=== PATIENT | male | born 1945 | race Caucasian/White ===

== ENCOUNTER 2016-07-06 12:04 | Inpatient (IN) ==
[2016-07-06] MEDS ORDERED: methylPREDNISolone 125 MG/2 ML VIAL IVP ONE (13:37)
[2016-07-06] MEDS ORDERED: Ipratropium/Albuterol Neb 3 ML IH ONE (13:37)
--- NOTE | 2016-07-06 13:40 | Emergency Department Note ---
Disposition Clinical Impression: Acute exacerbation of chronic obstructive airways disease Disposition: Home, Self-Care Condition: Fair General Adult HPI - General Chief complaint: ED Shortness of Breath/Dyspnea Stated complaint: JYOTI Time Seen by Provider: 07/06/16 13:31 Source: patient Limitations: no limitations Nursing Notes Reviewed: Yes Vital Signs Reviewed: Yes - History of Present Illness Pain Scale: 5 - Related Data Home Medications Medication Instructions Recorded Confirmed Albuterol Sulfate [Proair Hfa] 2 puff IH Q4H PRN 07/06/16 07/06/16 Amlodipine [Norvasc] 5 mg PO DAILY 07/06/16 07/06/16 Aspirin 325 mg PO DAILY 07/06/16 07/06/16 Esomeprazole Magnesium [Nexium 22.3 mg PO DAILY 07/06/16 07/06/16 24Hr] HYDROcodone/Acet 5/325 mg [[place] 1 tab PO 1-2XD PRN 07/06/16 07/06/16 5-325 mg] Ipratropium/Albuterol Neb [Duoneb] 3 ml IH QID PRN 07/06/16 07/06/16 Lisinopril [Zestril] 20 mg PO DAILY 07/06/16 07/06/16 Metoprolol XL (24 HR) Succ [Toprol 50 mg PO DAILY 07/06/16 07/06/16 XL] Promethazine [Phenergan] 25 mg PO Q6HR PRN 07/06/16 07/06/16 Allergies Allergy/AdvReac Type Severity Reaction Status Date / Time No Known Allergies Allergy Verified 08/25/15 14:14 Past Medical History - Past Medical History Medical history: Reports: COPD, coronary artery disease, GERD, hyperlipidemia, hypertension, myocardial infarction, other Psychiatric history: Reports: no psych history - Social History Smoking Status: Current every day smoker Smokeless Tobacco Status: No Alcohol use: Reports: none Drug use: Reports: none Physical Exam - General Limitations: no limitations General appearance: alert, in no apparent distress Course Vital Signs Temperature 98.1 F 07/06/16 12:09 Pulse Rate 113 07/06/16 12:09 Respiratory Rate 18 07/06/16 12:09 Blood Pressure 168/92 07/06/16 12:09 O2 Sat by Pulse Oximetry 92 L 07/06/16 12:09 Temperature 97.8 F 07/06/16 17:08 Pulse Rate 77 07/06/16 17:08 Respiratory Rate 28 07/06/16 17:08 Blood Pressure 101/64 07/06/16 17:08 O2 Sat by Pulse Oximetry 96 07/06/16 17:08 Oxygen Delivery Oxygen Delivery Nasal Cannula Medical Decision Making - MDM Narrative Medical decision making narrative: I examined this patient and my medical decision-making was reviewed with the BED MACHINE OPERATOR/PA/Advanced Practice Nurse/Resident Physician. I agree with the documented findings, disposition and treatment plan as described except to the extent set forth below. Evaluated this patient on arrival with Dr. Bianchi, I agree with his evaluation and management plan, supervised the care of the patient felt stated. Patient history of COPD. His smoking but not the last 2 days. Worse at night. No chest pain. Benadryl workup on him breathing treatments and reassessed. He is in agreement with plan. Chest X-Ray 07/06/16 13:32 IMPRESSION: No acute cardiopulmonary disease. D/ / Travis Lu MD / Travis Lu MD Interpreting Provider: Travis Lu MD . 1550 hrs.: Admission through the hospitalist service. Patient's agreement this plan. - Lab Data Result diagrams: 07/06/16 13:50 07/06/16 13:50 Lab Results 07/06/16 07/06/16 07/06/16 Range/Units 13:50 13:50 13:50 WBC 7.4 (4.3-11.1) K/mcL RBC 4.92 (4.19-5.50) M/mcL Hgb 14.8 (12.9-16.9) g/dL Hct 44.6 (37.5-50.1) % MCV 90.7 (83.0-100.0) fL MCH 30.1 (28.0-33.3) pg MCHC 33.2 (31.6-35.5) g/dL RDW 13.8 (11.5-14.5) % Plt Count 180 (140-400) K/mcL MPV 11.5 (9.4-12.4) fL Immature Gran % 0.7 (0-4) % Seg Neutrophils % 77.8 % Lymphocytes % 7.7 % Monocytes % 13.1 % Eosinophils % 0.0 % Basophils % 0.7 % Neutrophils # 5.7 (1.6-8.9) K/mcL Lymphocytes # 0.6 (0.6-4.6) K/mcL Monocytes # 1.0 (0.0-1.3) K/mcL Eosinophils # 0.0 (0.0-0.6) K/mcL Basophils # 0.1 (0.0-0.2) K/mcL Immature Plt Fraction 11.0 H (1.1-6.1) % PT 13.6 H (9.4-12.1) Seconds INR 1.3 APTT 27.5 (26.0-36.0) Seconds ABG pH (7.32-7.45) pH Units ABG pCO2 (35-45) mmHg ABG pO2 (85-104) mmHg ABG HCO3 (21-27) mEQ/L ABG Total CO2 (20-26) mEq/L ABG O2 Saturation (95-98) % ABG Base Excess (-2.0 to 3.0) mEq/L Blood Gas Modality Inspired O2 % Sodium 136 (136-145) mEq/L Potassium 4.1 (3.5-4.5) mEq/L Chloride 101 (98-109) mEq/L Carbon Dioxide 25 (19-29) mEq/L BUN 13 (8-26) mg/dL Creatinine 1.04 (0.72-1.25) mg/dL Est GFR ( Amer) > 60 (> 60) Est GFR (Non-Af Amer) > 60 (> 60) BUN/Creatinine Ratio 13 (6-26) Glucose 114 H (70-99) mg/dL Calculated Osmolality 283 (280-300) Lactic Acid (0.5-2.2) mmol/L Calcium 9.1 (8.6-10.8) mg/dL Troponin I (0-0.03) ng/mL B-Natriuretic Peptide (0-100) pg/mL 07/06/16 07/06/16 07/06/16 Range/Units 13:50 13:50 13:50 WBC (4.3-11.1) K/mcL RBC (4.19-5.50) M/mcL Hgb (12.9-16.9) g/dL Hct (37.5-50.1) % MCV (83.0-100.0) fL MCH (28.0-33.3) pg MCHC (31.6-35.5) g/dL RDW (11.5-14.5) % Plt Count (140-400) K/mcL MPV (9.4-12.4) fL Immature Gran % (0-4) % Seg Neutrophils % % Lymphocytes % % Monocytes % % Eosinophils % % Basophils % % Neutrophils # (1.6-8.9) K/mcL Lymphocytes # (0.6-4.6) K/mcL Monocytes # (0.0-1.3) K/mcL Eosinophils # (0.0-0.6) K/mcL Basophils # (0.0-0.2) K/mcL Immature Plt Fraction (1.1-6.1) % PT (9.4-12.1) Seconds INR APTT (26.0-36.0) Seconds ABG pH (7.32-7.45) pH Units ABG pCO2 (35-45) mmHg ABG pO2 (85-104) mmHg ABG HCO3 (21-27) mEQ/L ABG Total CO2 (20-26) mEq/L ABG O2 Saturation (95-98) % ABG Base Excess (-2.0 to 3.0) mEq/L Blood Gas Modality Inspired O2 % Sodium (136-145) mEq/L Potassium (3.5-4.5) mEq/L Chloride (98-109) mEq/L Carbon Dioxide (19-29) mEq/L BUN (8-26) mg/dL Creatinine (0.72-1.25) mg/dL Est GFR ( Amer) (> 60) Est GFR (Non-Af Amer) (> 60) BUN/Creatinine Ratio (6-26) Glucose (70-99) mg/dL Calculated Osmolality (280-300) Lactic Acid 1.5 (0.5-2.2) mmol/L Calcium (8.6-10.8) mg/dL Troponin I 0.00 (0-0.03) ng/mL B-Natriuretic Peptide 48 (0-100) pg/mL 07/06/16 Range/Units 14:10 WBC (4.3-11.1) K/mcL RBC (4.19-5.50) M/mcL Hgb (12.9-16.9) g/dL Hct (37.5-50.1) % MCV (83.0-100.0) fL MCH (28.0-33.3) pg MCHC (31.6-35.5) g/dL RDW (11.5-14.5) % Plt Count (140-400) K/mcL MPV (9.4-12.4) fL Immature Gran % (0-4) % Seg Neutrophils % % Lymphocytes % % Monocytes % % Eosinophils % % Basophils % % Neutrophils # (1.6-8.9) K/mcL Lymphocytes # (0.6-4.6) K/mcL Monocytes # (0.0-1.3) K/mcL Eosinophils # (0.0-0.6) K/mcL Basophils # (0.0-0.2) K/mcL Immature Plt Fraction (1.1-6.1) % PT (9.4-12.1) Seconds INR APTT (26.0-36.0) Seconds ABG pH 7.36 (7.32-7.45) pH Units ABG pCO2 51 H (35-45) mmHg ABG pO2 147 H (85-104) mmHg ABG HCO3 28.8 H (21-27) mEQ/L ABG Total CO2 30.4 H (20-26) mEq/L ABG O2 Saturation 99 H (95-98) % ABG Base Excess 2.4 (-2.0 to 3.0) mEq/L Blood Gas Modality AEROSAL MASK Inspired O2 60 % Sodium (136-145) mEq/L Potassium (3.5-4.5) mEq/L Chloride (98-109) mEq/L Carbon Dioxide (19-29) mEq/L BUN (8-26) mg/dL Creatinine (0.72-1.25) mg/dL Est GFR ( Amer) (> 60) Est GFR (Non-Af Amer) (> 60) BUN/Creatinine Ratio (6-26) Glucose (70-99) mg/dL Calculated Osmolality (280-300) Lactic Acid (0.5-2.2) mmol/L Calcium (8.6-10.8) mg/dL Troponin I (0-0.03) ng/mL B-Natriuretic Peptide (0-100) pg/mL
--- NOTE | 2016-07-06 14:04 | Emergency Department Note ---
Disposition Clinical Impression: Acute exacerbation of chronic obstructive airways disease Disposition: Home, Self-Care Condition: Fair Referrals: Jarred Shaw, INSTRUMENT MAKER APPRENTICE [Primary Care Provider] - Forms: ED Satisfaction Letter Time of Disposition: 15:52 SOB HPI - General Chief Complaint: ED Shortness of Breath/Dyspnea Stated Complaint: JYOTI Time Seen by Provider: 07/06/16 13:31 Source: patient Limitations: no limitations Nursing Notes Reviewed: Yes Vital Signs Reviewed: Yes - History of Present Illness 71-year-old male with history of CAD sp stent RCA, COPD not oxygen dependent, presents with shortness of breath and cough for the last few weeks. Patient states that he has been having trouble catching his breath. Patient was seen by Dr. Ayers pulmonology, and for the pulmonary rehabilitation a few months ago. He continues to be a smoker, he states he has not smoked for the last 2-3 days. Pt Subjective Complaint: shortness of breath Onset (ago): week(s) Severity: moderate Improves with: nothing Worsens with: nothing Known history of: COPD Associated symptoms: Reports: fever, cough, wheezing, sputum production Treatment prior to arrival: oxygen Cough present: Yes Cough Description: Voluntary Cough Frequency: Continuous Sputum production: Yes Sputum Amount: Scant Sputum Color: Clear - Related Data Home Medications Medication Instructions Recorded Confirmed Albuterol Sulfate [Proair Hfa] 2 puff IH Q4H PRN 07/06/16 07/06/16 Amlodipine [Norvasc] 5 mg PO DAILY 07/06/16 07/06/16 Aspirin 325 mg PO DAILY 07/06/16 07/06/16 Esomeprazole Magnesium [Nexium 22.3 mg PO DAILY 07/06/16 07/06/16 24Hr] HYDROcodone/Acet 5/325 mg [[place] 1 tab PO 1-2XD PRN 07/06/16 07/06/16 5-325 mg] Ipratropium/Albuterol Neb [Duoneb] 3 ml IH QID PRN 07/06/16 07/06/16 Lisinopril [Zestril] 20 mg PO DAILY 07/06/16 07/06/16 Metoprolol XL (24 HR) Succ [Toprol 50 mg PO DAILY 07/06/16 07/06/16 XL] Promethazine [Phenergan] 25 mg PO Q6HR PRN 07/06/16 07/06/16 Allergies Allergy/AdvReac Type Severity Reaction Status Date / Time No Known Allergies Allergy Verified 08/25/15 14:14 Review of Systems: All systems were reviewed with historian and negative except as per below, or as documented in the HPI. Constitutional: Denies: fever, chills, weight changes Eyes: Denies: vision changes, eye pain ENT: Denies: nasal congestion, sore throat CV: Denies: chest pain, palpitations, leg swelling Resp:+ cough, dyspnea, wheezing GI: Denies: abdominal pain, N/V/D/C, hematochezia, melena Neuro: Denies: R[place], weakness, sensory changes, gait difficulty Psych: Denies: anxiety, depression All systems ED: reviewed and negative except as stated. Past Medical History - Past Medical History Attestation: Yes The following information was validated with the patient. [facility] [place] Narrative: Abdominal aortic aneurysm HTN ACID REFLUX COPD Coronary artery disease Hyperlipidemia Broken Back (no surgery) COPD (chronic obstructive pulmonary disease) COPD (chronic obstructive pulmonary disease) Source: patient Medical history: Reports: COPD, coronary artery disease, GERD, hyperlipidemia, hypertension, myocardial infarction, other Psychiatric history: Reports: no psych history - Social History Smoking Status: Current every day smoker Smokeless Tobacco Status: No Alcohol use: Reports: none Drug use: Reports: none Physical Exam Constitutional: Moderate tachycardic and tachypneic, working to breathe mild respiratory distress. HEENT: NCAT, sclera anicteric, PERRLA bilaterally, normal external ears bilaterally, nasal septum nondeviated, average dentition, MMM Neck: normal inspection, neck is supple, trachea midline, no JVD Resp: Diminish lung sounds bilaterally, decreased respiratory prolonged expiratory phase, scattered wheezes bilaterally. CV: Tachycardia no m/g/r, Pulses +2 Rad, +2 DP/PT bilaterally, no pedal edema GI: Incision c/w with previous AAA repair, Soft, NTND, BS present and normoactive Back: normal inspection, no tenderness to palpation Skin: No rashes, skin warm, dry, intact - General Limitations: no limitations General appearance: alert, in no apparent distress Course Course Narrative: 71-year-old male with probable superior exacerbation, sounds bilaterally wheezy , cp workup, labs duonebs and ABG ordered - Reevaluation(s) Reevaluation #1: Patient with mild to moderate us DuoNeb treatment, still did have tight diminished breath sounds bilaterally with respiratory wheezes, after removing nasal cannula patient dropped down to 87% without exertion, place patient back on 3 L nasal cannula, improved to 93%, platelet admitted to the hospitalist for acute exacerbation of COPD, patient in stable condition at the time of admission Time: 15:52 Vital Signs Temperature 98.1 F 07/06/16 12:09 Pulse Rate 113 07/06/16 12:09 Respiratory Rate 18 07/06/16 12:09 Blood Pressure 168/92 07/06/16 12:09 O2 Sat by Pulse Oximetry 92 L 07/06/16 12:09 Temperature 98.1 F 07/06/16 12:09 Pulse Rate 95 07/06/16 14:27 Respiratory Rate 24 07/06/16 14:27 Blood Pressure 107/70 07/06/16 14:27 O2 Sat by Pulse Oximetry 98 07/06/16 14:27 Oxygen Delivery Oxygen Delivery Nasal Cannula Shortness of Breath/Dyspnea - Differential Diagnosis Likely: acute exacerbation of chronic obstructive airways disease, congestive heart failure, pneumonia, pulmonary embolism - Medical Records Medical records reviewed: Yes I reviewed the patient's medical records. - Lab Data Lab results reviewed: Yes I reviewed the patient's lab results. Result diagrams: 07/06/16 13:50 07/06/16 13:50 Lab Results 07/06/16 07/06/16 07/06/16 Range/Units 13:50 13:50 13:50 WBC 7.4 (4.3-11.1) K/mcL RBC 4.92 (4.19-5.50) M/mcL Hgb 14.8 (12.9-16.9) g/dL Hct 44.6 (37.5-50.1) % MCV 90.7 (83.0-100.0) fL MCH 30.1 (28.0-33.3) pg MCHC 33.2 (31.6-35.5) g/dL RDW 13.8 (11.5-14.5) % Plt Count 180 (140-400) K/mcL MPV 11.5 (9.4-12.4) fL Immature Gran % 0.7 (0-4) % Seg Neutrophils % 77.8 % Lymphocytes % 7.7 % Monocytes % 13.1 % Eosinophils % 0.0 % Basophils % 0.7 % Neutrophils # 5.7 (1.6-8.9) K/mcL Lymphocytes # 0.6 (0.6-4.6) K/mcL Monocytes # 1.0 (0.0-1.3) K/mcL Eosinophils # 0.0 (0.0-0.6) K/mcL Basophils # 0.1 (0.0-0.2) K/mcL Immature Plt Fraction 11.0 H (1.1-6.1) % PT 13.6 H (9.4-12.1) Seconds INR 1.3 APTT 27.5 (26.0-36.0) Seconds ABG pH (7.32-7.45) pH Units ABG pCO2 (35-45) mmHg ABG pO2 (85-104) mmHg ABG HCO3 (21-27) mEQ/L ABG Total CO2 (20-26) mEq/L ABG O2 Saturation (95-98) % ABG Base Excess (-2.0 to 3.0) mEq/L Blood Gas Modality Inspired O2 % Sodium 136 (136-145) mEq/L Potassium 4.1 (3.5-4.5) mEq/L Chloride 101 (98-109) mEq/L Carbon Dioxide 25 (19-29) mEq/L BUN 13 (8-26) mg/dL Creatinine 1.04 (0.72-1.25) mg/dL Est GFR ( Amer) > 60 (> 60) Est GFR (Non-Af Amer) > 60 (> 60) BUN/Creatinine Ratio 13 (6-26) Glucose 114 H (70-99) mg/dL Calculated Osmolality 283 (280-300) Lactic Acid (0.5-2.2) mmol/L Calcium 9.1 (8.6-10.8) mg/dL Troponin I (0-0.03) ng/mL B-Natriuretic Peptide (0-100) pg/mL 07/06/16 07/06/16 07/06/16 Range/Units 13:50 13:50 13:50 WBC (4.3-11.1) K/mcL RBC (4.19-5.50) M/mcL Hgb (12.9-16.9) g/dL Hct (37.5-50.1) % MCV (83.0-100.0) fL MCH (28.0-33.3) pg MCHC (31.6-35.5) g/dL RDW (11.5-14.5) % Plt Count (140-400) K/mcL MPV (9.4-12.4) fL Immature Gran % (0-4) % Seg Neutrophils % % Lymphocytes % % Monocytes % % Eosinophils % % Basophils % % Neutrophils # (1.6-8.9) K/mcL Lymphocytes # (0.6-4.6) K/mcL Monocytes # (0.0-1.3) K/mcL Eosinophils # (0.0-0.6) K/mcL Basophils # (0.0-0.2) K/mcL Immature Plt Fraction (1.1-6.1) % PT (9.4-12.1) Seconds INR APTT (26.0-36.0) Seconds ABG pH (7.32-7.45) pH Units ABG pCO2 (35-45) mmHg ABG pO2 (85-104) mmHg ABG HCO3 (21-27) mEQ/L ABG Total CO2 (20-26) mEq/L ABG O2 Saturation (95-98) % ABG Base Excess (-2.0 to 3.0) mEq/L Blood Gas Modality Inspired O2 % Sodium (136-145) mEq/L Potassium (3.5-4.5) mEq/L Chloride (98-109) mEq/L Carbon Dioxide (19-29) mEq/L BUN (8-26) mg/dL Creatinine (0.72-1.25) mg/dL Est GFR ( Amer) (> 60) Est GFR (Non-Af Amer) (> 60) BUN/Creatinine Ratio (6-26) Glucose (70-99) mg/dL Calculated Osmolality (280-300) Lactic Acid 1.5 (0.5-2.2) mmol/L Calcium (8.6-10.8) mg/dL Troponin I 0.00 (0-0.03) ng/mL B-Natriuretic Peptide 48 (0-100) pg/mL 07/06/16 Range/Units 14:10 WBC (4.3-11.1) K/mcL RBC (4.19-5.50) M/mcL Hgb (12.9-16.9) g/dL Hct (37.5-50.1) % MCV (83.0-100.0) fL MCH (28.0-33.3) pg MCHC (31.6-35.5) g/dL RDW (11.5-14.5) % Plt Count (140-400) K/mcL MPV (9.4-12.4) fL Immature Gran % (0-4) % Seg Neutrophils % % Lymphocytes % % Monocytes % % Eosinophils % % Basophils % % Neutrophils # (1.6-8.9) K/mcL Lymphocytes # (0.6-4.6) K/mcL Monocytes # (0.0-1.3) K/mcL Eosinophils # (0.0-0.6) K/mcL Basophils # (0.0-0.2) K/mcL Immature Plt Fraction (1.1-6.1) % PT (9.4-12.1) Seconds INR APTT (26.0-36.0) Seconds ABG pH 7.36 (7.32-7.45) pH Units ABG pCO2 51 H (35-45) mmHg ABG pO2 147 H (85-104) mmHg ABG HCO3 28.8 H (21-27) mEQ/L ABG Total CO2 30.4 H (20-26) mEq/L ABG O2 Saturation 99 H (95-98) % ABG Base Excess 2.4 (-2.0 to 3.0) mEq/L Blood Gas Modality AEROSAL MASK Inspired O2 60 % Sodium (136-145) mEq/L Potassium (3.5-4.5) mEq/L Chloride (98-109) mEq/L Carbon Dioxide (19-29) mEq/L BUN (8-26) mg/dL Creatinine (0.72-1.25) mg/dL Est GFR ( Amer) (> 60) Est GFR (Non-Af Amer) (> 60) BUN/Creatinine Ratio (6-26) Glucose (70-99) mg/dL Calculated Osmolality (280-300) Lactic Acid (0.5-2.2) mmol/L Calcium (8.6-10.8) mg/dL Troponin I (0-0.03) ng/mL B-Natriuretic Peptide (0-100) pg/mL - Radiology Data Radiology results reviewed: Yes I reviewed the patient's radiology results. Chest X-Ray 07/06/16 13:32 IMPRESSION: No acute cardiopulmonary disease. D/ / Travis Lu MD / Travis Lu MD Interpreting Provider: Travis Lu MD - EKG Data EKG attestation: Yes I reviewed and interpreted this EKG. EKG shows normal: Reports: sinus rhythm Rate: Reports: tachycardia (1 14 bpm LA interval 150 QRS 98 QTc 385. No evidence of ST segment elevations or depressions) Rhythm: Reports: NSR [place]/QRS: Reports: normal Interpretation: Reports: no acute changes, unchanged when compared to prior tracing (date) - Core Measures AMI Core Measures Followed: No
[2016-07-06 14:07] LABS: Basophils # 0.1 K/mcL (0.0-0.2); Basophils % 0.7 %; Hematocrit 44.6 % (37.5-50.1); Hemoglobin 14.8 g/dL (12.9-16.9); Immature Granulocytes % 0.7 % (0-4); Lymphocytes # 0.6 K/mcL (0.6-4.6); Lymphocytes % 7.7 %; Mean Corpuscular HGB Conc 33.2 g/dL (31.6-35.5); Mean Corpuscular Hemoglobin 30.1 pg (28.0-33.3); Mean Corpuscular Volume 90.7 fL (83.0-100.0); Mean Platelet Volume 11.5 fL (9.4-12.4); Monocytes % 13.1 %; Neutrophils # 5.7 K/mcL (1.6-8.9); Platelet Count 180 K/mcL (140-400); Red Blood Count 4.92 M/mcL (4.19-5.50); Red Cell Distribution Width 13.8 % (11.5-14.5); Segmented Neutrophils % 77.8 %
[2016-07-06 14:14] LABS: INR 1.3; Prothrombin Time 13.6 Seconds (9.4-12.1)
[2016-07-06 14:17] LABS: Activated Partial Thrombo Time 27.5 Seconds (26.0-36.0)
[2016-07-06 14:19] LABS: BUN/Creatinine Ratio 13 (6-26); Blood Urea Nitrogen 13 mg/dL (8-26); Calcium 9.1 mg/dL (8.6-10.8); Carbon Dioxide 25 mEq/L (19-29); Chloride 101 mEq/L (98-109); Glucose 114 mg/dL (70-99); Osmolality,Calculated 283 (280-300); Potassium 4.1 mEq/L (3.5-4.5); Sodium 136 mEq/L (136-145); eGFR For African Americans > 60 (> 60); eGFR For Non-African Americans > 60 (> 60)
[2016-07-06 14:24] LABS: ABG Base Excess 2.4 mEq/L (-2.0 to 3.0); ABG HCO3 28.8 mEQ/L (21-27); ABG Oxygen Saturation 99 % (95-98); ABG PCO2 51 mmHg (35-45); ABG PH 7.36 pH Units (7.32-7.45); ABG PO2 147 mmHg (85-104); ABG TCO2 30.4 mEq/L (20-26); Blood Gas FiO2 60 %
[2016-07-06] MEDS ORDERED: Naloxone 0.4 MG/ML INJ IVP PRN (16:30)
[2016-07-06] MEDS ORDERED: Ondansetron 4 MG/2 ML VIAL IVP PRN (16:30)
[2016-07-06] MEDS ORDERED: Acetaminophen 325 MG TABLET PO PRN (16:30)
[2016-07-06] MEDS ORDERED: *HR* HYDROcodone/Acet 5/325 mg TABLET PO PRN (16:32)
--- NOTE | 2016-07-06 16:39 | Internal Med History&Physical ---
Date of Encounter: 07/06/16 Time of Encounter: 16:00 Assessment and Plan (1) Acute exacerbation of chronic obstructive airways disease Current visit: Yes Status: Acute 1 history of COPD no oxygen use at home at this time patient is experiencing increasing shortness of breath over the past few days even at rest. Upon presentation oxygen saturation 92%. We will continue with oxygen to maintain SPO2 greater than 92% 2 Will obtain 6 minute walk test to assess for home oxygen 3 we will continue with bronchodilators 4 we will continue with IV Solu-Medrol to taper 5 patient follow up with as outpatient 6 [facility] Internal Medicine - H&P: HPI Chief complaint: SOB Admitted From: Emergency Dept Plans for Post Hospital Care: Home History of present illness: Mr. Segura is a 71 year old male with a past medical history of AAA with repair , CAD with stent placement, hypertension COPD chronic back pain tobacco use. According to the patient he does have history of shortness of breath on exertion as well as a chronic cough however since Monday he has been experiencing increasing shortness of breath even while at rest. He has not been able to sleep and last night he was up several times utilizing nebulizer to relieve his symptoms. He also states that he normally smokes 2 packs a day however he has not been able to smoke due to his increasing shortness of breath. He has had a low-grade fever at 99, however denies any nausea vomiting diarrhea abdominal pain or chest pain. He denies any recent travel he has been exposed to sick relatives, questionable flu. He presented to the ER due to increasing shortness of breath. According to ER records patient presented with SPO2 of 92% ABG revealed pH 7.36 PCO2 51 PO2 147 bicarbonate 20.8 O2 sat 99%. He was placed on oxygen at 4 L nasal cannula given duo nebs as well as steroids. Chest x-ray revealed no acute cardiopulmonary disease , lab work was unremarkable EKG with no ischemic changes. He is admitted for further workup and evaluation. Presently patient does not appear to be in any respiratory distress oxygen saturation is 9495% on 4 L nasal cannula. Upon position change patient's oxygen saturation did drop down to 92 he did become tachypneic respiratory rate 30. Breath sounds are diminished with little air exchange occasional faint expiratory wheeze. Patient rested oxygen saturation improved as well as respiratory rate. I reviewed the case with Dr. Morton who agrees with plan. Assessment/plan acute hypoxic respiratory failure-upon presentation patient's SPO2 92%-O2 sats drop with removal oxygen down to 88%.-Patient has a history of COPD as well as tobacco use. We will continue with oxygen maintain SPO2 greater than 92%- patient does not utilize oxygen at home will attempt to wean oxygen however will obtain 6 minute walk test for possible home oxygen use-continuous SPO2 monitoring 2 we will continue with steroids to taper 3 continue bronchodilators 4 blood cultures have been obtained we will give Levaquin by mouth 5 we will obtain flu swabs-patient has had sick contacts CAD with stent placement - we will continue patient's beta iván aspirin, erika Essential HTN- presently controlled we will continue with home medications - goal is to maintain systolic less than 140 Tobacco abuse-encouraged patient to stop smoking-nicotine patch DVT prophylaxis-Lovenox Past Med Surg Social Fam HX - Past Medical History Medical history: COPD, coronary artery disease, GERD, hyperlipidemia, hypertension, myocardial infarction, other Psychiatric history: no psych history - Social History Smoking Status: Current every day smoker Smokeless Tobacco Status: No Alcohol use: none Drug use: none - Family History Mother Living Status: Hx Family Cardiac Disorders: Yes (chf) Brother Living Status: Still Living Hx Family Endocrine Disorder: Yes (dm) Internal Medicine - H&P: Meds Albuterol Sulfate [Proair Hfa] 2 puff IH Q4H PRN 07/06/16 [History] Amlodipine [Norvasc] 5 mg PO DAILY 07/06/16 [History] Aspirin 325 mg PO DAILY 07/06/16 [History] Esomeprazole Magnesium [Nexium 24Hr] 22.3 mg PO DAILY 07/06/16 [History] HYDROcodone/Acet 5/325 mg [[place] 5-325 mg] 1 tab PO 1-2XD PRN 07/06/16 [History] Ipratropium/Albuterol Neb [Duoneb] 3 ml IH QID PRN 07/06/16 [History] Lisinopril [Zestril] 20 mg PO DAILY 07/06/16 [History] Metoprolol XL (24 HR) Succ [Toprol XL] 50 mg PO DAILY 07/06/16 [History] Promethazine [Phenergan] 25 mg PO Q6HR PRN 07/06/16 [History] Allergies No Known Allergies Allergy (Verified 08/25/15 14:14) All Systems PM: A 10-system review of systems was performed and is negative for pertinent findings except as documented above in the HPI. - Constitutional Constitutional: fever(s) - Cardiovascular Cardiovascular ROS IM: dyspnea on exertion - Respiratory Respiratory: cough, dyspnea, dyspnea on exertion - Gastrointestinal Gastrointestinal: no abdominal pain, no diarrhea, no hematemesis, no hematochezia, no melena, no nausea, no vomiting - Musculoskeletal Musculoskeletal ROS IM: back pain, no numbness, no tingling - Neurological Neurological ROS: no confusion, no convulsions, no focal weakness, no numbness, no tingling, no tremor(s) - Constitutional Vitals: Temp Pulse Resp BP Pulse Ox 98.1 F 95 24 107/70 98 07/06/16 12:09 07/06/16 14:27 07/06/16 14:27 07/06/16 14:27 07/06/16 14:27 General appearance: Present: A&O X 3, answers questions appropriately - Head Head exam: Present: atraumatic, normocephalic - Eye Eye exam: Present: PERRL, conjuntiva pink, sclera anicteric Pupils: Present: PERRL - Neck Neck exam general surgery: Present: supple, trachea midline. Absent: lymphadenopathy - Respiratory Respiratory exam: Present: decreased breath sounds, wheezes. Absent: accessory muscle use, rales, rhonchi - Cardiovascular Cardiovascular exam: Present: RRR, +S1, +S2. Absent: diastolic murmur, gallop, rubs, systolic murmur - GI/Abdominal GI/Abdominal exam: Present: normal bowel sounds, soft, no peritoneal signs. Absent: distended, tenderness - Extremities Exam Extremities exam: Present: warm, radial pulses palpable and symetrical. Absent : calf tenderness, cyanotic, pedal edema - Neurological Exam Neurological exam: Present: CN II-XII intact, oriented X3, no focal deficits. Absent: pronater drift, facial droop, speech deficit Internal Med - H&P Results - Labs CBC & Chem 7: 07/06/16 13:50 07/06/16 13:50 - EKG Data EKG shows normal: sinus rhythm Rate: tachycardia - EKG Data Prior EKG available for review: yes When compared to previous EKG: there is no significant change EKG comments: 07/06/16 17:[address] Morton - Diagnostic Studies Chest x-ray Additional comments: Per radiology reading of acute cardiopulmonary disease
[2016-07-06] MEDS: Nicotine 14 MG PATCH.TD24 TD SCH (17:16)
[2016-07-06] MEDS: methylPREDNISolone 125 MG/2 ML VIAL IVP SCH (17:16)
[2016-07-06] MEDS: Ipratropium/Albuterol Neb 3 ML IH SCH ×2 (17:18→23:13)
[2016-07-06] MEDS ORDERED: methylPREDNISolone 125 MG/2 ML VIAL IVP SCH (18:00)
[2016-07-06] MEDS: levoFLOXacin 500 MG TABLET PO SCH (19:46)
[2016-07-06 19:52] LABS: 2009 H1N1 PCR NOT DETECTED (Not Detect); Influenza A PCR Positive (Negative); Influenza B PCR Negative (Negative)
[2016-07-07] MEDS: methylPREDNISolone 125 MG/2 ML VIAL IVP SCH ×2 (00:04→06:32)
[2016-07-07] MEDS: *HR* HYDROcodone/Acet 5/325 mg TABLET PO PRN ×2 (03:00→23:02)
[2016-07-07] MEDS: Ipratropium/Albuterol Neb 3 ML IH SCH ×6 (05:31→19:57)
[2016-07-07 05:41] LABS: Basophils % 0.2 %; Hematocrit 42.1 % (37.5-50.1); Hemoglobin 14.1 g/dL (12.9-16.9); Immature Granulocytes % 1.3 % (0-4); Immature Platelets 13.3 % (1.1-6.1); Lymphocytes # 0.5 K/mcL (0.6-4.6); Lymphocytes % 9.9 %; Mean Corpuscular HGB Conc 33.5 g/dL (31.6-35.5); Mean Corpuscular Hemoglobin 30.5 pg (28.0-33.3); Mean Corpuscular Volume 91.1 fL (83.0-100.0); Monocytes # 0.2 K/mcL (0.0-1.3); Monocytes % 3.2 %; Platelet Count 178 K/mcL (140-400); Red Blood Count 4.62 M/mcL (4.19-5.50); Red Cell Distribution Width 13.7 % (11.5-14.5); Segmented Neutrophils % 85.4 %
[2016-07-07] MEDS: *HR* Enoxaparin 40 MG/0.4 ML SYRINGE SQ SCH (06:32)
[2016-07-07 07:01] LABS: BUN/Creatinine Ratio 21 (6-26); Blood Urea Nitrogen 20 mg/dL (8-26); Calcium 9.1 mg/dL (8.6-10.8); Carbon Dioxide 24 mEq/L (19-29); Chloride 102 mEq/L (98-109); Glucose 151 mg/dL (70-99); Osmolality,Calculated 292 (280-300); Potassium 4.1 mEq/L (3.5-4.5); Sodium 138 mEq/L (136-145); eGFR For African Americans > 60 (> 60); eGFR For Non-African Americans > 60 (> 60)
[2016-07-07] MEDS ORDERED: Lisinopril 20 MG TABLET PO SCH (09:00)
[2016-07-07] MEDS ORDERED: amLODIPine 5 MG TABLET PO SCH (09:00)
[2016-07-07] MEDS: levoFLOXacin 500 MG TABLET PO SCH (09:04)
[2016-07-07] MEDS: Aspirin 325 MG TABLET PO SCH (09:04)
[2016-07-07] MEDS: Nicotine 14 MG PATCH.TD24 TD SCH (09:04)
[2016-07-07] MEDS: Metoprolol XL (24 HR) Succ 50 MG TAB.ER.24H PO SCH (09:05)
--- NOTE | 2016-07-07 11:23 | Internal Med Progress Note ---
Date of Encounter: 07/07/16 Time of Encounter: 11:30 - Assessment and plan (1) Acute respiratory failure with hypoxemia Current Visit: No Status: Acute Assessment and plan: secondary to COPD exacerbation and influenza A infection. not on oxygen at home. Requiring 3.5- 4L of oxygen. 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 He developed symptoms two days later. start Tamiflu. (4) HTN (hypertension) Current Visit: Yes Status: Acute Assessment and plan: BP is low normal. hold home lisinopril. continue amlodipine with parameters Qualifiers: Hypertension type: essential hypertension Qualified Code(s): I10 - Essential (primary) hypertension (5) CAD (coronary artery disease) Current Visit: Yes Status: Acute Assessment and plan: stable. continue home meds Qualifiers: Coronary Disease-Associated Artery/Lesion type: [place] artery [place] vs. transplanted heart: [place] heart Associated angina: without angina Qualified Code(s): I25.10 - Atherosclerotic heart disease of [place] coronary artery without angina pectoris (6) Tobacco abuse Current Visit: Yes Status: Acute Assessment and plan: nicotine patch. counseled to quit - Subjective Interval history: patient still feels short of breath, minimal cough. - Constitutional Vitals: Temp Pulse Resp BP Pulse Ox 97.4 F L 67 18 100/67 94 L 07/07/16 04:56 07/07/16 04:56 07/07/16 11:10 07/07/16 04:56 07/07/16 11:10 General appearance: Present: cooperative, mild distress, A&O X 3, pleasant, answers questions appropriately - ENT ENT exam: Present: mucous membranes moist - Neck Neck exam general surgery: Present: supple, trachea midline. Absent: lymphadenopathy - Respiratory Respiratory exam: Present: decreased breath sounds, respiratory distress (mild) , wheezes - Cardiovascular Cardiovascular exam: Present: RRR - GI/Abdominal GI/Abdominal exam: Present: normal bowel sounds, soft. Absent: distended, tenderness - Extremities Exam Extremities exam: Absent: pedal edema - Back Exam Back exam: Absent: CVA tenderness (L), CVA tenderness (R) - Neurological Exam Neurological exam: Present: alert, oriented X3, no focal deficits, strengths equal and symetr throughout - Skin Skin exam: Absent: rash Internal Medicine: Result - Labs CBC & Chem 7: 07/07/16 03:26 07/07/16 03:26 Labs: Short CBC 07/07/16 Range/Units 03:26 WBC 4.6 (4.3-11.1) K/mcL Hgb 14.1 (12.9-16.9) g/dL Hct 42.1 (37.5-50.1) % Plt Count 178 (140-400) K/mcL Neutrophils # 4.0 (1.6-8.9) K/mcL BMP 07/07/16 03:26 Sodium 138 Potassium 4.1 Chloride 102 Carbon Dioxide 24 BUN 20 Creatinine 0.94 Glucose 151 H Calcium 9.1 - ABG Interpretation ABG results: ABG ABG pH 7.36 pH Units (7.32-7.45) 07/06/16 14:10 ABG pCO2 51 mmHg (35-45) H 07/06/16 14:10 ABG pO2 147 mmHg (85-104) H 07/06/16 14:10 ABG O2 Saturation 99 % (95-98) H 07/06/16 14:10 PT/INR, D-dimer PT 13.6 Seconds (9.4-12.1) H 07/06/16 13:50 Consult Discharge Plan - Plan Referrals: Jarred Shaw, MANAGER RN [Primary Care Provider] - 07/14/16 3:20 pm (Please follow up as schedule...)
[2016-07-07] MEDS: Doxycycline 100 MG CAPSULE PO SCH ×3 (12:30→21:12)
[2016-07-07] MEDS: MethylPREDNISolone 40 MG/ML VIAL IVP SCH (17:09)
[2016-07-08] MEDS: Ipratropium/Albuterol Neb 3 ML IH SCH ×7 (00:47→23:40)
[2016-07-08] MEDS: *HR* Enoxaparin 40 MG/0.4 ML SYRINGE SQ SCH (06:16)
[2016-07-08] MEDS: MethylPREDNISolone 40 MG/ML VIAL IVP SCH ×2 (06:16→17:37)
--- NOTE | 2016-07-08 06:27 | Electrocardiograph Report ---
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
[2016-07-08 06:37] LABS: Basophils % 0.1 %; Hematocrit 42.1 % (37.5-50.1); Hemoglobin 13.8 g/dL (12.9-16.9); Immature Granulocytes % 0.9 % (0-4); Lymphocytes # 0.7 K/mcL (0.6-4.6); Lymphocytes % 3.5 %; Mean Corpuscular HGB Conc 32.8 g/dL (31.6-35.5); Mean Corpuscular Hemoglobin 29.9 pg (28.0-33.3); Mean Corpuscular Volume 91.3 fL (83.0-100.0); Mean Platelet Volume 11.9 fL (9.4-12.4); Monocytes # 1.2 K/mcL (0.0-1.3); Monocytes % 5.6 %; Neutrophils # 18.8 K/mcL (1.6-8.9); Platelet Count 196 K/mcL (140-400); Red Blood Count 4.61 M/mcL (4.19-5.50); Red Cell Distribution Width 13.7 % (11.5-14.5); Segmented Neutrophils % 89.9 %
[2016-07-08 06:51] LABS: BUN/Creatinine Ratio 31 (6-26); Blood Urea Nitrogen 27 mg/dL (8-26); Calcium 9.3 mg/dL (8.6-10.8); Carbon Dioxide 30 mEq/L (19-29); Chloride 103 mEq/L (98-109); Glucose 137 mg/dL (70-99); Magnesium 1.7 mg/dL (1.6-2.6); Osmolality,Calculated 297 (280-300); Potassium 4.4 mEq/L (3.5-4.5); Sodium 140 mEq/L (136-145); eGFR For African Americans > 60 (> 60); eGFR For Non-African Americans > 60 (> 60)
[2016-07-08] MEDS: Doxycycline 100 MG CAPSULE PO SCH ×3 (09:28→21:01)
[2016-07-08] MEDS: Metoprolol XL (24 HR) Succ 50 MG TAB.ER.24H PO SCH (09:28)
[2016-07-08] MEDS: Nicotine 14 MG PATCH.TD24 TD SCH (09:28)
[2016-07-08] MEDS: amLODIPine 5 MG TABLET PO SCH (09:28)
[2016-07-08] MEDS: Aspirin 325 MG TABLET PO SCH (09:29)
--- NOTE | 2016-07-08 17:25 | Internal Med Progress Note ---
Date of Encounter: 07/08/16 Time of Encounter: 15:00 - Assessment and plan (1) Acute respiratory failure with hypoxemia Current Visit: No Status: Acute Assessment and plan: secondary to COPD exacerbation and influenza A infection. Not on oxygen at home. CT chest was negative for any acute process, significant emphysema involves the bilateral lungs. Requiring 3.5 - 4L of oxygen. 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 He developed symptoms two days later. Tamiflu. (4) HTN (hypertension) Current Visit: Yes Status: Acute Assessment and plan: BP is low normal. hold home lisinopril. continue amlodipine with parameters Qualifiers: Hypertension type: essential hypertension Qualified Code(s): I10 - Essential (primary) hypertension (5) CAD (coronary artery disease) Current Visit: Yes Status: Acute Assessment and plan: stable. continue home meds Qualifiers: Coronary Disease-Associated Artery/Lesion type: [place] artery [place] vs. transplanted heart: [place] heart Associated angina: without angina Qualified Code(s): I25.10 - Atherosclerotic heart disease of [place] coronary artery without angina pectoris (6) Tobacco abuse Current Visit: Yes Status: Acute Assessment and plan: nicotine patch. counseled to quit - Subjective Interval history: patient still had JYOTI. no chest pain - Constitutional Vitals: Temp Pulse Resp BP Pulse Ox 98.1 F 72 20 116/72 93 L 07/08/16 15:13 07/08/16 15:13 07/08/16 16:11 07/08/16 15:13 07/08/16 16:11 General appearance: Present: cooperative, mild distress, A&O X 3, pleasant, answers questions appropriately - Eye Eye exam: Present: PERRL, sclera anicteric - Neck Neck exam general surgery: Present: supple, trachea midline. Absent: lymphadenopathy - Respiratory Respiratory exam: Present: wheezes - Cardiovascular Cardiovascular exam: Present: RRR - GI/Abdominal GI/Abdominal exam: Present: normal bowel sounds, soft. Absent: distended, tenderness - Extremities Exam Extremities exam: Absent: pedal edema - Back Exam Back exam: Absent: CVA tenderness (L), CVA tenderness (R) - Neurological Exam Neurological exam: Present: alert, oriented X3. Absent: facial droop, speech deficit - Skin Skin exam: Absent: rash Internal Medicine: Result - Labs CBC & Chem 7: 07/08/16 06:08 07/08/16 06:08 Labs: Short CBC 07/08/16 Range/Units 06:08 WBC 20.9 H D (4.3-11.1) K/mcL Hgb 13.8 (12.9-16.9) g/dL Hct 42.1 (37.5-50.1) % Plt Count 196 (140-400) K/mcL Neutrophils # 18.8 H (1.6-8.9) K/mcL BMP 07/08/16 06:08 Sodium 140 Potassium 4.4 Chloride 103 Carbon Dioxide 30 H BUN 27 H Creatinine 0.87 Glucose 137 H Calcium 9.3 - ABG Interpretation ABG results: ABG ABG pH 7.36 pH Units (7.32-7.45) 07/06/16 14:10 ABG pCO2 51 mmHg (35-45) H 07/06/16 14:10 ABG pO2 147 mmHg (85-104) H 07/06/16 14:10 ABG O2 Saturation 99 % (95-98) H 07/06/16 14:10 PT/INR, D-dimer PT 13.6 Seconds (9.4-12.1) H 07/06/16 13:50 Consult Discharge Plan - Plan Referrals: Jarred Shaw, SLUDGE FILTRATION OPERATOR [Primary Care Provider] - 07/14/16 3:20 pm (Please follow up as schedule...)
[2016-07-08] MEDS: *HR* HYDROcodone/Acet 5/325 mg TABLET PO PRN (21:02)
[2016-07-08] MEDS ORDERED: *HR* Dextrose 50 % in Water (Syg) 50 ML SYRINGE ONE (21:59)
[2016-07-09] MEDS: Ipratropium/Albuterol Neb 3 ML IH SCH ×3 (04:49→10:11)
[2016-07-09] MEDS: *HR* Enoxaparin 40 MG/0.4 ML SYRINGE SQ SCH (06:16)
[2016-07-09] MEDS: MethylPREDNISolone 40 MG/ML VIAL IVP SCH (06:17)
[2016-07-09 06:41] LABS: Basophils % 0.1 %; Hematocrit 42.8 % (37.5-50.1); Lymphocytes # 0.8 K/mcL (0.6-4.6); Lymphocytes % 4.9 %; Mean Corpuscular HGB Conc 32.7 g/dL (31.6-35.5); Mean Corpuscular Hemoglobin 29.8 pg (28.0-33.3); Mean Corpuscular Volume 91.1 fL (83.0-100.0); Mean Platelet Volume 11.8 fL (9.4-12.4); Monocytes % 6.5 %; Neutrophils # 13.9 K/mcL (1.6-8.9); Platelet Count 212 K/mcL (140-400); Red Cell Distribution Width 13.7 % (11.5-14.5); Segmented Neutrophils % 87.5 %
[2016-07-09 06:55] LABS: BUN/Creatinine Ratio 32 (6-26); Blood Urea Nitrogen 26 mg/dL (8-26); Calcium 9.1 mg/dL (8.6-10.8); Carbon Dioxide 28 mEq/L (19-29); Chloride 105 mEq/L (98-109); Glucose 127 mg/dL (70-99); Osmolality,Calculated 300 (280-300); Potassium 3.9 mEq/L (3.5-4.5); Sodium 142 mEq/L (136-145); eGFR For African Americans > 60 (> 60); eGFR For Non-African Americans > 60 (> 60)
[2016-07-09] MEDS: Doxycycline 100 MG CAPSULE PO SCH ×2 (09:23→20:08)
[2016-07-09] MEDS: Metoprolol XL (24 HR) Succ 50 MG TAB.ER.24H PO SCH (09:23)
[2016-07-09] MEDS: Aspirin Enteric Coated 325 MG Tablet PO SCH (09:24)
[2016-07-09] MEDS: amLODIPine 5 MG TABLET PO SCH (09:24)
[2016-07-09] MEDS: Nicotine 14 MG PATCH.TD24 TD SCH (09:24)
--- NOTE | 2016-07-09 10:25 | Internal Med Progress Note ---
Date of Encounter: 07/09/16 Time of Encounter: 10:00 - Assessment and plan (1) Atrial fibrillation with RVR Current Visit: Yes Status: Acute Assessment and plan: his heart rate went up to 130s. EKG showed afib rvr HR 116. IV 500 ml bolus. pt received 50 mg Toprol. telemetry. may need IV cardizem after IVF bolus. (2) Acute respiratory failure with hypoxemia Current Visit: No Status: Acute Assessment and plan: secondary to COPD exacerbation and influenza A infection. Not on oxygen at home. CT chest was negative for any acute process, significant emphysema involves the bilateral lungs. Requiring 4.5L of oxygen. 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 He developed symptoms two days later. Tamiflu. (5) HTN (hypertension) Current Visit: Yes Status: Acute Assessment and plan: BP is low normal. hold home lisinopril and amlodipine. Qualifiers: Hypertension type: essential hypertension Qualified Code(s): I10 - Essential (primary) hypertension (6) CAD (coronary artery disease) Current Visit: Yes Status: Acute Assessment and plan: stable. continue metoprolol and ASA Qualifiers: Coronary Disease-Associated Artery/Lesion type: [place] artery [place] vs. transplanted heart: [place] heart Associated angina: without angina Qualified Code(s): I25.10 - Atherosclerotic heart disease of [place] coronary artery without angina pectoris (7) Tobacco abuse Current Visit: Yes Status: Acute Assessment and plan: nicotine patch. counseled to quit - Subjective Interval history: this morning, his heart rate went up to 130s. EKG showed afib rvr HR 116. - Constitutional Vitals: Temp Pulse Resp BP Pulse Ox 97.5 F L 107 16 98/59 97 07/09/16 07:24 07/09/16 07:24 07/09/16 07:24 07/09/16 07:24 07/09/16 07:24 General appearance: Present: cooperative, mild distress, A&O X 3, pleasant, answers questions appropriately - ENT ENT exam: Present: mucous membranes dry - Neck Neck exam general surgery: Present: supple, trachea midline. Absent: lymphadenopathy - Respiratory Respiratory exam: Present: decreased breath sounds, wheezes - Cardiovascular Cardiovascular exam: Present: irregular rhythm, tachycardia - GI/Abdominal GI/Abdominal exam: Present: normal bowel sounds, soft. Absent: distended, tenderness - Extremities Exam Extremities exam: Absent: pedal edema - Back Exam Back exam: Absent: CVA tenderness (L), CVA tenderness (R) - Neurological Exam Neurological exam: Present: alert, oriented X3. Absent: facial droop, speech deficit - Skin Skin exam: Absent: rash Internal Medicine: Result - Labs CBC & Chem 7: 07/09/16 06:28 07/09/16 06:28 Labs: Short CBC 07/09/16 Range/Units 06:28 WBC 15.9 H (4.3-11.1) K/mcL Hgb 14.0 (12.9-16.9) g/dL Hct 42.8 (37.5-50.1) % Plt Count 212 (140-400) K/mcL Neutrophils # 13.9 H (1.6-8.9) K/mcL BMP 07/09/16 06:28 Sodium 142 Potassium 3.9 Chloride 105 Carbon Dioxide 28 BUN 26 Creatinine 0.81 Glucose 127 H Calcium 9.1 - ABG Interpretation ABG results: ABG ABG pH 7.36 pH Units (7.32-7.45) 07/06/16 14:10 ABG pCO2 51 mmHg (35-45) H 07/06/16 14:10 ABG pO2 147 mmHg (85-104) H 07/06/16 14:10 ABG O2 Saturation 99 % (95-98) H 07/06/16 14:10 PT/INR, D-dimer PT 13.6 Seconds (9.4-12.1) H 07/06/16 13:50 Consult Discharge Plan - Plan Referrals: Jarred Shaw, PHARMACEUTICAL SCIENTIST [Primary Care Provider] - 07/14/16 3:20 pm (Please follow up as schedule...)
[2016-07-09] MEDS: Ipratropium Neb 0.5 MG NEBULIZER IH SCH ×4 (11:26→23:40)
[2016-07-09] MEDS: Levalbuterol Neb 0.63 MG/3 ML IH SCH ×4 (11:26→23:40)
[2016-07-09] MEDS: *HR* HYDROcodone/Acet 5/325 mg TABLET PO PRN ×2 (14:02→20:08)
[2016-07-09] MEDS ORDERED: Sennosides/Docusate Sodium TABLET PO PRN (20:40)
[2016-07-10] MEDS: *HR* HYDROcodone/Acet 5/325 mg TABLET PO PRN ×2 (03:50→11:09)
[2016-07-10] MEDS: Ipratropium Neb 0.5 MG NEBULIZER IH SCH ×3 (04:27→11:30)
[2016-07-10] MEDS: Levalbuterol Neb 0.63 MG/3 ML IH SCH ×3 (04:27→11:30)
[2016-07-10] MEDS: *HR* Enoxaparin 40 MG/0.4 ML SYRINGE SQ SCH (06:28)
[2016-07-10 07:46] LABS: Basophils % 0.4 %; Hemoglobin 13.4 g/dL (12.9-16.9); Lymphocytes # 1.7 K/mcL (0.6-4.6); Lymphocytes % 15.6 %; Mean Corpuscular HGB Conc 32.7 g/dL (31.6-35.5); Mean Corpuscular Hemoglobin 30.6 pg (28.0-33.3); Mean Corpuscular Volume 93.6 fL (83.0-100.0); Monocytes # 1.1 K/mcL (0.0-1.3); Monocytes % 10.3 %; Neutrophils # 7.9 K/mcL (1.6-8.9); Platelet Count 192 K/mcL (140-400); Red Blood Count 4.38 M/mcL (4.19-5.50); Red Cell Distribution Width 13.9 % (11.5-14.5); Segmented Neutrophils % 71.7 %
[2016-07-10] MEDS: Nicotine 14 MG PATCH.TD24 TD SCH (08:29)
[2016-07-10] MEDS: Aspirin Enteric Coated 325 MG Tablet PO SCH (08:29)
[2016-07-10] MEDS: Doxycycline 100 MG CAPSULE PO SCH (08:29)
[2016-07-10] MEDS: Metoprolol XL (24 HR) Succ 50 MG TAB.ER.24H PO SCH (08:30)
[2016-07-10] MEDS ORDERED: MethylPREDNISolone 40 MG/ML VIAL IVP SCH (09:00)
--- NOTE | 2016-07-10 11:14 | Discharge Summary ---
Date of Encounter: 07/10/16 Time of Encounter: 11:00 - Discharge Diagnosis (1) Atrial fibrillation with RVR Priority: Primary Status: Acute (2) Acute respiratory failure with hypoxemia Priority: Primary Status: Acute (3) Acute exacerbation of chronic obstructive airways disease Priority: Primary Status: Acute (4) Influenza Priority: Primary Status: Acute (5) HTN (hypertension) Priority: Secondary Status: Chronic Qualifiers: Hypertension type: essential hypertension Qualified Code(s): I10 - Essential (primary) hypertension (6) CAD (coronary artery disease) Priority: Secondary Status: Chronic Qualifiers: Coronary Disease-Associated Artery/Lesion type: [place] artery [place] vs. transplanted heart: [place] heart Associated angina: without angina Qualified Code(s): I25.10 - Atherosclerotic heart disease of [place] coronary artery without angina pectoris (7) Tobacco abuse Priority: Secondary Status: Chronic - Discharge Medications Prescriptions: Ipratropium/Albuterol Neb [Duoneb] 3 ml IH Q4HR 30 Days Doxycycline 100 mg PO BID #6 capsule Nicotine Patch [Nicoderm] 14 mg TD DAILY #30 patch.td24 Oseltamivir [Tamiflu] 75 mg PO BID #7 capsule PredniSONE [Prednisone] 10 mg PO AD #14 tab.ds.pk Home Medications: Albuterol Sulfate [Proair Hfa] 2 puff IH Q4H PRN 07/06/16 [History] Aspirin 325 mg PO DAILY 07/06/16 [History] Esomeprazole Magnesium [Nexium 24Hr] 22.3 mg PO DAILY 07/06/16 [History] HYDROcodone/Acet 5/325 mg [[place] 5-325 mg] 1 tab PO 1-2XD PRN 07/06/16 [History] Metoprolol XL (24 HR) Succ [Toprol Xl] 50 mg PO DAILY 07/06/16 [History] Promethazine [Phenergan] 25 mg PO Q6HR PRN 07/06/16 [History] Doxycycline 100 mg PO BID #6 capsule 07/10/16 [Rx] GuaiFENesin ER [Mucinex] 600 mg PO BID #7 tbbp.12hr 07/10/16 [Rx] Ipratropium/Albuterol Neb [Duoneb] 3 ml IH Q4HR 30 Days 07/10/16 [Rx] Nicotine Patch [Nicoderm] 14 mg TD DAILY #30 patch.td24 07/10/16 [Rx] Oseltamivir [Tamiflu] 75 mg PO BID #7 capsule 07/10/16 [Rx] PredniSONE [Prednisone] 10 mg PO AD #14 tab.ds.pk 07/10/16 [Rx] Allergies/Adverse Reactions: Allergies No Known Allergies Allergy (Verified 08/25/15 14:14) Date of admission: 07/07/16 16:23 Primary care physician: Jarred Shaw CNP - Patient Status Disposition: Home, Self-Care Condition: Good Functional capacity at discharge: independent ambulation Overall status at discharge: patient is progressing back to baseline - Discharge Instructions Instructions: Doxycycline (By mouth), Oseltamivir (By mouth), Using Oxygen at Home (DC), Influenza Vaccine, Loading And Unloading Supervisor (GEN) Follow Up With: Jarred Shaw CNP [Primary Care Provider] - 07/14/16 3:20 pm (Please follow up as schedule...) Additional Instructions: check your blood pressure daily. drink at least 2.5 liters of fluids daily take it easy on daily activities but do not lay down on bed all day. - Diet and Activity Activity: resume usual activities as tolerated, wear oxygen at all times Diet: low fat, low cholesterol, low salt diet Interval History: pt still short of breath on exertion. no chest pain Hospital course: Mr. Segura is a 71 year old male with past medical history of CAD, hypertension , COPD, not oxygen dependent, AAA, chronic back pain and tobacco use. He presented with shortness of breath. He was admitted with diagnoses of acute respiratory failure with hypoxemia secondary to COPD exacerbation and influenza infection. CT chest was negative for any acute process, significant emphysema involving the bilateral lungs. He required 4.5 L of oxygen on admission and this was titrated down at discharge. He received nebulizations, IV Solu Medrol , Mucinex, doxycycline and Tamiflu. He improved clinically was ambulating and eating well the day of discharge. His hospital course was complicated by A. fib with RVR resolved after IV fluid hydration. He takes Toprol at home. PLAN: Patient was counseled to quit smoking. He was arranged for oxygen at home. He will continue nebulizations at home. Follow-up with PCP in one week. - Time Spent with Patient Total time spent providing and/or coordinating discharge services: - Constitutional Vitals: Temp Pulse Resp BP Pulse Ox 98.3 F 86 18 122/76 94 L 07/10/16 08:30 07/10/16 08:30 07/10/16 08:30 07/10/16 08:30 07/10/16 08:30 General appearance: Present: cooperative, mild distress, A&O X 3, pleasant, answers questions appropriately - Eye Eye exam: Present: PERRL, sclera anicteric - ENT ENT exam: Present: mucous membranes moist - Neck Neck exam general surgery: Present: supple, trachea midline. Absent: lymphadenopathy - Respiratory Respiratory exam: Present: decreased breath sounds. Absent: wheezes - Cardiovascular Cardiovascular exam: Present: RRR - GI/Abdominal GI/Abdominal exam: Present: normal bowel sounds, soft. Absent: distended, tenderness - Extremities Exam Extremities exam: Absent: pedal edema - Back Exam Back exam: Absent: CVA tenderness (L), CVA tenderness (R) - Neurological Exam Neurological exam: Present: alert. Absent: facial droop, speech deficit - Skin Skin exam: Present: dry
[2016-07-10 15:26] VITALS: BP 127/75
== END 2016-07-10 16:35 | disposition home or self-care (01) | DRG 193 ==
LOC: 2ANU 12:04 → EMEROO 12:04 → 2ANU 16:50
PROVIDERS: ADMIT Internal Medicine; ATTEND Internal Medicine

== ENCOUNTER 2016-10-20 06:52 | Inpatient (IN) ==
--- NOTE | 2016-10-19 14:10 | Anesthesia Evaluation PreOp ---
Date of Encounter: 10/20/16 Time of Encounter: 07:30 - Past History Planned Operation: CABG Cardiac History: DC, HTN, Hyperlipidemia, Cardiac Stent (2007 left circ), Other (CAD 3 vessel) Pulmonary History: Smoker (>50pkyr), COPD (severe, not on home O2) DISTRICT SUPERVISOR History: Denies Any Significant HX Other Medical History: GERD Anesthesia History: No Prior Anesthetic Complications, Past Anesthesia ( endovascular AAA) Alcohol Use: none Drug use: none Medications and Allergies Aspirin 325 mg PO DAILY 07/06/16 [History] HYDROcodone/Acet 5/325 mg [[place] 5-325 mg] 1 tab PO 1-2XD PRN 07/06/16 [History] Ipratropium/Albuterol Neb [Duoneb] 3 ml IH Q4HR 30 Days 07/10/16 [Rx] Atorvastatin [Lipitor] 80 mg PO DAILY 10/12/16 [History] Isosorbide MONOnitrate (24 HR) [Imdur] 30 mg PO DAILY 10/12/16 [History] Lisinopril [Zestril] 20 mg PO DAILY 10/12/16 [History] amLODIPine [Norvasc] 5 mg PO DAILY 10/12/16 [History] Albuterol Sulfate [Ventolin Hfa] 2 puff IH Q4H PRN 10/20/16 [History] Omeprazole [PriLOSEC] 40 mg PO DAILY 10/20/16 [History] Allergies No Known Allergies Allergy (Verified 10/20/16 07:19) - Meds/Allergy Pre-op Review Medications Reviewed: Yes Allergies Reviewed: Yes Beta Blockers on Current Med List: No Anesthesia Results - Labs Laboratory Tests 10/07/16 10/07/16 11:50 11:50 Hgb 13.2 Hct 39.6 Plt Count 264 Sodium 140 Potassium 4.6 H BUN 10 Creatinine 0.91 - Imaging EKG: report reviewed Chest x-ray: report reviewed Additional studies: Cath shows 3 vessel disease, positive nuclear stress test with inferior-lateral ischemia, EF 55% Anesthesia Exam Selected Entries 10/20/16 07:15 Temperature 98.8 F Pulse Rate 113 Respiratory Rate 18 Blood Pressure 102/69 O2 Sat by Pulse Oximetry 91 Weight: 77kg NPO (# of Hours): 8 Pain Scale: 0 Pain Scale Used: Numeric (1 - 10) - HEENT Pupil (Motor): EOMI Mallampati: II Teeth: Edentulous Oral Opening: Greater than 3 - DISTRICT SUPERVISOR LOC: Oriented DISTRICT SUPERVISOR Motor: Normal RUE, Normal LUE, Normal RLE, Normal LLE, Normal Face DISTRICT SUPERVISOR Sensory: Normal: RUE, LUE, RLE, LLE, Face - Cardiac Rhythm: Regular Murmur: None - Pulmonary Breath Sounds: bilateral Clear Respiratory Effort: Symmetrical Anesthesia Assess/Plan ASA Score: 4 Modified [place] Scale for Level of Consciousness: Cooperative, oriented, and tranquil Anesthetic Plan: General Monitoring Plan: Standard Monitors, A-Line, PAC, MEREDITH Recovery Plan: ICU (discussed risks of GA, lines, MEREDITH and blood. He is aware he is at high risk of pulmonary complications postop. Questions answered and agrees to proceed.)
[2016-10-20] MEDS ORDERED: *HR* Phenylephrine 10 MG/ML VIAL ONE (07:10)
[2016-10-20] MEDS ORDERED: *HR* Norepinephrine 4 MG/4 ML VIAL IVC ONE (07:10)
[2016-10-20] MEDS ORDERED: *HR* Rocuronium Bromide 50 MG/5 ML VIAL ONE (07:10)
[2016-10-20] MEDS ORDERED: Protamine Sulfate 250 MG/25 ML VIAL IVP ONE (07:11)
[2016-10-20] MEDS ORDERED: Famotidine 20 MG/2 ML VIAL ONE (07:11)
[2016-10-20] MEDS ORDERED: *HR* Etomidate 20 MG/10 ML AMPUL IVP ONE (07:11)
[2016-10-20] MEDS ORDERED: Tranexamic Acid 1,000 MG/10 ML VIAL ONE (07:11)
[2016-10-20] MEDS ORDERED: *HR* Midazolam HCl 5 MG/5 ML VIAL IVP ONE (07:17)
[2016-10-20] MEDS ORDERED: *HR* FentaNYL (PF) 1,000 MCG/20 ML VIAL ONE (07:18)
[2016-10-20] MEDS ORDERED: Nitroglycerin 25 MG/250 ML INFUS..BTL IVC ONE (07:20)
[2016-10-20] MEDS ORDERED: NiCARdipine 2.5 MG/10 ML Syringe IVPB ONE (07:21)
--- NOTE | 2016-10-20 07:23 | History & Physical Report ---
Date of Encounter: 10/20/16 Time of Encounter: 07:23 24 Hour HP Update - Instructions Instructions: If the History and Physical is less than 30 days old and was completed prior to A.M. admission and or procedure and has NOT been updated on calendar day of procedure please complete this update prior to performing procedure. - Update Patient reports changes in Medical Condition: No Changes in examination, assessment, or condition: No Changes in Medication: No Preop tests/diagnostics Reviewed: Yes Pre-Op MRSA Screen: Negative Surgery Remains Indicated: Yes Consent for Planned Operative Procedure(s) Verified: Yes - Pre-Operative Checklist Preoperative Checklist Indicated: No Prophylactic Antibiotic Ordered: Yes Home Medications Include Beta Kelsea: Yes Beta Kelsea Taken Today (Day of Surgery): Yes Beta Kelsea Taken Yesterday (Day Prior to Surgery): Yes Is VTE Prophylaxis Indicated?: NO
[2016-10-20] MEDS ORDERED: CeFAZolin Pre 2,000 MG/100 ML 2,000 MG/100 ML BAG IVPB ONE (07:25)
[2016-10-20] MEDS ORDERED: Lidocaine -MPF 1% 2 ML VIAL ID ONE (07:25)
[2016-10-20] MEDS ORDERED: Albuterol 2.5 MG/3 ML NEBULIZER IH ONE (07:28)
[2016-10-20] MEDS: Ringers Solution, Lactated 1,000 ML IVC SCH (07:36)
[2016-10-20] MEDS: Chlorhexidine Rinse 15 ML MOUTHWASH MM SCH ×2 (07:36→19:24)
[2016-10-20] MEDS ORDERED: Levalbuterol Neb 1.25 MG/3 ML IH ONE (07:44)
--- NOTE | 2016-10-20 09:22 | Anesthesia Procedures ---
Date of Encounter: 10/20/16 Time of Encounter: 08:20 Procedures: Anesthesia - Arterial Line Consent obtained: written consent Time out performed: Yes Sedation: Versed (mg): 1 Sedation: Fentanyl (mcg): 50 Supplemental Oxygen via Nasal Cannula (L/min): 2 Local Anesthetic: Lidocaine 1% Amount of Anesthetic used (mls): 1 Size (Gauge): 20 Length (inches): 5 Technique Used: sterile prep, guide wire technique, direct puncture technique Post-Procedure: line taped into place, dry sterile dressing placed Patient tolerated procedure: well, no complications Complications: none Site: Radial L (attempt x 1 easy) - Central Line Placement Right IJ Consent obtained: written consent Time out performed: Yes Patient placed on monitor/pulse ox: Yes prep: mask, gown, gloves Central line prep: Chlorhexidine scrub Ultrasound used for placement: Yes Technique: Seldinger Lumen Inserted: Introducer Post procedure: sutured in place, good blood return, all ports aspirated, flushed, capped, sterile dressing applied Patient tolerated procedure: well, no complications Complications: none (Introducer placed without issue, swan passed, no arrythmias , wedge at approx 76cm)
[2016-10-20] MEDS ORDERED: Albumin Human 5% 25.0 GM/500 ML VIAL ONE (11:23)
--- NOTE | 2016-10-20 11:50 | Operative Note ---
Date of procedure: 10/20/16 Pre-op diagnosis: CAD Post-op diagnosis: same Procedure: 1. CABG 4 (SVG to LAD, sequential SVG to D1 and then OM2, SVG to PDA). 2. Endoscopic vein harvesting, greater saphenous vein from right lower extremity. Implants: None. Complications: None. Anesthesia: FANNIE Surgeon: Anthony Sagastume Transportation Modeler: Avtar Owens Specimen: None. Condition: stable Disposition: ICU Procedure in Detail: INDICATIONS FOR OPERATION: The patient is a 71 year old hypertensive man with known CAD and severe COPD who has had progressive shortness of breath and dyspnea exertion since July 06, 2016. His cardiac history dates back to 2007 which time he underwent PCI with LCx stent placement. 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 On July 06, 2016 the patient was evaluated [facility] for severe shortness of breath and dyspnea on exertion. The symptoms had started several days earlier and he had difficulty power washing his house. He states he was able to perform similar activities in the previous year without difficulty. He was diagnosed with influenza A and spent several days in the hospital recovering from his respiratory distress. His senior automation engineer, Dr. Mendy Griffin, recommended that he be evaluated for possible coronary artery disease given the abrupt change in his breathing status. The patient underwent a nuclear stress test revealed an LVEF 53% with an inferolateral perfusion defect consistent with ischemia. The patient underwent cardiac catheterization today was found to have severe three-vessel CAD. In particular the patient has a 90-95% proximal LAD lesion, a 90% proximal LCx lesion, a 90% proximal OM1 lesion, and a 95% proximal RCA lesion. He has been recommended for high risk CABG. FINDINGS AT OPERATION: The aorta was of normal caliber without calcification. The coronary arteries measure proximally 1.5-2 mm in diameter and had minimal distal disease. The greater saphenous vein was harvested in its Kendra from the right lower extremity from the mid calf to the groin and was good quality. The left internal mammary artery (MURILLO) was not used given the patient's severe COPD. The total bypass time was 71 minutes, cross-clamp time 36 minutes, intentional hypothermia of 34.7C.\ DESCRIPTION OF OPERATION: After obtaining informed operative consent from the patient, he was taken to the operative satisfactory general endotracheal anesthetic was induced. Appropriate monitoring lines placed, the patient's chest, abdomen, and lower extremity were prepped and draped in a sterile fashion. The greater saphenous vein was harvested endoscopically from the right lower extremity from the mid calf to the groin. The vein was removed, distended, and found to be of good quality. Given the patient's severe COPD and in an effort to minimize the disruption to the patient's respiratory mechanics, the MURILLO was not harvested. A standard median sternotomy incision was made and the sternum divided. The sternum was and the pericardium opened and reflected laterally. The lungs were noted to be hyperinflated crossing the midline. The patient was prepared for cannulation by placing pursestring sutures the distal ascending aorta, mid-ascending aorta, and right atrial appendage. The patient was heparinized and when the ACT was greater than 200 seconds, the distal ascending aorta was cannulated followed by placement of a dual stage venous cannula through the right atrial appendage and into the IVC. A stab-and antegrade metabolic and was placed in the mid ascending aorta. The patient was placed on bypass and the temperature allowed to drift to 34.7 C. The distal targets were identified and the aorta was crossclamped. The patient received 700 mL of cold antegrade crystalloid cardioplegia through the aortic root and the patient's heart obtained rapid diastolic arrest. The PDA was opened with a [place] blade and the vein was anastomosed in an end-to-side fashion using running 7-0 Prolene suture. The anastomosis was found to be hemostatic. This process was then repeated for the OM2 branch. The anastomosis was found to be hemostatic. The D1 branch of the blade and the vein was opened in longitudinal fashion so the [id number]-vt-[id number] anastomosis could be completed using running 7-0 Prolene suture. The anastomosis was found to be hemostatic and the patient stated a final dose of cold antegrade crystalloid cardioplegia through the aortic root. The LAD was then opened with a [place] blade and the vein was anastomosed in an end-to-side fashion using running 7-0 Prolene suture. The anastomosis was found to be hemostatic. Rewarming was begun during this anastomosis. The aortic cross-clamp was released and the heart distended. The veins were measured and cut to appropriate lengths. A partial occluding clamp was placed across the aorta and the antegrade cardioplegia cannula was removed. Two additional aortotomy sites were made for left blade and all 3 sites were enlarged with a 4 mm punch. The veins were anastomosed to the aorta in an end-to -side fashion using a running 7-0 Prolene suture. The vein grafts were occluded with bulldog clamp and aortic 25-gauge needle prior to moving the partial occluding clamp. The proximal distal anastomoses were found to be hemostatic. The proximal anastomoses were marked radiopaque loops. Two right ventricular prep Carta patient was replaced, and two chest tissues were placed, one in the anterior mediastinum and one along the diaphragm. During rewarming the patient's heart regained normal sinus rhythm. When the patient's systemic temperature reached 36 C he was ventilated and received volume. He was then weaned from bypass and required no inotropic support. Protamine was administered and the aortic and venous cannulas were removed. The pursestring sutures were secured. The aortic cannulation site was reinforced with a pledgeted 4-0 Prolene suture and the venous cannulation site was reinforced with a running 4-0 Prolene suture. The pericardium could not be reapproximated across the midline due to excessive tension; however, due to the hyperexpansion of the lungs most of the anterior surface of the heart was covered. The sternum was reapproximated using doubled wires. The pectoralis major fascia, rectus abdominis fascia, subcutaneous tissue, and skin edges were reapproximated using running Vicryl sutures. Sterile dressings were applied. The patient was transferred to the ICU in satisfactory postoperative condition. There were no intraoperative complications, and the instrument, needle, and sponge count were correct at end of operation. - Open Heart Detail DAVID (Internal Mammary Artery) Usage: No (Patient has severe COPD.) Cardiopulmonary Bypass Time (mins): 71 Aortic Cross Clamp Time (mins): 36 Intentional Hypothermia Temperature (C.): 34.7
[2016-10-20] MEDS ORDERED: Magnesium Sulfate 2 GM in D5% in Water 100 ML IVPB PRN (11:51)
[2016-10-20] MEDS ORDERED: Acetaminophen 650 MG RECTAL SUPP RC PRN (11:51)
[2016-10-20] MEDS ORDERED: Calcium Chloride 1,000 MG in 0.9 % Sodium Chloride 100 ML IVPB PRN (11:51)
[2016-10-20] MEDS ORDERED: Naloxone 0.4 MG/ML INJ IVP PRN (11:51)
[2016-10-20] MEDS ORDERED: Potassium Chloride 40 MEQ/200 ML BAG IVPB PRN (11:51)
[2016-10-20] MEDS ORDERED: *HR* Dextrose 50 % in Water (Syg) 50 ML SYRINGE IVP PRN (11:51)
[2016-10-20] MEDS ORDERED: Insulin Regular, Human 100 UNIT/ML IV PRN (11:51)
[2016-10-20] MEDS ORDERED: Protamine Sulfate 50 MG/5 ML VIAL IVP ONE (11:54)
[2016-10-20] MEDS ORDERED: Mannitol 25% vial 12.5 GM/50 ML VIAL IVPB ONE (12:00)
[2016-10-20] MEDS ORDERED: *HR* Heparin 10,000 UNIT/10 ML VIAL IVP ONE (12:00)
[2016-10-20] MEDS ORDERED: Insulin Human Regular 100 UNIT in 0.9 % Sodium Chloride 100 ML IVC SCH (12:00)
[2016-10-20] MEDS ORDERED: Albumin Human 25% 25 GM/100 ML IV.SOLN IVC ONE (12:00)
[2016-10-20] MEDS ORDERED: *HR* Magnesium Sulfate 2 GM/50 ML PIGGYBACK IVPB ONE (12:00)
[2016-10-20] MEDS ORDERED: Lidocaine 2% Syringe 100 MG/5 ML IVP ONE (12:00)
[2016-10-20] MEDS: Norepinephrine 4 MG in D5% in Water 250 ML IVC SCH ×2 (12:10→21:01)
[2016-10-20 12:39] LABS: Basophils # 0.1 K/mcL (0.0-0.2); Basophils % 0.3 %; Eosinophils # 0.5 K/mcL (0.0-0.6); Eosinophils % 2.3 %; Hematocrit 31.3 % (37.5-50.1); Hemoglobin 10.4 g/dL (12.9-16.9); Immature Granulocytes % 2.3 % (0-4); Lymphocytes # 2.8 K/mcL (0.6-4.6); Lymphocytes % 13.2 %; Mean Corpuscular HGB Conc 33.2 g/dL (31.6-35.5); Mean Corpuscular Hemoglobin 30.3 pg (28.0-33.3); Mean Corpuscular Volume 91.3 fL (83.0-100.0); Mean Platelet Volume 11.3 fL (9.4-12.4); Monocytes # 1.7 K/mcL (0.0-1.3); Monocytes % 7.9 %; Neutrophils # 15.5 K/mcL (1.6-8.9); Platelet Count 112 K/mcL (140-400); Red Blood Count 3.43 M/mcL (4.19-5.50); Red Cell Distribution Width 13.7 % (11.5-14.5)
[2016-10-20 12:41] LABS: ABG Base Excess 0.4 mEq/L (-2.0 to 3.0); ABG HCO3 26.9 mEQ/L (21-27); ABG Oxygen Saturation 100 % (95-98); ABG PCO2 51 mmHg (35-45); ABG PO2 185 mmHg (85-104); ABG TCO2 28.5 mEq/L (20-26)
[2016-10-20 12:42] LABS: INR 1.6
[2016-10-20 12:42] LABS: ABG PH 7.33 pH Units (7.32-7.45)
[2016-10-20 12:43] LABS: Blood Gas FiO2 80 %
[2016-10-20 12:44] LABS: Activated Partial Thrombo Time 34.6 Seconds (26.0-36.0)
[2016-10-20 12:44] LABS: ABG Base Excess 2.8 mEq/L (-2.0 to 3.0); ABG Glucose 110 mg/dL (60-95); ABG HCO3 29.3 mEQ/L (21-27); ABG Hematocrit 35 % (35-51); ABG Oxygen Saturation 100 % (95-98); ABG PCO2 53 mmHg (35-45); ABG PH 7.35 pH Units (7.32-7.45); ABG PO2 239 mmHg (85-104); ABG TCO2 30.9 mEq/L (20-26)
[2016-10-20 12:46] LABS: ABG PCO2 54 mmHg (35-45); ABG PH 7.28 pH Units (7.32-7.45); ABG PO2 152 mmHg (85-104)
[2016-10-20 12:47] LABS: ABG Base Excess -1.6 mEq/L (-2.0 to 3.0); ABG Glucose 125 mg/dL (60-95); ABG HCO3 25.4 mEQ/L (21-27); ABG Hematocrit 29 % (35-51); ABG Ionized Calcium 0.93 mmol/L (1.15-1.35); ABG Oxygen Saturation 99 % (95-98); ABG TCO2 27.1 mEq/L (20-26)
[2016-10-20 12:47] LABS: Prothrombin Time 17.8 Seconds (9.4-12.1)
[2016-10-20] MEDS: 0.9 % Sodium Chloride w KCl 20 MEQ/1,000 ML MLS IVC SCH (12:48)
[2016-10-20 12:49] LABS: BUN/Creatinine Ratio 11 (6-26); Blood Urea Nitrogen 9 mg/dL (8-26); Calcium 7.7 mg/dL (8.6-10.8); Carbon Dioxide 28 mEq/L (19-29); Chloride 108 mEq/L (98-109); Glucose 88 mg/dL (70-99); Magnesium 2.3 mg/dL (1.6-2.6); Osmolality,Calculated 288 (280-300); Sodium 140 mEq/L (136-145); eGFR For African Americans > 60 (> 60); eGFR For Non-African Americans > 60 (> 60)
[2016-10-20 12:49] LABS: ABG PH 7.42 pH Units (7.32-7.45)
[2016-10-20] MEDS: Metoclopramide 10 MG/2 ML VIAL IVP SCH ×3 (12:49→23:02)
[2016-10-20 12:50] LABS: ABG Base Excess 5.4 mEq/L (-2.0 to 3.0); ABG Glucose 164 mg/dL (60-95); ABG HCO3 30.5 mEQ/L (21-27); ABG Hematocrit 26 % (35-51); ABG Ionized Calcium 0.98 mmol/L (1.15-1.35); ABG Oxygen Saturation 100 % (95-98); ABG PCO2 47 mmHg (35-45); ABG PO2 448 mmHg (85-104); ABG TCO2 31.9 mEq/L (20-26)
[2016-10-20 12:51] LABS: ABG PH 7.43 pH Units (7.32-7.45)
[2016-10-20 12:52] LABS: ABG Base Excess 4.4 mEq/L (-2.0 to 3.0); ABG Glucose 149 mg/dL (60-95); ABG HCO3 29.2 mEQ/L (21-27); ABG Hematocrit 25 % (35-51); ABG Oxygen Saturation 100 % (95-98); ABG PCO2 44 mmHg (35-45); ABG PO2 381 mmHg (85-104); ABG TCO2 30.6 mEq/L (20-26)
[2016-10-20 12:54] LABS: ABG Base Excess -1.6 mEq/L (-2.0 to 3.0); ABG Glucose 111 mg/dL (60-95); ABG HCO3 24.3 mEQ/L (21-27); ABG Hematocrit 26 % (35-51); ABG Ionized Calcium 0.95 mmol/L (1.15-1.35); ABG Oxygen Saturation 98 % (95-98); ABG PCO2 46 mmHg (35-45); ABG PH 7.33 pH Units (7.32-7.45); ABG PO2 117 mmHg (85-104); ABG TCO2 25.7 mEq/L (20-26)
--- NOTE | 2016-10-20 13:04 | Pulmonology Consult Note ---
<Marivel Castano - Last Filed: 10/20/16 15:01> Date of Encounter: 10/20/16 Time of Encounter: 12:55 Assessment and Plan (1) Status post coronary artery bypass graft Current Visit: Yes Status: Acute Neuropsych: Currently asleep postoperatively Pulm: Currently with ventilator support, plan to extubate later today DuoNeb every 4 hours scheduled, albuterol every 2 hours when necessary after extubation Solu-Medrol 80 mg once Cardio: POD #[address] Sagastume Aspirin, statin, beta iván will resume tomorrow FEN-GI: Hypocalcemia - replace GI prophylaxis on board, npo Renal: -- ID: Neutrophilic leukocytosis Heme/Onc: Postoperative anemia, thrombocytopenia DVT prophylaxis with compression stockings Endocrine: -- Integ/MSK: -- (2) COPD (chronic obstructive pulmonary disease) Current Visit: Yes Status: Chronic Qualifiers: COPD type: unspecified COPD Qualified Code(s): J44.9 - Chronic obstructive pulmonary disease, unspecified (3) Postoperative anemia Current Visit: Yes Status: Acute (4) Thrombocytopenia Current Visit: Yes Status: Acute (5) Hypocalcemia Current Visit: Yes Status: Acute (6) CAD (coronary artery disease) Current Visit: No Status: Chronic Qualifiers: Coronary Disease-Associated Artery/Lesion type: bypass graft, autologous vein Associated angina: angina presence unspecified Qualified Code(s): I25.810 - Atherosclerosis of coronary artery bypass graft(s) without angina pectoris (7) HTN (hypertension) Current Visit: No Status: Chronic Qualifiers: Hypertension type: essential hypertension Qualified Code(s): I10 - Essential (primary) hypertension (8) Tobacco abuse Current Visit: No Status: Chronic History of Present Illness Consult date: 10/20/16 Requesting physician: Anthony Sagastume Reason for consult: COPD Chief complaint: COPD, status post CABG History of present illness: Mr. Segura is a 71-year-old male past medical history of severe COPD, coronary artery disease, hypertension, tobacco abuse who underwent CABG [address] Sagastume today. Past Med Surg Social Fam HX - Past Medical History Medical history: COPD, coronary artery disease, GERD, hyperlipidemia, hypertension, myocardial infarction, other Psychiatric history: no psych history - Past Surgical History Surgical History: angioplasty/stent, other - Social History Smoking Status: Former smoker Smokeless Tobacco Status: No Alcohol use: none Drug use: none - Family History Mother Living Status: Hx Family Cardiac Disorders: Yes (chf) Brother Living Status: Still Living Hx Family Endocrine Disorder: Yes (dm) Medications and Allergies Aspirin 325 mg PO DAILY 07/06/16 [History] HYDROcodone/Acet 5/325 mg [[place] 5-325 mg] 1 tab PO 1-2XD PRN 07/06/16 [History] Ipratropium/Albuterol Neb [Duoneb] 3 ml IH Q4HR 30 Days 07/10/16 [Rx] Atorvastatin [Lipitor] 80 mg PO DAILY 10/12/16 [History] Isosorbide MONOnitrate (24 HR) [Imdur] 30 mg PO DAILY 10/12/16 [History] Lisinopril [Zestril] 20 mg PO DAILY 10/12/16 [History] amLODIPine [Norvasc] 5 mg PO DAILY 10/12/16 [History] Albuterol Sulfate [Ventolin Hfa] 2 puff IH Q4H PRN 10/20/16 [History] Omeprazole [PriLOSEC] 40 mg PO DAILY 10/20/16 [History] Allergies No Known Allergies Allergy (Verified 10/20/16 07:19) ROS unobtainable: due to mental status All Systems: A 10-system review of systems was performed and is negative for pertinent findings except as documented above in the HPI. Physical Examination General appearance: other (Sedated postop, with ventilator support) Eyes: nonicteric ENT: oropharynx moist Neck: supple Effort: normal Inspection: normal Auscultation: bilateral: diminished breath sounds Cardiovascular: regular rate and rhythm Gastrointestinal: absent bowel sounds, soft, non-tender Integumentary: normal Extremities: no cyanosis unable to assess due to mental status Results - Laboratory Findings CBC and BMP: 10/20/16 12:32 10/20/16 12:32 ABG ABG pH 7.33 pH Units (7.32-7.45) 10/20/16 12:24 ABG pCO2 51 mmHg (35-45) H 10/20/16 12:24 ABG pO2 185 mmHg (85-104) H 10/20/16 12:24 ABG O2 Saturation 100 % (95-98) H 10/20/16 12:24 PT/INR, D-dimer PT 17.8 Seconds (9.4-12.1) H 10/20/16 12:32 Abnormal lab findings: Abnormal lab results WBC 21.0 K/mcL (4.3-11.1) H 10/20/16 12:32 RBC 3.43 M/mcL (4.19-5.50) L 10/20/16 12:32 Hgb 10.4 g/dL (12.9-16.9) L 10/20/16 12:32 Hct 31.3 % (37.5-50.1) L 10/20/16 12:32 Plt Count 112 K/mcL (140-400) L 10/20/16 12:32 Neutrophils # 15.5 K/mcL (1.6-8.9) H 10/20/16 12:32 Monocytes # 1.7 K/mcL (0.0-1.3) H 10/20/16 12:32 PT 17.8 Seconds (9.4-12.1) H 10/20/16 12:32 ABG pCO2 51 mmHg (35-45) H 10/20/16 12:24 ABG pO2 185 mmHg (85-104) H 10/20/16 12:24 ABG Total CO2 28.5 mEq/L (20-26) H 10/20/16 12:24 ABG O2 Saturation 100 % (95-98) H 10/20/16 12:24 ABG Hematocrit 26 % (35-51) L 10/20/16 11:17 Potassium 3.2 mEq/L (3.5-5.3) L 10/20/16 11:17 Glucose 111 mg/dL (60-95) H 10/20/16 11:17 Ionized Calcium 0.95 mmol/L (1.15-1.35) L 10/20/16 11:17 POC Glucose 93 (58-89) H 10/20/16 12:24 Calcium 7.7 mg/dL (8.6-10.8) L 10/20/16 12:32 - Clinical Findings Intake & Output: Intake & Output 10/19/16 10/20/16 10/20/16 23:59 07:59 15:59 Intake Total 350 / 350 Output Total 750 / 750 Balance -400 / -400 Weight 77.111 kg Consult Discharge Plan - Plan Referrals: Jarred Shaw, PSYCHOLOGY DEPARTMENT CHAIR [Primary Care Provider] - <Tu Peters - Last Filed: 10/20/16 15:57> Date of Encounter: 10/20/16 All Systems: A 10-system review of systems was performed and is negative for pertinent findings except as documented above in the HPI. Results - Laboratory Findings CBC and BMP: 10/20/16 12:32 10/20/16 12:32 ABG ABG pH 7.22 pH Units (7.32-7.45) L 10/20/16 14:37 ABG pCO2 75 mmHg (35-45) H* D 10/20/16 14:37 ABG pO2 72 mmHg (85-104) L 10/20/16 14:37 ABG O2 Saturation 91 % (95-98) L 10/20/16 14:37 PT/INR, D-dimer PT 17.8 Seconds (9.4-12.1) H 10/20/16 12:32 Abnormal lab findings: Abnormal lab results WBC 21.0 K/mcL (4.3-11.1) H 10/20/16 12:32 RBC 3.43 M/mcL (4.19-5.50) L 10/20/16 12:32 Hgb 10.4 g/dL (12.9-16.9) L 10/20/16 12:32 Hct 31.3 % (37.5-50.1) L 10/20/16 12:32 Plt Count 112 K/mcL (140-400) L 10/20/16 12:32 Neutrophils # 15.5 K/mcL (1.6-8.9) H 10/20/16 12:32 Monocytes # 1.7 K/mcL (0.0-1.3) H 10/20/16 12:32 PT 17.8 Seconds (9.4-12.1) H 10/20/16 12:32 ABG pH 7.22 pH Units (7.32-7.45) L 10/20/16 14:37 ABG pCO2 75 mmHg (35-45) H* D 10/20/16 14:37 ABG pO2 72 mmHg (85-104) L 10/20/16 14:37 ABG HCO3 30.7 mEQ/L (21-27) H 10/20/16 14:37 ABG Total CO2 33.0 mEq/L (20-26) H 10/20/16 14:37 ABG O2 Saturation 91 % (95-98) L 10/20/16 14:37 ABG Hematocrit 26 % (35-51) L 10/20/16 11:17 Potassium 3.2 mEq/L (3.5-5.3) L 10/20/16 11:17 Glucose 111 mg/dL (60-95) H 10/20/16 11:17 Ionized Calcium 0.95 mmol/L (1.15-1.35) L 10/20/16 11:17 POC Glucose 129 (58-89) H 10/20/16 14:20 Calcium 7.7 mg/dL (8.6-10.8) L 10/20/16 12:32 - Clinical Findings Intake & Output: Intake & Output 10/19/16 10/20/16 10/20/16 23:59 07:59 15:59 Intake Total 1625 / 1625 Output Total 1250 / 1250 Balance 375 / 375 Weight 77.111 kg - Attending Attestation I examined this patient and my medical decision-making was reviewed with the [employer]/PA/Advanced Practice Nurse/Resident Physician. I agree with the documented findings, disposition and treatment plan as described except to the extent set forth below. Patient seen and examined at bedside Labs, radiology, chart personally reviewed. All lines examined without evidence of infection. Neuropsych: Sedated status post surgery holding sedation presently for spontaneous breathing trial when were awake. Continue analgesia as needed for post surgery pain Pulm: Acute on chronic hypoxic respiratory failure patient has severe COPD with FEV1 of 33%. Wheezing on exam giving 1 dose of Solu-Medrol now for possibility of extubation schedule bronchodilators every 4 hours (duo nebs) with albuterol treatments every 1-2 hours as needed. Intend U lung protective ventilatory strategy. Peak and plateau pressures are acceptable. Cards: CAD status post CABG 3 postop day # 0 CTS managing surgical aspects including chest tube management. Scheduled aspirin statin and beta iván. continue to follow FEN-GI: PPi prophy given while on vent. Nothing by mouth for now. Net even to slightly positive fluid status Renal: No evidence of acute kidney injury will repeat renal function panel follow closely avoid nephrotoxic agents ID: Leukocytosis likely postoperative in nature we will continue to monitor for evidence of sepsis Heme/Onc: Mechanical DVT prophylaxis given mild postoperative anemia new thrombocytopenia which is also likely his postoperative the context of bypass Endo: Glucose monitored Integ/MSK: Skin care per ICU protocol to prevent ulcers. All dressings are clean dry and intact without bloody exudate CODE: Full code
[2016-10-20] MEDS: Pantoprazole 40 MG VIAL IVP SCH (13:15)
[2016-10-20] MEDS: *HR* Morphine 2 MG/ML SYRINGE IVP PRN ×2 (14:43→16:32)
[2016-10-20] MEDS: Nitroglycerin 25 MG/250 ML INFUS..BTL IVC SCH ×2 (14:43→19:21)
[2016-10-20 14:48] LABS: ABG Base Excess 1.2 mEq/L (-2.0 to 3.0); ABG HCO3 30.7 mEQ/L (21-27); ABG Oxygen Saturation 91 % (95-98); ABG PH 7.22 pH Units (7.32-7.45); ABG PO2 72 mmHg (85-104)
[2016-10-20 14:50] LABS: ABG PCO2 75 mmHg (35-45)
[2016-10-20 14:51] LABS: Blood Gas FiO2 50 %
[2016-10-20] MEDS ORDERED: methylPREDNISolone 125 MG/2 ML VIAL IVP ONE (14:59)
[2016-10-20] MEDS: ceFAZolin 2,000 MG in D5% in Water 100 ML IVPB SCH ×2 (15:50→23:02)
[2016-10-20] MEDS: Ipratropium/Albuterol Neb 3 ML IH SCH ×3 (16:14→23:41)
[2016-10-20 16:20] LABS: ABG Base Excess 2.1 mEq/L (-2.0 to 3.0); ABG HCO3 32.1 mEQ/L (21-27); ABG Oxygen Saturation 93 % (95-98); ABG PO2 81 mmHg (85-104); ABG TCO2 34.7 mEq/L (20-26)
[2016-10-20 16:22] LABS: ABG PCO2 84 mmHg (35-45); ABG PH 7.19 pH Units (7.32-7.45); Blood Gas FiO2 60 %
[2016-10-20] MEDS ORDERED: Albuterol 2.5 MG/3 ML NEBULIZER ONE (16:47)
[2016-10-20] MEDS ORDERED: Albuterol 2.5 MG/3 ML NEBULIZER IH PRN (16:50)
[2016-10-20] MEDS: FentaNYL (PF) 1,000 MCG in 0.9 % Sodium Chloride 80 ML IVC SCH ×2 (16:53→23:49)
[2016-10-20] MEDS: Acetaminophen 325 MG TABLET PO PRN (17:08)
[2016-10-20 17:37] LABS: ABG Base Excess 4.6 mEq/L (-2.0 to 3.0); ABG HCO3 32.2 mEQ/L (21-27); ABG Oxygen Saturation 91 % (95-98); ABG PCO2 64 mmHg (35-45); ABG PO2 68 mmHg (85-104); ABG TCO2 34.2 mEq/L (20-26)
[2016-10-20 17:39] LABS: ABG PH 7.31 pH Units (7.32-7.45)
[2016-10-20 17:40] LABS: Blood Gas FiO2 60 %
[2016-10-20] MEDS: niCARdipine 40 MG/200 ML MLS IVC SCH (19:19)
[2016-10-20] MEDS: methylPREDNISolone 125 MG/2 ML VIAL IVP SCH ×2 (19:52→23:01)
[2016-10-20] MEDS: *HR* Midazolam HCl 2 MG/2 ML VIAL IVP PRN ×2 (20:03→21:15)
[2016-10-20 20:30] LABS: ABG Base Excess 1.6 mEq/L (-2.0 to 3.0); ABG HCO3 28.7 mEQ/L (21-27); ABG Oxygen Saturation 97 % (95-98); ABG PCO2 57 mmHg (35-45); ABG PO2 102 mmHg (85-104); ABG TCO2 30.4 mEq/L (20-26)
[2016-10-20 20:31] LABS: ABG PH 7.31 pH Units (7.32-7.45); Blood Gas FiO2 60 %
[2016-10-20] MEDS ORDERED: Chlorhexidine Rinse 15 ML MOUTHWASH MM SCH (21:00)
[2016-10-21] MEDS: niCARdipine 40 MG/200 ML MLS IVC SCH ×3 (00:06→20:46)
[2016-10-21 00:14] LABS: ABG Base Excess 1.5 mEq/L (-2.0 to 3.0); ABG HCO3 27.2 mEQ/L (21-27); ABG Oxygen Saturation 97 % (95-98); ABG PCO2 47 mmHg (35-45); ABG PH 7.37 pH Units (7.32-7.45); ABG PO2 90 mmHg (85-104); ABG TCO2 28.6 mEq/L (20-26); Blood Gas FiO2 50 %
[2016-10-21] MEDS: *HR* Midazolam HCl 2 MG/2 ML VIAL IVP PRN (02:16)
[2016-10-21] MEDS: Norepinephrine 4 MG in D5% in Water 250 ML IVC SCH ×2 (03:01→11:22)
[2016-10-21 03:33] LABS: Basophils % 0.1 %; Hemoglobin 9.7 g/dL (12.9-16.9); Lymphocytes # 0.9 K/mcL (0.6-4.6); Lymphocytes % 5.9 %; Mean Corpuscular HGB Conc 32.3 g/dL (31.6-35.5); Mean Corpuscular Volume 92.9 fL (83.0-100.0); Mean Platelet Volume 11.7 fL (9.4-12.4); Monocytes # 1.1 K/mcL (0.0-1.3); Monocytes % 6.8 %; Neutrophils # 13.4 K/mcL (1.6-8.9); Platelet Count 118 K/mcL (140-400); Red Blood Count 3.23 M/mcL (4.19-5.50); Red Cell Distribution Width 13.9 % (11.5-14.5); Segmented Neutrophils % 86.2 %
[2016-10-21 03:44] LABS: BUN/Creatinine Ratio 11 (6-26); Blood Urea Nitrogen 14 mg/dL (8-26); Calcium 8.5 mg/dL (8.6-10.8); Carbon Dioxide 26 mEq/L (19-29); Chloride 109 mEq/L (98-109); Glucose 150 mg/dL (70-99); INR 1.3; Magnesium 1.9 mg/dL (1.6-2.6); Osmolality,Calculated 295 (280-300); Prothrombin Time 13.9 Seconds (9.4-12.1); Sodium 141 mEq/L (136-145); eGFR For African Americans > 60 (> 60); eGFR For Non-African Americans 59 (> 60)
[2016-10-21 03:47] LABS: Activated Partial Thrombo Time 31.8 Seconds (26.0-36.0)
[2016-10-21] MEDS: Ipratropium/Albuterol Neb 3 ML IH SCH ×5 (03:48→19:53)
[2016-10-21 04:27] LABS: ABG Base Excess 1.9 mEq/L (-2.0 to 3.0); ABG HCO3 28.5 mEQ/L (21-27); ABG Oxygen Saturation 90 % (95-98); ABG PCO2 54 mmHg (35-45); ABG PH 7.33 pH Units (7.32-7.45); ABG PO2 62 mmHg (85-104); ABG TCO2 30.2 mEq/L (20-26)
[2016-10-21 04:30] LABS: Blood Gas Liter Flow 40 L/MIN
[2016-10-21] MEDS: Metoclopramide 10 MG/2 ML VIAL IVP SCH ×3 (05:08→17:14)
--- NOTE | 2016-10-21 07:39 | Pulmonology Progress Note ---
<Marivel Castano - Last Filed: 10/21/16 11:21> Date of Encounter: 10/21/16 Time of Encounter: 09:21 Assessment and Plan (1) Status post coronary artery bypass graft Current Visit: Yes Status: Acute Neuropsych: Awake and alert Pulm: DuoNeb every 4 hours scheduled, albuterol every 2 hours when necessary Solu-Medrol 60 mg q8H Cardio: POD #[address] Sagastume Aspirin, statin, beta iván FEN-GI: GI prophylaxis on board, npo Renal: -- ID: Neutrophilic leukocytosis, improved Heme/Onc: Postoperative anemia, thrombocytopenia DVT prophylaxis with compression stockings Endocrine: -- Integ/MSK: -- (2) COPD (chronic obstructive pulmonary disease) Current Visit: Yes Status: Chronic Qualifiers: COPD type: unspecified COPD Qualified Code(s): J44.9 - Chronic obstructive pulmonary disease, unspecified (3) Postoperative anemia Current Visit: Yes Status: Acute (4) Thrombocytopenia Current Visit: Yes Status: Acute (5) Hypocalcemia Current Visit: Yes Status: Acute (6) CAD (coronary artery disease) Current Visit: No Status: Chronic Qualifiers: Coronary Disease-Associated Artery/Lesion type: bypass graft, autologous vein Associated angina: angina presence unspecified Qualified Code(s): I25.810 - Atherosclerosis of coronary artery bypass graft(s) without angina pectoris (7) HTN (hypertension) Current Visit: No Status: Chronic Qualifiers: Hypertension type: essential hypertension Qualified Code(s): I10 - Essential (primary) hypertension Subjective Principal diagnosis: CAD, COPD Interval history: Patient extubated overnight. Pneumothorax with chest tube insertion this morning. Objective PUL Vital signs: Last Vital Signs Temp 97.8 F 10/21/16 05:07 Pulse 112 10/21/16 05:49 Resp 17 10/21/16 06:16 BP 117/57 10/21/16 05:49 Pulse Ox 95 10/21/16 06:16 General appearance: no acute distress Eyes: nonicteric ENT: oropharynx moist Neck: supple Effort: mildly labored Auscultation: bilateral: diminished breath sounds, wheezes Cardiovascular: regular rate and rhythm Gastrointestinal: absent bowel sounds, soft, non-tender Integumentary: normal Extremities: no cyanosis, pink and warm, pulses normal Musculoskeletal: no deformities normal mental status, non-focal exam mood appropriate, affect normal Ventilator Settings Ventilator Settings: Ventilator Settings, Last 8 Hours Ventilator Mode CPAP Ventilator Mode VC+ Ventilator Mode VC+ Ventilator Mode VC+ Ventilator Mode VC+ Ventilator Mode VC+ Ventilator Mode VC+ Ventilator Mode VC+ Ventilator Mode VC+ Ventilator Mode VC+ Ventilator Mode VC+ Ventilator Mode VC+ Ventilator Mode VC+ Ventilator Tidal Volume 530 Setting Ventilator Tidal Volume 530 Setting Ventilator Tidal Volume 530 Setting Ventilator Tidal Volume 530 Setting Ventilator Tidal Volume 530 Setting Ventilator Tidal Volume 530 Setting Ventilator Tidal Volume 530 Setting Ventilator Tidal Volume 530 Setting Ventilator Tidal Volume 530 Setting Ventilator Tidal Volume 530 Setting Ventilator Tidal Volume 530 Setting Ventilator Tidal Volume 530 Setting Ventilator Respiratory Rate 20 Setting Ventilator Respiratory Rate 20 Setting Ventilator Respiratory Rate 16 Setting Ventilator Respiratory Rate 16 Setting Ventilator Respiratory Rate 16 Setting Ventilator Respiratory Rate 16 Setting Ventilator Respiratory Rate 16 Setting Ventilator Respiratory Rate 16 Setting Ventilator Respiratory Rate 16 Setting Ventilator Respiratory Rate 20 Setting Ventilator Respiratory Rate 20 Setting Ventilator Respiratory Rate 20 Setting Actual Respiratory Rate 14 Actual Respiratory Rate 25 Actual Respiratory Rate 20 Actual Respiratory Rate 16 Actual Respiratory Rate 16 Actual Respiratory Rate 16 Actual Respiratory Rate 16 Actual Respiratory Rate 16 Actual Respiratory Rate 16 Actual Respiratory Rate 20 Actual Respiratory Rate 20 Positive End Expiratory 5 Pressure Positive End Expiratory 5 Pressure Positive End Expiratory 5 Pressure Positive End Expiratory 5 Pressure Positive End Expiratory 5 Pressure Positive End Expiratory 5 Pressure Positive End Expiratory 5 Pressure Positive End Expiratory 5 Pressure Positive End Expiratory 5 Pressure Positive End Expiratory 5 Pressure Positive End Expiratory 5 Pressure Positive End Expiratory 5 Pressure Positive End Expiratory 5 Pressure Peak Inspiratory Airway 10 Pressure Peak Inspiratory Airway 23 Pressure Peak Inspiratory Airway 23 Pressure Peak Inspiratory Airway 25 Pressure Peak Inspiratory Airway 25 Pressure Peak Inspiratory Airway 26 Pressure Peak Inspiratory Airway 26 Pressure Peak Inspiratory Airway 26 Pressure Peak Inspiratory Airway 27 Pressure Peak Inspiratory Airway 30 Pressure Peak Inspiratory Airway 29 Pressure Results - Laboratory Findings CBC and BMP: 10/21/16 03:22 10/21/16 03:22 ABG ABG pH 7.33 pH Units (7.32-7.45) 10/21/16 04:14 ABG pCO2 54 mmHg (35-45) H 10/21/16 04:14 ABG pO2 62 mmHg (85-104) L 10/21/16 04:14 ABG O2 Saturation 90 % (95-98) L 10/21/16 04:14 PT/INR, D-dimer PT 13.9 Seconds (9.4-12.1) H 10/21/16 03:22 Abnormal lab findings: Abnormal lab results WBC 15.5 K/mcL (4.3-11.1) H 10/21/16 03:22 RBC 3.23 M/mcL (4.19-5.50) L 10/21/16 03:22 Hgb 9.7 g/dL (12.9-16.9) L 10/21/16 03:22 Hct 30.0 % (37.5-50.1) L 10/21/16 03:22 Plt Count 118 K/mcL (140-400) L 10/21/16 03:22 Neutrophils # 13.4 K/mcL (1.6-8.9) H 10/21/16 03:22 PT 13.9 Seconds (9.4-12.1) H 10/21/16 03:22 ABG pCO2 54 mmHg (35-45) H 10/21/16 04:14 ABG pO2 62 mmHg (85-104) L 10/21/16 04:14 ABG HCO3 28.5 mEQ/L (21-27) H 10/21/16 04:14 ABG Total CO2 30.2 mEq/L (20-26) H 10/21/16 04:14 ABG O2 Saturation 90 % (95-98) L 10/21/16 04:14 ABG Hematocrit 26 % (35-51) L 10/20/16 11:17 Potassium 3.2 mEq/L (3.5-5.3) L 10/20/16 11:17 Glucose 111 mg/dL (60-95) H 10/20/16 11:17 Ionized Calcium 0.95 mmol/L (1.15-1.35) L 10/20/16 11:17 Est GFR (Non-Af Amer) 59 (> 60) L 10/21/16 03:22 Glucose 150 mg/dL (70-99) H 10/21/16 03:22 Calcium 8.5 mg/dL (8.6-10.8) L 10/21/16 03:22 - Clinical Findings Intake & Output: Intake & Output 10/20/16 10/20/16 10/21/16 15:59 23:59 07:59 Intake Total 2625 / 2625 1295 / 1295 825 / 825 Output Total 1250 / 1250 2210 / 2210 364 / 364 Balance 1375 / 1375 -915 / -915 461 / 461 - VTE Reasons for not Prescribing Prophylaxis: Treatment not Indicated - Low risk for VTE Documentation of Mechanical Device: Graduated compression elastic hosiery Consult Discharge Plan - Plan Referrals: Jarred Shaw, OPTICAL TECHNICIAN [Primary Care Provider] - <Tu Peters - Last Filed: 10/21/16 16:18> Date of Encounter: 10/21/16 Objective PUL Vital signs: Last Vital Signs Temp 96.9 F L 10/21/16 15:45 Pulse 95 10/21/16 15:37 Resp 16 10/21/16 15:37 BP 99/54 10/21/16 15:37 Pulse Ox 92 10/21/16 15:37 Results - Laboratory Findings CBC and BMP: 10/21/16 03:22 10/21/16 03:22 ABG ABG pH 7.36 pH Units (7.32-7.45) 10/21/16 14:41 ABG pCO2 46 mmHg (35-45) H 10/21/16 14:41 ABG pO2 89 mmHg (85-104) 10/21/16 14:41 ABG O2 Saturation 96 % (95-98) 10/21/16 14:41 PT/INR, D-dimer PT 13.9 Seconds (9.4-12.1) H 10/21/16 03:22 Abnormal lab findings: Abnormal lab results WBC 15.5 K/mcL (4.3-11.1) H 10/21/16 03:22 RBC 3.23 M/mcL (4.19-5.50) L 10/21/16 03:22 Hgb 9.7 g/dL (12.9-16.9) L 10/21/16 03:22 Hct 30.0 % (37.5-50.1) L 10/21/16 03:22 Plt Count 118 K/mcL (140-400) L 10/21/16 03:22 Neutrophils # 13.4 K/mcL (1.6-8.9) H 10/21/16 03:22 PT 13.9 Seconds (9.4-12.1) H 10/21/16 03:22 ABG pCO2 46 mmHg (35-45) H 10/21/16 14:41 ABG Total CO2 27.4 mEq/L (20-26) H 10/21/16 14:41 ABG Hematocrit 26 % (35-51) L 10/20/16 11:17 Potassium 3.2 mEq/L (3.5-5.3) L 10/20/16 11:17 Glucose 111 mg/dL (60-95) H 10/20/16 11:17 Ionized Calcium 0.95 mmol/L (1.15-1.35) L 10/20/16 11:17 Est GFR (Non-Af Amer) 59 (> 60) L 10/21/16 03:22 Glucose 150 mg/dL (70-99) H 10/21/16 03:22 POC Glucose 134 (58-89) H 10/21/16 15:29 Calcium 8.5 mg/dL (8.6-10.8) L 10/21/16 03:22 - Clinical Findings Intake & Output: Intake & Output 10/21/16 10/21/16 10/21/16 07:59 15:59 23:59 Intake Total 825 / 825 1000 / 1000 Output Total 364 / 364 508 / 508 Balance 461 / 461 492 / 492 - Attending Attestation I examined this patient and my medical decision-making was reviewed with the LOCKER ROOM ATTENDANT/PA/Advanced Practice Nurse/Resident Physician. I agree with the documented findings, disposition and treatment plan as described except to the extent set forth below. Patient seen and examined at bedside Labs, radiology, chart personally reviewed. All lines examined without evidence of infection. Neuropsych: Awake and alert following commands appears slightly confused likely medication effect/mild delirium. Avoid TRAVEL RN agents as able. Morphine as needed for poor surgical pain Pulm: Acute on chronic hypoxic respiratory failure patient has severe COPD with FEV1 of 33%. Successfully liberated today. Chest x-ray with small pneumothorax status post small for chest tube placement by interventional radiology. Continue IV steroids today. Likely transition to enteral steroids tomorrow. Continue schedule bronchodilators. Call saturation greater than 88- 92%. Noninvasive positive pressure ventilation as needed for dyspnea. Repeat ABG postextubation was reassuring. Right chest tube to water suction at this time repeat chest x-ray in the morning clamp trial tomorrow Cards: CAD status post CABG 3 postop day # 1 CTS managing surgical aspects including chest tube management. Scheduled aspirin statin and beta iván. continue to follow FEN-GI: PPi prophy given while on vent. Advance (cardiac) diet as tolerated goal Net even to slightly negative Renal: Renal function stable continue to monitor urine output which is been acceptable likely can remove Zamudio catheter tomorrow depending on clinical course ID: No evidence of infection currently we will continue to monitor Heme/Onc: Mechanical DVT prophylaxis given mild postoperative anemia new thrombocytopenia which is also likely his postoperative the context of bypass Endo: Glucose monitored Integ/MSK: Skin care per ICU protocol to prevent ulcers. All dressings are clean dry and intact without bloody exudate CODE: Full code
[2016-10-21] MEDS ORDERED: Lidocaine -MPF 2% 5 ML VIAL ONE (07:59)
--- NOTE | 2016-10-21 08:40 | Cardiothoracic Progress Note ---
Date of Encounter: 10/21/16 Time of Encounter: 08:37 - Assessment and plan (1) CAD (coronary artery disease) Current Visit: No Status: Chronic The patient is recovering fairly well from his CABG 4. He was extubated, but is having some respiratory difficulty currently. His chest x-ray was morning revealed a right basilar pneumothorax and a right chest tube will be inserted. The patient will remain in the ICU to monitor his respiratory status closely. The assessment and plan as outlined above was discussed with the patient and/or family members who expressed understanding and agreement. All questions were answered. Qualifiers: Coronary Disease-Associated Artery/Lesion type: bypass graft, autologous vein Associated angina: angina presence unspecified Qualified Code(s): I25.810 - Atherosclerosis of coronary artery bypass graft(s) without angina pectoris - Subjective Procedure(s) Performed: POD#1 S/P CABG4 Interval history: The patient remained hemodynamic stable overnight. He was extubated; however, his breathing is somewhat labored this time. Vital Signs, Last 4 Hours Temp Pulse Resp BP Pulse Ox 10/21/16 08:10 97.8 F 10/21/16 06:16 17 95 10/21/16 06:10 22 95 10/21/16 05:59 91 10/21/16 05:51 14 96 10/21/16 05:49 112 23 117/57 96 10/21/16 05:30 13 10/21/16 05:07 97.8 F 84 20 95/55 94 Oxgyen Flow Rate Oxygen Flow Rate (LPM) 4 Clinical Data, last 8 Hours Output, Chest Tube Drainage 3 Amount [Mediastinal #1] Output, Chest Tube Drainage 2 Amount [Mediastinal #1] Output, Chest Tube Drainage 14 Amount [Mediastinal #2] Output, Chest Tube Drainage 20 Amount [Mediastinal #2] Output, Chest Tube Drainage 10 Amount [Mediastinal #2] Output, Chest Tube Drainage 5 Amount [Mediastinal #2] Output, Chest Tube Drainage 15 Amount [Mediastinal #2] Output, Chest Tube Drainage 10 Amount [Mediastinal #2] Output, Chest Tube Drainage 5 Amount [Mediastinal #2] Weight 10/19/16 10/20/16 10/21/16 23:59 23:59 23:59 Weight 77.111 kg - Physical Examination General: Conversant, No Apparent Distress Neck: No JVD, Normal carotid pulses Cardiac: Reg Rate and Rhythm, Normal S1 and S2, No Murmur Incision: No signs of infection, Dry/intact dressing Sternum: Stable Chest tubes: Minimal drainage, Other (No air leak.) Lungs: Decreased breath sounds Neuro: Alert and responsive, No focal deficits noted Vascular: Normal capillary refill Extremities: No Clubbing, No Cyanosis, No Edema - Labs 10/21/16 03:22 10/21/16 03:22 Lab Results, Last 24 hours 10/20/16 10/20/16 10/20/16 12:32 12:32 12:32 WBC 21.0 H Hgb 10.4 L Hct 31.3 L Plt Count 112 L INR 1.6 APTT 34.6 Sodium 140 Potassium 4.0 Chloride 108 Carbon Dioxide 28 BUN 9 Creatinine 0.85 Glucose 88 Calcium 7.7 L Magnesium 2.3 10/21/16 10/21/16 10/21/16 03:22 03:22 03:22 WBC 15.5 H Hgb 9.7 L Hct 30.0 L Plt Count 118 L INR 1.3 APTT 31.8 Sodium 141 Potassium 4.0 Chloride 109 Carbon Dioxide 26 BUN 14 Creatinine 1.22 Glucose 150 H Calcium 8.5 L Magnesium 1.9 - Imaging Chest Xray: image reviewed (Right basilar pneumothorax. Right chest wall subcutaneous emphysema.) - VTE Reasons for not Prescribing Prophylaxis: Treatment not Indicated - Low risk for VTE Documentation of Mechanical Device: Graduated compression elastic hosiery Consult Discharge Plan - Plan Referrals: Jarred Shaw, FIRE PILOT [Primary Care Provider] -
--- NOTE | 2016-10-21 09:04 | Procedure Note ---
Date of procedure: 10/21/16 Pre-op diagnosis: Pneumothroax Post-op diagnosis: same Procedure: A time-out was deferred as the procedure was emergent. The patients right/ midaxillary chest wall side was prepped and draped in a sterile manner after the appropriate infiltration level (5th intercostal space mid axillary line) was palpated 1% lidocaine was used anesthetize the surrounding skin. A 10-blade scalpel used to make the incision. A finder needle with an 8-Azeri pleural catheter was then advanced and air was aspirated into syringe and sewn into place. However it was noted that n CXR that catheter had not been advanced fully into the pleural space. The procedure was repeated in identical fashion, again her air was aspirated and when catheter was attached to chest tube atrium bubbling was noted in the water chamber. Unfortunately the repeat chest x-ray was also noted that the catheter was not in the pleural space with a residual pneumothorax is possible that the catheter had migrated after placement or initial aspiration of air possibly related to underlying subcutaneous emphysema chest tube was removed a bandage was placed and I have contacted interventional radiologist for possibility of larger bore chest tube placement for drainage. There were no immediate complications Patient was and family were updated at bedside Surgeon: Tu Peters Pathology: none sent Condition: other (no change) Disposition: ICU (remains for ongoing care)
[2016-10-21] MEDS: Nitroglycerin 25 MG/250 ML INFUS..BTL IVC SCH ×2 (09:10→20:47)
[2016-10-21] MEDS: Ringers Solution, Lactated 1,000 ML IVC SCH (09:10)
[2016-10-21] MEDS: *HR* Morphine 2 MG/ML SYRINGE IVP PRN ×2 (09:11→20:52)
[2016-10-21 09:20] LABS: ABG HCO3 28.2 mEQ/L (21-27); ABG Oxygen Saturation 94 % (95-98); ABG PCO2 51 mmHg (35-45); ABG PH 7.35 pH Units (7.32-7.45); ABG PO2 73 mmHg (85-104); ABG TCO2 29.8 mEq/L (20-26)
[2016-10-21 09:21] LABS: Blood Gas FiO2 40 %
[2016-10-21] MEDS: methylPREDNISolone 125 MG/2 ML VIAL IVP SCH ×2 (09:23→15:54)
[2016-10-21] MEDS: 0.9 % Sodium Chloride w KCl 20 MEQ/1,000 ML MLS IVC SCH (09:24)
[2016-10-21] MEDS: Chlorhexidine Rinse 15 ML MOUTHWASH MM SCH ×2 (09:24→20:47)
[2016-10-21] MEDS: Pantoprazole 40 MG VIAL IVP SCH (09:24)
[2016-10-21] MEDS: Aspirin Enteric Coated 81 MG Tablet PO SCH (09:24)
[2016-10-21] MEDS: Furosemide 20 MG TABLET PO SCH ×2 (09:26→17:14)
--- NOTE | 2016-10-21 09:29 | Anesthesia Evaluation Post Op ---
Date of Encounter: 10/21/16 Time of Encounter: 09:27 - Vital Signs Vital Signs: Selected Entries 10/21/16 06:16 10/21/16 08:10 Temperature 97.8 F Respiratory Rate 17 O2 Sat by Pulse Oximetry 95 Fraction of Inspired Oxygen 40 Oxygen Delivery Method BiPAP - Lungs Lungs: Clear Ascult./Percussion (decreased breath sounds, Pulmonary following) - Airway Airway: Non-obstructed - Cardiovascular Regular Rate - Mental Status Mental Status: Alert & Oriented, Answers Appropriately - Pain Pain Scale: 5 Pain Scale used: Numeric (1 - 10) - Nausea Vomiting Nausea Vomiting: Not Present - Hydration Hydration: Tolerates oral liquids, Zamudio catheter (will remain in ICU until CT surgery determines patient is ready for transfer)
--- NOTE | 2016-10-21 10:14 | IR Procedure Note ---
Date of procedure: 10/21/16 Consent Obtained: Verbal consent Timeout: Correct patient and procedure verified, Correct site verified, Time out performed, Skin prep completed Indications: rt pneumothorax Procedure Performed: rt chest tube Site/Technique: rt, 10F Results/Findings: adequate placement Estimated blood loss (cc): 0 Complications: None; Tolerated procedure well Post Procedure Treatment Plan: CXR
[2016-10-21] MEDS: *HR* OxyCODONE/APAP 5/325 TABLET PO PRN ×3 (10:17→22:16)
[2016-10-21] MEDS ORDERED: D5% in Water 1,000 ML IVC PRN (12:18)
[2016-10-21] MEDS ORDERED: *HR* Dextrose 50 % in Water (Syg) 50 ML SYRINGE IVP PRN (12:18)
[2016-10-21] MEDS ORDERED: Dextrose Gel 15 GM PO PRN ×2 (12:18)
[2016-10-21 14:51] LABS: ABG Base Excess 0.3 mEq/L (-2.0 to 3.0); ABG Oxygen Saturation 96 % (95-98); ABG PCO2 46 mmHg (35-45); ABG PH 7.36 pH Units (7.32-7.45); ABG PO2 89 mmHg (85-104); ABG TCO2 27.4 mEq/L (20-26)
[2016-10-21] MEDS: Insulin LISPRO 300 UNITS/3 ML VIAL SQ SCH ×2 (15:59→21:37)
[2016-10-22] MEDS: Ipratropium/Albuterol Neb 3 ML IH SCH ×6 (00:03→20:10)
[2016-10-22] MEDS: methylPREDNISolone 125 MG/2 ML VIAL IVP SCH ×3 (00:47→15:08)
[2016-10-22] MEDS: Metoclopramide 10 MG/2 ML VIAL IVP SCH ×4 (00:47→17:41)
[2016-10-22] MEDS: niCARdipine 40 MG/200 ML MLS IVC SCH ×3 (04:59→21:23)
[2016-10-22] MEDS: 0.9 % Sodium Chloride w KCl 20 MEQ/1,000 ML MLS IVC SCH (05:00)
[2016-10-22 05:15] LABS: Basophils % 0.1 %; Hematocrit 27.8 % (37.5-50.1); Immature Granulocytes % 2.1 % (0-4); Immature Platelets 15.4 % (1.1-6.1); Lymphocytes # 0.9 K/mcL (0.6-4.6); Lymphocytes % 3.6 %; Mean Corpuscular HGB Conc 32.4 g/dL (31.6-35.5); Mean Corpuscular Hemoglobin 30.2 pg (28.0-33.3); Mean Corpuscular Volume 93.3 fL (83.0-100.0); Monocytes # 1.6 K/mcL (0.0-1.3); Monocytes % 6.5 %; Neutrophils # 21.7 K/mcL (1.6-8.9); Nucleated Red Blood Cells 0.1 /100 WBC (0); Platelet Count 102 K/mcL (140-400); Red Blood Count 2.98 M/mcL (4.19-5.50); Red Cell Distribution Width 14.2 % (11.5-14.5); Segmented Neutrophils % 87.7 %
[2016-10-22 05:22] LABS: BUN/Creatinine Ratio 24 (6-26); Blood Urea Nitrogen 24 mg/dL (8-26); Calcium 8.7 mg/dL (8.6-10.8); Carbon Dioxide 26 mEq/L (19-29); Chloride 107 mEq/L (98-109); Glucose 137 mg/dL (70-99); Osmolality,Calculated 296 (280-300); Potassium 4.3 mEq/L (3.5-4.5); Sodium 140 mEq/L (136-145); eGFR For African Americans > 60 (> 60); eGFR For Non-African Americans > 60 (> 60)
[2016-10-22 05:32] LABS: Large Platelets Present (Not Present); Platelet Estimate Decreased (Normal)
[2016-10-22 05:33] LABS: Toxic Granulation Present (Not Present)
[2016-10-22] MEDS: Furosemide 20 MG TABLET PO SCH ×2 (06:45→17:41)
--- NOTE | 2016-10-22 08:49 | Electrocardiograph Report ---
[place] [id number] Test Date: 2016-10-20 Pat Name: Jarred Segura Department: 109 Room: 06 Gender: M Table Setter: : 1945 Requested By: Anthony Sagastume Order Number: [id number] Reading MD: Howard Bradley DO Measurements Intervals [place] Rate: 73 P: 78 VT: 171 QRS: -21 QRSD: 84 T: 33 QT: 397 QTc: 422 Interpretive Statements SINUS RHYTHM BORDERLINE LEFT AXIS DEVIATION LOW QRS VOLTAGE IN EXTREMITY LEADS Electronically Signed On 10-22-2016 8:47:17 EDT by Howard Bradley DO
[2016-10-22] MEDS: *HR* Morphine 2 MG/ML SYRINGE IVP PRN ×3 (09:01→21:47)
[2016-10-22] MEDS: Chlorhexidine Rinse 15 ML MOUTHWASH MM SCH ×2 (09:01→21:23)
[2016-10-22] MEDS: Aspirin Enteric Coated 81 MG Tablet PO SCH (09:01)
[2016-10-22] MEDS: Pantoprazole 40 MG VIAL IVP SCH (09:01)
[2016-10-22] MEDS: Insulin LISPRO 300 UNITS/3 ML VIAL SQ SCH ×4 (09:01→22:00)
--- NOTE | 2016-10-22 09:22 | Pulmonology Progress Note ---
Date of Encounter: 10/22/16 Time of Encounter: 09:21 Assessment and Plan (1) CAD (coronary artery disease) Current Visit: No Status: Chronic Qualifiers: Coronary Disease-Associated Artery/Lesion type: bypass graft, autologous vein Associated angina: angina presence unspecified Qualified Code(s): I25.810 - Atherosclerosis of coronary artery bypass graft(s) without angina pectoris (2) Tobacco abuse Current Visit: No Status: Chronic (3) Status post coronary artery bypass graft Current Visit: Yes Status: Acute (4) COPD (chronic obstructive pulmonary disease) Current Visit: Yes Status: Chronic Qualifiers: COPD type: unspecified COPD Qualified Code(s): J44.9 - Chronic obstructive pulmonary disease, unspecified (5) Postoperative anemia Current Visit: Yes Status: Acute (6) Acute respiratory failure with hypoxemia Current Visit: No Status: Acute (7) Acute exacerbation of chronic obstructive airways disease Current Visit: No Status: Acute Subjective Principal diagnosis: CAD, COPD Interval history: Pneumothorax resolved yesterday after placement of small bore chest tube by interventional radiology. Patient did very well overnight with chest tube to suction today clamp trial was attempted but resulted in acute episode of subcutaneous emphysema predominantly on the right side and in worsening respiratory distress chest tube was unclamped breathing improved subcutaneous emphysema has slowly improved. Objective PUL Vital signs: Last Vital Signs Temp 98.1 F 10/22/16 07:00 Pulse 105 10/22/16 09:00 Resp 16 10/22/16 09:00 BP 129/66 10/22/16 09:00 Pulse Ox 92 10/22/16 09:00 General appearance: appears uncomfortable Auscultation: bilateral: diminished breath sounds Cardiovascular: regular rate and rhythm Gastrointestinal: normoactive bowel sounds Integumentary: other (Subcutaneous emphysema including cramping crepitus felt throughout the right chest wall right arm and right patient's right eye is swollen there is minor crepitus about the left chest wall and left eye) non-focal exam, other (Exhibiting mild delirium but generally alert and oriented 3) mood appropriate Results - Laboratory Findings CBC and BMP: 10/22/16 04:50 10/22/16 04:50 ABG ABG pH 7.36 pH Units (7.32-7.45) 10/21/16 14:41 ABG pCO2 46 mmHg (35-45) H 10/21/16 14:41 ABG pO2 89 mmHg (85-104) 10/21/16 14:41 ABG O2 Saturation 96 % (95-98) 10/21/16 14:41 PT/INR, D-dimer PT 13.9 Seconds (9.4-12.1) H 10/21/16 03:22 Abnormal lab findings: Abnormal lab results WBC 24.7 K/mcL (4.3-11.1) H D 10/22/16 04:50 RBC 2.98 M/mcL (4.19-5.50) L 10/22/16 04:50 Hgb 9.0 g/dL (12.9-16.9) L 10/22/16 04:50 Hct 27.8 % (37.5-50.1) L 10/22/16 04:50 Plt Count 102 K/mcL (140-400) L 10/22/16 04:50 Neutrophils # 21.7 K/mcL (1.6-8.9) H 10/22/16 04:50 Monocytes # 1.6 K/mcL (0.0-1.3) H 10/22/16 04:50 Nucleated RBCs/100 WBC 0.1 /100 WBC (0) H 10/22/16 04:50 Toxic Granulation Present (Not Present) A 10/22/16 04:50 Platelet Estimate Decreased (Normal) L 10/22/16 04:50 Large Platelets Present (Not Present) A 10/22/16 04:50 Immature Plt Fraction 15.4 % (1.1-6.1) H 10/22/16 04:50 PT 13.9 Seconds (9.4-12.1) H 10/21/16 03:22 ABG pCO2 46 mmHg (35-45) H 10/21/16 14:41 ABG Total CO2 27.4 mEq/L (20-26) H 10/21/16 14:41 ABG Hematocrit 26 % (35-51) L 10/20/16 11:17 Potassium 3.2 mEq/L (3.5-5.3) L 10/20/16 11:17 Glucose 111 mg/dL (60-95) H 10/20/16 11:17 Ionized Calcium 0.95 mmol/L (1.15-1.35) L 10/20/16 11:17 Glucose 137 mg/dL (70-99) H 10/22/16 04:50 POC Glucose 149 (58-89) H 10/22/16 07:32 - Clinical Findings Intake & Output: Intake & Output 10/21/16 10/22/16 10/22/16 23:59 07:59 15:59 Intake Total 550 / 550 240 / 240 Output Total 835 / 835 990 / 990 Balance -285 / -285 -750 / -750 - VTE Reasons for not Prescribing Prophylaxis: Treatment not Indicated - Low risk for VTE Documentation of Mechanical Device: Graduated compression elastic hosiery Consult Discharge Plan - Plan Referrals: Jarred Shaw, DIRECTOR TRADE [Primary Care Provider] - - Attending Attestation Neuropsych: Awake and alert following commands appears slightly confused mild delirium. Avoid CADDIE agents as able. Morphine as needed for post-op surgical pain Pulm: Acute on chronic hypoxic respiratory failure patient has severe COPD with FEV1 of 33%. Right chest tube placed for a small pneumothorax. Today complicated by subcutaneous emphysema will leave chest tube to wall suction overnight. Repeat chest x-ray negative for residual pneumothorax Discussed case with cardiothoracic surgeon who agrees with conservative management for subcutaneous emphysema present; continue scheduled bronchodilators and IV steroids. Can likely switch to enteral formulation tomorrow Cards: CAD status post CABG 3 postop day #2 CTS managing surgical aspects including chest tube management. Scheduled aspirin statin and beta iván. continue to follow FEN-GI: Advance (cardiac) diet as tolerated goal Net even to slightly negative fluid balance Renal: Renal function stable continue to monitor urine output which is been acceptable likely can remove Zamudio catheter removal tomorrow depending on clinical course ID: No evidence of infection currently we will continue to monitor; leukocytosis is likely a steroid/postoperative effect Heme/Onc: DVT prophylaxis given Endo: Glucose monitored and acceptable Integ/MSK: Skin care per ICU protocol to prevent ulcers. All dressings are clean dry and intact without bloody exudate CODE: Full code
--- NOTE | 2016-10-22 09:55 | Cardiothoracic Progress Note ---
Date of Encounter: 10/22/16 Time of Encounter: 09:53 - Assessment and plan (1) Status post coronary artery bypass graft Current Visit: Yes Status: Acute The assessment and plan as outlined above was discussed with the patient and/or family members who expressed understanding and agreement. All questions were answered. We will leave the right chest tube to suction. Hopefully, I can discontinue the mediastinal chest tubes tomorrow. We will discontinue the patient's Zamudio. - Subjective Interval history: The patient has no complaints. He had an episode of increased crepitus well his chest tube was clamped, he has no shortness of breath. Vital Signs, Last 4 Hours Temp Pulse Resp BP Pulse Ox 10/22/16 09:00 105 16 129/66 92 10/22/16 08:00 105 16 133/71 95 10/22/16 07:47 20 95 10/22/16 07:00 98.1 F 91 24 126/67 95 10/22/16 06:00 104 28 149/90 89 Oxgyen Flow Rate Oxygen Flow Rate (LPM) 12 Clinical Data, last 8 Hours Output, Chest Tube Drainage 5 Amount [Mediastinal #1] Output, Chest Tube Drainage 80 Amount [Mediastinal #1] Output, Chest Tube Drainage 0 Amount [Mediastinal #2] Output, Chest Tube Drainage 40 Amount [Mediastinal #2] Weight 10/20/16 10/21/16 10/22/16 23:59 23:59 23:59 Weight 77.111 kg O2 saturation is 95. Lungs are clear to percussion and auscultation. Heart is in a normal sinus rhythm. He has crepitus over his right arm in right eye. All incisions are healing well without signs of infection and the sternum is stable. Chest x-ray reveals no pneumothorax. There is a small air leak on the right chest tube. - Labs 10/22/16 04:50 10/22/16 04:50 Lab Results, Last 24 hours 10/22/16 10/22/16 04:50 04:50 WBC 24.7 H D Hgb 9.0 L Hct 27.8 L Plt Count 102 L Sodium 140 Potassium 4.3 Chloride 107 Carbon Dioxide 26 BUN 24 D Creatinine 1.00 Glucose 137 H Calcium 8.7 - VTE Reasons for not Prescribing Prophylaxis: Treatment not Indicated - Low risk for VTE Documentation of Mechanical Device: Graduated compression elastic hosiery Consult Discharge Plan - Plan Referrals: Jarred Shaw, RAILROAD DISPATCHER [Primary Care Provider] -
[2016-10-22] MEDS: *HR* OxyCODONE/APAP 5/325 TABLET PO PRN (14:30)
[2016-10-22] MEDS: Ringers Solution, Lactated 1,000 ML IVC SCH (19:52)
[2016-10-22] MEDS: Nitroglycerin 25 MG/250 ML INFUS..BTL IVC SCH (19:52)
[2016-10-22] MEDS: Norepinephrine 4 MG in D5% in Water 250 ML IVC SCH (19:53)
[2016-10-23] MEDS: Ipratropium/Albuterol Neb 3 ML IH SCH ×7 (00:05→23:30)
[2016-10-23] MEDS: methylPREDNISolone 125 MG/2 ML VIAL IVP SCH ×2 (00:27→08:16)
[2016-10-23] MEDS: Metoclopramide 10 MG/2 ML VIAL IVP SCH ×3 (00:27→12:02)
[2016-10-23] MEDS: 0.9 % Sodium Chloride w KCl 20 MEQ/1,000 ML MLS IVC SCH ×2 (00:27→19:49)
[2016-10-23] MEDS: *HR* Morphine 2 MG/ML SYRINGE IVP PRN ×6 (00:44→21:14)
[2016-10-23] MEDS: niCARdipine 40 MG/200 ML MLS IVC SCH ×3 (04:02→19:50)
[2016-10-23] MEDS: Nitroglycerin 25 MG/250 ML INFUS..BTL IVC SCH ×3 (04:02→19:49)
[2016-10-23 04:13] LABS: Basophils % 0.1 %; Hematocrit 28.6 % (37.5-50.1); Hemoglobin 9.3 g/dL (12.9-16.9); Immature Granulocytes % 2.1 % (0-4); Lymphocytes # 0.6 K/mcL (0.6-4.6); Lymphocytes % 3.4 %; Mean Corpuscular HGB Conc 32.5 g/dL (31.6-35.5); Mean Corpuscular Hemoglobin 30.3 pg (28.0-33.3); Mean Corpuscular Volume 93.2 fL (83.0-100.0); Mean Platelet Volume 12.5 fL (9.4-12.4); Monocytes # 1.1 K/mcL (0.0-1.3); Monocytes % 6.1 %; Neutrophils # 15.3 K/mcL (1.6-8.9); Platelet Count 112 K/mcL (140-400); Red Blood Count 3.07 M/mcL (4.19-5.50); Red Cell Distribution Width 14.2 % (11.5-14.5); Segmented Neutrophils % 88.3 %
[2016-10-23 04:25] LABS: BUN/Creatinine Ratio 30 (6-26); Blood Urea Nitrogen 25 mg/dL (8-26); Calcium 8.6 mg/dL (8.6-10.8); Carbon Dioxide 31 mEq/L (19-29); Chloride 101 mEq/L (98-109); Glucose 135 mg/dL (70-99); Osmolality,Calculated 294 (280-300); Potassium 3.9 mEq/L (3.5-4.5); Sodium 139 mEq/L (136-145); eGFR For African Americans > 60 (> 60); eGFR For Non-African Americans > 60 (> 60)
[2016-10-23] MEDS: Furosemide 20 MG TABLET PO SCH ×2 (06:35→17:13)
--- NOTE | 2016-10-23 08:02 | Pulmonology Progress Note ---
<Marivel Castano - Last Filed: 10/23/16 09:36> Date of Encounter: 10/23/16 Time of Encounter: 08:00 Assessment and Plan (1) Status post coronary artery bypass graft Current Visit: Yes Status: Acute Neuropsych: Awake and alert, mild delirium Pulm: Acute on chronic hypoxic respiratory failure exacerbated by patient's severe COPD. Right chest tube placed 10/21 for small pneumothorax. Subcutaneous emphysema developed 10/22 while chest tube was clamped. DuoNeb q4h, albuterol neb q2h PRN, prednisone taper. Cardio: s/p CABG x4 by Dr. Sagastume on 10/20. Continue aspirin, statin, beta iván. FEN-GI: GI prophylaxis on board, diabetic diet Renal: Stable ID: Persistent neutrophilic leukocytosis. Watson cultures obtained. Vancomycin and Levaquin started. Heme/Onc: Postoperative anemia, thrombocytopenia - improved. DVT prophylaxis with compression stockings Endocrine: Stable Integ/MSK: Skin care per ICU protocol to prevent ulcers. All dressings are clean, dry and intact. Code: Full code (2) COPD (chronic obstructive pulmonary disease) Current Visit: Yes Status: Chronic Qualifiers: COPD type: unspecified COPD Qualified Code(s): J44.9 - Chronic obstructive pulmonary disease, unspecified (3) Postoperative anemia Current Visit: Yes Status: Acute (4) Thrombocytopenia Current Visit: Yes Status: Acute (5) Hypocalcemia Current Visit: Yes Status: Acute (6) Pneumothorax Current Visit: Yes Status: Resolved Qualifiers: Pneumothorax type: unspecified pneumothorax Qualified Code(s): J93.9 - Pneumothorax, unspecified (7) Subcutaneous emphysema Current Visit: Yes Status: Acute Qualifiers: Encounter type: initial encounter Qualified Code(s): T79.7XXA - Traumatic subcutaneous emphysema, initial encounter (8) CAD (coronary artery disease) Current Visit: No Status: Chronic Qualifiers: Coronary Disease-Associated Artery/Lesion type: bypass graft, autologous vein Associated angina: angina presence unspecified Qualified Code(s): I25.810 - Atherosclerosis of coronary artery bypass graft(s) without angina pectoris (9) HTN (hypertension) Current Visit: No Status: Chronic Qualifiers: Hypertension type: essential hypertension Qualified Code(s): I10 - Essential (primary) hypertension Subjective Principal diagnosis: CAD, COPD Interval history: Patient having difficulty breathing due to subcutaneous emphysema, oxygen saturations remained adequate to high. Objective PUL Vital signs: Last Vital Signs Temp 97.7 F 10/23/16 04:00 Pulse 93 10/23/16 06:00 Resp 18 10/23/16 07:46 BP 125/82 10/23/16 06:00 Pulse Ox 92 10/23/16 07:46 General appearance: appears uncomfortable Eyes: nonicteric ENT: oropharynx moist Auscultation: bilateral: diminished breath sounds Cardiovascular: regular rate and rhythm Gastrointestinal: normoactive bowel sounds, soft Integumentary: other (Subcutaneous emphysema of bilateral face, chest, upper extremities; R>L) Extremities: no cyanosis, pink and warm, pulses normal Musculoskeletal: no deformities Results - Laboratory Findings CBC and BMP: 10/23/16 03:50 10/23/16 03:50 ABG ABG pH 7.36 pH Units (7.32-7.45) 10/21/16 14:41 ABG pCO2 46 mmHg (35-45) H 10/21/16 14:41 ABG pO2 89 mmHg (85-104) 10/21/16 14:41 ABG O2 Saturation 96 % (95-98) 10/21/16 14:41 PT/INR, D-dimer PT 13.9 Seconds (9.4-12.1) H 10/21/16 03:22 Abnormal lab findings: Abnormal lab results WBC 17.3 K/mcL (4.3-11.1) H 10/23/16 03:50 RBC 3.07 M/mcL (4.19-5.50) L 10/23/16 03:50 Hgb 9.3 g/dL (12.9-16.9) L 10/23/16 03:50 Hct 28.6 % (37.5-50.1) L 10/23/16 03:50 Plt Count 112 K/mcL (140-400) L 10/23/16 03:50 MPV 12.5 fL (9.4-12.4) H 10/23/16 03:50 Neutrophils # 15.3 K/mcL (1.6-8.9) H 10/23/16 03:50 Nucleated RBCs/100 WBC 0.1 /100 WBC (0) H 10/22/16 04:50 Toxic Granulation Present (Not Present) A 10/22/16 04:50 Platelet Estimate Decreased (Normal) L 10/22/16 04:50 Large Platelets Present (Not Present) A 10/22/16 04:50 Immature Plt Fraction 15.4 % (1.1-6.1) H 10/22/16 04:50 PT 13.9 Seconds (9.4-12.1) H 10/21/16 03:22 ABG pCO2 46 mmHg (35-45) H 10/21/16 14:41 ABG Total CO2 27.4 mEq/L (20-26) H 10/21/16 14:41 ABG Hematocrit 26 % (35-51) L 10/20/16 11:17 Potassium 3.2 mEq/L (3.5-5.3) L 10/20/16 11:17 Glucose 111 mg/dL (60-95) H 10/20/16 11:17 Ionized Calcium 0.95 mmol/L (1.15-1.35) L 10/20/16 11:17 Carbon Dioxide 31 mEq/L (19-29) H 10/23/16 03:50 BUN/Creatinine Ratio 30 (6-26) H 10/23/16 03:50 Glucose 135 mg/dL (70-99) H 10/23/16 03:50 POC Glucose 136 (58-89) H 10/23/16 07:35 - Clinical Findings Intake & Output: Intake & Output 10/22/16 10/23/16 10/23/16 23:59 07:59 15:59 Intake Total 400 / 400 Output Total 955 / 955 500 / 500 Balance -555 / -555 -500 / -500 Weight 74.474 kg - VTE Reasons for not Prescribing Prophylaxis: Treatment not Indicated - Low risk for VTE Documentation of Mechanical Device: Graduated compression elastic hosiery Consult Discharge Plan - Plan Referrals: Jarred Shaw, FOOT AND ANKLE SURGEON [Primary Care Provider] - <Tu Peters - Last Filed: 10/23/16 09:56> Date of Encounter: 10/23/16 Assessment and Plan (1) CAD (coronary artery disease) Current Visit: No Status: Chronic Qualifiers: Coronary Disease-Associated Artery/Lesion type: bypass graft, autologous vein Associated angina: angina presence unspecified Qualified Code(s): I25.810 - Atherosclerosis of coronary artery bypass graft(s) without angina pectoris (2) Tobacco abuse Current Visit: No Status: Chronic (3) Status post coronary artery bypass graft Current Visit: Yes Status: Acute (4) COPD (chronic obstructive pulmonary disease) Current Visit: Yes Status: Chronic Qualifiers: COPD type: unspecified COPD Qualified Code(s): J44.9 - Chronic obstructive pulmonary disease, unspecified (5) Postoperative anemia Current Visit: Yes Status: Acute (6) Acute respiratory failure with hypoxemia Current Visit: No Status: Acute (7) Acute exacerbation of chronic obstructive airways disease Current Visit: No Status: Acute Objective PUL Vital signs: Last Vital Signs Temp 97.8 F 10/23/16 08:05 Pulse 100 10/23/16 08:00 Resp 18 10/23/16 08:00 BP 112/89 10/23/16 08:00 Pulse Ox 90 10/23/16 08:00 Results - Laboratory Findings CBC and BMP: 10/23/16 03:50 10/23/16 03:50 ABG ABG pH 7.36 pH Units (7.32-7.45) 10/21/16 14:41 ABG pCO2 46 mmHg (35-45) H 10/21/16 14:41 ABG pO2 89 mmHg (85-104) 10/21/16 14:41 ABG O2 Saturation 96 % (95-98) 10/21/16 14:41 PT/INR, D-dimer PT 13.9 Seconds (9.4-12.1) H 10/21/16 03:22 Abnormal lab findings: Abnormal lab results WBC 17.3 K/mcL (4.3-11.1) H 10/23/16 03:50 RBC 3.07 M/mcL (4.19-5.50) L 10/23/16 03:50 Hgb 9.3 g/dL (12.9-16.9) L 10/23/16 03:50 Hct 28.6 % (37.5-50.1) L 10/23/16 03:50 Plt Count 112 K/mcL (140-400) L 10/23/16 03:50 MPV 12.5 fL (9.4-12.4) H 10/23/16 03:50 Neutrophils # 15.3 K/mcL (1.6-8.9) H 10/23/16 03:50 Nucleated RBCs/100 WBC 0.1 /100 WBC (0) H 10/22/16 04:50 Toxic Granulation Present (Not Present) A 10/22/16 04:50 Platelet Estimate Decreased (Normal) L 10/22/16 04:50 Large Platelets Present (Not Present) A 10/22/16 04:50 Immature Plt Fraction 15.4 % (1.1-6.1) H 10/22/16 04:50 PT 13.9 Seconds (9.4-12.1) H 10/21/16 03:22 ABG pCO2 46 mmHg (35-45) H 10/21/16 14:41 ABG Total CO2 27.4 mEq/L (20-26) H 10/21/16 14:41 ABG Hematocrit 26 % (35-51) L 10/20/16 11:17 Potassium 3.2 mEq/L (3.5-5.3) L 10/20/16 11:17 Glucose 111 mg/dL (60-95) H 10/20/16 11:17 Ionized Calcium 0.95 mmol/L (1.15-1.35) L 10/20/16 11:17 Carbon Dioxide 31 mEq/L (19-29) H 10/23/16 03:50 BUN/Creatinine Ratio 30 (6-26) H 10/23/16 03:50 Glucose 135 mg/dL (70-99) H 10/23/16 03:50 POC Glucose 136 (58-89) H 10/23/16 07:35 - Clinical Findings Intake & Output: Intake & Output 10/22/16 10/23/16 10/23/16 23:59 07:59 15:59 Intake Total 400 / 400 Output Total 955 / 955 500 / 500 481 / 481 Balance -555 / -555 -500 / -500 -481 / -481 Weight 74.474 kg - Attending Attestation I examined this patient and my medical decision-making was reviewed with the NURSERY LABORER/PA/Advanced Practice Nurse/Resident Physician. I agree with the documented findings, disposition and treatment plan as described except to the extent set forth below. Patient seen and examined at bedside Labs, radiology, chart personally reviewed. All lines examined without evidence of infection. Neuropsych: Mild delirium neurologic exam stable otherwise avoid DESIGN SPECIALIST depressant medications christian of sleep-wake cycle as able Pulm: Acute on chronic hypoxic hypercarbic respiratory failure secondary to COPD exacerbation and postoperative state complicated by right pneumothorax smallbore chest tube in site site to still has significant subcutaneous emphysema present but improved from yesterday. Airleak present today and chest tube will remain to suction overnight reevaluate in the morning. Increased sputum production which is purulent possibility of pneumonia although no clear radiographic evidence. Wean FiO2 to keep saturations greater than 88 around 92% Cards: Postop status post CABG 3 CTS managing postoperative surgical aspects mediastinal chest tubes removed today aspirin statin and beta iván given FEN-GI: Advanced cardiac diet as tolerated. Renal: No NICK except will urine output continue to monitor ID: Possible pneumonia starting empiric antimicrobials to cover for healthcare associated organisms after sputum and blood and urine cultures sent Heme/Onc: Mechanical DVT prophylaxis given Endo: Glucose monitored Integ/MSK: Skin care per ICU protocol to prevent ulcers postoperative dressings appear clean dry and intact CODE: Full code patient's family including updated at bedside
[2016-10-23] MEDS: Insulin LISPRO 300 UNITS/3 ML VIAL SQ SCH ×4 (08:16→20:33)
[2016-10-23] MEDS: Pantoprazole 40 MG VIAL IVP SCH (08:16)
[2016-10-23] MEDS: Chlorhexidine Rinse 15 ML MOUTHWASH MM SCH ×2 (08:16→19:49)
[2016-10-23] MEDS: Aspirin Enteric Coated 81 MG Tablet PO SCH (08:17)
--- NOTE | 2016-10-23 08:36 | Cardiothoracic Progress Note ---
Date of Encounter: 10/23/16 Time of Encounter: 08:35 - Assessment and plan (1) Status post coronary artery bypass graft Current Visit: Yes Status: Acute The mediastinal chest tubes were removed. We will leave the right chest tube until the air leak stops. - Subjective Interval history: The patient has no complaints and continues to improve. Vital Signs, Last 4 Hours Temp Pulse Resp BP Pulse Ox 10/23/16 08:05 97.8 F 10/23/16 07:46 18 92 10/23/16 06:00 93 20 125/82 92 10/23/16 05:00 93 12 115/82 96 Oxgyen Flow Rate Oxygen Flow Rate (LPM) 12 Clinical Data, last 8 Hours Output, Chest Tube Drainage 0 Amount [Right Anterior Chest # 3] Output, Chest Tube Drainage 0 Amount [Right Anterior Chest # 3] Output, Chest Tube Drainage 8 Amount [Mediastinal #1] Output, Chest Tube Drainage 40 Amount [Mediastinal #2] Output, Chest Tube Drainage 50 Amount [Mediastinal #2] Weight 10/21/16 10/22/16 10/23/16 23:59 23:59 23:59 Weight 74.474 kg Lungs are clear to percussion and auscultation. His subcutaneous crepitus is improving and his eyes are both now open. Heart is in a normal sinus rhythm. His incision is healing well without signs of infection and the sternum is stable. The mediastinal chest tubes had minimal drainage and no air leak. The right chest tube has a continued air leak. - Labs 10/23/16 03:50 10/23/16 03:50 Lab Results, Last 24 hours 10/23/16 10/23/16 03:50 03:50 WBC 17.3 H Hgb 9.3 L Hct 28.6 L Plt Count 112 L Sodium 139 Potassium 3.9 Chloride 101 Carbon Dioxide 31 H BUN 25 Creatinine 0.84 Glucose 135 H Calcium 8.6 Magnesium 2.0 - VTE Reasons for not Prescribing Prophylaxis: Treatment not Indicated - Low risk for VTE Documentation of Mechanical Device: Graduated compression elastic hosiery Consult Discharge Plan - Plan Referrals: Jarred Shaw, COPIER TECHNICIAN [Primary Care Provider] -
[2016-10-23] MEDS ORDERED: Vancomycin 1,000 MG in D5% in Water 250 ML IVPB SCH (09:00)
[2016-10-23] MEDS: Vancomycin 1,000 MG in D5% in Water 250 ML IVPB SCH ×2 (11:54→23:55)
[2016-10-23] MEDS: Levofloxacin 750 MG/150 ML 750 MG/150 ML BAG IVPB SCH (11:55)
[2016-10-23] MEDS ORDERED: predniSONE 20 MG TABLET PO SCH (17:00)
[2016-10-23] MEDS: predniSONE 20 MG TABLET PO SCH (17:13)
[2016-10-23] MEDS: Norepinephrine 4 MG in D5% in Water 250 ML IVC SCH (19:48)
[2016-10-24] MEDS: *HR* Morphine 2 MG/ML SYRINGE IVP PRN ×6 (00:07→22:34)
[2016-10-24] MEDS: niCARdipine 40 MG/200 ML MLS IVC SCH (01:05)
[2016-10-24] MEDS: Ondansetron 4 MG/2 ML VIAL IVP PRN (01:27)
[2016-10-24] MEDS: Ipratropium/Albuterol Neb 3 ML IH SCH ×6 (04:14→23:46)
[2016-10-24 04:30] LABS: Basophils % 0.2 %; Hematocrit 30.2 % (37.5-50.1); Hemoglobin 9.8 g/dL (12.9-16.9); Immature Granulocytes % 1.5 % (0-4); Lymphocytes # 0.7 K/mcL (0.6-4.6); Lymphocytes % 3.4 %; Mean Corpuscular HGB Conc 32.5 g/dL (31.6-35.5); Mean Corpuscular Hemoglobin 29.9 pg (28.0-33.3); Mean Corpuscular Volume 92.1 fL (83.0-100.0); Mean Platelet Volume 12.7 fL (9.4-12.4); Monocytes % 10.1 %; Neutrophils # 16.9 K/mcL (1.6-8.9); Platelet Count 144 K/mcL (140-400); Red Blood Count 3.28 M/mcL (4.19-5.50); Red Cell Distribution Width 13.7 % (11.5-14.5); Segmented Neutrophils % 84.8 %
[2016-10-24 04:46] LABS: BUN/Creatinine Ratio 31 (6-26); Blood Urea Nitrogen 25 mg/dL (8-26); Calcium 8.8 mg/dL (8.6-10.8); Carbon Dioxide 32 mEq/L (19-29); Chloride 100 mEq/L (98-109); Glucose 147 mg/dL (70-99); Magnesium 2.1 mg/dL (1.6-2.6); Osmolality,Calculated 293 (280-300); Potassium 3.8 mEq/L (3.5-4.5); Sodium 138 mEq/L (136-145); eGFR For African Americans > 60 (> 60); eGFR For Non-African Americans > 60 (> 60)
--- NOTE | 2016-10-24 07:08 | Cardiothoracic Progress Note ---
Date of Encounter: 10/24/16 Time of Encounter: 07:06 - Assessment and plan (1) Status post coronary artery bypass graft Current Visit: Yes Status: Acute The patient continues to improve. Hopefully, we can remove the chest tube in 2- 3 days. - Subjective Interval history: The patient complains of postoperative pain that is mild. Vital Signs, Last 4 Hours Temp Pulse Resp BP Pulse Ox 10/24/16 06:00 90 12 121/83 97 10/24/16 05:13 18 95 10/24/16 05:00 91 12 114/81 98 10/24/16 04:44 97.6 F 10/24/16 04:00 92 17 119/88 99 Oxgyen Flow Rate Oxygen Flow Rate (LPM) 12 Clinical Data, last 8 Hours Output, Chest Tube Drainage 8 Amount [Right Anterior Chest # 3] Output, Urine Amount 200 Output, Urine Amount 325 Weight 10/22/16 10/23/16 10/24/16 23:59 23:59 23:59 Weight 74.474 kg 78.2 kg Lungs are clear to percussion and auscultation. Heart is in a normal sinus rhythm. All incisions are healing well without signs of infection and the sternum is stable. The subcutaneous air continues to improve. I see no air leak on the chest tube today. - Labs 10/24/16 04:13 10/24/16 04:13 Lab Results, Last 24 hours 10/24/16 10/24/16 04:13 04:13 WBC 19.9 H Hgb 9.8 L Hct 30.2 L Plt Count 144 Sodium 138 Potassium 3.8 Chloride 100 Carbon Dioxide 32 H BUN 25 Creatinine 0.80 Glucose 147 H Calcium 8.8 Magnesium 2.1 - VTE Reasons for not Prescribing Prophylaxis: Treatment not Indicated - Low risk for VTE Documentation of Mechanical Device: Graduated compression elastic hosiery Consult Discharge Plan - Plan Referrals: Jarred Shaw, TURBINE ATTENDANT [Primary Care Provider] -
--- NOTE | 2016-10-24 08:18 | Pulmonology Progress Note ---
<Marivel Castano - Last Filed: 10/24/16 10:46> Date of Encounter: 10/24/16 Time of Encounter: 08:16 Assessment and Plan (1) Status post coronary artery bypass graft Current Visit: Yes Status: Acute Neuropsych: Awake and alert Pulm: Severe COPD. Right chest tube placed 10/21 for small pneumothorax. Subcutaneous emphysema developed 10/22 while chest tube was clamped. 10/24 Chest tube placed to wall suction due to air leak. DuoNeb q4h, albuterol neb q2h PRN , prednisone 40mg BID. Start Symbicort. Cardio: s/p CABG x4 by Dr. Sagastume on 10/20. Continue aspirin, statin, beta iván. FEN-GI: GI prophylaxis on board, diabetic diet Renal: Stable ID: Persistent neutrophilic leukocytosis, likely elevated at least in part due to steroid use. Watson cultures pending: Sputum culture preliminary report few gram-positive cocci, few gram-positive rods, few white blood cells. Vancomycin and Levaquin (day 2). Heme/Onc: Postoperative anemia, thrombocytopenia - improved. DVT prophylaxis start subcutaneous heparin. Endocrine: Stable Integ/MSK: Skin care per ICU protocol to prevent ulcers. All dressings are clean, dry and intact. Code: Full code (2) COPD (chronic obstructive pulmonary disease) Current Visit: Yes Status: Chronic Qualifiers: COPD type: unspecified COPD Qualified Code(s): J44.9 - Chronic obstructive pulmonary disease, unspecified (3) Postoperative anemia Current Visit: Yes Status: Acute (4) Thrombocytopenia Current Visit: Yes Status: Acute (5) Hypocalcemia Current Visit: Yes Status: Acute (6) Pneumothorax Current Visit: Yes Status: Resolved Qualifiers: Pneumothorax type: unspecified pneumothorax Qualified Code(s): J93.9 - Pneumothorax, unspecified (7) Subcutaneous emphysema Current Visit: Yes Status: Acute Qualifiers: Encounter type: initial encounter Qualified Code(s): T79.7XXA - Traumatic subcutaneous emphysema, initial encounter (8) CAD (coronary artery disease) Current Visit: No Status: Chronic Qualifiers: Coronary Disease-Associated Artery/Lesion type: bypass graft, autologous vein Associated angina: angina presence unspecified Qualified Code(s): I25.810 - Atherosclerosis of coronary artery bypass graft(s) without angina pectoris (9) HTN (hypertension) Current Visit: No Status: Chronic Qualifiers: Hypertension type: essential hypertension Qualified Code(s): I10 - Essential (primary) hypertension Subjective Principal diagnosis: CAD, COPD Interval history: Patient having difficulty breathing due to subcutaneous emphysema, oxygen saturations remained adequate to high. Chest tube was clamped this morning, but due to an air leak was unclamped and put to wall suction again. Objective PUL Vital signs: Last Vital Signs Temp 97.6 F 10/24/16 04:44 Pulse 90 10/24/16 06:00 Resp 12 10/24/16 06:00 BP 121/83 10/24/16 06:00 Pulse Ox 97 10/24/16 06:00 General appearance: no acute distress Eyes: nonicteric ENT: oropharynx moist Neck: supple Effort: normal Auscultation: bilateral: diminished breath sounds Cardiovascular: regular rate and rhythm Gastrointestinal: normoactive bowel sounds, soft, non-tender Integumentary: other (Subcutaneous emphysema of bilateral upper extremities, face, and torso; R>L) Extremities: no cyanosis, no edema, pink and warm Musculoskeletal: no deformities normal mental status Results - Laboratory Findings CBC and BMP: 10/24/16 04:13 10/24/16 04:13 ABG ABG pH 7.36 pH Units (7.32-7.45) 10/21/16 14:41 ABG pCO2 46 mmHg (35-45) H 10/21/16 14:41 ABG pO2 89 mmHg (85-104) 10/21/16 14:41 ABG O2 Saturation 96 % (95-98) 10/21/16 14:41 PT/INR, D-dimer PT 13.9 Seconds (9.4-12.1) H 10/21/16 03:22 Abnormal lab findings: Abnormal lab results WBC 19.9 K/mcL (4.3-11.1) H 10/24/16 04:13 RBC 3.28 M/mcL (4.19-5.50) L 10/24/16 04:13 Hgb 9.8 g/dL (12.9-16.9) L 10/24/16 04:13 Hct 30.2 % (37.5-50.1) L 10/24/16 04:13 MPV 12.7 fL (9.4-12.4) H 10/24/16 04:13 Neutrophils # 16.9 K/mcL (1.6-8.9) H 10/24/16 04:13 Monocytes # 2.0 K/mcL (0.0-1.3) H 10/24/16 04:13 Nucleated RBCs/100 WBC 0.1 /100 WBC (0) H 10/22/16 04:50 Toxic Granulation Present (Not Present) A 10/22/16 04:50 Platelet Estimate Decreased (Normal) L 10/22/16 04:50 Large Platelets Present (Not Present) A 10/22/16 04:50 Immature Plt Fraction 15.4 % (1.1-6.1) H 10/22/16 04:50 PT 13.9 Seconds (9.4-12.1) H 10/21/16 03:22 ABG pCO2 46 mmHg (35-45) H 10/21/16 14:41 ABG Total CO2 27.4 mEq/L (20-26) H 10/21/16 14:41 ABG Hematocrit 26 % (35-51) L 10/20/16 11:17 Potassium 3.2 mEq/L (3.5-5.3) L 10/20/16 11:17 Glucose 111 mg/dL (60-95) H 10/20/16 11:17 Ionized Calcium 0.95 mmol/L (1.15-1.35) L 10/20/16 11:17 Carbon Dioxide 32 mEq/L (19-29) H 10/24/16 04:13 BUN/Creatinine Ratio 31 (6-26) H 10/24/16 04:13 Glucose 147 mg/dL (70-99) H 10/24/16 04:13 POC Glucose 136 (58-89) H 10/24/16 07:33 - Microbiology Findings Microbiology Findings: Microbiology, Last 48 Hours 10/23/16 13:50 Sputum Culture - Preliminary Sputum - Clinical Findings Intake & Output: Intake & Output 10/23/16 10/24/16 10/24/16 23:59 07:59 15:59 Intake Total 390 / 390 Output Total 675 / 675 533 / 533 Balance -285 / -285 -533 / -533 Weight 78.2 kg - VTE Reasons for not Prescribing Prophylaxis: Treatment not Indicated - Low risk for VTE Documentation of Mechanical Device: Graduated compression elastic hosiery Consult Discharge Plan - Plan Referrals: Jarred Shaw, FLOORING INSTALLER [Primary Care Provider] - <Lacie Griffin - Last Filed: 10/24/16 16:38> Date of Encounter: 10/24/16 Objective PUL Vital signs: Last Vital Signs Temp 97.7 F 10/24/16 11:00 Pulse 87 10/24/16 15:00 Resp 16 10/24/16 15:54 BP 104/85 10/24/16 15:00 Pulse Ox 97 10/24/16 15:54 Results - Laboratory Findings CBC and BMP: 10/24/16 04:13 10/24/16 04:13 ABG ABG pH 7.36 pH Units (7.32-7.45) 10/21/16 14:41 ABG pCO2 46 mmHg (35-45) H 10/21/16 14:41 ABG pO2 89 mmHg (85-104) 10/21/16 14:41 ABG O2 Saturation 96 % (95-98) 10/21/16 14:41 PT/INR, D-dimer PT 13.9 Seconds (9.4-12.1) H 10/21/16 03:22 Abnormal lab findings: Abnormal lab results WBC 19.9 K/mcL (4.3-11.1) H 10/24/16 04:13 RBC 3.28 M/mcL (4.19-5.50) L 10/24/16 04:13 Hgb 9.8 g/dL (12.9-16.9) L 10/24/16 04:13 Hct 30.2 % (37.5-50.1) L 10/24/16 04:13 MPV 12.7 fL (9.4-12.4) H 10/24/16 04:13 Neutrophils # 16.9 K/mcL (1.6-8.9) H 10/24/16 04:13 Monocytes # 2.0 K/mcL (0.0-1.3) H 10/24/16 04:13 Nucleated RBCs/100 WBC 0.1 /100 WBC (0) H 10/22/16 04:50 Toxic Granulation Present (Not Present) A 10/22/16 04:50 Platelet Estimate Decreased (Normal) L 10/22/16 04:50 Large Platelets Present (Not Present) A 10/22/16 04:50 Immature Plt Fraction 15.4 % (1.1-6.1) H 10/22/16 04:50 PT 13.9 Seconds (9.4-12.1) H 10/21/16 03:22 ABG pCO2 46 mmHg (35-45) H 10/21/16 14:41 ABG Total CO2 27.4 mEq/L (20-26) H 10/21/16 14:41 ABG Hematocrit 26 % (35-51) L 10/20/16 11:17 Potassium 3.2 mEq/L (3.5-5.3) L 10/20/16 11:17 Glucose 111 mg/dL (60-95) H 10/20/16 11:17 Ionized Calcium 0.95 mmol/L (1.15-1.35) L 10/20/16 11:17 Carbon Dioxide 32 mEq/L (19-29) H 10/24/16 04:13 BUN/Creatinine Ratio 31 (6-26) H 10/24/16 04:13 Glucose 147 mg/dL (70-99) H 10/24/16 04:13 POC Glucose 136 (58-89) H 10/24/16 16:16 Vancomycin Trough 9.4 mcg/mL (10-20) L 10/24/16 09:05 - Microbiology Findings Microbiology Findings: Microbiology, Last 48 Hours 10/23/16 13:50 Sputum Culture - Preliminary Sputum Gram Negative Frederick - Clinical Findings Intake & Output: Intake & Output 10/24/16 10/24/16 10/24/16 07:59 15:59 23:59 Intake Total 250 / 250 510 / 510 Output Total 533 / 533 300 / 300 Balance -283 / -283 210 / 210 Weight 78.2 kg - Attending Attestation I examined this patient and my medical decision-making was reviewed with the SLITTER OPERATOR/PA/Advanced Practice Nurse/Resident Physician. I agree with the documented findings, disposition and treatment plan as described except to the extent set forth below. Patient seen and examined. Labs, radiology, chart personally reviewed. Agree with resident's history and physical, assessment, plan with following comments: RUBBER MOLD MAKER: Patient follows commands, Pulmonary: Acceptable oxygenation and ventilation. There is still evidence of subcutaneous emphysema and leak from the chest tube. To continue suction and treatment for the COPD. Cardiovascular: stable GI: Nutrition per dietary and GI prophylaxis per routine Heme: DVT prophylaxis per routine Renal; urine out put and renal funtion reviewed Endorcine: blood glucose is monitored Lines: all lines checked and no evidence of infections Skin: skin care to prevent pressure ulcers per nursing routine care Discussed with Dr. Villa.
[2016-10-24] MEDS: Insulin LISPRO 300 UNITS/3 ML VIAL SQ SCH ×4 (08:45→20:51)
[2016-10-24] MEDS: Budesonide/Formoterol 160/4.5 MDI IH SCH ×2 (08:46→19:51)
[2016-10-24] MEDS: Chlorhexidine Rinse 15 ML MOUTHWASH MM SCH ×2 (08:52→20:51)
[2016-10-24] MEDS: Pantoprazole 40 MG VIAL IVP SCH (08:52)
[2016-10-24] MEDS: predniSONE 20 MG TABLET PO SCH ×2 (08:52→17:29)
[2016-10-24] MEDS: Aspirin Enteric Coated 81 MG Tablet PO SCH (08:52)
[2016-10-24] MEDS: Levofloxacin 750 MG/150 ML 750 MG/150 ML BAG IVPB SCH (08:53)
[2016-10-24] MEDS: Vancomycin 1,000 MG in D5% in Water 250 ML IVPB SCH ×2 (11:23→22:33)
[2016-10-24] MEDS: *HR* OxyCODONE/APAP 5/325 TABLET PO PRN ×2 (11:24→22:34)
[2016-10-24] MEDS ORDERED: Aminoglycoside Consult 1 EACH MC ONE (12:00)
[2016-10-24] MEDS: *HR* Heparin 5,000 UNIT/ML VIAL SQ SCH (17:31)
[2016-10-25 03:28] LABS: Basophils % 0.1 %; Hematocrit 28.1 % (37.5-50.1); Hemoglobin 9.2 g/dL (12.9-16.9); Immature Granulocytes % 1.6 % (0-4); Lymphocytes # 0.7 K/mcL (0.6-4.6); Lymphocytes % 4.9 %; Mean Corpuscular HGB Conc 32.7 g/dL (31.6-35.5); Mean Corpuscular Hemoglobin 30.2 pg (28.0-33.3); Mean Corpuscular Volume 92.1 fL (83.0-100.0); Mean Platelet Volume 11.7 fL (9.4-12.4); Monocytes # 1.4 K/mcL (0.0-1.3); Monocytes % 10.1 %; Neutrophils # 11.7 K/mcL (1.6-8.9); Platelet Count 123 K/mcL (140-400); Red Blood Count 3.05 M/mcL (4.19-5.50); Red Cell Distribution Width 13.6 % (11.5-14.5); Segmented Neutrophils % 83.3 %
[2016-10-25 03:40] LABS: BUN/Creatinine Ratio 29 (6-26); Blood Urea Nitrogen 23 mg/dL (8-26); Calcium 8.7 mg/dL (8.6-10.8); Carbon Dioxide 36 mEq/L (19-29); Chloride 102 mEq/L (98-109); Glucose 139 mg/dL (70-99); Magnesium 2.2 mg/dL (1.6-2.6); Osmolality,Calculated 296 (280-300); Potassium 4.1 mEq/L (3.5-4.5); Sodium 140 mEq/L (136-145); eGFR For African Americans > 60 (> 60); eGFR For Non-African Americans > 60 (> 60)
[2016-10-25] MEDS: Ipratropium/Albuterol Neb 3 ML IH SCH ×5 (03:42→19:32)
[2016-10-25] MEDS: Acetaminophen 325 MG TABLET PO PRN (04:29)
[2016-10-25] MEDS: Ondansetron 4 MG/2 ML VIAL IVP PRN (04:29)
[2016-10-25] MEDS: *HR* OxyCODONE/APAP 5/325 TABLET PO PRN ×4 (04:29→18:30)
[2016-10-25] MEDS: *HR* Heparin 5,000 UNIT/ML VIAL SQ SCH ×2 (06:20→17:27)
--- NOTE | 2016-10-25 06:58 | Cardiothoracic Progress Note ---
Date of Encounter: 10/25/16 Time of Encounter: 06:56 - Assessment and plan (1) Status post coronary artery bypass graft Current Visit: Yes Status: Acute We will transfer the patient to the floor. His subcutaneous emphysema is markedly improved. - Subjective Interval history: The patient has no complaints. Vital Signs, Last 4 Hours Temp Pulse Resp BP Pulse Ox 10/25/16 06:00 84 11 90/59 98 10/25/16 05:01 97.4 F L 10/25/16 05:00 93 11 107/72 100 10/25/16 04:00 89 20 124/82 94 10/25/16 03:44 20 97 10/25/16 03:00 88 17 112/77 95 Oxgyen Flow Rate Oxygen Flow Rate (LPM) 12 Clinical Data, last 8 Hours Output, Urine Amount 250 Weight 10/23/16 10/24/16 10/25/16 23:59 23:59 23:59 Weight 74.474 kg 78.2 kg 80.8 kg Lungs are clear to percussion and auscultation. Heart is in a normal sinus rhythm. All incisions are healing well without signs of infection and the sternum is stable. The chest tube has a small air leak with. Minimal drainage. - Labs 10/25/16 03:20 10/25/16 03:20 Lab Results, Last 24 hours 10/25/16 10/25/16 03:20 03:20 WBC 14.0 H Hgb 9.2 L Hct 28.1 L Plt Count 123 L Sodium 140 Potassium 4.1 Chloride 102 Carbon Dioxide 36 H BUN 23 Creatinine 0.78 Glucose 139 H Calcium 8.7 Magnesium 2.2 - VTE Reasons for not Prescribing Prophylaxis: Treatment not Indicated - Low risk for VTE Documentation of Mechanical Device: Graduated compression elastic hosiery Consult Discharge Plan - Plan Referrals: Jarred Shaw, MARKETING WRITER [Primary Care Provider] -
--- NOTE | 2016-10-25 07:50 | Pulmonology Progress Note ---
<Marivel Castano - Last Filed: 10/25/16 07:48> Date of Encounter: 10/25/16 Time of Encounter: 07:48 Assessment and Plan (1) Status post coronary artery bypass graft Current Visit: Yes Status: Acute Transfer to . Neuropsych: Awake and alert Pulm: Severe COPD. Right chest tube placed 10/21 for small pneumothorax. Subcutaneous emphysema developed 10/22 while chest tube was clamped. 10/24 Chest tube placed to wall suction due to air leak. Chest tube still with air leak. DuoNeb q4h, albuterol neb q2h PRN, prednisone 40mg BID, Symbicort. Cardio: s/p CABG x4 by Dr. Sagastume on 10/20. Continue aspirin, statin, beta iván. FEN-GI: GI prophylaxis on board, diabetic diet Renal: Stable ID: neutrophilic leukocytosis improved, likely elevated at least in part due to steroid use. Blood cultures pulmonary no growth, sputum culture Pseudomonas - sensitive to Levaquin. Stop vancomycin, continue Levaquin (day 3). Heme/Onc: Postoperative anemia, thrombocytopenia - stable. DVT prophylaxis subcutaneous heparin. Endocrine: Stable Integ/MSK: Skin care per ICU protocol to prevent ulcers. All dressings are clean, dry and intact. Code: Full code (2) COPD (chronic obstructive pulmonary disease) Current Visit: Yes Status: Chronic Qualifiers: COPD type: unspecified COPD Qualified Code(s): J44.9 - Chronic obstructive pulmonary disease, unspecified (3) Postoperative anemia Current Visit: Yes Status: Acute (4) Thrombocytopenia Current Visit: Yes Status: Acute (5) Hypocalcemia Current Visit: Yes Status: Acute (6) Pneumothorax Current Visit: Yes Status: Resolved Qualifiers: Pneumothorax type: unspecified pneumothorax Qualified Code(s): J93.9 - Pneumothorax, unspecified (7) Subcutaneous emphysema Current Visit: Yes Status: Acute Qualifiers: Encounter type: initial encounter Qualified Code(s): T79.7XXA - Traumatic subcutaneous emphysema, initial encounter (8) CAD (coronary artery disease) Current Visit: No Status: Chronic Qualifiers: Coronary Disease-Associated Artery/Lesion type: bypass graft, autologous vein Associated angina: angina presence unspecified Qualified Code(s): I25.810 - Atherosclerosis of coronary artery bypass graft(s) without angina pectoris (9) HTN (hypertension) Current Visit: No Status: Chronic Qualifiers: Hypertension type: essential hypertension Qualified Code(s): I10 - Essential (primary) hypertension Subjective Principal diagnosis: CAD, COPD Interval history: Subcutaneous emphysema improved. Positive flatus, no bowel movement. Chest tube still a small air leak. Objective PUL Vital signs: Last Vital Signs Temp 97.8 F 10/25/16 07:43 Pulse 86 10/25/16 07:00 Resp 10 10/25/16 07:00 BP 122/77 10/25/16 07:00 Pulse Ox 96 10/25/16 07:00 General appearance: no acute distress Eyes: nonicteric ENT: oropharynx moist Neck: supple Effort: normal Auscultation: bilateral: diminished breath sounds Cardiovascular: regular rate and rhythm Gastrointestinal: normoactive bowel sounds, soft, non-tender Integumentary: other (Subcutaneous emphysema of bilateral upper extremities, face, and torso; R>L) Extremities: no cyanosis, pink and warm, edema (Trace edema left lower extremity ) Musculoskeletal: no deformities normal mental status Results - Laboratory Findings CBC and BMP: 10/25/16 03:20 10/25/16 03:20 ABG ABG pH 7.36 pH Units (7.32-7.45) 10/21/16 14:41 ABG pCO2 46 mmHg (35-45) H 10/21/16 14:41 ABG pO2 89 mmHg (85-104) 10/21/16 14:41 ABG O2 Saturation 96 % (95-98) 10/21/16 14:41 PT/INR, D-dimer PT 13.9 Seconds (9.4-12.1) H 10/21/16 03:22 Abnormal lab findings: Abnormal lab results WBC 14.0 K/mcL (4.3-11.1) H 10/25/16 03:20 RBC 3.05 M/mcL (4.19-5.50) L 10/25/16 03:20 Hgb 9.2 g/dL (12.9-16.9) L 10/25/16 03:20 Hct 28.1 % (37.5-50.1) L 10/25/16 03:20 Plt Count 123 K/mcL (140-400) L 10/25/16 03:20 Neutrophils # 11.7 K/mcL (1.6-8.9) H 10/25/16 03:20 Monocytes # 1.4 K/mcL (0.0-1.3) H 10/25/16 03:20 Nucleated RBCs/100 WBC 0.1 /100 WBC (0) H 10/22/16 04:50 Toxic Granulation Present (Not Present) A 10/22/16 04:50 Platelet Estimate Decreased (Normal) L 10/22/16 04:50 Large Platelets Present (Not Present) A 10/22/16 04:50 Immature Plt Fraction 15.4 % (1.1-6.1) H 10/22/16 04:50 PT 13.9 Seconds (9.4-12.1) H 10/21/16 03:22 ABG pCO2 46 mmHg (35-45) H 10/21/16 14:41 ABG Total CO2 27.4 mEq/L (20-26) H 10/21/16 14:41 ABG Hematocrit 26 % (35-51) L 10/20/16 11:17 Potassium 3.2 mEq/L (3.5-5.3) L 10/20/16 11:17 Glucose 111 mg/dL (60-95) H 10/20/16 11:17 Ionized Calcium 0.95 mmol/L (1.15-1.35) L 10/20/16 11:17 Carbon Dioxide 36 mEq/L (19-29) H 10/25/16 03:20 BUN/Creatinine Ratio 29 (6-26) H 10/25/16 03:20 Glucose 139 mg/dL (70-99) H 10/25/16 03:20 POC Glucose 160 (58-89) H 10/25/16 07:14 Vancomycin Trough 9.4 mcg/mL (10-20) L 10/24/16 09:05 - Microbiology Findings Microbiology Findings: Microbiology, Last 48 Hours 10/23/16 13:50 Sputum Culture - Final Sputum Pseudomonas aeruginosa 10/23/16 09:41 Blood Culture - Preliminary Peripheral Venipuncture No growth. 10/23/16 09:38 Blood Culture - Preliminary Peripheral Venipuncture No growth. - Clinical Findings Intake & Output: Intake & Output 10/24/16 10/24/16 10/25/16 15:59 23:59 07:59 Intake Total 760 / 760 480 / 480 250 / 250 Output Total 300 / 300 729 / 729 775 / 775 Balance 460 / 460 -249 / -249 -525 / -525 Weight 80.8 kg - VTE Reasons for not Prescribing Prophylaxis: Treatment not Indicated - Low risk for VTE Documentation of Mechanical Device: Graduated compression elastic hosiery Consult Discharge Plan - Plan Referrals: Jarred Shwa, WELDER JOURNEYMAN [Primary Care Provider] - <Lacie Griffin Felipe - Last Filed: 10/25/16 17:27> Date of Encounter: 10/25/16 Objective PUL Vital signs: Last Vital Signs Temp 97.9 F 10/25/16 17:09 Pulse 92 10/25/16 11:00 Resp 16 10/25/16 16:03 BP 105/73 10/25/16 09:00 Pulse Ox 96 10/25/16 16:03 Results - Laboratory Findings CBC and BMP: 10/25/16 03:20 10/25/16 03:20 ABG ABG pH 7.36 pH Units (7.32-7.45) 10/21/16 14:41 ABG pCO2 46 mmHg (35-45) H 10/21/16 14:41 ABG pO2 89 mmHg (85-104) 10/21/16 14:41 ABG O2 Saturation 96 % (95-98) 10/21/16 14:41 PT/INR, D-dimer PT 13.9 Seconds (9.4-12.1) H 10/21/16 03:22 Abnormal lab findings: Abnormal lab results WBC 14.0 K/mcL (4.3-11.1) H 10/25/16 03:20 RBC 3.05 M/mcL (4.19-5.50) L 10/25/16 03:20 Hgb 9.2 g/dL (12.9-16.9) L 10/25/16 03:20 Hct 28.1 % (37.5-50.1) L 10/25/16 03:20 Plt Count 123 K/mcL (140-400) L 10/25/16 03:20 Neutrophils # 11.7 K/mcL (1.6-8.9) H 10/25/16 03:20 Monocytes # 1.4 K/mcL (0.0-1.3) H 10/25/16 03:20 Nucleated RBCs/100 WBC 0.1 /100 WBC (0) H 10/22/16 04:50 Toxic Granulation Present (Not Present) A 10/22/16 04:50 Platelet Estimate Decreased (Normal) L 10/22/16 04:50 Large Platelets Present (Not Present) A 10/22/16 04:50 Immature Plt Fraction 15.4 % (1.1-6.1) H 10/22/16 04:50 PT 13.9 Seconds (9.4-12.1) H 10/21/16 03:22 ABG pCO2 46 mmHg (35-45) H 10/21/16 14:41 ABG Total CO2 27.4 mEq/L (20-26) H 10/21/16 14:41 ABG Hematocrit 26 % (35-51) L 10/20/16 11:17 Potassium 3.2 mEq/L (3.5-5.3) L 10/20/16 11:17 Glucose 111 mg/dL (60-95) H 10/20/16 11:17 Ionized Calcium 0.95 mmol/L (1.15-1.35) L 10/20/16 11:17 Carbon Dioxide 36 mEq/L (19-29) H 10/25/16 03:20 BUN/Creatinine Ratio 29 (6-26) H 10/25/16 03:20 Glucose 139 mg/dL (70-99) H 10/25/16 03:20 POC Glucose 142 (58-89) H 10/25/16 16:24 Vancomycin Trough 9.4 mcg/mL (10-20) L 10/24/16 09:05 - Microbiology Findings Microbiology Findings: Microbiology, Last 48 Hours 10/23/16 13:50 Sputum Culture - Final Sputum Pseudomonas aeruginosa 10/23/16 09:41 Blood Culture - Preliminary Peripheral Venipuncture No growth. 10/23/16 09:38 Blood Culture - Preliminary Peripheral Venipuncture No growth. - Clinical Findings Intake & Output: Intake & Output 10/25/16 10/25/16 10/25/16 07:59 15:59 23:59 Intake Total 250 / 250 400 / 400 Output Total 775 / 775 150 / 150 Balance -525 / -525 250 / 250 Weight 80.8 kg - Attending Attestation I examined this patient and my medical decision-making was reviewed with the TOOL RENTAL TECHNICIAN/PA/Advanced Practice Nurse/Resident Physician. I agree with the documented findings, disposition and treatment plan as described except to the extent set forth below. Patient seen and examined. Labs, radiology, chart personally reviewed. Agree with resident's history and physical, assessment, plan with following comments: PRODUCTION SUPPORT SPECIALIST: Patient follows commands, Pulmonary: Acceptable oxygenation and ventilation. She and is feeling better and continue just to suction because of continuous leak. Continue bronchodilators. Discussed with Dr. Villa. Cardiovascular: stable GI: Nutrition per dietary and GI prophylaxis per routine Patient to be transferred to the floor and we will continue follow-up.
[2016-10-25] MEDS: Insulin LISPRO 300 UNITS/3 ML VIAL SQ SCH ×4 (07:52→21:45)
[2016-10-25] MEDS: Levofloxacin 750 MG/150 ML 750 MG/150 ML BAG IVPB SCH (07:53)
[2016-10-25] MEDS: predniSONE 20 MG TABLET PO SCH (07:53)
[2016-10-25] MEDS: Chlorhexidine Rinse 15 ML MOUTHWASH MM SCH ×2 (07:53→22:02)
[2016-10-25] MEDS: Aspirin Enteric Coated 81 MG Tablet PO SCH (07:53)
[2016-10-25] MEDS: Budesonide/Formoterol 160/4.5 MDI IH SCH ×2 (08:24→19:32)
[2016-10-25] MEDS: *HR* Morphine 2 MG/ML SYRINGE IVP PRN ×7 (09:45→22:03)
[2016-10-25] MEDS ORDERED: Ondansetron 4 MG/2 ML VIAL IVP PRN (22:29)
[2016-10-25] MEDS ORDERED: Lisinopril 20 MG TABLET PO SCH (22:29)
[2016-10-25] MEDS ORDERED: Naloxone 0.4 MG/ML INJ IVP PRN (22:29)
[2016-10-25] MEDS ORDERED: Acetaminophen 650 MG RECTAL SUPP RC PRN (22:29)
[2016-10-25] MEDS ORDERED: D5% in Water 1,000 ML IVC PRN (22:29)
[2016-10-25] MEDS ORDERED: *HR* Dextrose 50 % in Water (Syg) 50 ML SYRINGE IVP PRN (22:29)
[2016-10-25] MEDS ORDERED: amLODIPine 5 MG TABLET PO SCH (22:29)
[2016-10-25] MEDS ORDERED: Albuterol 2.5 MG/3 ML NEBULIZER IH PRN (22:29)
[2016-10-25] MEDS ORDERED: Dextrose Gel 15 GM PO PRN ×2 (22:29)
[2016-10-25] MEDS ORDERED: Acetaminophen 325 MG TABLET PO PRN (22:29)
[2016-10-25] MEDS ORDERED: Amiodarone Premix 150 MG/100 ML BAG IVPB ONE (23:21)
[2016-10-25] MEDS ORDERED: Amiodarone Premix 360 MG/200 ML BAG IVC ONE (23:21)
[2016-10-26] MEDS: Ipratropium/Albuterol Neb 3 ML IH SCH ×7 (01:38→23:20)
[2016-10-26 04:06] LABS: BUN/Creatinine Ratio 29 (6-26); Blood Urea Nitrogen 24 mg/dL (8-26); Calcium 8.6 mg/dL (8.6-10.8); Carbon Dioxide 36 mEq/L (19-29); Chloride 101 mEq/L (98-109); Glucose 125 mg/dL (70-99); Osmolality,Calculated 298 (280-300); Potassium 3.5 mEq/L (3.5-4.5); Sodium 141 mEq/L (136-145); eGFR For African Americans > 60 (> 60); eGFR For Non-African Americans > 60 (> 60)
[2016-10-26 04:12] LABS: Basophils % 0.3 %; Eosinophils % 0.1 %; Hematocrit 26.8 % (37.5-50.1); Hemoglobin 8.9 g/dL (12.9-16.9); Immature Granulocytes % 3.1 % (0-4); Lymphocytes # 1.6 K/mcL (0.6-4.6); Lymphocytes % 10.7 %; Mean Corpuscular HGB Conc 33.2 g/dL (31.6-35.5); Mean Corpuscular Hemoglobin 30.7 pg (28.0-33.3); Mean Corpuscular Volume 92.4 fL (83.0-100.0); Mean Platelet Volume 12.4 fL (9.4-12.4); Monocytes # 1.6 K/mcL (0.0-1.3); Monocytes % 11.2 %; Nucleated Red Blood Cells 0.1 /100 WBC (0); Platelet Count 145 K/mcL (140-400); Red Cell Distribution Width 13.6 % (11.5-14.5); Segmented Neutrophils % 74.6 %
[2016-10-26] MEDS: Amiodarone Premix 360 MG/200 ML BAG IVC SCH (05:55)
[2016-10-26] MEDS: *HR* Heparin 5,000 UNIT/ML VIAL SQ SCH ×2 (05:55→18:23)
--- NOTE | 2016-10-26 07:24 | Cardiothoracic Progress Note ---
Date of Encounter: 10/26/16 Time of Encounter: 07:23 - Assessment and plan (1) Status post coronary artery bypass graft Current Visit: Yes Status: Acute We will check a chest x-ray. We will leave the patient on an amiodarone drip until tomorrow morning and then switch him to by mouth. - Subjective Interval history: The patient complains of a cracking feeling in his chest. He did go into atrial fibrillation last night and was started on an amiodarone drip. Vital Signs, Last 4 Hours Temp Pulse Resp BP Pulse Ox 10/26/16 04:39 16 98 10/26/16 04:32 77 10/26/16 04:31 98.2 F 70 18 95/72 100 Oxgyen Flow Rate Oxygen Flow Rate (LPM) 12 Clinical Data, last 8 Hours Output, Chest Tube Drainage 0 Amount [Right Anterior Chest # 3] Output, Chest Tube Drainage 3 Amount [Right Anterior Chest # 3] Output, Urine Amount 400 Weight 10/24/16 10/25/16 10/26/16 23:59 23:59 23:59 Weight 78.2 kg 80.8 kg 80.9 kg Lungs are clear to percussion and auscultation. Heart is now in a normal sinus rhythm. All incisions are healing well without signs of infection and the sternum feels stable. Chest tube drainage is minimal. There is a small air leak with cough. - Labs 10/26/16 03:45 10/26/16 03:45 Lab Results, Last 24 hours 10/26/16 10/26/16 03:45 03:45 WBC 14.7 H Hgb 8.9 L Hct 26.8 L Plt Count 145 Sodium 141 Potassium 3.5 Chloride 101 Carbon Dioxide 36 H BUN 24 Creatinine 0.82 Glucose 125 H Calcium 8.6 - VTE Reasons for not Prescribing Prophylaxis: Treatment not Indicated - Low risk for VTE Documentation of Mechanical Device: Graduated compression elastic hosiery Consult Discharge Plan - Plan Referrals: Jarred Shaw, BUDGET CONTROLLER [Primary Care Provider] -
[2016-10-26] MEDS: Budesonide/Formoterol 160/4.5 MDI IH SCH ×2 (07:41→19:57)
[2016-10-26] MEDS: Insulin LISPRO 300 UNITS/3 ML VIAL SQ SCH ×3 (08:02→17:25)
[2016-10-26] MEDS: Levofloxacin 750 MG/150 ML 750 MG/150 ML BAG IVPB SCH (08:26)
[2016-10-26] MEDS: Aspirin Enteric Coated 81 MG Tablet PO SCH (08:27)
[2016-10-26] MEDS: Chlorhexidine Rinse 15 ML MOUTHWASH MM SCH ×2 (08:28→20:28)
[2016-10-26] MEDS: predniSONE 20 MG TABLET PO SCH (08:28)
[2016-10-26] MEDS ORDERED: predniSONE 20 MG TABLET PO SCH (09:00)
[2016-10-26] MEDS: *HR* Morphine 2 MG/ML SYRINGE IVP PRN ×5 (12:26→22:42)
[2016-10-26] MEDS: *HR* OxyCODONE/APAP 5/325 TABLET PO PRN ×3 (13:36→22:42)
[2016-10-26] MEDS ORDERED: Oxymetazoline Nasal SPRAY BOTTLE NS PRN (14:49)
[2016-10-26] MEDS ORDERED: 0.9 % Sodium Chloride 500 ML IVC ONE (15:09)
[2016-10-26] MEDS ORDERED: 0.9 % Sodium Chloride 500 ML ONE (15:12)
[2016-10-26] MEDS ORDERED: Insulin LISPRO 300 UNITS/3 ML VIAL SQ SCH (21:00)
[2016-10-27] MEDS: *HR* Morphine 2 MG/ML SYRINGE IVP PRN ×7 (01:53→20:35)
[2016-10-27] MEDS: *HR* OxyCODONE/APAP 5/325 TABLET PO PRN ×4 (03:40→21:56)
[2016-10-27] MEDS: Ipratropium/Albuterol Neb 3 ML IH SCH ×6 (04:02→23:58)
[2016-10-27] MEDS: *HR* Heparin 5,000 UNIT/ML VIAL SQ SCH (06:06)
[2016-10-27 06:15] LABS: Hematocrit 28.7 % (37.5-50.1); Hemoglobin 9.3 g/dL (12.9-16.9); Mean Corpuscular HGB Conc 32.4 g/dL (31.6-35.5); Mean Corpuscular Hemoglobin 30.2 pg (28.0-33.3); Mean Corpuscular Volume 93.2 fL (83.0-100.0); Mean Platelet Volume 12.2 fL (9.4-12.4); Platelet Count 175 K/mcL (140-400); Red Blood Count 3.08 M/mcL (4.19-5.50); Red Cell Distribution Width 13.9 % (11.5-14.5)
[2016-10-27 06:26] LABS: BUN/Creatinine Ratio 27 (6-26); Blood Urea Nitrogen 24 mg/dL (8-26); Calcium 8.5 mg/dL (8.6-10.8); Carbon Dioxide 34 mEq/L (19-29); Chloride 100 mEq/L (98-109); Glucose 100 mg/dL (70-99); Osmolality,Calculated 292 (280-300); Potassium 3.6 mEq/L (3.5-4.5); Sodium 139 mEq/L (136-145); eGFR For African Americans > 60 (> 60); eGFR For Non-African Americans > 60 (> 60)
[2016-10-27 06:58] LABS: Lymphocytes # 5.6 K/mcL (0.6-4.6); Monocytes # 1.6 K/mcL (0.0-1.3); Neutrophils # 12.9 K/mcL (1.6-8.9)
[2016-10-27 06:59] LABS: Platelet Estimate Normal (Normal); Reactive Lymphocytes Present (Not Present); Toxic Granulation Present (Not Present)
[2016-10-27] MEDS: Aspirin Enteric Coated 81 MG Tablet PO SCH (07:25)
[2016-10-27] MEDS: Chlorhexidine Rinse 15 ML MOUTHWASH MM SCH ×2 (07:25→21:56)
[2016-10-27] MEDS: Levofloxacin 750 MG/150 ML 750 MG/150 ML BAG IVPB SCH (07:30)
[2016-10-27] MEDS: Insulin LISPRO 300 UNITS/3 ML VIAL SQ SCH (07:40)
[2016-10-27] MEDS: predniSONE 20 MG TABLET PO SCH (07:41)
[2016-10-27] MEDS: Budesonide/Formoterol 160/4.5 MDI IH SCH ×2 (07:49→22:01)
[2016-10-27] MEDS ORDERED: Lidocaine -MPF 2% 5 ML VIAL ONE (09:06)
--- NOTE | 2016-10-27 09:23 | Cardiothoracic Progress Note ---
Date of Encounter: 10/27/16 Time of Encounter: 09:21 - Assessment and plan (1) Status post coronary artery bypass graft Current Visit: Yes Status: Acute The patient's hemoglobin has increased since yesterday. We will place too small sutures in the incision. We will switch him from IV to by mouth amiodarone. I agree with cough medicine in weaning his steroids. - Subjective Interval history: The patient complains of cough and generalized aches and pains. Vital Signs, Last 4 Hours Temp Pulse Resp BP Pulse Ox 10/27/16 07:51 15 93 10/27/16 07:42 100 15 93 10/27/16 07:36 97.7 F 98 17 92/68 93 10/27/16 06:45 94 92/68 10/27/16 05:45 94 95/61 Oxgyen Flow Rate Oxygen Flow Rate (LPM) 5 Clinical Data, last 8 Hours Output, Chest Tube Drainage 0 Amount [Right Anterior Chest # 3] Output, Chest Tube Drainage 12 Amount [Right Anterior Chest # 3] Output, Urine Amount 170 Weight 10/25/16 10/26/16 10/27/16 23:59 23:59 23:59 Weight 80.8 kg 80.9 kg Lungs are clear to percussion and auscultation. Heart is in a normal sinus rhythm. His incision is healing well without signs of infection and the sternum is stable. He did have 2 small bleeding points on his sternal incision. The dressing was removed. I will place 2 sutures in these areas. - Labs 10/27/16 05:29 10/27/16 05:29 Lab Results, Last 24 hours 10/27/16 10/27/16 05:29 05:29 WBC 20.1 H Hgb 9.3 L Hct 28.7 L Plt Count 175 Sodium 139 Potassium 3.6 Chloride 100 Carbon Dioxide 34 H BUN 24 Creatinine 0.88 Glucose 100 H Calcium 8.5 L - VTE Reasons for not Prescribing Prophylaxis: Treatment not Indicated - Low risk for VTE Documentation of Mechanical Device: Graduated compression elastic hosiery Consult Discharge Plan - Plan Referrals: Anthony Hale MD [Partnered Physician] - (office will call patient at home with appointment, Cardiology makes their own appointments. Sent web request on 10-26-16) Anthony Sagastume MD [Partnered Physician] - 12/01/16 2:40 pm Jarred Shaw, PARUL [Primary Care Provider] - 11/03/16 9:00 am
[2016-10-27] MEDS ORDERED: Benzonatate 100 MG CAPSULE PO PRN (09:49)
--- NOTE | 2016-10-27 09:50 | Event Note ---
Date of Encounter: 10/27/16 Time of Encounter: 09:48 The patient had some bleeding from his sternal incision. We had removed the sternal dressing and there were 3 small areas where there were skin bleeders. These areas were painted with Betadine and draped in standard fashion. The areas were numbed with 1% lidocaine without epinephrine. The 3 areas were sutured with running 2-0 silk sutures. This resulted in no further bleeding. A dry pressure dressing was applied. This can be changed once a day and when necessary as needed. I will stop the subcutaneous heparin for now.
--- NOTE | 2016-10-27 09:55 | Pulmonology Progress Note ---
<Jimy Zayas - Last Filed: 10/27/16 09:55> Date of Encounter: 10/27/16 Time of Encounter: 09:54 Assessment and Plan (1) Subcutaneous emphysema Current Visit: Yes Status: Acute CXR stable, no new infiltrates, On 5L O2 Continue duoneb, O2 supplementation, Symbicort. Qualifiers: Encounter type: initial encounter Qualified Code(s): T79.7XXA - Traumatic subcutaneous emphysema, initial encounter (2) COPD (chronic obstructive pulmonary disease) Current Visit: Yes Status: Chronic has productive thick yellow sputum, intense coughing, chest congestion will start patient on tessalon, mycomyst will taper down prednisone to 20mg tomorrow and 10mg on monday (patient will have had 8 days of steroids) sputum culture grew pseudomonas sensitive to levaquin: continue levaquin day 6 continue duoneb, symbicort, O2 Qualifiers: COPD type: unspecified COPD Qualified Code(s): J44.9 - Chronic obstructive pulmonary disease, unspecified (3) Pneumothorax Current Visit: Yes Status: Resolved small residual apical pneumothorax on cxr right chest tube water seal with 30cc serosangiounos drainage management as per CT surgery. Qualifiers: Pneumothorax type: unspecified pneumothorax Qualified Code(s): J93.9 - Pneumothorax, unspecified (4) Status post coronary artery bypass graft Current Visit: Yes Status: Acute Patient states he has severe pain at his sternal incision point due to intense coughing with thick productive sputum. we will start tessalon and mycocyst. Subjective Principal diagnosis: CAD, COPD Interval history: Reports thick yellow productive sputum, severe pain at sternal incision, coughing, chest congestion. Bleeding from sternal incision with soaked dressing. Objective PUL Vital signs: Last Vital Signs Temp 97.7 F 10/27/16 07:36 Pulse 100 10/27/16 07:42 Resp 15 10/27/16 07:51 BP 92/68 10/27/16 07:36 Pulse Ox 93 10/27/16 07:51 General appearance: other (acute distress ) ENT: oropharynx moist Neck: no JVD Effort: mildly labored, other (chest tube inserted right chest without erythema. 30cc of serosangiounous fluid drainage. water seal. ) Auscultation: bilateral: diminished breath sounds (throughout ) Cardiovascular: regular rate and rhythm Gastrointestinal: normoactive bowel sounds, non-distended Integumentary: other (mid sternal insicion dressing soaked with blood. ) Extremities: no cyanosis, no edema (2+) anxious Results - Laboratory Findings CBC and BMP: 10/27/16 05:29 10/27/16 05:29 ABG ABG pH 7.36 pH Units (7.32-7.45) 10/21/16 14:41 ABG pCO2 46 mmHg (35-45) H 10/21/16 14:41 ABG pO2 89 mmHg (85-104) 10/21/16 14:41 ABG O2 Saturation 96 % (95-98) 10/21/16 14:41 PT/INR, D-dimer PT 13.9 Seconds (9.4-12.1) H 10/21/16 03:22 Abnormal lab findings: Abnormal lab results WBC 20.1 K/mcL (4.3-11.1) H 10/27/16 05:29 RBC 3.08 M/mcL (4.19-5.50) L 10/27/16 05:29 Hgb 9.3 g/dL (12.9-16.9) L 10/27/16 05:29 Hct 28.7 % (37.5-50.1) L 10/27/16 05:29 Neutrophils # 12.9 K/mcL (1.6-8.9) H 10/27/16 05:29 Lymphocytes # 5.6 K/mcL (0.6-4.6) H 10/27/16 05:29 Monocytes # 1.6 K/mcL (0.0-1.3) H 10/27/16 05:29 Nucleated RBCs/100 WBC 0.1 /100 WBC (0) H 10/26/16 03:45 Reactive Lymphocytes Present (Not Present) A 10/27/16 05:29 Toxic Granulation Present (Not Present) A 10/27/16 05:29 Large Platelets Present (Not Present) A 10/22/16 04:50 Immature Plt Fraction 15.4 % (1.1-6.1) H 10/22/16 04:50 PT 13.9 Seconds (9.4-12.1) H 10/21/16 03:22 ABG pCO2 46 mmHg (35-45) H 10/21/16 14:41 ABG Total CO2 27.4 mEq/L (20-26) H 10/21/16 14:41 ABG Hematocrit 26 % (35-51) L 10/20/16 11:17 Potassium 3.2 mEq/L (3.5-5.3) L 10/20/16 11:17 Glucose 111 mg/dL (60-95) H 10/20/16 11:17 Ionized Calcium 0.95 mmol/L (1.15-1.35) L 10/20/16 11:17 Carbon Dioxide 34 mEq/L (19-29) H 10/27/16 05:29 BUN/Creatinine Ratio 27 (6-26) H 10/27/16 05:29 Glucose 100 mg/dL (70-99) H 10/27/16 05:29 POC Glucose 142 (58-89) H 10/26/16 20:47 Calcium 8.5 mg/dL (8.6-10.8) L 10/27/16 05:29 Vancomycin Trough 9.4 mcg/mL (10-20) L 10/24/16 09:05 - Microbiology Findings Microbiology Findings: Microbiology, Last 48 Hours 10/23/16 13:50 Sputum Culture - Final Sputum Pseudomonas aeruginosa 10/23/16 09:41 Blood Culture - Preliminary Peripheral Venipuncture No growth. 10/23/16 09:38 Blood Culture - Preliminary Peripheral Venipuncture No growth. - Clinical Findings Intake & Output: Intake & Output 10/26/16 10/27/16 10/27/16 23:59 07:59 15:59 Intake Total 440 / 440 Output Total 540 / 540 182 / 182 Balance -100 / -100 -182 / -182 - VTE Reasons for not Prescribing Prophylaxis: Treatment not Indicated - Low risk for VTE Documentation of Mechanical Device: Graduated compression elastic hosiery Consult Discharge Plan - Plan Referrals: Anthony Hale MD [Partnered Physician] - (office will call patient at home with appointment, Cardiology makes their own appointments. Sent web request on [id number]) Anthony Sagastume MD [Partnered Physician] - 12/01/16 2:40 pm Jarred Shaw, AUTOMATION AND CONTROLS SUPERVISOR [Primary Care Provider] - 11/03/16 9:00 am <Lacie Griffin - Last Filed: 10/27/16 12:25> Date of Encounter: 10/27/16 Objective PUL Vital signs: Last Vital Signs Temp 97.9 F 10/27/16 11:55 Pulse 100 10/27/16 11:55 Resp 16 10/27/16 11:55 BP 112/78 10/27/16 11:55 Pulse Ox 93 10/27/16 11:55 Results - Laboratory Findings CBC and BMP: 10/27/16 05:29 10/27/16 05:29 ABG ABG pH 7.36 pH Units (7.32-7.45) 10/21/16 14:41 ABG pCO2 46 mmHg (35-45) H 10/21/16 14:41 ABG pO2 89 mmHg (85-104) 10/21/16 14:41 ABG O2 Saturation 96 % (95-98) 10/21/16 14:41 PT/INR, D-dimer PT 13.9 Seconds (9.4-12.1) H 10/21/16 03:22 Abnormal lab findings: Abnormal lab results WBC 20.1 K/mcL (4.3-11.1) H 10/27/16 05:29 RBC 3.08 M/mcL (4.19-5.50) L 10/27/16 05:29 Hgb 9.3 g/dL (12.9-16.9) L 10/27/16 05:29 Hct 28.7 % (37.5-50.1) L 10/27/16 05:29 Neutrophils # 12.9 K/mcL (1.6-8.9) H 10/27/16 05:29 Lymphocytes # 5.6 K/mcL (0.6-4.6) H 10/27/16 05:29 Monocytes # 1.6 K/mcL (0.0-1.3) H 10/27/16 05:29 Nucleated RBCs/100 WBC 0.1 /100 WBC (0) H 10/26/16 03:45 Reactive Lymphocytes Present (Not Present) A 10/27/16 05:29 Toxic Granulation Present (Not Present) A 10/27/16 05:29 Large Platelets Present (Not Present) A 10/22/16 04:50 Immature Plt Fraction 15.4 % (1.1-6.1) H 10/22/16 04:50 PT 13.9 Seconds (9.4-12.1) H 10/21/16 03:22 ABG pCO2 46 mmHg (35-45) H 10/21/16 14:41 ABG Total CO2 27.4 mEq/L (20-26) H 10/21/16 14:41 ABG Hematocrit 26 % (35-51) L 10/20/16 11:17 Potassium 3.2 mEq/L (3.5-5.3) L 10/20/16 11:17 Glucose 111 mg/dL (60-95) H 10/20/16 11:17 Ionized Calcium 0.95 mmol/L (1.15-1.35) L 10/20/16 11:17 Carbon Dioxide 34 mEq/L (19-29) H 10/27/16 05:29 BUN/Creatinine Ratio 27 (6-26) H 10/27/16 05:29 Glucose 100 mg/dL (70-99) H 10/27/16 05:29 POC Glucose 142 (58-89) H 10/26/16 20:47 Calcium 8.5 mg/dL (8.6-10.8) L 10/27/16 05:29 Vancomycin Trough 9.4 mcg/mL (10-20) L 10/24/16 09:05 - Clinical Findings Intake & Output: Intake & Output 10/26/16 10/27/16 10/27/16 23:59 07:59 15:59 Intake Total 440 / 440 Output Total 540 / 540 182 / 182 300 / 300 Balance -100 / -100 -182 / -182 -300 / -300 - Attending Attestation I examined this patient and my medical decision-making was reviewed with the CLOTH PATTERN MAKER/PA/Advanced Practice Nurse/Resident Physician. I agree with the documented findings, disposition and treatment plan as described except to the extent set forth below. Patient seen and examined. Labs, radiology, chart personally reviewed. Agree with resident's history and physical, assessment, plan with following comments: FIELD SERVICE REP: Patient follows commands, Pulmonary: Acceptable oxygenation and ventilation and still have chest tube. Patient remain to have subcutaneous emphysema and air is obvious on CXR. Add mucolytic to the treatment.
[2016-10-27] MEDS: Acetylcysteine 10% 2 ML INHSOL IH SCH ×5 (11:14→23:58)
[2016-10-27] MEDS: Ketorolac 15 MG/ML VIAL IVP SCH ×3 (11:18→23:55)
[2016-10-27] MEDS ORDERED: *HR* Amiodarone 150 MG/3 ML VIAL IVPB ONE (16:10)
[2016-10-27] MEDS: *HR* Amiodarone 200 MG TABLET PO SCH (16:39)
[2016-10-27] MEDS ORDERED: Furosemide 40 MG/4 ML VIAL IVP ONE (16:49)
[2016-10-27] MEDS: *HR* LORazepam 1 MG TABLET PO PRN (17:22)
[2016-10-28 00:45] LABS: Hematocrit 26.3 % (37.5-50.1); Hemoglobin 8.7 g/dL (12.9-16.9); Immature Platelets 12.8 % (1.1-6.1); Mean Corpuscular HGB Conc 33.1 g/dL (31.6-35.5); Mean Corpuscular Hemoglobin 30.3 pg (28.0-33.3); Mean Corpuscular Volume 91.6 fL (83.0-100.0); Platelet Count 196 K/mcL (140-400); Red Blood Count 2.87 M/mcL (4.19-5.50); Red Cell Distribution Width 14.1 % (11.5-14.5)
[2016-10-28 00:48] LABS: BUN/Creatinine Ratio 32 (6-26); Blood Urea Nitrogen 33 mg/dL (8-26); Calcium 8.3 mg/dL (8.6-10.8); Carbon Dioxide 32 mEq/L (19-29); Chloride 99 mEq/L (98-109); Glucose 102 mg/dL (70-99); Osmolality,Calculated 287 (280-300); Potassium 3.9 mEq/L (3.5-4.5); Sodium 135 mEq/L (136-145); eGFR For African Americans > 60 (> 60); eGFR For Non-African Americans > 60 (> 60)
[2016-10-28 01:04] LABS: Neutrophils # 15.3 K/mcL (1.6-8.9)
[2016-10-28 01:05] LABS: Basophilic Stippling 1+ (Not Present); Platelet Estimate Normal (Normal); Polychromasia 1+ (Not Present)
[2016-10-28 01:06] LABS: Reactive Lymphocytes Present (Not Present); Toxic Granulation Present (Not Present)
[2016-10-28] MEDS: Ipratropium/Albuterol Neb 3 ML IH SCH ×6 (04:02→23:32)
[2016-10-28] MEDS: Acetylcysteine 10% 2 ML INHSOL IH SCH ×6 (04:02→23:33)
[2016-10-28] MEDS: *HR* Morphine 2 MG/ML SYRINGE IVP PRN (04:35)
[2016-10-28] MEDS: Ketorolac 15 MG/ML VIAL IVP SCH ×3 (05:37→16:48)
[2016-10-28] MEDS: Aspirin Enteric Coated 81 MG Tablet PO SCH (07:22)
--- NOTE | 2016-10-28 07:37 | Cardiothoracic Progress Note ---
Date of Encounter: 10/28/16 Time of Encounter: 07:34 - Assessment and plan (1) Status post coronary artery bypass graft Current Visit: Yes Status: Acute I will take the patient back to the operating room today for sternal debridement and rewiring. He will require an ICU bed postoperatively.operative consent was obtained. The procedure, its risks benefits and alternatives were explained and the patient and his wish to proceed and have no questions. - Subjective Interval history: The patient states that his sternum feels unstable. Vital Signs, Last 4 Hours Temp Pulse Resp BP Pulse Ox 10/28/16 04:28 97.4 F L 97 24 92/55 96 10/28/16 04:06 16 94 Oxgyen Flow Rate Oxygen Flow Rate (LPM) 7 Clinical Data, last 8 Hours Output, Chest Tube Drainage 0 Amount [Right Anterior Chest # 3] Output, Urine Amount 100 Weight 10/26/16 10/27/16 10/28/16 23:59 23:59 23:59 Weight 80.9 kg 81.2 kg Lungs are clear to percussion and auscultation. Heart is in a normal sinus rhythm. The chest tube has no air leak. The sternum is grossly unstable. Chest x -ray reveals displacement of the sternal wires. - Labs 10/28/16 00:10 10/28/16 00:10 Lab Results, Last 24 hours 10/28/16 10/28/16 00:10 00:10 WBC 21.2 H Hgb 8.7 L Hct 26.3 L Plt Count 196 Sodium 135 L Potassium 3.9 Chloride 99 Carbon Dioxide 32 H BUN 33 H Creatinine 1.04 Glucose 102 H Calcium 8.3 L - VTE Reasons for not Prescribing Prophylaxis: Treatment not Indicated - Low risk for VTE Documentation of Mechanical Device: Graduated compression elastic hosiery Consult Discharge Plan - Plan Referrals: Anthony Hale MD [Partnered Physician] - (office will call patient at home with appointment, Cardiology makes their own appointments. Sent web request on [phone]) Anthony Sagastume MD [Partnered Physician] - 12/01/16 2:40 pm Jarred Shaw CNP [Primary Care Provider] - 11/03/16 9:00 am
[2016-10-28] MEDS ORDERED: ceFAZolin 2,000 MG in D5% in Water 100 ML IVPB ONE (07:40)
[2016-10-28] MEDS: Budesonide/Formoterol 160/4.5 MDI IH SCH ×2 (08:06→21:22)
[2016-10-28] MEDS: Levofloxacin 750 MG/150 ML 750 MG/150 ML BAG IVPB SCH (08:26)
[2016-10-28] MEDS: *HR* Amiodarone 200 MG TABLET PO SCH ×2 (08:33→20:23)
[2016-10-28] MEDS: predniSONE 20 MG TABLET PO SCH (08:34)
[2016-10-28] MEDS: Chlorhexidine Rinse 15 ML MOUTHWASH MM SCH ×4 (08:34→20:22)
[2016-10-28] MEDS: *HR* LORazepam 1 MG TABLET PO PRN (09:15)
[2016-10-28] MEDS: *HR* OxyCODONE/APAP 5/325 TABLET PO PRN (09:16)
--- NOTE | 2016-10-28 12:48 | Anesthesia Evaluation PreOp ---
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 Any Significant HX Other Medical History: GERD Anesthesia History: No Prior Anesthetic Complications, Past Anesthesia Alcohol Use: none Drug use: none Medications and Allergies Aspirin 325 mg PO DAILY 07/06/16 [History] HYDROcodone/Acet 5/325 mg [[place] 5-325 mg] 1 tab PO 1-2XD PRN 07/06/16 [History] Ipratropium/Albuterol Neb [Duoneb] 3 ml IH Q4HR 30 Days 07/10/16 [Rx] Atorvastatin [Lipitor] 80 mg PO DAILY 10/12/16 [History] Isosorbide MONOnitrate (24 HR) [Imdur] 30 mg PO DAILY 10/12/16 [History] Lisinopril [Zestril] 20 mg PO DAILY 10/12/16 [History] amLODIPine [Norvasc] 5 mg PO DAILY 10/12/16 [History] Albuterol Sulfate [Ventolin Hfa] 2 puff IH Q4H PRN 10/20/16 [History] Omeprazole [PriLOSEC] 40 mg PO DAILY 10/20/16 [History] Allergies No Known Allergies Allergy (Verified 10/20/16 07:19) - Meds/Allergy Pre-op Review Medications Reviewed: Yes Allergies Reviewed: Yes Beta Blockers on Current Med List: No Anesthesia Results - Labs 10/28/16 00:10 10/28/16 00:10 - Imaging EKG: report reviewed Anesthesia Exam Vital Signs/O2 Sat, Most Current Temp Pulse Resp BP Pulse Ox 97.7 F 89 18 81/58 100 10/28/16 11:36 10/28/16 11:36 10/28/16 11:36 10/28/16 11:36 10/28/16 11:36 Height: 5' 7" Weight: 179lb NPO (# of Hours): 8 hours - HEENT Pupil (Motor): Pupils equal Mallampati: II Teeth: Edentulous Denture Type: Upper: Complete Oral Opening: Greater than 3 - CONTROL VALVE TECHNICIAN LOC: Oriented CONTROL VALVE TECHNICIAN Motor: Normal RUE, Normal LUE, Normal RLE, Normal LLE, Normal Face CONTROL VALVE TECHNICIAN Sensory: Normal: RUE, LUE, RLE, LLE, Face - Cardiac Rhythm: Regular Murmur: None JVD: No Carotid Bruit: No - Pulmonary Breath Sounds: bilateral Clear Respiratory Effort: Symmetrical Anesthesia Assess/Plan ASA Score: 3 Modified Ferguson Scale for Level of Consciousness: Cooperative, oriented, and tranquil Anesthetic Plan: General Autologous Blood: No Monitoring Plan: Standard Monitors Recovery Plan: ICU
[2016-10-28] MEDS ORDERED: *HR* Rocuronium Bromide 50 MG/5 ML VIAL ONE ×2 (13:06→14:54)
[2016-10-28] MEDS ORDERED: *HR* Propofol 200 MG/20 ML VIAL IVP ONE (13:07)
[2016-10-28] MEDS ORDERED: *HR* FentaNYL (PF) 250 MCG/5 ML VIAL ONE (13:07)
[2016-10-28] MEDS ORDERED: *HR* Phenylephrine 10 MG/ML VIAL ONE (13:53)
[2016-10-28] MEDS ORDERED: *HR* EPINEPHrine 1 MG/ML AMPUL ONE (14:54)
[2016-10-28] MEDS ORDERED: *HR* Morphine 2 MG/ML SYRINGE IVP PRN (15:32)
[2016-10-28] MEDS ORDERED: Naloxone 0.4 MG/ML INJ IVP PRN (15:32)
[2016-10-28] MEDS ORDERED: Lacri-Lube 3.5 GM TUBE BOTH EYES PRN (15:35)
--- NOTE | 2016-10-28 15:43 | Operative Note ---
Date of procedure: 10/28/16 Procedure in Detail: Preoperative diagnosis. Sternal dehiscence. Postoperative diagnosis. Same. Procedures. Sternal debridement with sternal rewiring. Surgeon. Dr. Kaushal Villa. Patient is a 71-year-old gentleman who had previously undergone coronary artery bypass grafting. His postoperative course was complicated by respiratory failure and pneumothorax with prolonged air leak, subcutaneous emphysema and coughing. He also had atrial fibrillation which was difficult to control he developed a sternal dehiscence with fluid coming from the wound. The sternum was grossly unstable. Chest x-ray confirmed sternal dehiscence. He was brought to the operating room where he was prepped and draped in standard fashion. The right chest tube was left in place. He underwent a general anesthetic. The old incision was opened using a #10 blade. Large amounts of serosanguineous fluid were obtained. Approximately 600-700 mL of fluid was obtained. The sternum was grossly apart. The mediastinal fluid was cultured. It was cultured aerobically, anaerobically and for TB and fungus. The sternal halves had multiple fractures on both sides. We freed the underside of it sternal half so that we could place wires. 2 chest tubes were left. A 32 right angle chest tube the pericardial well. A 42 mediastinal chest tube. We then placed the sternal wires. This was done in [id number] fashion for a total of 6-7 wires. These wires were then crossed and tightened and the sternum felt stable. Fascia was run with #1 Vicryl. Subcutaneous tissues with a 2-0 Vicryl. Skin was closed with a 3-0 Vicryl subcuticular stitch. The patient tolerated the procedure well and was returned intensive care unit in satisfactory and critical condition.
--- NOTE | 2016-10-28 15:44 | Pulmonology Progress Note ---
<Radha Briceño Alve - Last Filed: 10/28/16 16:49> Date of Encounter: 10/28/16 Time of Encounter: 15:42 Assessment and Plan (1) Dehiscence of closure of sternum or sternotomy Current Visit: Yes Status: Acute Patient is s/p day#[address] 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 Patient does have subcutaneous emphysema which we are attempting to correct with FiO2 at 100%. DuoNebs every 4 hours, Albuterol neb every 2 hours when necessary, acetylcysteine 2 mL inhaled every 4 hours. Prednisone 20 mg today and taper to prednisone 10 mg tomorrow. Sputum culture grew Pseudomonas sensitive to Levaquin, continue Levaquin day 7. Cardio: Patient is status post day #[address] Villa due to dehiscence. Vitals stable heart rate 90s, blood pressure 130s/80s. Continue amiodarone 400 mg twice a day, Lopressor 25 mg twice a day, aspirin 81 mg. Chest x-ray demonstrated pulmonary congestion without overt edema. GI/Fluids/Electrolytes/Hydration: Normal saline at 75 mils per hour, hypocalcemia with calcium 8.3, will obtain ionized calcium in the morning. Renal: Normal renal function, creatinine 1.04, good urine output 100 mL in last 24 hours ID: Sputum culture grew Pseudomonas sensitive to Levaquin, continue Levaquin day 7. Heme/Onc: Leukocytosis with WBC 21.2. Anemia with hemoglobin 9.1, stable from the last week. We will continue to monitor. Endocrine: Glucose 102, continue with hypoglycemia protocol. Lines: Right IJ CVC, Three chest tubes with total of 50mL serosanguinous drainage, [place]-A[place]se Catheter, Wound vac to mediastinum, Zamudio catheter Skin: skin precautions per nursing protocol DVT prophylaxis: IPCDs (2) Status post coronary artery bypass graft Current Visit: Yes Status: Acute (3) Pneumothorax Current Visit: Yes Status: Resolved Qualifiers: Pneumothorax type: unspecified pneumothorax Qualified Code(s): J93.9 - Pneumothorax, unspecified (4) Subcutaneous emphysema Current Visit: Yes Status: Acute Qualifiers: Encounter type: initial encounter Qualified Code(s): T79.7XXA - Traumatic subcutaneous emphysema, initial encounter (5) COPD (chronic obstructive pulmonary disease) Current Visit: Yes Status: Chronic Qualifiers: COPD type: unspecified COPD Qualified Code(s): J44.9 - Chronic obstructive pulmonary disease, unspecified (6) Hypocalcemia Current Visit: Yes Status: Acute (7) Leukocytosis Current Visit: Yes Status: Acute (8) Postoperative anemia Current Visit: Yes Status: Acute (9) DVT prophylaxis Current Visit: Yes Status: Acute Subjective Principal diagnosis: CAD, COPD Interval history: Patient is s/p day#0 sternotomy wire revision. Patient is sedated and ventilated upon arrival to ICU. Anesthesiology reports 600mL of serosanguinous fluid from mediastinum, 200mL blood loss, 300mL UOP. Patient received 1200mL crystalloid during the surgery. Vitals stable at this time. Objective PUL Vital signs: Last Vital Signs Temp 97.7 F 10/28/16 11:36 Pulse 89 10/28/16 11:36 Resp 14 10/28/16 15:15 BP 130/80 10/28/16 15:15 Pulse Ox 93 10/28/16 15:15 General appearance: other (Sedated, Ventilated, Tranquil, No acute distress) Eyes: nonicteric ENT: oropharynx dry Neck: supple, other (Bilateral subcutaneous ) Effort: normal (Breathing above ventilator), other (subcutaneous emphysema to bilateral chest wall and bilateral neck) Auscultation: bilateral: diminished breath sounds Cardiovascular: regular rate and rhythm, other (Three Chest tubes in place to chest, Right IJ CVC in place, Wound vac with clean dressing in place to mediastinum) Gastrointestinal: hypoactive bowel sounds, soft, non-distended Integumentary: other (subcutaneous emphysema to chest and neck ) Extremities: no cyanosis, edema (1+ edema to bilateral feet and lower extremities to level of distal lower leg) Musculoskeletal: no deformities unable to assess due to mental status other (sedated and ventilated) Ventilator Settings Ventilator Settings: Ventilator Settings, Last 8 Hours Ventilator Mode A/C Ventilator Tidal Volume 600 Setting Ventilator Respiratory Rate 10 Setting Actual Respiratory Rate 16 Positive End Expiratory 5 Pressure Peak Inspiratory Airway 24 Pressure Results - Laboratory Findings CBC and BMP: 10/28/16 15:47 10/28/16 00:10 ABG ABG pH 7.36 pH Units (7.32-7.45) 10/21/16 14:41 ABG pCO2 46 mmHg (35-45) H 10/21/16 14:41 ABG pO2 89 mmHg (85-104) 10/21/16 14:41 ABG O2 Saturation 96 % (95-98) 10/21/16 14:41 PT/INR, D-dimer PT 13.9 Seconds (9.4-12.1) H 10/21/16 03:22 Abnormal lab findings: Abnormal lab results WBC 21.2 K/mcL (4.3-11.1) H 10/28/16 00:10 RBC 2.87 M/mcL (4.19-5.50) L 10/28/16 00:10 Hgb 8.7 g/dL (12.9-16.9) L 10/28/16 00:10 Hct 26.3 % (37.5-50.1) L 10/28/16 00:10 Neutrophils # 15.3 K/mcL (1.6-8.9) H 10/28/16 00:10 Monocytes # 3.0 K/mcL (0.0-1.3) H 10/28/16 00:10 Nucleated RBCs/100 WBC 0.1 /100 WBC (0) H 10/26/16 03:45 Reactive Lymphocytes Present (Not Present) A 10/28/16 00:10 Toxic Granulation Present (Not Present) A 10/28/16 00:10 Large Platelets Present (Not Present) A 10/22/16 04:50 Immature Plt Fraction 12.8 % (1.1-6.1) H 10/28/16 00:10 Polychromasia 1+ (Not Present) A 10/28/16 00:10 Basophilic Stippling 1+ (Not Present) A 10/28/16 00:10 PT 13.9 Seconds (9.4-12.1) H 10/21/16 03:22 ABG pCO2 46 mmHg (35-45) H 10/21/16 14:41 ABG Total CO2 27.4 mEq/L (20-26) H 10/21/16 14:41 ABG Hematocrit 26 % (35-51) L 10/20/16 11:17 Potassium 3.2 mEq/L (3.5-5.3) L 10/20/16 11:17 Glucose 111 mg/dL (60-95) H 10/20/16 11:17 Ionized Calcium 0.95 mmol/L (1.15-1.35) L 10/20/16 11:17 Sodium 135 mEq/L (136-145) L 10/28/16 00:10 Carbon Dioxide 32 mEq/L (19-29) H 10/28/16 00:10 BUN 33 mg/dL (8-26) H 10/28/16 00:10 BUN/Creatinine Ratio 32 (6-26) H 10/28/16 00:10 Glucose 102 mg/dL (70-99) H 10/28/16 00:10 POC Glucose 102 (58-89) H 10/27/16 07:34 Calcium 8.3 mg/dL (8.6-10.8) L 10/28/16 00:10 Vancomycin Trough 9.4 mcg/mL (10-20) L 10/24/16 09:05 - Diagnostic Findings Chest x-ray: image reviewed - Clinical Findings Intake & Output: Intake & Output 10/27/16 10/28/16 10/28/16 23:59 07:59 15:59 Intake Total 300 / 300 200 / 200 Output Total 220 / 220 100 / 100 200 / 200 Balance 80 / 80 -100 / -100 0 / 0 Weight 81.2 kg - VTE Reasons for not Prescribing Prophylaxis: Treatment not Indicated - Low risk for VTE Documentation of Mechanical Device: Graduated compression elastic hosiery Consult Discharge Plan - Plan Referrals: Anthony Hale MD [Partnered Physician] - (office will call patient at home with appointment, Cardiology makes their own appointments. Sent web request on [phone]) Anthony Sagastume MD [Partnered Physician] - 12/01/16 2:40 pm Jarred Shaw, PARUL [Primary Care Provider] - 11/03/16 9:00 am <Lacie Griffin - Last Filed: 10/28/16 17:11> Date of Encounter: 10/28/16 Objective PUL Vital signs: Last Vital Signs Temp 97.9 F 10/28/16 15:30 Pulse 79 10/28/16 16:00 Resp 12 10/28/16 17:02 BP 82/57 10/28/16 17:02 Pulse Ox 100 10/28/16 17:02 Ventilator Settings Ventilator Settings: Ventilator Settings, Last 8 Hours Ventilator Mode VC+ Ventilator Mode VC+ Ventilator Mode VC+ Ventilator Mode A/C Ventilator Tidal Volume 600 Setting Ventilator Tidal Volume 600 Setting Ventilator Tidal Volume 600 Setting Ventilator Tidal Volume 600 Setting Ventilator Respiratory Rate 10 Setting Ventilator Respiratory Rate 10 Setting Ventilator Respiratory Rate 10 Setting Ventilator Respiratory Rate 10 Setting Actual Respiratory Rate 12 Actual Respiratory Rate 16 Actual Respiratory Rate 16 Positive End Expiratory 5 Pressure Positive End Expiratory 5 Pressure Positive End Expiratory 5 Pressure Positive End Expiratory 5 Pressure Peak Inspiratory Airway 21 Pressure Peak Inspiratory Airway 24 Pressure Peak Inspiratory Airway 24 Pressure Results - Laboratory Findings CBC and BMP: 10/28/16 15:47 10/28/16 00:10 ABG ABG pH 7.40 pH Units (7.32-7.45) 10/28/16 16:05 ABG pCO2 54 mmHg (35-45) H 10/28/16 16:05 ABG pO2 230 mmHg (85-104) H 10/28/16 16:05 ABG O2 Saturation 100 % (95-98) H 10/28/16 16:05 PT/INR, D-dimer PT 13.9 Seconds (9.4-12.1) H 10/21/16 03:22 Abnormal lab findings: Abnormal lab results WBC 21.2 K/mcL (4.3-11.1) H 10/28/16 15:47 RBC 3.06 M/mcL (4.19-5.50) L 10/28/16 15:47 Hgb 9.1 g/dL (12.9-16.9) L 10/28/16 15:47 Hct 28.2 % (37.5-50.1) L 10/28/16 15:47 Metamyelocytes % 2.0 % (0) H 10/28/16 15:47 Myelocytes % 6.0 % (0) H 10/28/16 15:47 Neutrophils # 15.7 K/mcL (1.6-8.9) H 10/28/16 15:47 Monocytes # 3.0 K/mcL (0.0-1.3) H 10/28/16 00:10 Nucleated RBCs/100 WBC 0.1 /100 WBC (0) H 10/28/16 15:47 Reactive Lymphocytes Present (Not Present) A 10/28/16 00:10 Toxic Granulation Present (Not Present) A 10/28/16 15:47 Large Platelets Present (Not Present) A 10/22/16 04:50 Immature Plt Fraction 12.8 % (1.1-6.1) H 10/28/16 00:10 Polychromasia 1+ (Not Present) A 10/28/16 00:10 Basophilic Stippling 1+ (Not Present) A 10/28/16 00:10 PT 13.9 Seconds (9.4-12.1) H 10/21/16 03:22 ABG pCO2 54 mmHg (35-45) H 10/28/16 16:05 ABG pO2 230 mmHg (85-104) H 10/28/16 16:05 ABG HCO3 33.4 mEQ/L (21-27) H 10/28/16 16:05 ABG Total CO2 35.1 mEq/L (20-26) H 10/28/16 16:05 ABG O2 Saturation 100 % (95-98) H 10/28/16 16:05 ABG Base Excess 7.6 mEq/L (-2.0 to 3.0) H 10/28/16 16:05 ABG Hematocrit 26 % (35-51) L 10/20/16 11:17 Potassium 3.2 mEq/L (3.5-5.3) L 10/20/16 11:17 Glucose 111 mg/dL (60-95) H 10/20/16 11:17 Ionized Calcium 0.95 mmol/L (1.15-1.35) L 10/20/16 11:17 Sodium 135 mEq/L (136-145) L 10/28/16 00:10 Carbon Dioxide 32 mEq/L (19-29) H 10/28/16 00:10 BUN 33 mg/dL (8-26) H 10/28/16 00:10 BUN/Creatinine Ratio 32 (6-26) H 10/28/16 00:10 Glucose 102 mg/dL (70-99) H 10/28/16 00:10 POC Glucose 102 (58-89) H 10/27/16 07:34 Calcium 8.3 mg/dL (8.6-10.8) L 10/28/16 00:10 Vancomycin Trough 9.4 mcg/mL (10-20) L 10/24/16 09:05 - Clinical Findings Intake & Output: Intake & Output 10/28/16 10/28/16 10/28/16 07:59 15:59 23:59 Intake Total 200 / 200 120 / 120 Output Total 100 / 100 200 / 200 Balance -100 / -100 0 / 0 120 / 120 Weight 81.2 kg - Attending Attestation I examined this patient and my medical decision-making was reviewed with the SUBSTANCE ADDICTION COORDINATOR/PA/Advanced Practice Nurse/Resident Physician. I agree with the documented findings, disposition and treatment plan as described except to the extent set forth below. Patient seen and examined. Labs, radiology, chart personally reviewed. Agree with resident's history and physical, assessment, plan with following comments: LEGAL CONTRACTS SPECIALIST: Patient sedated and will keep him on propofol and fentanyl, Pulmonary: Acceptable oxygenation and ventilation. Increased FiO2 and plan to keep his SPO2 around 100% which hopefully will help his subcutaneous emphysema. Cardiovascular: Discussed with Dr. Villa. GI: Nutrition per dietary and GI prophylaxis per routine Heme: DVT prophylaxis per routine ID: Continue antibiotics and plan to de-escalation Renal; urine out put and renal funtion reviewed Endorcine: blood glucose is monitored Lines: all lines checked and no evidence of infections Skin: skin care to prevent pressure ulcers per nursing routine care
[2016-10-28 15:59] LABS: Hematocrit 28.2 % (37.5-50.1); Hemoglobin 9.1 g/dL (12.9-16.9); Mean Corpuscular HGB Conc 32.3 g/dL (31.6-35.5); Mean Corpuscular Hemoglobin 29.7 pg (28.0-33.3); Mean Corpuscular Volume 92.2 fL (83.0-100.0); Mean Platelet Volume 11.3 fL (9.4-12.4); Nucleated Red Blood Cells 0.1 /100 WBC (0); Platelet Count 223 K/mcL (140-400); Red Blood Count 3.06 M/mcL (4.19-5.50); Red Cell Distribution Width 14.1 % (11.5-14.5)
[2016-10-28] MEDS: FentaNYL (PF) 1,000 MCG in 0.9 % Sodium Chloride 80 ML IVC SCH (16:08)
[2016-10-28] MEDS: ceFAZolin 2,000 MG in D5% in Water 100 ML IVPB SCH (16:10)
--- NOTE | 2016-10-28 16:11 | Anesthesia Evaluation PreOp ---
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 Other Medical History: GERD Anesthesia History: No Prior Anesthetic Complications, Past Anesthesia Alcohol Use: none Drug use: none Medications and Allergies Aspirin 325 mg PO DAILY 07/06/16 [History] HYDROcodone/Acet 5/325 mg [[place] 5-325 mg] 1 tab PO 1-2XD PRN 07/06/16 [History] Ipratropium/Albuterol Neb [Duoneb] 3 ml IH Q4HR 30 Days 07/10/16 [Rx] Atorvastatin [Lipitor] 80 mg PO DAILY 10/12/16 [History] Isosorbide MONOnitrate (24 HR) [Imdur] 30 mg PO DAILY 10/12/16 [History] Lisinopril [Zestril] 20 mg PO DAILY 10/12/16 [History] amLODIPine [Norvasc] 5 mg PO DAILY 10/12/16 [History] Albuterol Sulfate [Ventolin Hfa] 2 puff IH Q4H PRN 10/20/16 [History] Omeprazole [PriLOSEC] 40 mg PO DAILY 10/20/16 [History] Allergies No Known Allergies Allergy (Verified 10/20/16 07:19) - Meds/Allergy Pre-op Review Medications Reviewed: Yes Allergies Reviewed: Yes Beta Blockers on Current Med List: No Anesthesia Results - Labs 10/28/16 15:47 10/28/16 00:10 - Imaging EKG: report reviewed Anesthesia Exam Vital Signs/O2 Sat, Most Current Temp Pulse Resp BP Pulse Ox 97.9 F 94 10 147/103 100 10/28/16 15:30 10/28/16 15:30 10/28/16 15:30 10/28/16 15:30 10/28/16 15:30 Height: 5'7" Weight: 179lb NPO (# of Hours): 8 hours - HEENT Pupil (Motor): Pupils equal Mallampati: II Teeth: Edentulous Denture Type: Upper: Complete Oral Opening: Greater than 3 - LICENSED INVESTMENT SALES ASSISTANT LICENSED INVESTMENT SALES ASSISTANT Motor: Normal RUE, Normal LUE, Normal RLE, Normal LLE, Normal Face LICENSED INVESTMENT SALES ASSISTANT Sensory: Normal: RUE, LUE, RLE, LLE, Face - Cardiac Rhythm: Regular Murmur: None JVD: No Carotid Bruit: No - Pulmonary Breath Sounds: bilateral Clear Respiratory Effort: Symmetrical Anesthesia Assess/Plan ASA Score: 3 Modified Aristeo Scale for Level of Consciousness: Cooperative, oriented, and tranquil Anesthetic Plan: General Autologous Blood: No Monitoring Plan: Standard Monitors Recovery Plan: ICU
[2016-10-28 16:18] LABS: Lymphocytes # 3.8 K/mcL (0.6-4.6); Neutrophils # 15.7 K/mcL (1.6-8.9); Toxic Granulation Present (Not Present)
[2016-10-28] MEDS: Lacri-Lube 3.5 GM TUBE BOTH EYES SCH ×2 (16:18→20:22)
[2016-10-28] MEDS: 0.9 % Sodium Chloride 1,000 ML IVC SCH (16:18)
[2016-10-28 16:20] LABS: ABG Base Excess 7.6 mEq/L (-2.0 to 3.0); ABG HCO3 33.4 mEQ/L (21-27); ABG Oxygen Saturation 100 % (95-98); ABG PCO2 54 mmHg (35-45); ABG PO2 230 mmHg (85-104); ABG TCO2 35.1 mEq/L (20-26)
[2016-10-28 16:21] LABS: Blood Gas FiO2 100 %; Blood Gas PEEP 5 cm H2O; Blood Gas Respiration Rate 10; Blood Gas VT 600 cc
[2016-10-29] MEDS: Ketorolac 15 MG/ML VIAL IVP SCH ×5 (01:24→23:37)
[2016-10-29] MEDS: ceFAZolin 2,000 MG in D5% in Water 100 ML IVPB SCH (01:24)
[2016-10-29] MEDS: Lacri-Lube 3.5 GM TUBE BOTH EYES SCH ×3 (01:25→07:58)
[2016-10-29] MEDS: Acetylcysteine 10% 2 ML INHSOL IH SCH ×5 (03:54→20:12)
[2016-10-29] MEDS: Ipratropium/Albuterol Neb 3 ML IH SCH ×5 (03:54→20:12)
[2016-10-29] MEDS: FentaNYL (PF) 1,000 MCG in 0.9 % Sodium Chloride 80 ML IVC SCH (03:59)
[2016-10-29 04:33] LABS: Eosinophils # 0.3 K/mcL (0.0-0.6); Hematocrit 23.4 % (37.5-50.1); Hemoglobin 7.6 g/dL (12.9-16.9); Mean Corpuscular HGB Conc 32.5 g/dL (31.6-35.5); Mean Corpuscular Hemoglobin 29.8 pg (28.0-33.3); Mean Corpuscular Volume 91.8 fL (83.0-100.0); Mean Platelet Volume 11.4 fL (9.4-12.4); Platelet Count 187 K/mcL (140-400); Red Blood Count 2.55 M/mcL (4.19-5.50); Red Cell Distribution Width 14.2 % (11.5-14.5)
[2016-10-29 04:41] LABS: Ionized Calcium 1.11 mmol/L (1.15-1.35)
[2016-10-29 04:48] LABS: Alanine Aminotransferase 10 Units/L (0-55); Albumin 2.1 g/dL (3.5-5.0); Albumin/Globulin Ratio 0.9 (1.1-2.2); Alkaline Phosphatase 35 Units/L (38-126); Aspartate Amino Transferase 24 Units/L (5-34); BUN/Creatinine Ratio 35 (6-26); Bilirubin,Total 0.4 mg/dL (0.2-1.2); Blood Urea Nitrogen 30 mg/dL (8-26); Calcium 7.9 mg/dL (8.6-10.8); Carbon Dioxide 30 mEq/L (19-29); Chloride 103 mEq/L (98-109); Globulin 2.3 g/dL (2.4-3.5); Glucose 95 mg/dL (70-99); Magnesium 1.7 mg/dL (1.6-2.6); Osmolality,Calculated 294 (280-300); Phosphorous 3.4 mg/dL (2.3-4.7); Potassium 3.8 mEq/L (3.5-4.5); Sodium 139 mEq/L (136-145); Total Protein 4.4 g/dL (6.0-8.3); eGFR For African Americans > 60 (> 60); eGFR For Non-African Americans > 60 (> 60)
[2016-10-29 05:01] LABS: ABG HCO3 35.7 mEQ/L (21-27); ABG Oxygen Saturation 100 % (95-98); ABG PCO2 49 mmHg (35-45); ABG PH 7.47 pH Units (7.32-7.45); ABG PO2 289 mmHg (85-104); ABG TCO2 37.2 mEq/L (20-26)
[2016-10-29 05:02] LABS: Blood Gas FiO2 100 %
[2016-10-29 05:11] LABS: Large Platelets Present (Not Present); Lymphocytes # 1.6 K/mcL (0.6-4.6); Monocytes # 2.2 K/mcL (0.0-1.3); Neutrophils # 10.5 K/mcL (1.6-8.9); Platelet Estimate Normal (Normal)
[2016-10-29] MEDS: 0.9 % Sodium Chloride 1,000 ML IVC SCH (05:24)
[2016-10-29] MEDS ORDERED: Furosemide 20 MG/2 ML VIAL IVP ONE ×2 (06:27→07:32)
[2016-10-29] MEDS ORDERED: *HR* Digoxin 0.5 MG/2 ML AMPUL ONE (06:28)
--- NOTE | 2016-10-29 07:28 | Pulmonology Progress Note ---
<Ashleigh Reyes - Last Filed: 10/29/16 08:28> Date of Encounter: 10/29/16 Time of Encounter: 07:26 Assessment and Plan (1) Dehiscence of closure of sternum or sternotomy Current Visit: Yes Status: Acute POD day#1 sternotomy wire revision with Dr. Villa. 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 Pulmonary: Patient has severe COPD and has had a pneumothorax requiring chest tube insertion, chest tube still in place in the right anterior chest and the second intercostal space. Postop day 1 sternotomy wire revision. Subcutaneous emphysema still present on bilateral upper extremities. Plan to extubate today. Continue DuoNeb therapy, albuterol, acetylcysteine. Will stop prednisone and levaquin. Cardiovascular: POD#9 CABG, POD#1 sternotomy revision due to dehiscence with Dr. Villa. Then , blood pressure is. Will continue amiodarone, Lopressor, aspirin. GI: Nutrition: Advance diet tolerated once the swallow eval GI Prophylaxis protonix; Ionized Calcium 1.11 Renal: Patient has good urine output overnight, 600 mL urine output yesterday - 552; SCr 0.86 ID: has completed 7 days of Levaquin to treat Pseudomonas in sputum culture, will stop today. WBC trending down my patient is afebrile. Heme/Onc: H/H TRENDING DOWN 7.6 from 9.1, plan per CT surgery to give 2 units PRBCs DVT Prophylaxis Endocrine: BS stable Lines: all lines checked and no evidence of infections [address], wound VAC over sternum, right IJ CVC Skin: skin care to prevent pressure ulcers per nursing routine care. CODE STATUS: FULL CODE Qualifiers: Encounter type: initial encounter Qualified Code(s): T81.32XA - Disruption of internal operation (surgical) wound, not elsewhere classified, initial encounter (2) Subcutaneous emphysema Current Visit: Yes Status: Acute Qualifiers: Encounter type: initial encounter Qualified Code(s): T79.7XXA - Traumatic subcutaneous emphysema, initial encounter (3) Status post coronary artery bypass graft Current Visit: Yes Status: Acute (4) Pneumothorax Current Visit: Yes Status: Resolved Qualifiers: Pneumothorax type: unspecified pneumothorax Qualified Code(s): J93.9 - Pneumothorax, unspecified (5) Postoperative anemia Current Visit: Yes Status: Acute (6) COPD (chronic obstructive pulmonary disease) Current Visit: Yes Status: Chronic Qualifiers: COPD type: unspecified COPD Qualified Code(s): J44.9 - Chronic obstructive pulmonary disease, unspecified (7) CAD (coronary artery disease) Current Visit: No Status: Chronic Qualifiers: Coronary Disease-Associated Artery/Lesion type: bypass graft, autologous vein Associated angina: angina presence unspecified Qualified Code(s): I25.810 - Atherosclerosis of coronary artery bypass graft(s) without angina pectoris (8) DVT prophylaxis Current Visit: Yes Status: Acute Subjective Principal diagnosis: CAD, COPD Interval history: Patient was seen and examined at bedside. He remains sedated and intubated. No acute events overnight. She continues to have crepitus in the right and left upper extremities and abdominal area. Objective PUL Vital signs: Last Vital Signs Temp 98 F 10/29/16 04:00 Pulse 74 10/29/16 06:00 Resp 20 10/29/16 06:26 BP 82/61 10/29/16 06:26 Pulse Ox 100 10/29/16 06:26 General appearance: no acute distress, other (Intubated and sedated) ENT: oropharynx moist Neck: supple, no lymphadenopathy, no JVD Effort: mildly labored Auscultation: bilateral: rales Cardiovascular: regular rate and rhythm Gastrointestinal: hypoactive bowel sounds, soft, tender, non-distended Integumentary: other (Subcutaneous crepitus noted, on upper extremities bilaterally) Extremities: no cyanosis, no edema, pink and warm, pulses normal Musculoskeletal: no deformities pupils equal and round, unable to assess due to mental status (Debated and sedated, opens eyes to voice) [address], wound VAC in place over sternum Ventilator Settings Ventilator Settings: Ventilator Settings, Last 8 Hours Ventilator Mode VC+ Ventilator Mode VC+ Ventilator Mode VC+ Ventilator Mode VC+ Ventilator Mode VC+ Ventilator Mode VC+ Ventilator Mode VC+ Ventilator Mode VC+ Ventilator Mode VC+ Ventilator Mode VC+ Ventilator Tidal Volume 600 Setting Ventilator Tidal Volume 600 Setting Ventilator Tidal Volume 600 Setting Ventilator Tidal Volume 600 Setting Ventilator Tidal Volume 600 Setting Ventilator Tidal Volume 600 Setting Ventilator Tidal Volume 600 Setting Ventilator Tidal Volume 600 Setting Ventilator Tidal Volume 600 Setting Ventilator Tidal Volume 600 Setting Ventilator Respiratory Rate 10 Setting Ventilator Respiratory Rate 10 Setting Ventilator Respiratory Rate 10 Setting Ventilator Respiratory Rate 10 Setting Ventilator Respiratory Rate 10 Setting Ventilator Respiratory Rate 10 Setting Ventilator Respiratory Rate 10 Setting Ventilator Respiratory Rate 10 Setting Ventilator Respiratory Rate 10 Setting Ventilator Respiratory Rate 10 Setting Actual Respiratory Rate 20 Actual Respiratory Rate 13 Actual Respiratory Rate 18 Actual Respiratory Rate 20 Actual Respiratory Rate 12 Actual Respiratory Rate 12 Actual Respiratory Rate 12 Actual Respiratory Rate 12 Actual Respiratory Rate 13 Actual Respiratory Rate 13 Positive End Expiratory 5 Pressure Positive End Expiratory 5 Pressure Positive End Expiratory 5 Pressure Positive End Expiratory 5 Pressure Positive End Expiratory 5 Pressure Positive End Expiratory 5 Pressure Positive End Expiratory 5 Pressure Positive End Expiratory 5 Pressure Positive End Expiratory 5 Pressure Positive End Expiratory 5 Pressure Peak Inspiratory Airway 22 Pressure Peak Inspiratory Airway 19 Pressure Peak Inspiratory Airway 14 Pressure Peak Inspiratory Airway 13 Pressure Peak Inspiratory Airway 20 Pressure Peak Inspiratory Airway 25 Pressure Peak Inspiratory Airway 25 Pressure Peak Inspiratory Airway 26 Pressure Peak Inspiratory Airway 23 Pressure Peak Inspiratory Airway 18 Pressure Results - Laboratory Findings CBC and BMP: 10/29/16 04:20 10/29/16 04:20 ABG ABG pH 7.47 pH Units (7.32-7.45) H 10/29/16 04:45 ABG pCO2 49 mmHg (35-45) H 10/29/16 04:45 ABG pO2 289 mmHg (85-104) H 10/29/16 04:45 ABG O2 Saturation 100 % (95-98) H 10/29/16 04:45 PT/INR, D-dimer PT 13.9 Seconds (9.4-12.1) H 10/21/16 03:22 Abnormal lab findings: Abnormal lab results WBC 15.5 K/mcL (4.3-11.1) H 10/29/16 04:20 RBC 2.55 M/mcL (4.19-5.50) L 10/29/16 04:20 Hgb 7.6 g/dL (12.9-16.9) L D 10/29/16 04:20 Hct 23.4 % (37.5-50.1) L 10/29/16 04:20 Metamyelocytes % 4.0 % (0) H 10/29/16 04:20 Myelocytes % 2.0 % (0) H 10/29/16 04:20 Neutrophils # 10.5 K/mcL (1.6-8.9) H 10/29/16 04:20 Monocytes # 2.2 K/mcL (0.0-1.3) H 10/29/16 04:20 Nucleated RBCs/100 WBC 0.1 /100 WBC (0) H 10/28/16 15:47 Reactive Lymphocytes Present (Not Present) A 10/28/16 00:10 Toxic Granulation Present (Not Present) A 10/28/16 15:47 Large Platelets Present (Not Present) A 10/29/16 04:20 Immature Plt Fraction 12.8 % (1.1-6.1) H 10/28/16 00:10 Polychromasia 1+ (Not Present) A 10/28/16 00:10 Basophilic Stippling 1+ (Not Present) A 10/28/16 00:10 PT 13.9 Seconds (9.4-12.1) H 10/21/16 03:22 ABG pH 7.47 pH Units (7.32-7.45) H 10/29/16 04:45 ABG pCO2 49 mmHg (35-45) H 10/29/16 04:45 ABG pO2 289 mmHg (85-104) H 10/29/16 04:45 ABG HCO3 35.7 mEQ/L (21-27) H 10/29/16 04:45 ABG Total CO2 37.2 mEq/L (20-26) H 10/29/16 04:45 ABG O2 Saturation 100 % (95-98) H 10/29/16 04:45 ABG Base Excess 11.0 mEq/L (-2.0 to 3.0) H 10/29/16 04:45 ABG Hematocrit 26 % (35-51) L 10/20/16 11:17 Potassium 3.2 mEq/L (3.5-5.3) L 10/20/16 11:17 Glucose 111 mg/dL (60-95) H 10/20/16 11:17 Ionized Calcium 0.95 mmol/L (1.15-1.35) L 10/20/16 11:17 Carbon Dioxide 30 mEq/L (19-29) H 10/29/16 04:20 BUN 30 mg/dL (8-26) H 10/29/16 04:20 BUN/Creatinine Ratio 35 (6-26) H 10/29/16 04:20 POC Glucose 115 (58-89) H 10/29/16 00:10 Calcium 7.9 mg/dL (8.6-10.8) L 10/29/16 04:20 Ionized Calcium 1.11 mmol/L (1.15-1.35) L 10/29/16 04:20 Alkaline Phosphatase 35 Units/L (38-126) L 10/29/16 04:20 Serum Total Protein 4.4 g/dL (6.0-8.3) L 10/29/16 04:20 Albumin 2.1 g/dL (3.5-5.0) L 10/29/16 04:20 Globulin 2.3 g/dL (2.4-3.5) L 10/29/16 04:20 Albumin/Globulin Ratio 0.9 (1.1-2.2) L 10/29/16 04:20 Vancomycin Trough 9.4 mcg/mL (10-20) L 10/24/16 09:05 - Microbiology Findings Microbiology Findings: Microbiology, Last 48 Hours 10/23/16 09:41 Blood Culture - Final Peripheral Venipuncture No growth. 10/23/16 09:38 Blood Culture - Final Peripheral Venipuncture No growth. 10/28/16 14:10 Body Fluid Culture - Preliminary Other-Specify in Comments - Diagnostic Findings Chest x-ray: report reviewed, image reviewed Additional studies: Chest X-Ray 10/29/16 06:00 IMPRESSION: Stable examination. Stable lines and tubes. D/ / Joseluis Montes MD / Joseluis Montes MD Interpreting Provider: Joseluis Montes MD - Clinical Findings Intake & Output: Intake & Output 10/28/16 10/28/16 10/29/16 15:59 23:59 07:59 Intake Total 200 / 200 220 / 220 1180 / 1180 Output Total 200 / 200 672 / 672 576 / 576 Balance 0 / 0 -452 / -452 604 / 604 Weight 85.139 kg - VTE Reasons for not Prescribing Prophylaxis: Treatment not Indicated - Low risk for VTE Documentation of Mechanical Device: Graduated compression elastic hosiery Consult Discharge Plan - Plan Referrals: Anthony Hale MD [Partnered Physician] - (office will call patient at home with appointment, Cardiology makes their own appointments. Sent web request on [phone]) Anthony Sagastume MD [Partnered Physician] - 12/01/16 2:40 pm Jarred Shaw CNP [Primary Care Provider] - 11/03/16 9:00 am <EliasMejiajanessa Wang - Last Filed: 10/29/16 12:39> Date of Encounter: 10/29/16 Objective PUL Vital signs: Last Vital Signs Temp 97.9 F 10/29/16 11:23 Pulse 100 10/29/16 12:00 Resp 18 10/29/16 12:00 BP 102/66 10/29/16 12:00 Pulse Ox 95 10/29/16 12:00 Ventilator Settings Ventilator Settings: Ventilator Settings, Last 8 Hours Ventilator Mode VC+ Ventilator Mode VC+ Ventilator Mode VC+ Ventilator Mode VC+ Ventilator Mode VC+ Ventilator Mode VC+ Ventilator Tidal Volume 600 Setting Ventilator Tidal Volume 600 Setting Ventilator Tidal Volume 600 Setting Ventilator Tidal Volume 600 Setting Ventilator Tidal Volume 600 Setting Ventilator Tidal Volume 600 Setting Ventilator Tidal Volume 600 Setting Ventilator Respiratory Rate 14 Setting Ventilator Respiratory Rate 10 Setting Ventilator Respiratory Rate 10 Setting Ventilator Respiratory Rate 10 Setting Ventilator Respiratory Rate 10 Setting Ventilator Respiratory Rate 10 Setting Ventilator Respiratory Rate 10 Setting Actual Respiratory Rate 16 Actual Respiratory Rate 14 Actual Respiratory Rate 20 Actual Respiratory Rate 20 Actual Respiratory Rate 13 Actual Respiratory Rate 18 Positive End Expiratory 5 Pressure Positive End Expiratory 5 Pressure Positive End Expiratory 5 Pressure Positive End Expiratory 5 Pressure Positive End Expiratory 5 Pressure Positive End Expiratory 5 Pressure Positive End Expiratory 5 Pressure Peak Inspiratory Airway 18 Pressure Peak Inspiratory Airway 12 Pressure Peak Inspiratory Airway 22 Pressure Peak Inspiratory Airway 19 Pressure Peak Inspiratory Airway 14 Pressure Results - Laboratory Findings CBC and BMP: 10/29/16 04:20 10/29/16 04:20 ABG ABG pH 7.47 pH Units (7.32-7.45) H 10/29/16 04:45 ABG pCO2 49 mmHg (35-45) H 10/29/16 04:45 ABG pO2 289 mmHg (85-104) H 10/29/16 04:45 ABG O2 Saturation 100 % (95-98) H 10/29/16 04:45 PT/INR, D-dimer PT 13.9 Seconds (9.4-12.1) H 10/21/16 03:22 Abnormal lab findings: Abnormal lab results WBC 15.5 K/mcL (4.3-11.1) H 10/29/16 04:20 RBC 2.55 M/mcL (4.19-5.50) L 10/29/16 04:20 Hgb 7.6 g/dL (12.9-16.9) L D 10/29/16 04:20 Hct 23.4 % (37.5-50.1) L 10/29/16 04:20 Metamyelocytes % 4.0 % (0) H 10/29/16 04:20 Myelocytes % 2.0 % (0) H 10/29/16 04:20 Neutrophils # 10.5 K/mcL (1.6-8.9) H 10/29/16 04:20 Monocytes # 2.2 K/mcL (0.0-1.3) H 10/29/16 04:20 Nucleated RBCs/100 WBC 0.1 /100 WBC (0) H 10/28/16 15:47 Reactive Lymphocytes Present (Not Present) A 10/28/16 00:10 Toxic Granulation Present (Not Present) A 10/28/16 15:47 Large Platelets Present (Not Present) A 10/29/16 04:20 Immature Plt Fraction 12.8 % (1.1-6.1) H 10/28/16 00:10 Polychromasia 1+ (Not Present) A 10/28/16 00:10 Basophilic Stippling 1+ (Not Present) A 10/28/16 00:10 PT 13.9 Seconds (9.4-12.1) H 10/21/16 03:22 ABG pH 7.47 pH Units (7.32-7.45) H 10/29/16 04:45 ABG pCO2 49 mmHg (35-45) H 10/29/16 04:45 ABG pO2 289 mmHg (85-104) H 10/29/16 04:45 ABG HCO3 35.7 mEQ/L (21-27) H 10/29/16 04:45 ABG Total CO2 37.2 mEq/L (20-26) H 10/29/16 04:45 ABG O2 Saturation 100 % (95-98) H 10/29/16 04:45 ABG Base Excess 11.0 mEq/L (-2.0 to 3.0) H 10/29/16 04:45 ABG Hematocrit 26 % (35-51) L 10/20/16 11:17 Potassium 3.2 mEq/L (3.5-5.3) L 10/20/16 11:17 Glucose 111 mg/dL (60-95) H 10/20/16 11:17 Ionized Calcium 0.95 mmol/L (1.15-1.35) L 10/20/16 11:17 Carbon Dioxide 30 mEq/L (19-29) H 10/29/16 04:20 BUN 30 mg/dL (8-26) H 10/29/16 04:20 BUN/Creatinine Ratio 35 (6-26) H 10/29/16 04:20 POC Glucose 115 (58-89) H 10/29/16 00:10 Calcium 7.9 mg/dL (8.6-10.8) L 10/29/16 04:20 Ionized Calcium 1.11 mmol/L (1.15-1.35) L 10/29/16 04:20 Alkaline Phosphatase 35 Units/L (38-126) L 10/29/16 04:20 Serum Total Protein 4.4 g/dL (6.0-8.3) L 10/29/16 04:20 Albumin 2.1 g/dL (3.5-5.0) L 10/29/16 04:20 Globulin 2.3 g/dL (2.4-3.5) L 10/29/16 04:20 Albumin/Globulin Ratio 0.9 (1.1-2.2) L 10/29/16 04:20 Vancomycin Trough 9.4 mcg/mL (10-20) L 10/24/16 09:05 - Microbiology Findings Microbiology Findings: Microbiology, Last 48 Hours 10/23/16 09:41 Blood Culture - Final Peripheral Venipuncture No growth. 10/23/16 09:38 Blood Culture - Final Peripheral Venipuncture No growth. 10/28/16 14:10 Body Fluid Culture - Preliminary Other-Specify in Comments - Clinical Findings Intake & Output: Intake & Output 10/28/16 10/29/16 10/29/16 23:59 07:59 15:59 Intake Total 220 / 220 1180 / 1180 614 / 614 Output Total 672 / 672 695 / 695 100 / 100 Balance -452 / -452 485 / 485 514 / 514 Weight 85.139 kg - Attending Attestation I examined this patient and my medical decision-making was reviewed with the ART INSTRUCTOR/PA/Advanced Practice Nurse/Resident Physician. I agree with the documented findings, disposition and treatment plan as described except to the extent set forth below. Patient seen and examined. Labs, radiology, chart personally reviewed. 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 Cardiovascular: stable GI: Nutrition per dietary and GI prophylaxis per routine Heme: DVT prophylaxis per routine. Patient will have blood transfusion ID: Completed antibiotic course Renal; urine out put and renal funtion reviewed Endorcine: blood glucose is monitored Lines: all lines checked and no evidence of infections Skin: skin care to prevent pressure ulcers per nursing routine care
--- NOTE | 2016-10-29 07:29 | Cardiothoracic Progress Note ---
Date of Encounter: 10/29/16 Time of Encounter: 07:27 - Assessment and plan (1) Status post coronary artery bypass graft Current Visit: Yes Status: Acute The patient is doing well. We will work on extubating him today. He has a usual , expected acute postoperative blood loss anemia. We will give him 2 units of packed red blood cells with 20 mg of Lasix IV in between. - Subjective Interval history: The patient is intubated. He is awake and alert and moves all extremities well. Vital Signs, Last 4 Hours Temp Pulse Resp BP Pulse Ox 10/29/16 06:26 20 82/61 100 10/29/16 06:00 74 13 83/57 100 10/29/16 05:00 77 18 81/56 100 10/29/16 04:00 98 F 80 18 104/73 100 10/29/16 03:54 12 78/60 100 Oxgyen Flow Rate Oxygen Flow Rate (LPM) 4 Clinical Data, last 8 Hours Output, Chest Tube Drainage 10 Amount [Anterior Chest #3] Output, Chest Tube Drainage 26 Amount [Anterior Chest #3] Output, Chest Tube Drainage 26 Amount [Anterior Chest #3] Output, Chest Tube Drainage 20 Amount [Anterior Chest #2] Output, Chest Tube Drainage 47 Amount [Anterior Chest #2] Output, Chest Tube Drainage 47 Amount [Anterior Chest #2] Output, Chest Tube Drainage 0 Amount [Right Anterior Chest # 3] Output, Chest Tube Drainage 0 Amount [Right Anterior Chest # 3] Output, Chest Tube Drainage 0 Amount [Right Anterior Chest # 3] Weight 10/27/16 10/28/16 10/29/16 23:59 23:59 23:59 Weight 81.2 kg 85.139 kg Lungs are clear to percussion and auscultation. Heart is in a normal sinus rhythm. Chest tube drainage is minimal. - Labs 10/29/16 04:20 10/29/16 04:20 Lab Results, Last 24 hours 10/28/16 10/29/16 10/29/16 15:47 04:20 04:20 WBC 21.2 H 15.5 H Hgb 9.1 L 7.6 L D Hct 28.2 L 23.4 L Plt Count 223 187 Sodium 139 Potassium 3.8 Chloride 103 Carbon Dioxide 30 H BUN 30 H Creatinine 0.86 Glucose 95 Calcium 7.9 L Magnesium 1.7 Total Bilirubin 0.4 AST 24 ALT 10 Alkaline Phosphatase 35 L - VTE Reasons for not Prescribing Prophylaxis: Treatment not Indicated - Low risk for VTE Documentation of Mechanical Device: Graduated compression elastic hosiery Consult Discharge Plan - Plan Referrals: Anthony Hale MD [Partnered Physician] - (office will call patient at home with appointment, Cardiology makes their own appointments. Sent web request on [phone]) Anthony Sagastume MD [Partnered Physician] - 12/01/16 2:40 pm Jarred Shaw CNP [Primary Care Provider] - 11/03/16 9:00 am
[2016-10-29] MEDS ORDERED: 0.9 % Sodium Chloride 250 ML ONE (07:41)
[2016-10-29] MEDS: Chlorhexidine Rinse 15 ML MOUTHWASH MM SCH ×2 (07:43→07:58)
[2016-10-29] MEDS: Pantoprazole 40 MG VIAL IVP SCH (07:44)
[2016-10-29] MEDS: Budesonide/Formoterol 160/4.5 MDI IH SCH ×2 (07:55→20:13)
[2016-10-29] MEDS: Aspirin Enteric Coated 81 MG Tablet PO SCH (07:58)
[2016-10-29] MEDS: predniSONE 20 MG TABLET PO SCH (07:59)
[2016-10-29] MEDS: *HR* Amiodarone 200 MG TABLET PO SCH ×2 (07:59→20:15)
[2016-10-29] MEDS: Levofloxacin 750 MG/150 ML 750 MG/150 ML BAG IVPB SCH (08:42)
[2016-10-29] MEDS: *HR* Morphine 2 MG/ML SYRINGE IVP PRN ×7 (08:43→23:37)
[2016-10-29] MEDS: Amiodarone Premix 360 MG/200 ML BAG IVC SCH (08:58)
[2016-10-29] MEDS: Insulin LISPRO 300 UNITS/3 ML VIAL SQ SCH (08:58)
[2016-10-29] MEDS ORDERED: predniSONE 5 MG TABLET PO ONE (09:49)
--- NOTE | 2016-10-29 12:30 | Electrocardiograph Report ---
[place] [id number] Test Date: 2016-10-27 Pat Name: Jarred Segura Department: 110 Room: [facility] Gender: M Manager Intensive Care: NIKOLAI : 1945 Requested By: Anthony Sagastume Order Number: [id number] Reading MD: Avtar Bone Measurements Intervals Claude Rate: 125 P: 70 HI: 142 QRS: 16 QRSD: 84 T: -19 QT: 310 QTc: 384 Interpretive Statements SINUS TACHYCARDIA WITH FREQUENT SUPRAVENTRICULAR PREMATURE COMPLEXES LOW QRS VOLTAGE IN EXTREMITY LEADS ABNORMAL RHYTHM ECG Electronically Signed On 10-29-2016 12:28:33 EDT by Avtar Bone
[2016-10-29] MEDS: *HR* OxyCODONE/APAP 5/325 TABLET PO PRN (14:51)
[2016-10-29] MEDS ORDERED: *HR* Metoprolol 5 MG/5 ML VIAL IVP ONE ×2 (16:18→16:21)
[2016-10-29] MEDS: *HR* Heparin 5,000 UNIT/ML VIAL SQ SCH (18:08)
[2016-10-29] MEDS: *HR* LORazepam 1 MG TABLET PO PRN (22:22)
[2016-10-30] MEDS: Ipratropium/Albuterol Neb 3 ML IH SCH ×6 (00:13→19:58)
[2016-10-30] MEDS: Acetylcysteine 10% 2 ML INHSOL IH SCH ×6 (00:13→19:58)
[2016-10-30] MEDS: *HR* Morphine 2 MG/ML SYRINGE IVP PRN ×3 (03:32→14:02)
[2016-10-30 03:56] LABS: Hematocrit 30.3 % (37.5-50.1); Mean Corpuscular HGB Conc 32.3 g/dL (31.6-35.5); Mean Corpuscular Hemoglobin 29.1 pg (28.0-33.3); Mean Corpuscular Volume 89.9 fL (83.0-100.0); Mean Platelet Volume 11.1 fL (9.4-12.4); Platelet Count 222 K/mcL (140-400); Red Blood Count 3.37 M/mcL (4.19-5.50); Red Cell Distribution Width 15.5 % (11.5-14.5)
[2016-10-30 04:09] LABS: Hemoglobin 9.8 g/dL (12.9-16.9)
[2016-10-30 04:12] LABS: BUN/Creatinine Ratio 28 (6-26); Blood Urea Nitrogen 27 mg/dL (8-26); Carbon Dioxide 31 mEq/L (19-29); Chloride 103 mEq/L (98-109); Potassium 4.1 mEq/L (3.5-4.5); Sodium 139 mEq/L (136-145)
[2016-10-30 04:13] LABS: Calcium 7.9 mg/dL (8.6-10.8); Glucose 105 mg/dL (70-99); Osmolality,Calculated 293 (280-300); eGFR For African Americans > 60 (> 60); eGFR For Non-African Americans > 60 (> 60)
[2016-10-30 04:19] LABS: Eosinophils # 0.7 K/mcL (0.0-0.6); Eosinophils % 5.5 %; Lymphocytes # 3.2 K/mcL (0.6-4.6); Lymphocytes % 25.5 %; Monocytes # 1.4 K/mcL (0.0-1.3); Monocytes % 10.9 %; Neutrophils # 7.2 K/mcL (1.6-8.9); Platelet Estimate Normal (Normal); Polychromasia 1+ (Not Present); Reactive Lymphocytes Present (Not Present); Segmented Neutrophils % 58.2 %
[2016-10-30] MEDS: *HR* Heparin 5,000 UNIT/ML VIAL SQ SCH ×2 (06:25→16:53)
[2016-10-30] MEDS: Ketorolac 15 MG/ML VIAL IVP SCH ×4 (06:25→23:37)
[2016-10-30] MEDS: Budesonide/Formoterol 160/4.5 MDI IH SCH ×2 (07:24→19:58)
[2016-10-30] MEDS: Pantoprazole 40 MG VIAL IVP SCH (07:46)
[2016-10-30] MEDS: *HR* Amiodarone 200 MG TABLET PO SCH ×2 (07:46→20:56)
[2016-10-30] MEDS: Aspirin Enteric Coated 81 MG Tablet PO SCH (07:46)
[2016-10-30] MEDS: *HR* OxyCODONE/APAP 5/325 TABLET PO PRN ×4 (08:39→20:55)
--- NOTE | 2016-10-30 08:39 | Cardiothoracic Progress Note ---
Date of Encounter: 10/30/16 Time of Encounter: 08:37 - Assessment and plan (1) Status post coronary artery bypass graft Current Visit: Yes Status: Acute We will discontinue the patient's Zamudio. We will leave the chest tubes 1 more day. Hopefully, the chest tubes can be removed tomorrow and the patient can be transferred to the floor. - Subjective Interval history: The patient is sitting in a chair and eating breakfast. He has mild postoperative pain. Vital Signs, Last 4 Hours Temp Pulse Resp BP Pulse Ox 10/30/16 08:00 89 16 105/71 100 10/30/16 07:26 22 106/71 100 10/30/16 07:16 98.2 F 10/30/16 07:00 74 10/30/16 06:00 78 26 106/71 100 10/30/16 05:00 75 20 107/78 100 Oxgyen Flow Rate Oxygen Flow Rate (LPM) 8 Clinical Data, last 8 Hours Output, Chest Tube Drainage 0 Amount [Anterior Chest #3] Output, Chest Tube Drainage 10 Amount [Anterior Chest #3] Output, Chest Tube Drainage 0 Amount [Anterior Chest #2] Output, Chest Tube Drainage 0 Amount [Anterior Chest #2] Output, Chest Tube Drainage 0 Amount [Right Anterior Chest # 3] Output, Chest Tube Drainage 0 Amount [Right Anterior Chest # 3] Weight 10/28/16 10/29/16 10/30/16 23:59 23:59 23:59 Weight 81.2 kg 85.139 kg 86.818 kg Lungs are clear to percussion and auscultation. Heart is in a normal sinus rhythm. All incisions are healing well without signs of infection and the sternum is stable. - Labs 10/30/16 03:35 10/30/16 03:35 Lab Results, Last 24 hours 10/30/16 10/30/16 03:35 03:35 WBC 12.4 H Hgb 9.8 L D Hct 30.3 L Plt Count 222 Sodium 139 Potassium 4.1 Chloride 103 Carbon Dioxide 31 H BUN 27 H Creatinine 0.96 Glucose 105 H Calcium 7.9 L - VTE Reasons for not Prescribing Prophylaxis: Treatment not Indicated - Low risk for VTE Documentation of Mechanical Device: Graduated compression elastic hosiery Consult Discharge Plan - Plan Referrals: Anthony Hale MD [Partnered Physician] - (office will call patient at home with appointment, Cardiology makes their own appointments. Sent web request on [phone]) Anthony Sagastume MD [Partnered Physician] - 12/01/16 2:40 pm Jarred Shaw CNP [Primary Care Provider] - 11/03/16 9:00 am
--- NOTE | 2016-10-30 08:46 | Pulmonology Progress Note ---
<Radha Briceño Irineo - Last Filed: 10/30/16 09:37> Date of Encounter: 10/30/16 Time of Encounter: 08:30 Assessment and Plan (1) Dehiscence of closure of sternum or sternotomy Current Visit: Yes Status: Acute Patient is s/p day#[address] 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 Pulm: Patient tolerating extubation well. Saturating 100% on 6 to 8L high- flow O2. Continue DuoNebs every 4 hours, Albuterol neb every 2 hours when necessary, acetylcysteine 2 mL inhaled every 4 hours. Patient did have sputum culture that grew Pseudomonas sensitive to Levaquin. He completed 7 days of Levaquin. Cardio: Patient is status post day #[address] Villa due to dehiscence. S/p day#10 CABG. Vitals stable heart rate 89, blood pressure 93/ 66 (MAP 77). Continue amiodarone 400 mg twice a day, Lopressor 25 mg twice a day, aspirin 81 mg. Chest x-ray 10/29/16 demonstrated no evidence of pneumothorax, ET tube stable, central line stable, chest tube stable. Since CXR on 10/29/16 patient has been extubated. Repeat CXR today, pending. GI/Fluids/Electrolytes/Hydration: Patient tolerating a cardiac diet well. Hypocalcemia with ionized calcium 1.11. Patient does have evidence of fluid overload with pitting edema to bilateral lower extremities. Will give one dose of IV lasix this afternoon. GI Prophylaxis: Protonix Renal: Normal renal function, creatinine 0.96, good urine output. Sotelo has been removed ID: Sputum culture grew Pseudomonas sensitive to Levaquin. Patient completed 7 days Levaquin. Patient afebrile for last 24 hours. Heme/Onc: Leukocytosis with WBC 12.4. Anemia improved today following 2units pRBCs yesterday. Hemoglobin 9.8, up from 7.6 yesterday. We will continue to monitor. Endocrine: Glucose 105, continue with hypoglycemia protocol. Lines: All lines checked and without evidence of infection. Right IJ CVC, Three chest tubes, Chesterfield-Alyse, Wound vac to mediastinum, Sotelo catheter Skin: Skin precautions per nursing protocol to prevent pressure ulcers. DVT prophylaxis: SQ heparin Qualifiers: Encounter type: initial encounter Qualified Code(s): T81.32XA - Disruption of internal operation (surgical) wound, not elsewhere classified, initial encounter (2) Status post coronary artery bypass graft Current Visit: Yes Status: Acute (3) Pneumothorax Current Visit: Yes Status: Resolved Qualifiers: Pneumothorax type: unspecified pneumothorax Qualified Code(s): J93.9 - Pneumothorax, unspecified (4) Subcutaneous emphysema Current Visit: Yes Status: Acute Qualifiers: Encounter type: initial encounter Qualified Code(s): T79.7XXA - Traumatic subcutaneous emphysema, initial encounter (5) COPD (chronic obstructive pulmonary disease) Current Visit: Yes Status: Chronic Qualifiers: COPD type: unspecified COPD Qualified Code(s): J44.9 - Chronic obstructive pulmonary disease, unspecified (6) Hypocalcemia Current Visit: Yes Status: Acute (7) Leukocytosis Current Visit: Yes Status: Acute (8) Postoperative anemia Current Visit: Yes Status: Acute (9) DVT prophylaxis Current Visit: Yes Status: Acute Subjective Principal diagnosis: s/p sternotomy revision, s/p CABG, CAD, COPD Interval history: Patient is s/p day#2 sternotomy wire revision. Patient reports that he is doing well this morning. He does admit anxiety. Also admits pain to chest. He and his state that subcutaneous emphysema has improved. He ate his entire breakfast. He has good UOP to sotelo. He denies having a bowel movement , but does admit to having gas. Objective PUL Vital signs: Last Vital Signs Temp 98.2 F 10/30/16 07:16 Pulse 89 10/30/16 08:00 Resp 16 10/30/16 08:00 BP 105/71 10/30/16 08:00 Pulse Ox 100 10/30/16 08:00 General appearance: no acute distress, other (Uncomfortable during transition from seated to bed) Eyes: nonicteric ENT: oropharynx dry Neck: supple, other (CVC in place to right neck ) Effort: mildly labored Auscultation: bilateral: diminished breath sounds, wheezes, other (subcutaneous emphysema auscultated to bilateral anterior and lateral chest wall) Cardiovascular: regular rate and rhythm, other ( Right IJ CVC, Three chest tubes , Chesterfield-Alyse, Wound vac to mediastinum) Gastrointestinal: normoactive bowel sounds Integumentary: normal Extremities: no cyanosis, pink and warm, edema (1+ pitting edema to bilateral lower extremities to level of the knee) Musculoskeletal: no deformities normal mental status mood appropriate, affect normal Results - Laboratory Findings CBC and BMP: 10/30/16 03:35 10/30/16 03:35 ABG ABG pH 7.47 pH Units (7.32-7.45) H 10/29/16 04:45 ABG pCO2 49 mmHg (35-45) H 10/29/16 04:45 ABG pO2 289 mmHg (85-104) H 10/29/16 04:45 ABG O2 Saturation 100 % (95-98) H 10/29/16 04:45 PT/INR, D-dimer PT 13.9 Seconds (9.4-12.1) H 10/21/16 03:22 Abnormal lab findings: Abnormal lab results WBC 12.4 K/mcL (4.3-11.1) H 10/30/16 03:35 RBC 3.37 M/mcL (4.19-5.50) L 10/30/16 03:35 Hgb 9.8 g/dL (12.9-16.9) L D 10/30/16 03:35 Hct 30.3 % (37.5-50.1) L 10/30/16 03:35 RDW 15.5 % (11.5-14.5) H 10/30/16 03:35 Metamyelocytes % 4.0 % (0) H 10/29/16 04:20 Myelocytes % 2.0 % (0) H 10/29/16 04:20 Monocytes # 1.4 K/mcL (0.0-1.3) H 10/30/16 03:35 Eosinophils # 0.7 K/mcL (0.0-0.6) H 10/30/16 03:35 Nucleated RBCs/100 WBC 0.1 /100 WBC (0) H 10/28/16 15:47 Reactive Lymphocytes Present (Not Present) A 10/30/16 03:35 Toxic Granulation Present (Not Present) A 10/28/16 15:47 Large Platelets Present (Not Present) A 10/29/16 04:20 Immature Plt Fraction 12.8 % (1.1-6.1) H 10/28/16 00:10 Polychromasia 1+ (Not Present) A 10/30/16 03:35 Basophilic Stippling 1+ (Not Present) A 10/28/16 00:10 PT 13.9 Seconds (9.4-12.1) H 10/21/16 03:22 ABG pH 7.47 pH Units (7.32-7.45) H 10/29/16 04:45 ABG pCO2 49 mmHg (35-45) H 10/29/16 04:45 ABG pO2 289 mmHg (85-104) H 10/29/16 04:45 ABG HCO3 35.7 mEQ/L (21-27) H 10/29/16 04:45 ABG Total CO2 37.2 mEq/L (20-26) H 10/29/16 04:45 ABG O2 Saturation 100 % (95-98) H 10/29/16 04:45 ABG Base Excess 11.0 mEq/L (-2.0 to 3.0) H 10/29/16 04:45 ABG Hematocrit 26 % (35-51) L 10/20/16 11:17 Potassium 3.2 mEq/L (3.5-5.3) L 10/20/16 11:17 Glucose 111 mg/dL (60-95) H 10/20/16 11:17 Ionized Calcium 0.95 mmol/L (1.15-1.35) L 10/20/16 11:17 Carbon Dioxide 31 mEq/L (19-29) H 10/30/16 03:35 BUN 27 mg/dL (8-26) H 10/30/16 03:35 BUN/Creatinine Ratio 28 (6-26) H 10/30/16 03:35 Glucose 105 mg/dL (70-99) H 10/30/16 03:35 POC Glucose 118 (58-89) H 10/29/16 20:32 Calcium 7.9 mg/dL (8.6-10.8) L 10/30/16 03:35 Ionized Calcium 1.11 mmol/L (1.15-1.35) L 10/29/16 04:20 Alkaline Phosphatase 35 Units/L (38-126) L 10/29/16 04:20 Serum Total Protein 4.4 g/dL (6.0-8.3) L 10/29/16 04:20 Albumin 2.1 g/dL (3.5-5.0) L 10/29/16 04:20 Globulin 2.3 g/dL (2.4-3.5) L 10/29/16 04:20 Albumin/Globulin Ratio 0.9 (1.1-2.2) L 10/29/16 04:20 Vancomycin Trough 9.4 mcg/mL (10-20) L 10/24/16 09:05 - Microbiology Findings Microbiology Findings: Microbiology, Last 48 Hours 10/28/16 14:10 Body Fluid Culture - Preliminary Other-Specify in Comments 10/28/16 14:10 Acid Fast Stain - Final Other-Specify in Comments 10/23/16 09:41 Blood Culture - Final Peripheral Venipuncture No growth. 10/23/16 09:38 Blood Culture - Final Peripheral Venipuncture No growth. - Clinical Findings Intake & Output: Intake & Output 10/29/16 10/30/16 10/30/16 23:59 07:59 15:59 Intake Total 360 / 360 Output Total 1073 / 1073 260 / 260 Balance -713 / -713 -260 / -260 Weight 86.818 kg - VTE Reasons for not Prescribing Prophylaxis: Treatment not Indicated - Low risk for VTE Documentation of Mechanical Device: Graduated compression elastic hosiery Consult Discharge Plan - Plan Referrals: Anthony Hale MD [Partnered Physician] - (office will call patient at home with appointment, Cardiology makes their own appointments. Sent web request on [phone]) Anthony Sagastume MD [Partnered Physician] - 12/01/16 2:40 pm Jarred Shaw CNP [Primary Care Provider] - 11/03/16 9:00 am <Lacie Griffin - Last Filed: 10/30/16 10:51> Date of Encounter: 10/30/16 Objective PUL Vital signs: Last Vital Signs Temp 98.2 F 10/30/16 07:16 Pulse 71 10/30/16 10:00 Resp 24 10/30/16 10:00 BP 89/61 10/30/16 10:00 Pulse Ox 100 10/30/16 10:00 Results - Laboratory Findings CBC and BMP: 10/30/16 03:35 10/30/16 03:35 ABG ABG pH 7.47 pH Units (7.32-7.45) H 10/29/16 04:45 ABG pCO2 49 mmHg (35-45) H 10/29/16 04:45 ABG pO2 289 mmHg (85-104) H 10/29/16 04:45 ABG O2 Saturation 100 % (95-98) H 10/29/16 04:45 PT/INR, D-dimer PT 13.9 Seconds (9.4-12.1) H 10/21/16 03:22 Abnormal lab findings: Abnormal lab results WBC 12.4 K/mcL (4.3-11.1) H 10/30/16 03:35 RBC 3.37 M/mcL (4.19-5.50) L 10/30/16 03:35 Hgb 9.8 g/dL (12.9-16.9) L D 10/30/16 03:35 Hct 30.3 % (37.5-50.1) L 10/30/16 03:35 RDW 15.5 % (11.5-14.5) H 10/30/16 03:35 Metamyelocytes % 4.0 % (0) H 10/29/16 04:20 Myelocytes % 2.0 % (0) H 10/29/16 04:20 Monocytes # 1.4 K/mcL (0.0-1.3) H 10/30/16 03:35 Eosinophils # 0.7 K/mcL (0.0-0.6) H 10/30/16 03:35 Nucleated RBCs/100 WBC 0.1 /100 WBC (0) H 10/28/16 15:47 Reactive Lymphocytes Present (Not Present) A 10/30/16 03:35 Toxic Granulation Present (Not Present) A 10/28/16 15:47 Large Platelets Present (Not Present) A 10/29/16 04:20 Immature Plt Fraction 12.8 % (1.1-6.1) H 10/28/16 00:10 Polychromasia 1+ (Not Present) A 10/30/16 03:35 Basophilic Stippling 1+ (Not Present) A 10/28/16 00:10 PT 13.9 Seconds (9.4-12.1) H 10/21/16 03:22 ABG pH 7.47 pH Units (7.32-7.45) H 10/29/16 04:45 ABG pCO2 49 mmHg (35-45) H 10/29/16 04:45 ABG pO2 289 mmHg (85-104) H 10/29/16 04:45 ABG HCO3 35.7 mEQ/L (21-27) H 10/29/16 04:45 ABG Total CO2 37.2 mEq/L (20-26) H 10/29/16 04:45 ABG O2 Saturation 100 % (95-98) H 10/29/16 04:45 ABG Base Excess 11.0 mEq/L (-2.0 to 3.0) H 10/29/16 04:45 ABG Hematocrit 26 % (35-51) L 10/20/16 11:17 Potassium 3.2 mEq/L (3.5-5.3) L 10/20/16 11:17 Glucose 111 mg/dL (60-95) H 10/20/16 11:17 Ionized Calcium 0.95 mmol/L (1.15-1.35) L 10/20/16 11:17 Carbon Dioxide 31 mEq/L (19-29) H 10/30/16 03:35 BUN 27 mg/dL (8-26) H 10/30/16 03:35 BUN/Creatinine Ratio 28 (6-26) H 10/30/16 03:35 Glucose 105 mg/dL (70-99) H 10/30/16 03:35 POC Glucose 118 (58-89) H 10/29/16 20:32 Calcium 7.9 mg/dL (8.6-10.8) L 10/30/16 03:35 Ionized Calcium 1.11 mmol/L (1.15-1.35) L 10/29/16 04:20 Alkaline Phosphatase 35 Units/L (38-126) L 10/29/16 04:20 Serum Total Protein 4.4 g/dL (6.0-8.3) L 10/29/16 04:20 Albumin 2.1 g/dL (3.5-5.0) L 10/29/16 04:20 Globulin 2.3 g/dL (2.4-3.5) L 10/29/16 04:20 Albumin/Globulin Ratio 0.9 (1.1-2.2) L 10/29/16 04:20 Vancomycin Trough 9.4 mcg/mL (10-20) L 10/24/16 09:05 - Microbiology Findings Microbiology Findings: Microbiology, Last 48 Hours 10/28/16 14:10 Body Fluid Culture - Preliminary Other-Specify in Comments 10/28/16 14:10 Acid Fast Stain - Final Other-Specify in Comments 10/23/16 09:41 Blood Culture - Final Peripheral Venipuncture No growth. 10/23/16 09:38 Blood Culture - Final Peripheral Venipuncture No growth. - Clinical Findings Intake & Output: Intake & Output 10/29/16 10/30/16 10/30/16 23:59 07:59 15:59 Intake Total 360 / 360 Output Total 1073 / 1073 260 / 260 Balance -713 / -713 -260 / -260 Weight 86.818 kg - Attending Attestation I examined this patient and my medical decision-making was reviewed with the CHAIRMAN PRESIDENT AND CHIEF EXECUTIVE OFFICER/PA/Advanced Practice Nurse/Resident Physician. I agree with the documented findings, disposition and treatment plan as described except to the extent set forth below. Patient seen and examined. Labs, radiology, chart personally reviewed. Agree with resident's history and physical, assessment, plan with following comments: HEEL PADDER: Patient follows commands, Pulmonary: Acceptable oxygenation and ventilation. Subcutaneous emphysema has improved and wean off FiO2 to keep SPO2 around 90%. Chest tubes are being managed by cardiothoracic. Cardiovascular: stable GI: Nutrition per dietary and GI prophylaxis per routine Heme: DVT prophylaxis per routine ID: Complete course of antibiotics. Renal; urine out put and renal funtion reviewed. Gentle diuresis. Endorcine: blood glucose is monitored Lines: all lines checked and no evidence of infections Skin: skin care to prevent pressure ulcers per nursing routine care Patient will remain in ICU
[2016-10-30] MEDS ORDERED: Furosemide 20 MG/2 ML VIAL IVP SCH (15:00)
[2016-10-30] MEDS: *HR* LORazepam 1 MG TABLET PO PRN (20:55)
[2016-10-31] MEDS: Ipratropium/Albuterol Neb 3 ML IH SCH ×7 (00:22→23:49)
[2016-10-31] MEDS: Acetylcysteine 10% 2 ML INHSOL IH SCH ×7 (00:23→23:49)
[2016-10-31] MEDS: *HR* OxyCODONE/APAP 5/325 TABLET PO PRN ×3 (03:47→20:05)
[2016-10-31 03:49] LABS: Hematocrit 30.6 % (37.5-50.1); Hemoglobin 10.1 g/dL (12.9-16.9); Mean Corpuscular Hemoglobin 30.1 pg (28.0-33.3); Mean Corpuscular Volume 91.3 fL (83.0-100.0); Mean Platelet Volume 10.9 fL (9.4-12.4); Platelet Count 230 K/mcL (140-400); Red Blood Count 3.35 M/mcL (4.19-5.50); Red Cell Distribution Width 15.2 % (11.5-14.5)
[2016-10-31 04:04] LABS: BUN/Creatinine Ratio 26 (6-26); Blood Urea Nitrogen 24 mg/dL (8-26); Calcium 7.9 mg/dL (8.6-10.8); Carbon Dioxide 31 mEq/L (19-29); Chloride 104 mEq/L (98-109); Glucose 85 mg/dL (70-99); Osmolality,Calculated 291 (280-300); Potassium 4.1 mEq/L (3.5-4.5); Sodium 139 mEq/L (136-145); eGFR For African Americans > 60 (> 60); eGFR For Non-African Americans > 60 (> 60)
[2016-10-31 04:21] LABS: Anisocytosis 1+ (Not Present); Eosinophils # 0.9 K/mcL (0.0-0.6); Lymphocytes # 1.8 K/mcL (0.6-4.6); Monocytes # 1.5 K/mcL (0.0-1.3); Neutrophils # 10.9 K/mcL (1.6-8.9); Platelet Estimate Normal (Normal); Polychromasia 1+ (Not Present)
[2016-10-31] MEDS: Ketorolac 15 MG/ML VIAL IVP SCH (05:18)
[2016-10-31] MEDS: *HR* Heparin 5,000 UNIT/ML VIAL SQ SCH ×2 (05:18→18:22)
[2016-10-31] MEDS: Budesonide/Formoterol 160/4.5 MDI IH SCH ×3 (07:49→20:04)
--- NOTE | 2016-10-31 08:34 | Cardiothoracic Progress Note ---
Date of Encounter: 10/31/16 Time of Encounter: 08:32 - Assessment and plan (1) CAD (coronary artery disease) Current Visit: No Status: Chronic The patient is recovering fairly well from his CABG4 and sternal rewiring. He has no respiratory distress this morning. He will be transferred to the stepdown unit when a bed is available. The assessment and plan as outlined above was discussed with the patient and/or family members who expressed understanding and agreement. All questions were answered. Qualifiers: Coronary Disease-Associated Artery/Lesion type: bypass graft, autologous vein Associated angina: angina presence unspecified Qualified Code(s): I25.810 - Atherosclerosis of coronary artery bypass graft(s) without angina pectoris - Subjective Procedure(s) Performed: POD#11 S/P CABG4 POD#3 S/P Sternal rewiring Interval history: The patient remained hemodynamic stable overnight. He is sitting in his hospital bed breathing comfortably. He has no complaints Vital Signs, Last 4 Hours Temp Pulse Resp BP Pulse Ox 10/31/16 08:00 72 22 117/92 100 10/31/16 07:45 97.8 F 10/31/16 07:32 72 10/31/16 07:00 72 20 118/78 100 10/31/16 06:00 80 18 111/80 95 10/31/16 05:00 75 16 111/77 99 Oxgyen Flow Rate Oxygen Flow Rate (LPM) 2 Clinical Data, last 8 Hours Output, Chest Tube Drainage 0 Amount [Anterior Chest #3] Output, Chest Tube Drainage 0 Amount [Anterior Chest #2] Output, Chest Tube Drainage 8 Amount [Anterior Chest #2] Output, Chest Tube Drainage 8 Amount [Right Anterior Chest # 3] Output, Urine Amount 200 Weight 10/29/16 10/30/16 10/31/16 23:59 23:59 23:59 Weight 85.139 kg 86.818 kg 87.9 kg - Physical Examination General: Conversant, No Apparent Distress Neck: No JVD, Normal carotid pulses Cardiac: Reg Rate and Rhythm Incision: No signs of infection, Dry/intact dressing Sternum: Stable Chest tubes: Minimal drainage, Other (No air leak.) Lungs: Normal Breath Sounds, No Wheeze, Rales, Rhonchi Neuro: Alert and responsive, No focal deficits noted Vascular: Normal capillary refill Musculoskeletal: No Chest Wall Tenderness Extremities: No Clubbing, No Cyanosis, No Edema - Labs 10/31/16 03:32 10/31/16 03:32 Lab Results, Last 24 hours 10/31/16 10/31/16 03:32 03:32 WBC 15.1 H Hgb 10.1 L Hct 30.6 L Plt Count 230 Sodium 139 Potassium 4.1 Chloride 104 Carbon Dioxide 31 H BUN 24 Creatinine 0.94 Glucose 85 Calcium 7.9 L - Imaging Chest Xray: image reviewed (No pneumothorax. Small left pleural effusion.) - VTE Reasons for not Prescribing Prophylaxis: Treatment not Indicated - Low risk for VTE Documentation of Mechanical Device: Graduated compression elastic hosiery Consult Discharge Plan - Plan Referrals: Anthony Hale MD [Partnered Physician] - (office will call patient at home with appointment, Cardiology makes their own appointments. Sent web request on [phone]) Anthony Sagastume MD [Partnered Physician] - 12/01/16 2:40 pm Jarred Shaw CNP [Primary Care Provider] - 11/03/16 9:00 am
[2016-10-31] MEDS ORDERED: Benzonatate 100 MG CAPSULE PO PRN (08:48)
[2016-10-31] MEDS ORDERED: Albuterol 2.5 MG/3 ML NEBULIZER IH PRN (08:48)
[2016-10-31] MEDS ORDERED: Naloxone 0.4 MG/ML INJ IVP PRN (08:48)
[2016-10-31] MEDS ORDERED: Oxymetazoline Nasal SPRAY BOTTLE NS PRN (08:48)
[2016-10-31] MEDS ORDERED: Acetaminophen 325 MG TABLET PO PRN (08:48)
[2016-10-31] MEDS ORDERED: Ondansetron 4 MG/2 ML VIAL IVP PRN (08:48)
[2016-10-31] MEDS ORDERED: Dextrose Gel 15 GM PO PRN ×2 (08:48)
[2016-10-31] MEDS ORDERED: *HR* Dextrose 50 % in Water (Syg) 50 ML SYRINGE IVP PRN (08:48)
[2016-10-31] MEDS ORDERED: D5% in Water 1,000 ML IVC PRN (08:48)
--- NOTE | 2016-10-31 08:56 | Pulmonology Progress Note ---
<Marivel Castano - Last Filed: 10/31/16 10:44> Date of Encounter: 10/31/16 Time of Encounter: 08:53 Assessment and Plan (1) Status post coronary artery bypass graft Current Visit: Yes Status: Acute Transfer to . Neuropsych: Awake and alert Pulm: Severe COPD. Right chest tube placed 10/21 for small pneumothorax. Subcutaneous emphysema developed 10/22 while chest tube was clamped. Plan for chest tube removal tomorrow. Continue DuoNeb q4h, albuterol neb q2h PRN, Symbicort. Cardio: s/p CABG x4 by Dr. Sagastume on 10/20, sternotomy revision due to dehiscence . Continue aspirin, statin, beta iván, amiodarone. FEN-GI: GI prophylaxis on board, diabetic diet Renal: Stable ID: neutrophilic leukocytosis. Blood cultures final no growth, sputum culture Pseudomonas - sensitive to Levaquin. Completed 7 day course of Levaquin 10/29. Sternotomy revision cultures (10/28): anaerobic culture preliminary no growth, body fluid final no growth, acid fast stain final no growth. Heme/Onc: Postoperative anemia - stable; s/p 2 units pRBCs 10/29 (total 3 units this admission). DVT prophylaxis subcutaneous heparin. Endocrine: Stable Integ/MSK: Skin care per ICU protocol to prevent ulcers. All dressings are clean, dry and intact. Code: Full code (2) Dehiscence of closure of sternum or sternotomy Current Visit: Yes Status: Acute Qualifiers: Encounter type: subsequent encounter Qualified Code(s): T81.32XD - Disruption of internal operation (surgical) wound, not elsewhere classified, subsequent encounter (3) COPD (chronic obstructive pulmonary disease) Current Visit: Yes Status: Chronic Qualifiers: COPD type: unspecified COPD Qualified Code(s): J44.9 - Chronic obstructive pulmonary disease, unspecified (4) Leukocytosis Current Visit: Yes Status: Acute Qualifiers: Leukocytosis type: unspecified Qualified Code(s): D72.829 - Elevated white blood cell count, unspecified (5) Postoperative anemia Current Visit: Yes Status: Acute (6) Thrombocytopenia Current Visit: Yes Status: Acute (7) Hypocalcemia Current Visit: Yes Status: Acute (8) Pneumothorax Current Visit: Yes Status: Resolved Qualifiers: Pneumothorax type: unspecified pneumothorax Qualified Code(s): J93.9 - Pneumothorax, unspecified (9) Subcutaneous emphysema Current Visit: Yes Status: Acute Qualifiers: Encounter type: initial encounter Qualified Code(s): T79.7XXA - Traumatic subcutaneous emphysema, initial encounter (10) CAD (coronary artery disease) Current Visit: No Status: Chronic Qualifiers: Coronary Disease-Associated Artery/Lesion type: bypass graft, autologous vein Associated angina: angina presence unspecified Qualified Code(s): I25.810 - Atherosclerosis of coronary artery bypass graft(s) without angina pectoris (11) HTN (hypertension) Current Visit: No Status: Chronic Qualifiers: Hypertension type: essential hypertension Qualified Code(s): I10 - Essential (primary) hypertension Subjective Principal diagnosis: s/p sternotomy revision, s/p CABG, CAD, COPD Interval history: Patient doing well. Positive flatus, no bowel movement. Breathing well on 2L NC. Objective PUL Vital signs: Last Vital Signs Temp 97.8 F 10/31/16 07:45 Pulse 72 10/31/16 08:00 Resp 22 10/31/16 08:00 BP 117/92 10/31/16 08:00 Pulse Ox 100 10/31/16 08:00 General appearance: no acute distress Eyes: nonicteric ENT: oropharynx moist Neck: supple Effort: normal Auscultation: bilateral: clear Cardiovascular: regular rate and rhythm Gastrointestinal: normoactive bowel sounds, soft, non-tender Integumentary: normal, other (small amount of subcutaneous emphysema over right pectoralis) Extremities: no cyanosis, edema Musculoskeletal: no deformities normal mental status, non-focal exam mood appropriate, affect normal Results - Laboratory Findings CBC and BMP: 10/31/16 03:32 10/31/16 03:32 ABG ABG pH 7.47 pH Units (7.32-7.45) H 10/29/16 04:45 ABG pCO2 49 mmHg (35-45) H 10/29/16 04:45 ABG pO2 289 mmHg (85-104) H 10/29/16 04:45 ABG O2 Saturation 100 % (95-98) H 10/29/16 04:45 PT/INR, D-dimer PT 13.9 Seconds (9.4-12.1) H 10/21/16 03:22 Abnormal lab findings: Abnormal lab results WBC 15.1 K/mcL (4.3-11.1) H 10/31/16 03:32 RBC 3.35 M/mcL (4.19-5.50) L 10/31/16 03:32 Hgb 10.1 g/dL (12.9-16.9) L 10/31/16 03:32 Hct 30.6 % (37.5-50.1) L 10/31/16 03:32 RDW 15.2 % (11.5-14.5) H 10/31/16 03:32 Metamyelocytes % 4.0 % (0) H 10/29/16 04:20 Myelocytes % 2.0 % (0) H 10/29/16 04:20 Neutrophils # 10.9 K/mcL (1.6-8.9) H 10/31/16 03:32 Monocytes # 1.5 K/mcL (0.0-1.3) H 10/31/16 03:32 Eosinophils # 0.9 K/mcL (0.0-0.6) H 10/31/16 03:32 Nucleated RBCs/100 WBC 0.1 /100 WBC (0) H 10/28/16 15:47 Reactive Lymphocytes Present (Not Present) A 10/30/16 03:35 Toxic Granulation Present (Not Present) A 10/28/16 15:47 Large Platelets Present (Not Present) A 10/29/16 04:20 Immature Plt Fraction 12.8 % (1.1-6.1) H 10/28/16 00:10 Polychromasia 1+ (Not Present) A 10/31/16 03:32 Basophilic Stippling 1+ (Not Present) A 10/28/16 00:10 Anisocytosis 1+ (Not Present) A 10/31/16 03:32 PT 13.9 Seconds (9.4-12.1) H 10/21/16 03:22 ABG pH 7.47 pH Units (7.32-7.45) H 10/29/16 04:45 ABG pCO2 49 mmHg (35-45) H 10/29/16 04:45 ABG pO2 289 mmHg (85-104) H 10/29/16 04:45 ABG HCO3 35.7 mEQ/L (21-27) H 10/29/16 04:45 ABG Total CO2 37.2 mEq/L (20-26) H 10/29/16 04:45 ABG O2 Saturation 100 % (95-98) H 10/29/16 04:45 ABG Base Excess 11.0 mEq/L (-2.0 to 3.0) H 10/29/16 04:45 ABG Hematocrit 26 % (35-51) L 10/20/16 11:17 Potassium 3.2 mEq/L (3.5-5.3) L 10/20/16 11:17 Glucose 111 mg/dL (60-95) H 10/20/16 11:17 Ionized Calcium 0.95 mmol/L (1.15-1.35) L 10/20/16 11:17 Carbon Dioxide 31 mEq/L (19-29) H 10/31/16 03:32 POC Glucose 118 (58-89) H 10/29/16 20:32 Calcium 7.9 mg/dL (8.6-10.8) L 10/31/16 03:32 Ionized Calcium 1.11 mmol/L (1.15-1.35) L 10/29/16 04:20 Alkaline Phosphatase 35 Units/L (38-126) L 10/29/16 04:20 Serum Total Protein 4.4 g/dL (6.0-8.3) L 10/29/16 04:20 Albumin 2.1 g/dL (3.5-5.0) L 10/29/16 04:20 Globulin 2.3 g/dL (2.4-3.5) L 10/29/16 04:20 Albumin/Globulin Ratio 0.9 (1.1-2.2) L 10/29/16 04:20 Vancomycin Trough 9.4 mcg/mL (10-20) L 10/24/16 09:05 - Microbiology Findings Microbiology Findings: Microbiology, Last 48 Hours 10/28/16 14:10 Anaerobic Culture - Preliminary Other-Specify in Comments At this time, no anaerobic growth is present. The culture will be finalized after 5 days of incubation. 10/28/16 14:10 Body Fluid Culture - Preliminary Other-Specify in Comments 10/28/16 14:10 Acid Fast Stain - Final Other-Specify in Comments 10/23/16 09:41 Blood Culture - Final Peripheral Venipuncture No growth. 10/23/16 09:38 Blood Culture - Final Peripheral Venipuncture No growth. - Clinical Findings Intake & Output: Intake & Output 10/30/16 10/31/16 10/31/16 23:59 07:59 15:59 Intake Total 200 / 200 Output Total 540 / 540 366 / 366 291 / 291 Balance -540 / -540 -166 / -166 -291 / -291 Weight 87.9 kg - VTE Reasons for not Prescribing Prophylaxis: Treatment not Indicated - Low risk for VTE Documentation of Mechanical Device: Graduated compression elastic hosiery Consult Discharge Plan - Plan Referrals: Anthony Hale MD [Partnered Physician] - (office will call patient at home with appointment, Cardiology makes their own appointments. Sent web request on [phone]. Also called office 10/31/16) Anthony Sagastume MD [Partnered Physician] - 12/01/16 2:40 pm Jarred Shaw, PARUL [Primary Care Provider] - 11/03/16 9:00 am <Jamari Ascencio - Last Filed: 10/31/16 14:33> Date of Encounter: 10/31/16 Objective PUL Vital signs: Last Vital Signs Temp 98.1 F 10/31/16 11:59 Pulse 80 10/31/16 11:59 Resp 20 10/31/16 11:59 BP 108/83 10/31/16 11:59 Pulse Ox 100 10/31/16 11:59 Results - Laboratory Findings CBC and BMP: 10/31/16 03:32 10/31/16 03:32 ABG ABG pH 7.47 pH Units (7.32-7.45) H 10/29/16 04:45 ABG pCO2 49 mmHg (35-45) H 10/29/16 04:45 ABG pO2 289 mmHg (85-104) H 10/29/16 04:45 ABG O2 Saturation 100 % (95-98) H 10/29/16 04:45 PT/INR, D-dimer PT 13.9 Seconds (9.4-12.1) H 10/21/16 03:22 Abnormal lab findings: Abnormal lab results WBC 15.1 K/mcL (4.3-11.1) H 10/31/16 03:32 RBC 3.35 M/mcL (4.19-5.50) L 10/31/16 03:32 Hgb 10.1 g/dL (12.9-16.9) L 10/31/16 03:32 Hct 30.6 % (37.5-50.1) L 10/31/16 03:32 RDW 15.2 % (11.5-14.5) H 10/31/16 03:32 Metamyelocytes % 4.0 % (0) H 10/29/16 04:20 Myelocytes % 2.0 % (0) H 10/29/16 04:20 Neutrophils # 10.9 K/mcL (1.6-8.9) H 10/31/16 03:32 Monocytes # 1.5 K/mcL (0.0-1.3) H 10/31/16 03:32 Eosinophils # 0.9 K/mcL (0.0-0.6) H 10/31/16 03:32 Nucleated RBCs/100 WBC 0.1 /100 WBC (0) H 10/28/16 15:47 Reactive Lymphocytes Present (Not Present) A 10/30/16 03:35 Toxic Granulation Present (Not Present) A 10/28/16 15:47 Large Platelets Present (Not Present) A 10/29/16 04:20 Immature Plt Fraction 12.8 % (1.1-6.1) H 10/28/16 00:10 Polychromasia 1+ (Not Present) A 10/31/16 03:32 Basophilic Stippling 1+ (Not Present) A 10/28/16 00:10 Anisocytosis 1+ (Not Present) A 10/31/16 03:32 PT 13.9 Seconds (9.4-12.1) H 10/21/16 03:22 ABG pH 7.47 pH Units (7.32-7.45) H 10/29/16 04:45 ABG pCO2 49 mmHg (35-45) H 10/29/16 04:45 ABG pO2 289 mmHg (85-104) H 10/29/16 04:45 ABG HCO3 35.7 mEQ/L (21-27) H 10/29/16 04:45 ABG Total CO2 37.2 mEq/L (20-26) H 10/29/16 04:45 ABG O2 Saturation 100 % (95-98) H 10/29/16 04:45 ABG Base Excess 11.0 mEq/L (-2.0 to 3.0) H 10/29/16 04:45 ABG Hematocrit 26 % (35-51) L 10/20/16 11:17 Potassium 3.2 mEq/L (3.5-5.3) L 10/20/16 11:17 Glucose 111 mg/dL (60-95) H 10/20/16 11:17 Ionized Calcium 0.95 mmol/L (1.15-1.35) L 10/20/16 11:17 Carbon Dioxide 31 mEq/L (19-29) H 10/31/16 03:32 POC Glucose 118 (58-89) H 10/29/16 20:32 Calcium 7.9 mg/dL (8.6-10.8) L 10/31/16 03:32 Ionized Calcium 1.11 mmol/L (1.15-1.35) L 10/29/16 04:20 Alkaline Phosphatase 35 Units/L (38-126) L 10/29/16 04:20 Serum Total Protein 4.4 g/dL (6.0-8.3) L 10/29/16 04:20 Albumin 2.1 g/dL (3.5-5.0) L 10/29/16 04:20 Globulin 2.3 g/dL (2.4-3.5) L 10/29/16 04:20 Albumin/Globulin Ratio 0.9 (1.1-2.2) L 10/29/16 04:20 Vancomycin Trough 9.4 mcg/mL (10-20) L 10/24/16 09:05 - Microbiology Findings Microbiology Findings: Microbiology, Last 48 Hours 10/28/16 14:10 Anaerobic Culture - Preliminary Other-Specify in Comments At this time, no anaerobic growth is present. The culture will be finalized after 5 days of incubation. 10/28/16 14:10 Body Fluid Culture - Preliminary Other-Specify in Comments 10/28/16 14:10 Acid Fast Stain - Final Other-Specify in Comments - Clinical Findings Intake & Output: Intake & Output 10/30/16 10/31/16 10/31/16 23:59 07:59 15:59 Intake Total 200 / 200 600 / 600 Output Total 540 / 540 366 / 366 423 / 423 Balance -540 / -540 -166 / -166 177 / 177 Weight 87.9 kg - Attending Attestation I examined this patient and my medical decision-making was reviewed with the BROOM WORKER/PA/Advanced Practice Nurse/Resident Physician. I agree with the documented findings, disposition and treatment plan as described except to the extent set forth below. All pertinent labs and images reviewed. Patient was discussed in multidisciplinary Rounds. Neuro: Alert and oriented. No acute issues. Cardiovascular: Status post CABG with subsequent sternotomy revision following dehiscence. Persistent A. fib but rate is controlled. Pulmonary: COPD stable. Chest tube to waterseal with plan for discontinuation tomorrow. Subcutaneous emphysema resolving. Nephro: No acute issues: GI: Tolerating by mouth. No acute issues ID: Seven-day course of Levaquin completed. No evidence of ongoing infection. HO: Anemia. Status post 3 packed red blood cell transfusions. Stable Endocrine: No acute issues. MSK: Status post sternotomy revision for dehiscence. No acute issues Disposition: Appropriate for transfer from ICU.
[2016-10-31] MEDS: *HR* Morphine 2 MG/ML SYRINGE IVP PRN ×2 (09:49→18:24)
[2016-10-31] MEDS: Pantoprazole 40 MG VIAL IVP SCH (10:01)
[2016-10-31] MEDS: Aspirin Enteric Coated 81 MG Tablet PO SCH (10:01)
[2016-10-31] MEDS: *HR* Amiodarone 200 MG TABLET PO SCH ×2 (10:01→20:05)
[2016-10-31] MEDS: Sennosides/Docusate Sodium TABLET PO SCH ×2 (10:56→20:04)
[2016-11-01] MEDS: *HR* OxyCODONE/APAP 5/325 TABLET PO PRN ×5 (00:17→23:41)
[2016-11-01] MEDS: *HR* LORazepam 1 MG TABLET PO PRN ×3 (00:17→20:14)
[2016-11-01] MEDS: Acetylcysteine 10% 2 ML INHSOL IH SCH ×5 (03:46→20:41)
[2016-11-01] MEDS: Ipratropium/Albuterol Neb 3 ML IH SCH ×5 (03:46→20:41)
[2016-11-01] MEDS: *HR* Heparin 5,000 UNIT/ML VIAL SQ SCH ×2 (06:28→17:51)
--- NOTE | 2016-11-01 07:10 | Cardiothoracic Progress Note ---
Date of Encounter: 11/01/16 Time of Encounter: 07:08 - Assessment and plan (1) CAD (coronary artery disease) Current Visit: No Status: Chronic The patient is recovering fairly well from his CABG4 and sternal rewiring. He has no respiratory distress this morning. The chest tubes were removed. The patient will continue ambulating in the hallways. The assessment and plan as outlined above was discussed with the patient and/or family members who expressed understanding and agreement. All questions were answered. Qualifiers: Coronary Disease-Associated Artery/Lesion type: bypass graft, autologous vein Associated angina: angina presence unspecified Qualified Code(s): I25.810 - Atherosclerosis of coronary artery bypass graft(s) without angina pectoris - Subjective Procedure(s) Performed: POD#12 S/P CABG4 POD#4 S/P Sternal rewiring Interval history: The patient remained hemodynamic stable overnight. He is resting in his hospital bed and breathing comfortably. He has no complaints Vital Signs, Last 4 Hours Pulse Resp BP Pulse Ox 11/01/16 03:50 76 18 107/88 100 Oxgyen Flow Rate Oxygen Flow Rate (LPM) 2 Clinical Data, last 8 Hours Output, Chest Tube Drainage 30 Amount [Anterior Chest #2] Output, Urine Amount 500 Output, Urine Amount 275 Weight 10/30/16 10/31/16 11/01/16 23:59 23:59 23:59 Weight 86.818 kg 87.9 kg - Physical Examination General: Conversant, No Apparent Distress Neck: No JVD, Normal carotid pulses Cardiac: Reg Rate and Rhythm, Normal S1 and S2, No Murmur Incision: No signs of infection, Dry/intact dressing Sternum: Stable Chest tubes: Minimal drainage, Other (No air leak.) Lungs: Normal Breath Sounds, No Wheeze, Rales, Rhonchi Neuro: Alert and responsive, No focal deficits noted Vascular: Normal capillary refill Musculoskeletal: No Chest Wall Tenderness Extremities: No Clubbing, No Cyanosis, No Edema - Labs 10/31/16 03:32 10/31/16 03:32 - Imaging Chest Xray: image reviewed (No pneumothorax. Persistent bilateral pleural effusions. Mild pulmonary edema.) - VTE Reasons for not Prescribing Prophylaxis: Treatment not Indicated - Low risk for VTE Documentation of Mechanical Device: Graduated compression elastic hosiery Consult Discharge Plan - Plan Referrals: Anthony Hale MD [Partnered Physician] - (office will call patient at home with appointment, Cardiology makes their own appointments. Sent web request on [phone]. Also called office 10/31/16) Anthony Sagastume MD [Partnered Physician] - 12/01/16 2:40 pm Jarred Shaw CNP [Primary Care Provider] - 11/03/16 9:00 am
[2016-11-01 07:31] LABS: Hematocrit 31.4 % (37.5-50.1); Hemoglobin 10.3 g/dL (12.9-16.9); Mean Corpuscular HGB Conc 32.8 g/dL (31.6-35.5); Mean Corpuscular Hemoglobin 29.8 pg (28.0-33.3); Mean Corpuscular Volume 90.8 fL (83.0-100.0); Mean Platelet Volume 11.3 fL (9.4-12.4); Platelet Count 243 K/mcL (140-400); Red Blood Count 3.46 M/mcL (4.19-5.50); Red Cell Distribution Width 15.2 % (11.5-14.5)
[2016-11-01 07:36] LABS: BUN/Creatinine Ratio 21 (6-26); Blood Urea Nitrogen 18 mg/dL (8-26); Calcium 8.3 mg/dL (8.6-10.8); Carbon Dioxide 29 mEq/L (19-29); Chloride 104 mEq/L (98-109); Glucose 97 mg/dL (70-99); Osmolality,Calculated 290 (280-300); Potassium 4.3 mEq/L (3.5-4.5); Sodium 139 mEq/L (136-145); eGFR For African Americans > 60 (> 60); eGFR For Non-African Americans > 60 (> 60)
[2016-11-01] MEDS: Sennosides/Docusate Sodium TABLET PO SCH ×2 (07:52→20:13)
[2016-11-01] MEDS: Aspirin Enteric Coated 81 MG Tablet PO SCH (07:52)
[2016-11-01] MEDS: Pantoprazole 40 MG VIAL IVP SCH (07:53)
[2016-11-01] MEDS: *HR* Amiodarone 200 MG TABLET PO SCH ×2 (07:53→20:14)
[2016-11-01 08:27] LABS: Eosinophils # 0.3 K/mcL (0.0-0.6)
[2016-11-01 08:28] LABS: Lymphocytes # 1.4 K/mcL (0.6-4.6); Platelet Estimate Normal (Normal)
[2016-11-01] MEDS: Budesonide/Formoterol 160/4.5 MDI IH SCH ×2 (08:31→20:40)
[2016-11-01] MEDS: *HR* Morphine 2 MG/ML SYRINGE IVP PRN ×3 (10:54→20:15)
[2016-11-02] MEDS: Ipratropium/Albuterol Neb 3 ML IH SCH ×7 (00:18→23:58)
[2016-11-02] MEDS: Acetylcysteine 10% 2 ML INHSOL IH SCH ×7 (00:19→23:58)
[2016-11-02] MEDS: *HR* Morphine 2 MG/ML SYRINGE IVP PRN ×2 (03:44→08:29)
--- NOTE | 2016-11-02 06:56 | Cardiothoracic Progress Note ---
Date of Encounter: 11/02/16 Time of Encounter: 06:54 - Assessment and plan (1) CAD (coronary artery disease) Current Visit: No Status: Chronic The patient is recovering fairly well from his CABG4 and sternal rewiring. He has no respiratory distress this morning. The patient will continue ambulating in the hallways. The chest x-ray shows mild pulmonary edema and the patient will be given extra diuretic today. The assessment and plan as outlined above was discussed with the patient and/or family members who expressed understanding and agreement. All questions were answered. Qualifiers: Coronary Disease-Associated Artery/Lesion type: bypass graft, autologous vein Associated angina: angina presence unspecified Qualified Code(s): I25.810 - Atherosclerosis of coronary artery bypass graft(s) without angina pectoris - Subjective Procedure(s) Performed: POD#13 S/P CABG4 POD#5 S/P Sternal rewiring Interval history: The patient remained hemodynamic stable overnight. He is resting in his hospital bed and breathing comfortably. He has no complaints Vital Signs, Last 4 Hours Temp Pulse Resp BP Pulse Ox 11/02/16 04:52 15 92 11/02/16 04:41 98.3 F 74 15 137/88 94 11/02/16 04:15 72 15 92 Oxgyen Flow Rate Oxygen Flow Rate (LPM) 2 Clinical Data, last 8 Hours Output, Urine Amount 400 Output, Urine Amount 450 Weight 10/31/16 11/01/16 11/02/16 23:59 23:59 23:59 Weight 87.9 kg 85.8 kg - Physical Examination General: Conversant, No Apparent Distress Neck: No JVD, Normal carotid pulses Cardiac: Reg Rate and Rhythm, Normal S1 and S2, No Murmur Incision: No signs of infection, Dry/intact dressing Sternum: Stable Lungs: Normal Breath Sounds, No Wheeze, Rales, Rhonchi Neuro: Alert and responsive, No focal deficits noted Vascular: Normal capillary refill Extremities: No Clubbing, No Cyanosis, No Edema - Labs 11/01/16 06:40 11/01/16 06:40 Lab Results, Last 24 hours 11/01/16 11/01/16 06:40 06:40 WBC 13.6 H Hgb 10.3 L Hct 31.4 L Plt Count 243 Sodium 139 Potassium 4.3 Chloride 104 Carbon Dioxide 29 BUN 18 Creatinine 0.84 Glucose 97 Calcium 8.3 L - Imaging Chest Xray: image reviewed (No pneumothorax. Small bilateral pleural effusions. Evidence of pulmonary edema.) - VTE Reasons for not Prescribing Prophylaxis: Treatment not Indicated - Low risk for VTE Documentation of Mechanical Device: Graduated compression elastic hosiery Consult Discharge Plan - Plan Referrals: Anthony Hale MD [Partnered Physician] - (office will call patient at home with appointment, Cardiology makes their own appointments. Sent web request on [phone]. Also called office 10/31/16) Anthony Sagastume MD [Partnered Physician] - 12/01/16 2:40 pm Jarred Shaw CNP [Primary Care Provider] - 11/03/16 9:00 am
[2016-11-02 07:17] LABS: Hematocrit 31.1 % (37.5-50.1); Mean Corpuscular HGB Conc 32.2 g/dL (31.6-35.5); Mean Corpuscular Hemoglobin 29.6 pg (28.0-33.3); Mean Platelet Volume 10.8 fL (9.4-12.4); Platelet Count 255 K/mcL (140-400); Red Blood Count 3.38 M/mcL (4.19-5.50); Red Cell Distribution Width 15.2 % (11.5-14.5)
[2016-11-02 07:20] LABS: BUN/Creatinine Ratio 17 (6-26); Blood Urea Nitrogen 15 mg/dL (8-26); Calcium 8.5 mg/dL (8.6-10.8); Carbon Dioxide 29 mEq/L (19-29); Chloride 104 mEq/L (98-109); Glucose 99 mg/dL (70-99); Osmolality,Calculated 287 (280-300); Potassium 4.3 mEq/L (3.5-4.5); Sodium 138 mEq/L (136-145); eGFR For African Americans > 60 (> 60); eGFR For Non-African Americans > 60 (> 60)
[2016-11-02 08:41] LABS: Eosinophils # 1.1 K/mcL (0.0-0.6); Lymphocytes # 3.5 K/mcL (0.6-4.6); Monocytes # 1.5 K/mcL (0.0-1.3); Neutrophils # 7.1 K/mcL (1.6-8.9)
[2016-11-02 08:42] LABS: Platelet Estimate Normal (Normal); Toxic Granulation Present (Not Present)
[2016-11-02 08:44] LABS: Polychromasia 1+ (Not Present); Reactive Lymphocytes Present (Not Present)
[2016-11-02] MEDS: Budesonide/Formoterol 160/4.5 MDI IH SCH ×2 (08:46→20:52)
[2016-11-02] MEDS: *HR* Amiodarone 200 MG TABLET PO SCH ×2 (09:08→19:47)
[2016-11-02] MEDS: Furosemide 20 MG/2 ML VIAL IVP SCH ×2 (09:09→16:46)
[2016-11-02] MEDS: Aspirin Enteric Coated 81 MG Tablet PO SCH (09:09)
[2016-11-02] MEDS: Sennosides/Docusate Sodium TABLET PO SCH ×2 (09:09→19:47)
[2016-11-02] MEDS: Pantoprazole 40 MG VIAL IVP SCH (09:09)
[2016-11-02] MEDS: *HR* Heparin 5,000 UNIT/ML VIAL SQ SCH ×2 (09:12→16:46)
[2016-11-02] MEDS: *HR* OxyCODONE/APAP 5/325 TABLET PO PRN ×6 (10:05→23:31)
[2016-11-03] MEDS: *HR* OxyCODONE/APAP 5/325 TABLET PO PRN ×4 (03:56→11:37)
[2016-11-03] MEDS: Ipratropium/Albuterol Neb 3 ML IH SCH ×2 (04:21→09:09)
[2016-11-03] MEDS: Acetylcysteine 10% 2 ML INHSOL IH SCH ×2 (04:22→09:09)
[2016-11-03] MEDS: *HR* Heparin 5,000 UNIT/ML VIAL SQ SCH (06:14)
[2016-11-03 07:48] VITALS: BP 117/88
[2016-11-03] MEDS: Pantoprazole 40 MG VIAL IVP SCH (08:07)
[2016-11-03] MEDS: Furosemide 20 MG/2 ML VIAL IVP SCH (08:07)
[2016-11-03] MEDS: *HR* Amiodarone 200 MG TABLET PO SCH (08:07)
[2016-11-03] MEDS: Aspirin Enteric Coated 81 MG Tablet PO SCH (08:08)
[2016-11-03] MEDS: Sennosides/Docusate Sodium TABLET PO SCH (08:08)
[2016-11-03] MEDS: Budesonide/Formoterol 160/4.5 MDI IH SCH (09:09)
--- NOTE | 2016-11-03 09:22 | Discharge Summary ---
Date of Encounter: 11/03/16 Time of Encounter: 09:20 - Discharge Diagnosis (1) CAD (coronary artery disease) Priority: Primary Status: Chronic Qualifiers: Coronary Disease-Associated Artery/Lesion type: bypass graft, autologous vein Associated angina: angina presence unspecified Qualified Code(s): I25.810 - Atherosclerosis of coronary artery bypass graft(s) without angina pectoris - Discharge Medications Prescriptions: OxyCODONE/APAP 5/325 [Percocet 5/325 MG] 1 each PO Q4HR PRN #50 tablet PRN Reason: Moderate Pain Amiodarone [Cordarone] 200 mg PO BID #60 tablet Metoprolol [Lopressor] 25 mg PO BID #60 tablet Simvastatin [Zocor] 40 mg PO HS #30 tablet Home Medications: Aspirin 325 mg PO DAILY 07/06/16 [History] HYDROcodone/Acet 5/325 mg [Thaxton 5-325 mg] 1 tab PO 1-2XD PRN 07/06/16 [History] Ipratropium/Albuterol Neb [Duoneb] 3 ml IH Q4HR 30 Days 07/10/16 [Rx] Atorvastatin [Lipitor] 80 mg PO DAILY 10/12/16 [History] Lisinopril [Zestril] 20 mg PO DAILY 10/12/16 [History] amLODIPine [Norvasc] 5 mg PO DAILY 10/12/16 [History] Albuterol Sulfate [Ventolin Hfa] 2 puff IH Q4H PRN 10/20/16 [History] Omeprazole [PriLOSEC] 40 mg PO DAILY 10/20/16 [History] Amiodarone [Cordarone] 200 mg PO BID #60 tablet 11/03/16 [Rx] Metoprolol [Lopressor] 25 mg PO BID #60 tablet 11/03/16 [Rx] OxyCODONE/APAP 5/325 [Percocet 5/325 MG] 1 each PO Q4HR PRN #50 tablet 11/03/16 [Rx] Simvastatin [Zocor] 40 mg PO HS #30 tablet 11/03/16 [Rx] Allergies/Adverse Reactions: Allergies No Known Allergies Allergy (Verified 10/20/16 07:19) Procedures/tests Complete & Pending: Pending Tests Category Date Time Status Basic Metabolic Panel Stat Lab 10/28/16 15:35 Cancelled Date of admission: 10/20/16 10:36 Primary care physician: Jarred Shaw CNP Consults: 10/20/16 11:51 Consult to Cardiac Rehabilitation-Phase1 [CONS] Routine Comment: Reason for Consult: Post open heart Call Completed: Yes 10/20/16 11:59 Consult to Pulmonology [CONS] Routine Consulting Provider: [facility] Reason for Consult: Severe COPD Time Notified: 07:30 Call Completed: Yes 10/25/16 22:29 Consult for Pharmacy Education [CONS] Routine Reason for Consult: Post-Op Heart Call Completed: Yes Consult to Occupational Therapy [CONS] Routine Comment: Evaluate, develop and implement POC Reason for Consult: Post-Op Heart Consult to Physical Therapy [CONS] Routine Comment: Evaluate, develop and implement POC Reason for Consult: Post open heart 10/26/16 11:12 Consult to Finisher Hand [CONS] Routine Reason for SW Consult: possible home O2 10/28/16 15:35 Consult to Finisher Hand [CONS] Routine Reason for SW Consult: open heart Procedure(s) Performed: 1. CABG 4 (SVG to LAD, sequential SVG to D1 and then OM2, SVG to PDA) performed October 20, 2016. 2. Endoscopic vein harvesting, greater saphenous vein from right lower extremity performed October 20, 2016. 3. Sternal rewiring performed October 28, 2016. Discharging clinician: Anthony Sagastume Anticipated date of discharge: 11/03/16 - Patient Status Disposition: Home, Self-Care - Discharge Instructions Follow Up With: Anthony Hale MD [Partnered Physician] - (office will call patient at home with appointment, Cardiology makes their own appointments. Sent web request on 10-26-16 [phone]. Also called office 10/31/16) Anthony Sagastume MD [Partnered Physician] - 12/01/16 2:40 pm Jarred Shaw CNP [Primary Care Provider] - 11/08/16 10:40 am - Diet and Activity Activity: sternal precautions, no driving for four weeks, no lifting greater than 10 pounds for eight weeks, as per physical therapy Diet: low fat, low cholesterol - Hospital Course Hospital course: The patient is a 71 year old hypertensive man with known CAD and severe COPD who has had progressive shortness of breath and dyspnea exertion since July 06, 2016. His cardiac history dates back to 2007 which time he underwent PCI with LCx stent placement. 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 On July 06, 2016 the patient was evaluated [facility] for severe shortness of breath and dyspnea on exertion. The symptoms had started several days earlier and he had difficulty power washing his house. He states he was able to perform similar activities in the previous year without difficulty. He was diagnosed with influenza A and spent several days in the hospital recovering from his respiratory distress. His manager lsw, Dr. Mendy Griffin, recommended that he be evaluated for possible coronary artery disease given the abrupt change in his breathing status. The patient underwent a nuclear stress test revealed an LVEF 53% with an inferolateral perfusion defect consistent with ischemia. The patient underwent cardiac catheterization today was found to have severe three-vessel CAD. In particular the patient has a 90-95% proximal LAD lesion, a 90% proximal LCx lesion, a 90% proximal OM1 lesion, and a 95% proximal RCA lesion. He has been recommended for high risk CABG. The patient underwent CABG 4 on October 20, 2016. He did well until POD#6 when he developed drainage from his sternal incision. A chest x-ray revealed the possibility of the sternal dehiscence. Patient underwent sternal rewiring on POD #8. Afterwards the patient continued to do well and had no evidence of sternal instability. He was ambulating in the hallways with minimal difficulty. He was discharged home on POD#14. - Time Spent with Patient Total time spent providing and/or coordinating discharge services: Physical Examination Vital Signs, Last 4 Hours Temp Pulse Resp BP Pulse Ox 11/03/16 08:00 97.2 F L 70 18 117/88 98 11/03/16 07:43 97.2 F L 70 18 117/88 98 Open Heart Registry Aspirin Cont/Prescribed at DC: Yes Beta Kelsea Cont/Prescribed at DC: Yes Statin Cont/Prescribed at DC: Yes SARKIS/ARB Cont/Prescribed at DC: Not indicated (LVEF greater than 50%.) - VTE Reasons for not Prescribing Prophylaxis: Treatment not Indicated - Low risk for VTE Documentation of Mechanical Device: Graduated compression elastic hosiery
== END 2016-11-03 11:55 | disposition home or self-care (01) | DRG 235 ==
LOC: SAMDAY 06:52 → ICNU 10:36 → 2NNU 10-25 21:52 → ICNU 10-28 13:12 → 2NNU 10-31 12:05
PROVIDERS: ADMIT Thoracic Surgery (Cardiothoracic Vascular Surgery); ATTEND Thoracic Surgery (Cardiothoracic Vascular Surgery)

== ENCOUNTER 2017-08-17 06:16 | Inpatient (IN) ==
[2017-08-17] MEDS ORDERED: Albuterol 2.5 MG/3 ML NEBULIZER IH ONE (07:42)
[2017-08-17] MEDS ORDERED: CeFAZolin Syr 2,000MG/20 ML 2,000 MG/20 ML SYRINGE IVPB ONE (07:42)
--- NOTE | 2017-08-17 07:57 | History & Physical Report ---
Date of Encounter: 08/17/17 Time of Encounter: 07:55 24 Hour HP Update - Instructions Instructions: If the History and Physical is less than 30 days old and was completed prior to A.M. admission and or procedure and has NOT been updated on calendar day of procedure please complete this update prior to performing procedure. - Update Patient reports changes in Medical Condition: No Changes in examination, assessment, or condition: No Changes in Medication: No Preop tests/diagnostics Reviewed: Yes Surgery Remains Indicated: Yes Consent for Planned Operative Procedure(s) Verified: Yes - Pre-Operative Checklist Preoperative Checklist Indicated: Yes Prophylactic Antibiotic Ordered: Yes (vancomycin due to MRSA risk) Home Medications Include Beta Kelsea: Yes Beta Kelsea Taken Today (Day of Surgery): Yes Beta Kelsea Taken Yesterday (Day Prior to Surgery): Yes Is VTE Prophylaxis Indicated?: Yes
[2017-08-17] MEDS ORDERED: Heparin 1,000 UNITS/500 mL 500 ML ONE (08:01)
--- NOTE | 2017-08-17 08:08 | Anesthesia Evaluation PreOp ---
Date of Encounter: 08/17/17 Time of Encounter: 08:05 - Past History Planned Operation: endo AAA Cardiac History: HTN, Hyperlipidemia, Other (ASCVD, PAD) Pulmonary History: Former smoker (quit x 1-5 yrs), COPD (severe obstructive disease) TREASURY AGENT History: Denies Any Significant HX Other Medical History: GERD Anesthesia History: No Prior Anesthetic Complications, Past Anesthesia (CABG x4 10/29, lung bx, aortic stent, hernia,) Alcohol Use: none Drug use: none Medications and Allergies Aspirin 81 mg PO DAILY 07/06/16 [History] amLODIPine [Norvasc] 5 mg PO HS 10/12/16 [History] Albuterol Sulfate [Ventolin Hfa] 2 puff IH Q4H PRN 10/20/16 [History] Metoprolol [Lopressor] 25 mg PO BID #60 tablet 11/03/16 [Rx] Apixaban [Eliquis] 5 mg PO BID 01/14/17 [History] Buspirone HCl [Buspar] 10 mg PO TID 06/04/17 [History] Esomeprazole Magnesium [Nexium 24Hr] 40 mg PO DAILY 06/04/17 [History] Isosorbide MONOnitrate [Isosorbide Mononitrate] 30 mg PO DAILY 06/04/17 [History ] Tamsulosin [Flomax] 0.4 mg PO DAILY 06/04/17 [History] Ascorbic Acid [Vitamin C] 500 mg PO DAILY #30 tablet 06/06/17 [Rx] Cyanocobalamin (B-12) [Vitamin B12] 1,000 mcg PO DAILY #30 tablet 06/06/17 [Rx] Ferrous Sulfate 325 mg PO DAILY #30 tablet 06/06/17 [Rx] Atorvastatin Calcium [Lipitor] 80 mg PO DAILY 08/17/17 [History] Ipratropium/Albuterol Neb [Duoneb] 3 ml IH Q4HR PRN 08/17/17 [History] Lactobacillus [Culturelle] 1 cap PO BID 08/17/17 [History] Vitamin B Complex [B Complex] 1 tab PO DAILY 08/17/17 [History] 3 Allergy/AdvReac Type Severity Reaction Status Date / Time No Known Allergies Allergy Verified 08/17/17 07:27 - Meds/Allergy Pre-op Review Medications Reviewed: Yes Allergies Reviewed: Yes Beta Blockers on Current Med List: Yes Anesthesia Results - Labs echo (post CABG): Impressions: Normal LV systolic function, LVEF 65%. Atypical septal motion consistent with prior cardiac surgery. Normal left ventricular diastolic function. Normal right ventricular size and function. Mild-moderate tricuspid regurgitation. Mild pulmonary hypertension. Estimated RVSP = 43 mmHg. Laboratory Tests 08/01/17 08/01/17 08/01/17 11:15 11:15 11:15 Hgb 11.9 L Hct 36.2 L Plt Count 200 PT 12.6 H INR 1.2 APTT 29.0 Sodium 141 Potassium 4.3 BUN 10 Creatinine 0.94 - Imaging Additional studies: PET scan: HEAD/NECK: Medialization of the right vocal fold with associated increased uptake, possibly related to right vocal cord paralysis. No hypermetabolic cervical lymph nodes. CHEST: Dominant 1.6 x 1.0 cm nodule in the posterior right upper lobe demonstrates maximum SUV of 8.4. No significant uptake in smaller nodules scattered throughout the lungs. No hypermetabolic intrathoracic lymph nodes. ABDOMEN/PELVIS: No suspicious FDG uptake. BONES/SOFT TISSUE: No suspicious osseous lesions. Moderate to intense uptake along the sternotomy wires is likely inflammatory. INCIDENTAL CT FINDINGS: Left maxillary sinus mucous retention cyst. Post CABG changes. Severe emphysema. Sequelae of chronic granulomatous disease. Small hiatal hernia. Bilateral renal cysts. Endovascular repair of abdominal aortic aneurysm. Colonic diverticulosis. Nonspecific mild free fluid within the pelvis. PE/PET CT skull to thigh DX/initi IMPRESSION: Dominant 1.6 x 1.0 cm nodule in the posterior right upper lobe is intensely hypermetabolic and consistent with primary bronchogenic carcinoma. Smaller bilateral pulmonary nodules demonstrate no significant uptake but are below the threshold for evaluation by PET and can be re-evaluated on follow-up. No evidence of metastatic disease. Anesthesia Exam Selected Entries 08/17/17 06:41 Temperature 98.3 F Pulse Rate 78 Respiratory Rate 18 Blood Pressure 110/78 O2 Sat by Pulse Oximetry 96 Weight: 77kg NPO (# of Hours): 8 - HEENT Pupil (Motor): EOMI Mallampati: II Teeth: Edentulous Oral Opening: Greater than 3 - TREASURY AGENT LOC: Oriented TREASURY AGENT Motor: Normal RUE, Normal LUE, Normal RLE, Normal LLE, Normal Face TREASURY AGENT Sensory: Normal: RUE, LUE, RLE, LLE, Face - Cardiac Rhythm: Regular Murmur: None - Pulmonary Breath Sounds: bilateral Clear (decreased BS, some wheezes) - Additional Findings Hoarse, raspy voice Anesthesia Assess/Plan ASA Score: 4 Modified Blaine Scale for Level of Consciousness: Cooperative, oriented, and tranquil Anesthetic Plan: General Monitoring Plan: Standard Monitors, A-Line, CVC (possible) Recovery Plan: PACU (Patient is high risk due to respiratory issues, he is aware he may require prolonged intubation, in which case he will need ICU. Will place a-line (can only use right arm), may need CVC)
[2017-08-17] MEDS: Ringers Solution, Lactated 1,000 ML IVC SCH ×2 (08:17→22:29)
[2017-08-17] MEDS ORDERED: *HR* Midazolam HCl 2 MG/2 ML VIAL ONE ×2 (08:49→09:27)
[2017-08-17] MEDS ORDERED: *HR* Propofol 200 MG/20 ML VIAL IVP ONE (08:57)
[2017-08-17] MEDS ORDERED: Lidocaine -MPF 4% 5 ML AMPUL ONE (08:57)
[2017-08-17] MEDS ORDERED: Lidocaine -MPF 2% 2 ML VIAL ONE (08:57)
[2017-08-17] MEDS ORDERED: Dexamethasone 4 MG/ML VIAL ONE (08:57)
[2017-08-17] MEDS ORDERED: Ondansetron 4 MG/2 ML VIAL ONE (08:57)
[2017-08-17] MEDS ORDERED: *HR* FentaNYL (PF) 100 MCG/2 ML VIAL ONE ×2 (08:57→13:34)
[2017-08-17] MEDS ORDERED: *HR* Rocuronium Bromide 50 MG/5 ML VIAL ONE ×2 (08:57→11:07)
[2017-08-17] MEDS ORDERED: *HR* Phenylephrine 10 MG/ML VIAL ONE ×4 (09:05→14:46)
[2017-08-17] MEDS ORDERED: Heparin 1,000 UNITS/500 mL 1,500 ML ONE (09:22)
[2017-08-17] MEDS ORDERED: Vancomycin 1,000 MG, Sodium Chloride IRRigation 1,000 ML IR ONE (09:25)
[2017-08-17] MEDS ORDERED: Isovue-300 150 ML INFUS..BTL IV ONE (09:54)
[2017-08-17] MEDS ORDERED: EPHEDrine 50 MG/ML VIAL ONE (10:31)
[2017-08-17] MEDS ORDERED: *HR* Heparin 5,000 UNIT/ML VIAL ONE ×2 (11:29→12:26)
[2017-08-17] MEDS ORDERED: Ondansetron 4 MG/2 ML VIAL IVP ONE (11:37)
[2017-08-17] MEDS ORDERED: *HR* Labetalol 20 MG/4 ML SYRINGE IVP PRN (11:37)
[2017-08-17] MEDS ORDERED: *HR* Promethazine 25 MG/ML VIAL IVP PRN (11:37)
[2017-08-17] MEDS ORDERED: *HR* FentaNYL (PF) 100 MCG/2 ML VIAL IVP PRN (11:37)
[2017-08-17] MEDS ORDERED: MORPHINE SUL Oral CONC 10 MG/0.5 ML ORAL.SYG SL PRN (11:37)
[2017-08-17] MEDS ORDERED: *HR* OxyCODONE Immed Rel 5 MG TABLET PO PRN (11:37)
--- NOTE | 2017-08-17 11:42 | Anesthesia Procedures ---
Date of Encounter: 08/17/17 Time of Encounter: 09:15 Procedures: Anesthesia - Arterial Line Time out performed: Yes Sedation: Versed (mg): 1 Supplemental Oxygen via Nasal Cannula (L/min): 2 Local Anesthetic: Lidocaine 1% Amount of Anesthetic used (mls): 2 Size (Gauge): 20 Length (inches): 5 Technique Used: sterile prep Post-Procedure: dry sterile dressing placed Patient tolerated procedure: well Complications: none Site: Brachial R Vitals: Vital Signs/O2 Sat, Most Current Temp Pulse Resp BP Pulse Ox 98.3 F 78 18 110/78 96 08/17/17 08:29 08/17/17 08:29 08/17/17 08:29 08/17/17 08:29 08/17/17 08:29 Comments: placed per Dr Rinaldi in holding room
[2017-08-17] MEDS ORDERED: Heparin 1,000 UNITS/500 mL 1,000 ML ONE ×2 (12:34→13:44)
[2017-08-17] MEDS ORDERED: Albumin Human 5% 25.0 GM/500 ML VIAL ONE (14:40)
[2017-08-17 14:50] LABS: ABG Base Excess 5 mEq/L (-2 to 3); ABG Chloride 104 mEq/L (98-107); ABG Glucose 189 mg/dL (60-95); ABG HCO3 32 mEq/L (21-27); ABG Ionized Calcium 1.15 mmol/L (1.15-1.35); ABG Oxygen Saturation 96 % (95-98); ABG PCO2 69 mmHg (35-45); ABG PH 7.28 pH Units (7.32-7.45); ABG PO2 92 mmHg (85-104); ABG TCO2 35 mEq/L (20-26)
[2017-08-17] MEDS ORDERED: Neostigmine Methylsulfate 3 MG/3 ML SYRINGE ONE (15:22)
[2017-08-17] MEDS ORDERED: Lacri-Lube 3.5 GM TUBE BOTH EYES PRN (16:26)
[2017-08-17] MEDS ORDERED: Dextrose Gel 15 GM/37.5 ML TUBE PO PRN ×2 (16:26)
[2017-08-17] MEDS ORDERED: D5% in Water 1,000 ML IVC PRN (16:26)
[2017-08-17] MEDS ORDERED: *HR* Dextrose 50 % in Water (Syg) 50 ML SYRINGE IVP PRN (16:26)
[2017-08-17] MEDS ORDERED: *HR* Midazolam HCl 5 MG/5 ML VIAL IVP ONE ×2 (16:28→16:54)
[2017-08-17] MEDS ORDERED: methylPREDNISolone 125 MG/2 ML VIAL IVP ONE (16:28)
--- NOTE | 2017-08-17 16:43 | Operative Note ---
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 Right femoral vessel exposure for endograft placement. 2. Left femoral vessel exposure for endograft placement. 3. Left brachial artery access for endograft placement. 4. Endograft repair of 9cm infrarenal aortic aneurysm with distal extension prosthesis. 5. Endograft repair of right common iliac artery aneurysm with additional distal extension prosthesis. 6. Endograft repair of 9cm infrarenal aortic and left common iliac artery aneurysm with distal extension prosthesis. Complications: None Anesthesia: GETA Surgeon: Enzo Ramirez Was there an production administrative assistant present: Yes Clinical Staff Pharmacist: Silviano Gonzalez Estimated blood loss (cc): 500 Specimen: Left groin lymph node Condition: stable Disposition: ICU Procedure in Detail: Indications: The patient is a 72 year old male with a history of COPD, hypertension, hyperlipidemia, coronary artery disease, essential who underwent endograft repair of his abdominal aortic aneurysm in 2008. The patient recently underwent a CT scan and was noted to have developed aneurysmal degeneration of his aorta and bilateral iliac arteries below the level of his endograft. His aneurysm measured 8 x 9cm in diameter. Repair of his aneurysm was recommended to reduce his risk of rupture. Procedure: The patient was identified, brought to the operating room and placed in the supine position on the operating room table. After induction of general endotracheal anesthesia, the patient was cleaned and draped in normal sterile fashion. Oblique incisions were made over both groins sharply. Hemostasis was obtained with electrocautery. Using blunt and sharp and electrocautery dissection, the bilateral common, deep and superficial femoral arteries were dissected circumferentially and surrounded with Vesseloops. At this point, the patient received intravenous heparin and then bilateral femoral punctures with large-bore needles were performed. Bentson wires were advanced into the aorta under fluoroscopic view. The needles were exchanged for bilateral #8-[place] sheaths. Using a selective catheter, the left iliac limb of the previously placed graft was selected and a Bentson wire was advanced into the suprarenal aorta. A long Pigtail catheter was advanced over the right wire into the aortic arch. The wire was replaced with a Lunderquist wire. Additional heparin was given throught the procedure to maintain adequate anticoagulation. Multiple attempts were then made to select the right limb of the previously placed graft via a retrograde approach. The graft limb could not be engaged. Under ultrasound guidance, the left brachial artery was identified. Using a micor puncture needle, the vessel was accessed and a wire was passed into the vessel. The needle was exchanged for a 4 [place]ian micropuncture sheath. The needle and introducer were removed and a [employer] wire was advanced into the aorta vie fluroscopic view. Using a guiding catheter, the wire was advanced into the infrarenal aorta. The wire was advenced through the right limb of the graft and was snared via the right femoral sheath. A catheter was advanced over the wire into the suprarenal aorta. The wire was withdrawn via the brachial artery and a Lunderquist wire was advanced from the right femoral artery into the aortic arch. An oblique view of the pelvis was performed with contrast to size the left distal extension prosthesis. The #8-[place] sheath was removed and exchanged for the appropriate limb, which was advanced under fluoroscopic view and positioned into the previously placed graft limb proximally and into the left external iliac artery distally. The distal extension endoprosthesis was deployed. The introducer was removed in the standard fashion. An oblique view of the right pelvis was performed to determine the length of the extension endoprothesis on the right. The distal extension endoprothesis was then advanced on the right and positioned in the previously placed graft limb proximally and towards the aortic bifurcation distally. The right distal extension prosthesis was deployed and the introducer and sheath were removed. An additional graft extension limb was required to repair the right common iliac artery aneurysm. An additional distal extension endoprosthesis and sheath were advanced over the right wire and positioned. The extension limb was then deployed into the extension endoprosthesis proximally and into the external iliac artery distally. The introducer was then removed in the standard fashion. Upon completion of the graft docking limb extension prostheses deployment, a Coda balloon was then advanced into each limb. The proximal and distal endpoints as well as overlap were expanded with gentle pressure. The balloon was left in the suprarenal position and a Flush catheter was placed in the suprarenal aorta. A Flush completion angiogram revealed no evidence of an endoleak. Tension was applied to the Vesseloops in the groin. The bilateral sheaths were then removed. After confirming hemodynamic stability, the wires were then removed. The bilateral arteriotomies were repaired with a running 6-0 Prolene. Antibiotic irrigation was infused into the groin. Platelet rich and platelet poor plasma were infused into the incisions. The bilateral groins were closed with a single layer of 2-0 Vicryl followed by two layers of 3-0 Vicryl followed by a layer of 3-0 monocryl in the subcuticular region. The left brachial sheath was removed and pressured was held to aid in hemostasis. Sterile dressings were applied. The patient was then taken to the intensive care unit intubated and in stable condition.
--- NOTE | 2017-08-17 16:48 | Pulmonology Consult Note ---
<Annie Montez - Last Filed: 08/17/17 17:29> Date of Encounter: 08/17/17 Time of Encounter: 17:37 Assessment and Plan (1) Postoperative acute respiratory failure Current Visit: Yes Status: Acute PMH of COPD, home medications include Ventolin. Patient is home O2 dependent on 3 L. POD#0 endograft repair of AAA. He was in PACU and was extubated, but was found to be in respiratory acidosis (pH 7.28, CO2 69, O2 92, HCO3 32) and required reintubation. Plan: -continue ventilator support - Sedation: Precedex and Fentanyl - DuoNeb Q4H desiree - Solu-Med 40mg IVP TID - ABG in the AM - CXR and KUB - protonix 40 daily (2) Acute blood loss as cause of postoperative anemia Current Visit: Yes Status: Acute Preoperative hemoglobin was 11.9 on 08/01. Patient was given 2 units of packed red blood cells as intraoperative hemoglobin was 7.8. Current hemoglobin 9.8. Hemoglobin stable. Will continue to monitor. Vitals are stable. Plan: -CBC repeat at 10PM -CBC in the AM (3) COPD (chronic obstructive pulmonary disease) Current Visit: Yes Status: Acute PFT 07/08/17: Spirometry shows severe airway obstructive pattern MVV is decreased.Increased residual Lung Volumes reveal hyperinflation and air trapping.Diffusion Capacity is severely reduced.Flow Volume Loop: Obstructive See plan above. Qualifiers: COPD type: emphysema Emphysema type: unspecified Qualified Code(s): J43.9 - Emphysema, unspecified (4) Abdominal aortic aneurysm, without rupture Current Visit: Yes Status: Acute POD#0 endographic repair of AAA. Hx of prior endographic repair by Dr. Ramirez. Plan: -currently post-op pain managed by Fentanyl drip (5) CAD (coronary artery disease) Current Visit: No Status: Chronic Will restart ASA, BB, when able. s/p CABG 2016. Qualifiers: Coronary Disease-Associated Artery/Lesion type: bypass graft [place] vs. transplanted heart: [place] heart Associated angina: without angina Qualified Code(s): I25.810 - Atherosclerosis of coronary artery bypass graft(s) without angina pectoris (6) DVT prophylaxis Current Visit: Yes Status: Acute Heparin SQ (7) Hypotension Current Visit: Yes Status: Acute Required Phenylephrine to maintain BP during surgery. Currently off Phenylephrine drip. Will continue to monitor and can restart if MAP drops below 65. Qualifiers: Hypotension type: other hypotension type Qualified Code(s): I95.89 - Other hypotension History of Present Illness Consult date: 08/17/17 Requesting physician: Enzo Ramirez Reason for consult: hypoxemia Chief complaint: hypoxemia History of present illness: Mr. Segura is a 72 y/o with a pmh of abdominal aortic aneurysm s/p endograft repair, hyperlipidemia, COPD 3 L O2 dependent, CAD with CABG 2016, and hypertension who is POD#0 of an endographic repair of AAA where he was hypotensive requiring phenylephrine and needed 2 Units of PRBCs. He was extubated and needed reintubation in the PACU then was transferred to ICU. Patient is currently off of pressors with a MAP in the 70s. Past Med Surg Social Fam HX - Past Medical History Medical history: aortic aneurysm, COPD, coronary artery disease, GERD, hyperlipidemia, hypertension Psychiatric history: no psych history - Past Surgical History Surgical History: angioplasty/stent, coronary bypass (CABG), other (AAA endoscopic repair prior to this visit ) - Social History Smoking Status: Former smoker Smokeless Tobacco Status: No Alcohol use: none Drug use: none - Family History Mother Living Status: Hx Family Cardiac Disorders: Yes (chf) Brother Living Status: Still Living Hx Family Endocrine Disorder: Yes (dm) Medications and Allergies Aspirin 81 mg PO DAILY 07/06/16 [History] amLODIPine [Norvasc] 5 mg PO HS 10/12/16 [History] Albuterol Sulfate [Ventolin Hfa] 2 puff IH Q4H PRN 10/20/16 [History] Metoprolol [Lopressor] 25 mg PO BID #60 tablet 11/03/16 [Rx] Apixaban [Eliquis] 5 mg PO BID 01/14/17 [History] Buspirone HCl [Buspar] 10 mg PO TID 06/04/17 [History] Esomeprazole Magnesium [Nexium 24Hr] 40 mg PO DAILY 06/04/17 [History] Isosorbide MONOnitrate [Isosorbide Mononitrate] 30 mg PO DAILY 06/04/17 [History ] Tamsulosin [Flomax] 0.4 mg PO DAILY 06/04/17 [History] Ascorbic Acid [Vitamin C] 500 mg PO DAILY #30 tablet 06/06/17 [Rx] Cyanocobalamin (B-12) [Vitamin B12] 1,000 mcg PO DAILY #30 tablet 06/06/17 [Rx] Ferrous Sulfate 325 mg PO DAILY #30 tablet 06/06/17 [Rx] Atorvastatin Calcium [Lipitor] 80 mg PO DAILY 08/17/17 [History] Ipratropium/Albuterol Neb [Duoneb] 3 ml IH Q4HR PRN 08/17/17 [History] Lactobacillus [Culturelle] 1 cap PO BID 08/17/17 [History] Vitamin B Complex [B Complex] 1 tab PO DAILY 08/17/17 [History] 3 Allergy/AdvReac Type Severity Reaction Status Date / Time No Known Allergies Allergy Verified 08/17/17 07:27 ROS unobtainable: due to endotracheal tube All Systems: The remainder of the systems were reviewed and are negative Physical Examination Vital Signs: Vital Signs, Last 4 Hours Resp BP Pulse Ox 08/17/17 16:20 18 127/70 100 Constitutional: resting comfortably intubated Head: Normocephalic, atraumatic Heart: Normal, regular rate and rhythm, no murmurs Lungs: + wheezing decrease air movement heard bilaterally, intubated on [facility] ventilator Abdomen: Soft, nondistended, nontender, bowel sounds unable to be auscultated, no guarding or rigidity. Extremities: No edema, No clubbing Skin: Skin warm and dry, no jaundice Neurologic: responding to commands per nursing lines: PIV Ventilator Settings Ventilator Settings: Ventilator Settings, Last 8 Hours Ventilator Mode A/C Ventilator Tidal Volume 480 Setting Ventilator Respiratory Rate 12 Setting Actual Respiratory Rate 21 Positive End Expiratory 5 Pressure Peak Inspiratory Airway 28 Pressure Results - Laboratory Findings ABG ABG pH 7.28 pH Units (7.32-7.45) L 08/17/17 14:45 ABG pCO2 69 mmHg (35-45) H 08/17/17 14:45 ABG pO2 92 mmHg (85-104) 08/17/17 14:45 ABG O2 Saturation 96 % (95-98) 08/17/17 14:45 Abnormal lab findings: Abnormal lab results ABG pH 7.28 pH Units (7.32-7.45) L 08/17/17 14:45 ABG pCO2 69 mmHg (35-45) H 08/17/17 14:45 ABG HCO3 32 mEq/L (21-27) H 08/17/17 14:45 ABG Total CO2 35 mEq/L (20-26) H 08/17/17 14:45 ABG Base Excess 5 mEq/L (-2 to 3) H 08/17/17 14:45 ABG Hematocrit 21.0 % (37.5-50.1) L 08/17/17 14:45 Glucose 189 mg/dL (60-95) H 08/17/17 14:45 - Clinical Findings Intake & Output: Intake & Output 08/17/17 08/17/17 08/17/17 07:59 15:59 23:59 Output Total 800 / 800 Balance -800 / -800 Weight 76.657 kg 76.657 kg Consult Discharge Plan - Plan Referrals: Enzo Ramirez MD [Partnered Physician] - 09/25/17 8:40 am Jarred Shaw, PARUL [Primary Care Provider] - <Tu Peters - Last Filed: 08/18/17 06:38> Date of Encounter: 08/18/17 All Systems: The remainder of the systems were reviewed and are negative Physical Examination Vital Signs: Vital Signs, Last 4 Hours Resp BP Pulse Ox 08/17/17 16:20 18 127/70 100 Ventilator Settings Ventilator Settings: Ventilator Settings, Last 8 Hours Ventilator Mode A/C Ventilator Tidal Volume 480 Setting Ventilator Respiratory Rate 12 Setting Actual Respiratory Rate 21 Positive End Expiratory 5 Pressure Peak Inspiratory Airway 28 Pressure Results - Laboratory Findings CBC and BMP: 08/18/17 04:35 08/18/17 04:35 ABG ABG pH 7.28 pH Units (7.32-7.45) L 08/17/17 14:45 ABG pCO2 69 mmHg (35-45) H 08/17/17 14:45 ABG pO2 92 mmHg (85-104) 08/17/17 14:45 ABG O2 Saturation 96 % (95-98) 08/17/17 14:45 Abnormal lab findings: Abnormal lab results ABG pH 7.28 pH Units (7.32-7.45) L 08/17/17 14:45 ABG pCO2 69 mmHg (35-45) H 08/17/17 14:45 ABG HCO3 32 mEq/L (21-27) H 08/17/17 14:45 ABG Total CO2 35 mEq/L (20-26) H 08/17/17 14:45 ABG Base Excess 5 mEq/L (-2 to 3) H 08/17/17 14:45 ABG Hematocrit 21.0 % (37.5-50.1) L 08/17/17 14:45 Glucose 189 mg/dL (60-95) H 08/17/17 14:45 - Clinical Findings Intake & Output: Intake & Output 08/17/17 08/17/17 08/17/17 07:59 15:59 23:59 Output Total 800 / 800 Balance -800 / -800 Weight 76.657 kg 76.657 kg - Attending Attestation I examined this patient and my medical decision-making was reviewed with the Resident Physician. I agree with the documented findings, disposition and treatment plan as described except to the extent set forth below. We independently had [id number] contact with the patient Patient seen and examined at bedside Labs, radiology, chart personally reviewed. PROBLEM MANAGER: No focal neurological deficit he is quite agitated off the sedation with endotracheal tube and will sedate over night for goal Aristeo 2-3 Pulm: Postextubation after surgery patient was noted to become to Neck and have low tidal volumes requiring reintubation. He suffers from advanced COPD and has bronchospasm on examination. Start bronchodilators and IV steroids for now. I have adjusted ventilator for prolongation in I:E ratio given obstructive lung disease repeat ABG pending. Chest x-ray reviewed which is without acute process Cards/VASC: Normal ejection fraction blood pressure was was normal on admission to ICU sedation this is an little bit of the lower side we will monitor this closely may need low-dose phenylephrine for support but will monitor at this point no requirement maps greater than 60. He is postop day 0 status post endovascular AAA repair with bilateral femoral bypass vascular surgery managing post operative aspects. FEN-GI: Nothing by mouth for now GI prophylaxis given Renal: Urine output monitored trend serum creatinine and electrolytes ID: No acute process we will continue to monitor Heme/Onc: Endo: Glucose Monitored Integ/MSK: Skin Care per routine ICU Nursing Protocol to prevent ulcers. Lines: All lines examined without evidence of infection : Dispo: Admitted ICU for vent management CODE: Full
[2017-08-17] MEDS: Dexmedetomidine HCl 400 MCG/100 ML MLS IVC SCH (16:59)
[2017-08-17 17:15] LABS: ABG Base Excess 1 mEq/L (-2 to 3); ABG HCO3 29 mEq/L (21-27); ABG Oxygen Saturation 93 % (95-98); ABG PCO2 68 mmHg (35-45); ABG PH 7.24 pH Units (7.32-7.45); ABG PO2 83 mmHg (85-104); ABG TCO2 31 mEq/L (20-26); Blood Gas Modality ASSIST CONTROL; Blood Gas Respiration Rate 12; Blood Gas VT 480 cc
[2017-08-17 17:43] LABS: Basophils # 0.1 K/mcL (0.0-0.2); Basophils % 0.5 %; Eosinophils % 0.1 %; Hematocrit 29.8 % (37.5-50.1); Hemoglobin 9.8 g/dL (12.9-16.9); Lymphocytes # 0.5 K/mcL (0.6-4.6); Lymphocytes % 4.7 %; Mean Corpuscular HGB Conc 32.9 g/dL (31.6-35.5); Mean Corpuscular Hemoglobin 30.4 pg (28.0-33.3); Mean Corpuscular Volume 92.5 fL (83.0-100.0); Mean Platelet Volume 11.2 fL (9.4-12.4); Monocytes # 0.2 K/mcL (0.0-1.3); Monocytes % 2.1 %; Platelet Count 135 K/mcL (140-400); Red Blood Count 3.22 M/mcL (4.19-5.50); Red Cell Distribution Width 15.6 % (11.5-14.5); Segmented Neutrophils % 87.6 %
[2017-08-17 17:51] LABS: INR 1.3; Prothrombin Time 14.2 Seconds (9.4-12.1)
[2017-08-17 18:03] LABS: BUN/Creatinine Ratio 13 (6-26); Blood Urea Nitrogen 11 mg/dL (8-23); Calcium 7.8 mg/dL (8.6-10.3); Carbon Dioxide 27 mEq/L (23-29); Chloride 109 mEq/L (98-107); Glucose 174 mg/dL (70-105); Osmolality,Calculated 294 (280-300); Potassium 5.2 mEq/L (3.5-5.1); Sodium 140 mEq/L (136-145); eGFR For African Americans > 60 (> 60); eGFR For Non-African Americans > 60 (> 60)
[2017-08-17 18:05] LABS: Troponin I < 0.03 ng/mL (< 0.04)
[2017-08-17] MEDS: FentaNYL (PF) 1,000 MCG in 0.9 % Sodium Chloride 80 ML IVC SCH (18:06)
[2017-08-17 18:25] LABS: ABG Base Excess 2 mEq/L (-2 to 3); ABG HCO3 29 mEq/L (21-27); ABG Oxygen Saturation 95 % (95-98); ABG PCO2 60 mmHg (35-45); ABG PH 7.29 pH Units (7.32-7.45); ABG PO2 88 mmHg (85-104); ABG TCO2 31 mEq/L (20-26); Blood Gas PEEP 5 cm H2O; Blood Gas Respiration Rate 16; Blood Gas VT 480 cc
--- NOTE | 2017-08-17 19:33 | Operative Note ---
Date of procedure: 08/17/17 Pre-op diagnosis: Abdominal aortic aneurysm (9 cm) and common iliac artery aneurysms Post-op diagnosis: same Procedure: Bilateral redo open femoral artery exposure Percutaneous ultrasound-guided left brachial artery access with 4 Cymro sheath Snared wire manipulation from original right stent graft limb into right common femoral artery Cook Zenith endovascular stent graft repair with 3 components. 2 components placed in right iliac segment; a proximal (common iliac) 13 x 56 spiral Z bridge and distal(external iliac) 11 x 122 mm spiral Z One component placed in the left iliac system which is an 11 x 90 mm spiral Z Thoracic and abdominal aortograms Complications: None Anesthesia: GETA Surgeon: Enzo Ramirez Co-Surgeon: Silviano Gonzalez Was there an physician assistant primary care present: No Estimated blood loss (cc): 500 Specimen: Left femoral lymph node Condition: stable Disposition: ICU Procedure in Detail: History Mr. Jarred Segura is a 72-year-old white male who had undergone a previous endovascular stent graft repair in 2008. On a follow-up CT scan it was noted that the patient had developed a large (9 cm) abdominal aortic aneurysm and large iliac artery aneurysms. This did cause the iliac limbs to become detached from the [place] artery and were essentially free floating. Thus there was a type IB active endovascular leak at this location requiring surgical repair. The patient now comes to the operating room for this procedure. Of note the patient has significant past medical history that includes coronary artery disease, hypercholesterolemia, hypertension, and active COPD. Procedure After informed consent was obtained the patient was taken to the operating room. General endotracheal anesthesia was established after arterial line was placed in the right upper extremity. The abdomen groin and upper thighs as well as the left upper extremity were sterilely prepped and draped. Due to the redo nature of this procedure as well as the complicated access necessary the right brachial artery was prepared for use. A 2 team surgical approach was necessary for the this procedure. This is due to the patient's very complex past medical history and complex aortic anatomy and endovascular stent graft anatomy. A 2 team approach would allow for assistance in complex intra-aortic wire and catheter manipulation as well as for complex intraoperative decision making. The bilateral femorals were exposed through an open approach using the old surgical incisions. Controls obtained of these vessels. On exploration of the left groin a large lymph node was encountered. This was resected and submitted for specimen. 18-gauge needles were then used to puncture the femoral artery in a retrograde manner and a [employer] wire was advanced into the aneurysm. A 9 Cymro sheath was then placed bilaterally. The dilator was removed and the sheath was aspirated and flushed. A [place] catheter was then inserted on both sides in an attempt to try to manipulate the wire and catheters into the limbs of the previously placed endovascular stent graft. The wire was eventually able to be placed via the left side. It was decided to proceed with placement of the left-sided stent graft at this time. It should be noted that heparin was given earlier in the procedure and intermittent doses of heparin were given during the course of this complicated intervention. A measurement was taken of the left iliac system and a 11 x 90 mm spiral Z limb was selected. This was then deployed in the left iliac system which extended down into the proximal left external iliac artery. This effectively covered the left internal iliac artery. However due to the distorted anatomy and angulation of the stent graft in the iliac graft the right side could not be satisfactorily cannulated in a retrograde manner. This then led to placement of a 4 Cymro sheath in the left brachial artery. This was guided under ultrasound guidance and was initially placed using a micropuncture set. Then a guidewire was inserted and using various catheters a guidewire was inserted and advanced into the thoracic aorta. An aortogram was obtained of the distal arch and thoracic aorta in order to facilitate movement and placement of this device. After the wire was satisfactorily applied it was then advanced in an antegrade fashion through the abdominal aorta and into the right limb of the previously placed endovascular stent graft. Then a snare was inserted via the right groin. The snare was inserted retrograde and the snare was used in order to grasp the wire and pulled the wire out through the right groin sheath. With this done and exchange was then made over a series of catheters for a rigid wire. It was elected to form a bridging stent proximally to secure an appropriate landing zone and to allow maximum overlap of the stent graft. Therefore a 13 x 56 mm spiral Z Bridge stent graft was placed into the area of the right common iliac artery. This was also done because at the distal extent of the right endovascular aneurysm was a cuff device that had been placed in 2008. This would present technical challenges for obtaining an appropriate seal and so the bridge graft was necessary. After this was performed the third and final component was then selected. This was an 11 x 122 mm spiral Z stent graft. This was placed via the right groin to overlap into the bridge stent and extending distally into the mid right external iliac artery. After this device was deployed a 32 mm Plummer balloon was placed via both the right and left side. This was gently inflated to ensure complete sealing and expansion of the stent grafts to match the size of the arteries. After this was accomplished then the marker pigtail catheter was reinserted yet again and a formal aortogram with runoff was performed of the pelvic vessels. This demonstrated no findings of endovascular leak. Appropriate sizing and sealing was achieved by angiographic evaluation. With this accomplished the wires and catheters were removed. The right groin puncture site and left groin puncture site were then closed using 6-0 Prolene suture. After appropriate backbleeding and flushing the clamps were removed and pulsatile flow was restored to the lower extremities. The vessels were evaluated with Doppler to assure appropriate flow. With this accomplished the wounds were irrigated with antibody containing solution and hemostasis achieved. The groin wounds were then closed using absorbable suture. Dry sterile dressings were applied. The left brachial artery 4 Cymro sheath was then removed and the closure pad was utilized to achieve hemostasis. Due to the multiple manipulations there was a above average blood loss for the procedure. 2 units of blood were transfused intraoperatively as well as 500 mL' s of albumin. The patient was initially extubated following the surgery but it was apparent very quickly that he would not tolerate extubation and therefore required reintubation and was transferred from the operating room to the intensive care unit to bed #4.
[2017-08-17] MEDS: Ipratropium/Albuterol Neb 3 ML IH SCH ×2 (19:34→23:48)
--- NOTE | 2017-08-17 20:29 | Procedure Note ---
<Sagar Kern - Last Filed: 08/17/17 22:16> Date of procedure: 08/17/17 Pre-op diagnosis: hypotension Post-op diagnosis: same Procedure: Procedure Note: Central Venous Catheter Insertion Indication: Hypotension Attending Physician: Dr. Monaco Assessment Clinician: Dr. Kern Indication: This is a72 year-old male with hypotension . Consent: Detailed explanation of the procedure, treatment options, risks including but not limited to infection and bleeding, and benefits were explained to the patient. Patient is sedated and intubated and unable to give informed consent. Technique: A time out was preformed identifying the correct procedure, the correct location with the nursing staff. The right/left neck / chest / groin was prepped with 2% chlorhexidine and draped with a full length sterile sheet in the usual fashion. The right internal jugular vein was accessed under ultrasound guidance with an 18 gauge thin wall needle. A triple lumen was inserted via the seldinger technique. Blood was withdrawn from all lumens and flushed with normal saline. The catheter was sutured in place and a sterile dressing was applied over the site prior to removal of drapes. The patient tolerated the procedure well and there were no complications. Chest x ray: Appropriate position with no evidence of pneumothorax EBL: Minimal Complication: None Anesthesia: IV sedation Surgeon: Sagar Kern Was there an drug safety assistant present: No Estimated blood loss (cc): 0 Specimen: none Pathology: none sent Condition: stable Disposition: ICU <JacindaTonytracy - Last Filed: 08/18/17 05:39> Procedure: I examined this patient and my medical decision-making was reviewed with the Resident Physician Dr. Kern. I agree with the documented findings, disposition and treatment plan as described except to the extent set forth below. I was at bed side with the resident while he was performing the procedure. We identified the correct pt with nursing staff and called time out. Performed the whole procedure in sterile conditions. Placed the Rt IJ line with U/S guidance. Procedure was performed on 08/17/17 @ 20:10
[2017-08-17] MEDS: Phenylephrine 10 MG in D5% in Water 250 ML IVC SCH (20:31)
[2017-08-17] MEDS: Chlorhexidine Rinse 15 ML MOUTHWASH MM SCH (20:34)
[2017-08-17] MEDS: Lacri-Lube 3.5 GM TUBE BOTH EYES SCH ×2 (20:34→23:01)
[2017-08-17] MEDS: MethylPREDNISolone 40 MG/ML VIAL IVP SCH (20:34)
[2017-08-17 21:17] LABS: Hematocrit 29.9 % (37.5-50.1); Hemoglobin 9.7 g/dL (12.9-16.9); Mean Corpuscular HGB Conc 32.4 g/dL (31.6-35.5); Mean Corpuscular Hemoglobin 29.9 pg (28.0-33.3); Mean Corpuscular Volume 92.3 fL (83.0-100.0); Mean Platelet Volume 11.3 fL (9.4-12.4); Platelet Count 147 K/mcL (140-400); Red Blood Count 3.24 M/mcL (4.19-5.50); Red Cell Distribution Width 15.9 % (11.5-14.5)
[2017-08-18] MEDS: FentaNYL (PF) 1,000 MCG in 0.9 % Sodium Chloride 80 ML IVC SCH ×2 (00:04→04:29)
[2017-08-18] MEDS: Dexmedetomidine HCl 400 MCG/100 ML MLS IVC SCH ×2 (01:00→06:10)
[2017-08-18] MEDS: Phenylephrine 10 MG in D5% in Water 250 ML IVC SCH ×3 (02:52→07:54)
[2017-08-18] MEDS: Ipratropium/Albuterol Neb 3 ML IH SCH ×6 (03:25→23:37)
[2017-08-18] MEDS: Lacri-Lube 3.5 GM TUBE BOTH EYES SCH ×5 (04:28→20:43)
[2017-08-18 04:38] LABS: ABG Base Excess 3 mEq/L (-2 to 3); ABG HCO3 31 mEq/L (21-27); ABG Oxygen Saturation 93 % (95-98); ABG PCO2 66 mmHg (35-45); ABG PH 7.28 pH Units (7.32-7.45); ABG PO2 78 mmHg (85-104); ABG TCO2 33 mEq/L (20-26); Blood Gas Modality ASSIST CONTROL; Blood Gas PEEP 5 cm H2O; Blood Gas Respiration Rate 16; Blood Gas VT 500 cc
[2017-08-18 04:47] LABS: Hematocrit 29.3 % (37.5-50.1); Hemoglobin 9.5 g/dL (12.9-16.9); Mean Corpuscular HGB Conc 32.4 g/dL (31.6-35.5); Mean Corpuscular Hemoglobin 29.9 pg (28.0-33.3); Mean Corpuscular Volume 92.1 fL (83.0-100.0); Mean Platelet Volume 11.5 fL (9.4-12.4); Platelet Count 161 K/mcL (140-400); Red Blood Count 3.18 M/mcL (4.19-5.50); Red Cell Distribution Width 15.9 % (11.5-14.5)
[2017-08-18 05:05] LABS: BUN/Creatinine Ratio 16 (6-26); Blood Urea Nitrogen 16 mg/dL (8-23); Carbon Dioxide 29 mEq/L (23-29); Chloride 104 mEq/L (98-107); Glucose 182 mg/dL (70-105); Osmolality,Calculated 288 (280-300); Potassium 4.9 mEq/L (3.5-5.1); Sodium 136 mEq/L (136-145); eGFR For African Americans > 60 (> 60); eGFR For Non-African Americans > 60 (> 60)
[2017-08-18] MEDS: *HR* Heparin 5,000 UNIT/ML VIAL SQ SCH ×2 (06:05→17:12)
[2017-08-18] MEDS: Chlorhexidine Rinse 15 ML MOUTHWASH MM SCH ×2 (07:21→20:44)
[2017-08-18] MEDS: MethylPREDNISolone 40 MG/ML VIAL IVP SCH ×3 (07:21→20:43)
[2017-08-18] MEDS: Pantoprazole 40 MG VIAL IVP SCH (07:21)
--- NOTE | 2017-08-18 08:44 | Pulmonology Progress Note ---
<FranAlejandros W - Last Filed: 08/18/17 10:14> Date of Encounter: 08/18/17 Objective PUL Vital signs: Last Vital Signs Temp 99.2 F 08/18/17 04:45 Pulse 82 08/18/17 09:00 Resp 14 08/18/17 09:00 BP 108/60 08/18/17 09:00 Pulse Ox 93 08/18/17 09:00 Ventilator Settings Ventilator Settings: Ventilator Settings, Last 8 Hours Ventilator Mode CPAP Ventilator Mode A/C Ventilator Mode A/C Ventilator Mode A/C Ventilator Mode A/C Ventilator Mode A/C Ventilator Mode A/C Ventilator Tidal Volume 500 Setting Ventilator Tidal Volume 500 Setting Ventilator Tidal Volume 500 Setting Ventilator Tidal Volume 500 Setting Ventilator Tidal Volume 500 Setting Ventilator Tidal Volume 500 Setting Ventilator Respiratory Rate 16 Setting Ventilator Respiratory Rate 16 Setting Ventilator Respiratory Rate 16 Setting Ventilator Respiratory Rate 16 Setting Ventilator Respiratory Rate 16 Setting Ventilator Respiratory Rate 16 Setting Actual Respiratory Rate 17 Actual Respiratory Rate 16 Actual Respiratory Rate 16 Actual Respiratory Rate 16 Actual Respiratory Rate 16 Positive End Expiratory 5 Pressure Positive End Expiratory 5 Pressure Positive End Expiratory 5 Pressure Positive End Expiratory 5 Pressure Positive End Expiratory 5 Pressure Positive End Expiratory 5 Pressure Peak Inspiratory Airway 39 Pressure Peak Inspiratory Airway 39 Pressure Peak Inspiratory Airway 40 Pressure Peak Inspiratory Airway 37 Pressure Peak Inspiratory Airway 34 Pressure Results - Laboratory Findings CBC and BMP: 08/18/17 04:35 08/18/17 04:35 ABG ABG pH 7.28 pH Units (7.32-7.45) L 08/18/17 04:32 ABG pCO2 66 mmHg (35-45) H 08/18/17 04:32 ABG pO2 78 mmHg (85-104) L 08/18/17 04:32 ABG O2 Saturation 93 % (95-98) L 08/18/17 04:32 PT/INR, D-dimer PT 14.2 Seconds (9.4-12.1) H 08/17/17 17:27 Abnormal lab findings: Abnormal lab results WBC 17.3 K/mcL (4.3-11.1) H 08/18/17 04:35 RBC 3.18 M/mcL (4.19-5.50) L 08/18/17 04:35 Hgb 9.5 g/dL (12.9-16.9) L 08/18/17 04:35 Hct 29.3 % (37.5-50.1) L 08/18/17 04:35 RDW 15.9 % (11.5-14.5) H 08/18/17 04:35 Immature Gran % 5.0 % (0-4) H 08/17/17 17:27 Neutrophils # 9.0 K/mcL (1.6-8.9) H 08/17/17 17:27 Lymphocytes # 0.5 K/mcL (0.6-4.6) L 08/17/17 17:27 PT 14.2 Seconds (9.4-12.1) H 08/17/17 17:27 APTT 69.0 Seconds (26.0-36.0) H 08/17/17 17:27 ABG pH 7.28 pH Units (7.32-7.45) L 08/18/17 04:32 ABG pCO2 66 mmHg (35-45) H 08/18/17 04:32 ABG pO2 78 mmHg (85-104) L 08/18/17 04:32 ABG HCO3 31 mEq/L (21-27) H 08/18/17 04:32 ABG Total CO2 33 mEq/L (20-26) H 08/18/17 04:32 ABG O2 Saturation 93 % (95-98) L 08/18/17 04:32 ABG Hematocrit 21.0 % (37.5-50.1) L 08/17/17 14:45 Glucose 189 mg/dL (60-95) H 08/17/17 14:45 Glucose 182 mg/dL (70-105) H 08/18/17 04:35 POC Glucose 158 mg/dL (70-99) H 08/17/17 23:48 Calcium 8.0 mg/dL (8.6-10.3) L 08/18/17 04:35 - Clinical Findings Intake & Output: Intake & Output 08/17/17 08/18/17 08/18/17 23:59 07:59 15:59 Intake Total 1052 / 1052 1479 / 1479 125 / 125 Output Total 150 / 150 200 / 200 Balance 902 / 902 1279 / 1279 125 / 125 Weight 84.4 kg Consult Discharge Plan - Plan Referrals: Enzo Ramirez MD [Partnered Physician] - 09/25/17 8:40 am Jarred Shaw, MANUAL MACHINIST [Primary Care Provider] - - Attending Attestation I examined this patient and my medical decision-making was reviewed with the Resident Physician. I agree with the documented findings, disposition and treatment plan as described except to the extent set forth below. We independently had [id number] contact with the patient Patient seen and examined at bedside Labs, radiology, chart personally reviewed. Management was reviewed during multidisciplinary critical care rounds. MANAGER ADULT: Awake and alert off sedation following commands Pulm: Extubated today mild AECOPD cont Steroid and BD's Cards: Wean off phenylephrine FEN-GI: ADAT once pass speech/swallow Renal: UOP monitored ID: WBC elevated but no clear infection suspect post operative stress response Heme/Onc: on heparin infusion. Endo: Glucose Monitored Integ/MSK: Skin Care per routine ICU Nursing Protocol to prevent ulcers. Lines: All lines examined without evidence of infection : Dispo: Monitor in ICU post extubation CODE: Full <MontezAnnie - Last Filed: 08/18/17 18:27> Date of Encounter: 08/18/17 Time of Encounter: 07:45 Assessment and Plan (1) Postoperative acute respiratory failure Current Visit: Yes Status: Acute PMH of COPD, home medications include Ventolin. Patient is home O2 dependent on 3 L. POD#0 endograft repair of AAA. He was in PACU and was extubated, but was found to be in respiratory acidosis (pH 7.28, CO2 69, O2 92, HCO3 32) and required reintubation. Plans extubated today. Patient is currently BiPAP during and extubated without complications. Plan: - DuoNeb Q4H [facility] - Solu-Med 40mg IVP TID, we will consider decreasing arm - protonix 40 daily - Can consider transferring to the floor tomorrow if blood pressure remains stable (2) Acute blood loss as cause of postoperative anemia Current Visit: Yes Status: Acute Preoperative hemoglobin was 11.9 on 08/01. Patient was given 2 units of packed red blood cells as intraoperative hemoglobin was 7.8. Current hemoglobin 9.5. Hemoglobin stable. Will continue to monitor. Vitals are stable. Plan: -CBC in the a.m. (3) COPD (chronic obstructive pulmonary disease) Current Visit: Yes Status: Chronic PFT 07/08/17: Spirometry shows severe airway obstructive pattern MVV is decreased.Increased residual Lung Volumes reveal hyperinflation and air trapping.Diffusion Capacity is severely reduced.Flow Volume Loop: Obstructive See plan above. Qualifiers: COPD type: emphysema Emphysema type: unspecified Qualified Code(s): J43.9 - Emphysema, unspecified (4) Abdominal aortic aneurysm, without rupture Current Visit: Yes Status: Chronic POD#1 endographic repair of AAA. Hx of prior endographic repair by Dr. Ramirez. Managed by Dr. Ramirez. (5) CAD (coronary artery disease) Current Visit: No Status: Chronic Patient currently BiPAP but should be able to switch over to PO meds tomorrow. We should be able to restart her aspirin and beta iván. Qualifiers: Coronary Disease-Associated Artery/Lesion type: bypass graft [place] vs. transplanted heart: [place] heart Associated angina: without angina Qualified Code(s): I25.810 - Atherosclerosis of coronary artery bypass graft(s) without angina pectoris (6) Hypotension Current Visit: Yes Status: Acute Required Phenylephrine to maintain BP during surgery. Overnight required central line placement as patient became hypotensive. Phenylephrine drip was restarted. Goal to wean today. Will continue to monitor. Need systolic greater than 100. Qualifiers: Hypotension type: other hypotension type Qualified Code(s): I95.89 - Other hypotension (7) DVT prophylaxis Current Visit: Yes Status: Acute Heparin SQ Subjective Principal diagnosis: Acute resp failure postop Interval history: Mr. Segura is a 72 y/o with a pmh of abdominal aortic aneurysm s/p endograft repair, hyperlipidemia, COPD 3 L O2 dependent, CAD with CABG 2016, and hypertension who is POD#1 of an endographic repair of AAA. Overnight patient proceeded to become hypotensive and phenylephrine was initiated to daily blood pressures elevated with a systolic greater than 100. Central line was placed last night due to hypotension. Objective PUL Vital signs: Last Vital Signs Temp 99.2 F 08/18/17 04:45 Pulse 70 08/18/17 08:00 Resp 17 08/18/17 08:00 BP 113/60 08/18/17 08:00 Pulse Ox 96 08/18/17 08:00 Constitutional: resting comfortably intubated Head: Normocephalic, atraumatic Heart: Normal, regular rate and rhythm, no murmurs Lungs: + wheezing still decreased air movement but greater movement today than yesterday, intubated on mech ventilator Abdomen: Soft, nondistended, nontender, bowel sounds unable to be auscultated, no guarding or rigidity. Extremities: bilateral incision sites at the inguinal region dressed without signs of infection visible, No edema, No clubbing Skin: Skin warm and dry, no jaundice Neurologic: responding to commands lines: PIV, central line Ventilator Settings Ventilator Settings: Ventilator Settings, Last 8 Hours Ventilator Mode A/C Ventilator Mode A/C Ventilator Mode A/C Ventilator Mode A/C Ventilator Mode A/C Ventilator Mode A/C Ventilator Mode A/C Ventilator Tidal Volume 500 Setting Ventilator Tidal Volume 500 Setting Ventilator Tidal Volume 500 Setting Ventilator Tidal Volume 500 Setting Ventilator Tidal Volume 500 Setting Ventilator Tidal Volume 500 Setting Ventilator Tidal Volume 500 Setting Ventilator Respiratory Rate 16 Setting Ventilator Respiratory Rate 16 Setting Ventilator Respiratory Rate 16 Setting Ventilator Respiratory Rate 16 Setting Ventilator Respiratory Rate 16 Setting Ventilator Respiratory Rate 16 Setting Ventilator Respiratory Rate 16 Setting Actual Respiratory Rate 17 Actual Respiratory Rate 16 Actual Respiratory Rate 16 Actual Respiratory Rate 16 Actual Respiratory Rate 16 Actual Respiratory Rate 16 Positive End Expiratory 5 Pressure Positive End Expiratory 5 Pressure Positive End Expiratory 5 Pressure Positive End Expiratory 5 Pressure Positive End Expiratory 5 Pressure Positive End Expiratory 5 Pressure Positive End Expiratory 5 Pressure Peak Inspiratory Airway 39 Pressure Peak Inspiratory Airway 39 Pressure Peak Inspiratory Airway 40 Pressure Peak Inspiratory Airway 37 Pressure Peak Inspiratory Airway 34 Pressure Peak Inspiratory Airway 31 Pressure Results - Laboratory Findings CBC and BMP: 08/18/17 04:35 08/18/17 04:35 ABG ABG pH 7.28 pH Units (7.32-7.45) L 08/18/17 04:32 ABG pCO2 66 mmHg (35-45) H 08/18/17 04:32 ABG pO2 78 mmHg (85-104) L 08/18/17 04:32 ABG O2 Saturation 93 % (95-98) L 08/18/17 04:32 PT/INR, D-dimer PT 14.2 Seconds (9.4-12.1) H 08/17/17 17:27 Abnormal lab findings: Abnormal lab results WBC 17.3 K/mcL (4.3-11.1) H 08/18/17 04:35 RBC 3.18 M/mcL (4.19-5.50) L 08/18/17 04:35 Hgb 9.5 g/dL (12.9-16.9) L 08/18/17 04:35 Hct 29.3 % (37.5-50.1) L 08/18/17 04:35 RDW 15.9 % (11.5-14.5) H 08/18/17 04:35 Immature Gran % 5.0 % (0-4) H 08/17/17 17:27 Neutrophils # 9.0 K/mcL (1.6-8.9) H 08/17/17 17:27 Lymphocytes # 0.5 K/mcL (0.6-4.6) L 08/17/17 17:27 PT 14.2 Seconds (9.4-12.1) H 08/17/17 17:27 APTT 69.0 Seconds (26.0-36.0) H 08/17/17 17:27 ABG pH 7.28 pH Units (7.32-7.45) L 08/18/17 04:32 ABG pCO2 66 mmHg (35-45) H 08/18/17 04:32 ABG pO2 78 mmHg (85-104) L 08/18/17 04:32 ABG HCO3 31 mEq/L (21-27) H 08/18/17 04:32 ABG Total CO2 33 mEq/L (20-26) H 08/18/17 04:32 ABG O2 Saturation 93 % (95-98) L 08/18/17 04:32 ABG Hematocrit 21.0 % (37.5-50.1) L 08/17/17 14:45 Glucose 189 mg/dL (60-95) H 08/17/17 14:45 Glucose 182 mg/dL (70-105) H 08/18/17 04:35 POC Glucose 158 mg/dL (70-99) H 08/17/17 23:48 Calcium 8.0 mg/dL (8.6-10.3) L 08/18/17 04:35 - Clinical Findings Intake & Output: Intake & Output 08/17/17 08/18/17 08/18/17 23:59 07:59 15:59 Intake Total 1052 / 1052 1479 / 1479 99 / 99 Output Total 150 / 150 200 / 200 Balance 902 / 902 1279 / 1279 99 / 99 Weight 84.4 kg - VTE Documentation of Mechanical Device: Intermittent pneumatic compression device
--- NOTE | 2017-08-18 09:24 | Vascular/Endovas Progress Note ---
Date of Encounter: 08/18/17 Time of Encounter: 07:45 - Assessment and plan (1) Abdominal aortic aneurysm, without rupture Current Visit: Yes Status: Chronic The patient is postoperative day #1 after endograft repair of his complex 9cm abdominal aortic aneurysm. His wound are healing, he has pedal signals present. (2) COPD (chronic obstructive pulmonary disease) Current Visit: Yes Status: Chronic The patient remains on the ventilator. Plan to wean vent as tolerated. Patient discussed with Dr. Peters. Qualifiers: COPD type: emphysema Emphysema type: unspecified Qualified Code(s): J43.9 - Emphysema, unspecified (3) Chronic anemia Current Visit: Yes Status: Chronic The patient has chronic anemia with acute expected postoperative blood loss anemia. He received PRBC transusion. His hemoglobin is stable. He has no evidence of ongoing blood loss. (4) HTN (hypertension) Current Visit: No Status: Chronic Qualifiers: Hypertension type: essential hypertension Qualified Code(s): I10 - Essential (primary) hypertension (5) CAD (coronary artery disease) Current Visit: No Status: Chronic Qualifiers: Coronary Disease-Associated Artery/Lesion type: bypass graft [place] vs. transplanted heart: [place] heart Associated angina: without angina Qualified Code(s): I25.810 - Atherosclerosis of coronary artery bypass graft(s) without angina pectoris - Subjective Interval history: The patient remains sedated and intubated. Vital Signs, Last 4 Hours Pulse Resp BP Pulse Ox 08/18/17 09:00 82 14 108/60 93 08/18/17 08:00 70 17 113/60 96 08/18/17 07:42 62 08/18/17 07:00 62 16 124/58 97 08/18/17 06:00 64 16 104/52 94 - Physical Examination General: Present: No Apparent Distress Cardiac: Present: Reg Rate and Rhythm Lungs: Present: Normal Breath Sounds Vascular: Present: Normal capillary refill, Pulse, normal (pedal signals present by doppler), Surgical incisions (incisions clean and dry, no hematoma at groin incisions of left brachial puncture site) Abdomen: Present: Soft Skin: Present: No rashes noted on visualized skin - VTE Documentation of Mechanical Device: Intermittent pneumatic compression device Results 08/18/17 04:35 08/18/17 04:35 Lab Results, Last 24 hours 08/17/17 08/17/17 08/17/17 17:27 17:27 17:27 WBC 10.3 Hgb 9.8 L Hct 29.8 L Plt Count 135 L INR 1.3 APTT 69.0 H Sodium 140 Potassium 5.2 H Chloride 109 H Carbon Dioxide 27 BUN 11 Creatinine 0.87 Glucose 174 H Calcium 7.8 L Troponin I < 0.03 08/17/17 08/18/17 08/18/17 21:00 04:35 04:35 WBC 15.9 H D 17.3 H Hgb 9.7 L 9.5 L Hct 29.9 L 29.3 L Plt Count 147 161 INR APTT Sodium 136 Potassium 4.9 Chloride 104 Carbon Dioxide 29 BUN 16 Creatinine 1.01 Glucose 182 H Calcium 8.0 L Troponin I Consult Discharge Plan - Plan Referrals: Enzo Ramirez MD [Partnered Physician] - 09/25/17 8:40 am Jarred Shaw, PARUL [Primary Care Provider] -
[2017-08-18] MEDS: Phenylephrine 50 MG in D5% in Water 250 ML IVC SCH (11:18)
[2017-08-18] MEDS ORDERED: *HR* LORazepam 2 MG/ML VIAL IVP ONE (12:21)
[2017-08-18] MEDS ORDERED: Oxymetazoline Nasal SPRAY BOTTLE NS PRN (17:16)
[2017-08-18] MEDS: OXYCODONE Oral CONC 10 MG/0.5 ML ORAL.SYG SL PRN (20:43)
[2017-08-19] MEDS: Lacri-Lube 3.5 GM TUBE BOTH EYES SCH ×4 (01:21→09:34)
[2017-08-19] MEDS: OXYCODONE Oral CONC 10 MG/0.5 ML ORAL.SYG SL PRN (03:23)
[2017-08-19] MEDS: Ipratropium/Albuterol Neb 3 ML IH SCH ×2 (03:40→07:29)
[2017-08-19 04:52] LABS: Hematocrit 25.4 % (37.5-50.1); Hemoglobin 8.2 g/dL (12.9-16.9); Mean Corpuscular HGB Conc 32.3 g/dL (31.6-35.5); Mean Platelet Volume 11.3 fL (9.4-12.4); Platelet Count 127 K/mcL (140-400); Red Blood Count 2.73 M/mcL (4.19-5.50); Red Cell Distribution Width 15.8 % (11.5-14.5)
[2017-08-19 05:14] LABS: BUN/Creatinine Ratio 22 (6-26); Blood Urea Nitrogen 23 mg/dL (8-23); Calcium 8.4 mg/dL (8.6-10.3); Carbon Dioxide 29 mEq/L (23-29); Chloride 102 mEq/L (98-107); Glucose 163 mg/dL (70-105); Magnesium 1.9 mg/dL (1.6-2.6); Osmolality,Calculated 293 (280-300); Phosphorous 2.9 mg/dL (2.7-4.5); Potassium 4.4 mEq/L (3.5-5.1); Sodium 138 mEq/L (136-145); eGFR For African Americans > 60 (> 60); eGFR For Non-African Americans > 60 (> 60)
[2017-08-19] MEDS: *HR* Heparin 5,000 UNIT/ML VIAL SQ SCH ×2 (06:27→17:56)
--- NOTE | 2017-08-19 07:22 | Pulmonology Progress Note ---
<FranTu W - Last Filed: 08/19/17 10:00> Date of Encounter: 08/19/17 Time of Encounter: 10:00 Objective PUL Vital signs: Last Vital Signs Temp 98.0 F 08/19/17 07:33 Pulse 98 08/19/17 09:00 Resp 22 08/19/17 09:00 BP 130/74 08/19/17 09:00 Pulse Ox 96 08/19/17 09:00 Results - Laboratory Findings CBC and BMP: 08/19/17 04:00 08/19/17 04:00 ABG ABG pH 7.28 pH Units (7.32-7.45) L 08/18/17 04:32 ABG pCO2 66 mmHg (35-45) H 08/18/17 04:32 ABG pO2 78 mmHg (85-104) L 08/18/17 04:32 ABG O2 Saturation 93 % (95-98) L 08/18/17 04:32 PT/INR, D-dimer PT 14.2 Seconds (9.4-12.1) H 08/17/17 17:27 Abnormal lab findings: Abnormal lab results WBC 24.2 K/mcL (4.3-11.1) H 08/19/17 04:00 RBC 2.73 M/mcL (4.19-5.50) L 08/19/17 04:00 Hgb 8.2 g/dL (12.9-16.9) L 08/19/17 04:00 Hct 25.4 % (37.5-50.1) L 08/19/17 04:00 RDW 15.8 % (11.5-14.5) H 08/19/17 04:00 Plt Count 127 K/mcL (140-400) L 08/19/17 04:00 Immature Gran % 5.0 % (0-4) H 08/17/17 17:27 Neutrophils # 9.0 K/mcL (1.6-8.9) H 08/17/17 17:27 Lymphocytes # 0.5 K/mcL (0.6-4.6) L 08/17/17 17:27 PT 14.2 Seconds (9.4-12.1) H 08/17/17 17:27 APTT 69.0 Seconds (26.0-36.0) H 08/17/17 17:27 ABG pH 7.28 pH Units (7.32-7.45) L 08/18/17 04:32 ABG pCO2 66 mmHg (35-45) H 08/18/17 04:32 ABG pO2 78 mmHg (85-104) L 08/18/17 04:32 ABG HCO3 31 mEq/L (21-27) H 08/18/17 04:32 ABG Total CO2 33 mEq/L (20-26) H 08/18/17 04:32 ABG O2 Saturation 93 % (95-98) L 08/18/17 04:32 ABG Hematocrit 21.0 % (37.5-50.1) L 08/17/17 14:45 Glucose 189 mg/dL (60-95) H 08/17/17 14:45 Glucose 163 mg/dL (70-105) H 08/19/17 04:00 POC Glucose 150 mg/dL (70-99) H 08/18/17 23:50 Calcium 8.4 mg/dL (8.6-10.3) L 08/19/17 04:00 - Clinical Findings Intake & Output: Intake & Output 08/18/17 08/19/17 08/19/17 23:59 07:59 15:59 Intake Total 5 / 5 Output Total 155 / 155 750 / 750 Balance -155 / -155 -750 / -750 5 / 5 Weight 84.7 kg Consult Discharge Plan - Plan Referrals: Enzo Ramirez MD [Partnered Physician] - 09/25/17 8:40 am Jarred Shaw, PARUL [Primary Care Provider] - - Attending Attestation I examined this patient and my medical decision-making was reviewed with the Resident Physician. I agree with the documented findings, disposition and treatment plan as described except to the extent set forth below. We independently had [id number] contact with the patient Patient seen and examined at bedside Labs, radiology, chart personally reviewed. Management was reviewed during multidisciplinary critical care rounds. PHARMACEUTICAL ENGINEER: Fully awake and alert no focal deficit continue to monitor for delirium Pulm: Acute on chronic hypoxic hypercarbic respiratory failure secondary to COPD exacerbation is result of postoperative pulmonary complication. His been liberated from the event and now off BiPAP and has been transitioned to Oxy mask but more for the fact that he breathes primarily through mouth then for increased oxygen requirement. Transitioned to by mouth steroids to complete 5 day course continue bronchodilators saturation around 89-92% encourage out of bed to chair ambulation as tolerated and approved by vascular surgery along with incentive spirometry Cards: Blood pressure is stable off vasopressor continue to monitor FEN-GI: Advance diet as tolerated Renal: Urine output monitored ID: He has leukocytosis which is likely related to postoperative stress response and steroid effect no clear evidence of infection at this time continue to monitor Heme/Onc: DVT prophylaxis given Endo: Glucose Monitored Integ/MSK: Skin Care per routine ICU Nursing Protocol to prevent ulcers. Lines: All lines examined without evidence of infection : Dispo: Stable for transfer to [facility] telemetry for ongoing care from cardio- respiratory standpoint CODE: Full <Mac Segura - Last Filed: 08/19/17 10:49> Date of Encounter: 08/19/17 Assessment and Plan (1) Postoperative acute respiratory failure Current Visit: Yes Status: Acute PMH COPD; POD#1 endograft repair of AAA. Pt required reintubation in PACU in post-op recovery period; respiratory acidosis on initial ABG. -- Pt extubated yesterday and stable on O2 supplementation via simple mask -- Should BiPAP as tolerates while sleeping; discussing with patient, he does not tend to tolerate pressure assistance very well. -- Cont duonebs for time being -- Changed to PO prednisone to complete 5 day burst -- Will advance diet as tolerated; able to swallow well per RN (2) COPD (chronic obstructive pulmonary disease) Current Visit: Yes Status: Chronic as above; no concern of infectious contributor, so opted not to use antimicrobials in acute care Qualifiers: COPD type: emphysema Emphysema type: unspecified Qualified Code(s): J43.9 - Emphysema, unspecified (3) Hypotension Current Visit: Yes Status: Resolved No longer requiring pressor support History of hypertension -- may reinstate home medications if pressures begin to rise beyond normal Qualifiers: Hypotension type: other hypotension type Qualified Code(s): I95.89 - Other hypotension (4) Acute blood loss as cause of postoperative anemia Current Visit: Yes Status: Acute Preoperative hemoglobin was 11.9 on 08/01. Patient was given 2 units of packed red blood cells as intraoperative hemoglobin was 7.8. -- Hgb down to 8.2g/dL this AM. -- VSS at present. -- Will monitor H/H qAM. (5) Abdominal aortic aneurysm, without rupture Current Visit: Yes Status: Chronic POD#2 -- managed by Dr. Ramirez (6) DVT prophylaxis Current Visit: Yes Status: Acute sub-cutaneous heparin Subjective Principal diagnosis: Acute resp failure postop Interval history: Successfully extubated tolerating O2 supplementation via mask. No longer requiring vasopressor support. Pt requests advancement of diet and states gets nauseous with admin of sublingual oxycodone. No other complaints at this time. Critical care needs resolved and patient is a good candidate for transfer to medical floor for any ongoing management of AECOPD. Objective PUL Vital signs: Last Vital Signs Temp 98.0 F 08/19/17 04:30 Pulse 89 08/19/17 07:00 Resp 20 08/19/17 07:00 BP 122/76 08/19/17 07:00 Pulse Ox 97 08/19/17 07:00 General appearance: no acute distress, alert Eyes: nonicteric ENT: oropharynx moist Neck: supple Effort: normal Auscultation: bilateral: clear Cardiovascular: regular rate and rhythm Gastrointestinal: normoactive bowel sounds, soft, non-distended Integumentary: normal Extremities: no cyanosis, no edema, pulses normal Musculoskeletal: no deformities normal mental status affect normal Results - Laboratory Findings CBC and BMP: 08/19/17 04:00 08/19/17 04:00 ABG ABG pH 7.28 pH Units (7.32-7.45) L 08/18/17 04:32 ABG pCO2 66 mmHg (35-45) H 08/18/17 04:32 ABG pO2 78 mmHg (85-104) L 08/18/17 04:32 ABG O2 Saturation 93 % (95-98) L 08/18/17 04:32 PT/INR, D-dimer PT 14.2 Seconds (9.4-12.1) H 08/17/17 17:27 Abnormal lab findings: Abnormal lab results WBC 24.2 K/mcL (4.3-11.1) H 08/19/17 04:00 RBC 2.73 M/mcL (4.19-5.50) L 08/19/17 04:00 Hgb 8.2 g/dL (12.9-16.9) L 08/19/17 04:00 Hct 25.4 % (37.5-50.1) L 08/19/17 04:00 RDW 15.8 % (11.5-14.5) H 08/19/17 04:00 Plt Count 127 K/mcL (140-400) L 08/19/17 04:00 Immature Gran % 5.0 % (0-4) H 08/17/17 17:27 Neutrophils # 9.0 K/mcL (1.6-8.9) H 08/17/17 17:27 Lymphocytes # 0.5 K/mcL (0.6-4.6) L 08/17/17 17:27 PT 14.2 Seconds (9.4-12.1) H 08/17/17 17:27 APTT 69.0 Seconds (26.0-36.0) H 08/17/17 17:27 ABG pH 7.28 pH Units (7.32-7.45) L 08/18/17 04:32 ABG pCO2 66 mmHg (35-45) H 08/18/17 04:32 ABG pO2 78 mmHg (85-104) L 08/18/17 04:32 ABG HCO3 31 mEq/L (21-27) H 08/18/17 04:32 ABG Total CO2 33 mEq/L (20-26) H 08/18/17 04:32 ABG O2 Saturation 93 % (95-98) L 08/18/17 04:32 ABG Hematocrit 21.0 % (37.5-50.1) L 08/17/17 14:45 Glucose 189 mg/dL (60-95) H 08/17/17 14:45 Glucose 163 mg/dL (70-105) H 08/19/17 04:00 POC Glucose 150 mg/dL (70-99) H 08/18/17 23:50 Calcium 8.4 mg/dL (8.6-10.3) L 08/19/17 04:00 - Clinical Findings Intake & Output: Intake & Output 08/18/17 08/18/17 08/19/17 15:59 23:59 07:59 Intake Total 274 / 274 Output Total 250 / 250 155 / 155 550 / 550 Balance -155 / -155 -550 / -550 Weight 84.7 kg - VTE Documentation of Mechanical Device: Intermittent pneumatic compression device
[2017-08-19] MEDS: Chlorhexidine Rinse 15 ML MOUTHWASH MM SCH (08:26)
[2017-08-19] MEDS: MethylPREDNISolone 40 MG/ML VIAL IVP SCH (08:34)
[2017-08-19] MEDS: Pantoprazole 40 MG VIAL IVP SCH (08:34)
[2017-08-19] MEDS ORDERED: OXYCODONE Oral CONC 10 MG/0.5 ML ORAL.SYG SL PRN ×3 (08:43→14:57)
[2017-08-19] MEDS: Phenylephrine 50 MG in D5% in Water 250 ML IVC SCH (09:33)
[2017-08-19] MEDS ORDERED: Ondansetron ODT 4 MG TAB.RAPDIS SL PRN ×2 (10:18→14:57)
[2017-08-19] MEDS ORDERED: Ipratropium 1 PUFF INHALER IH SCH (12:00)
--- NOTE | 2017-08-19 14:39 | Vascular/End[facility]as Progress Note ---
Date of Encounter: 08/19/17 Time of Encounter: 12:50 - Assessment and plan (1) Abdominal aortic aneurysm, without rupture Current Visit: Yes Status: Chronic The patient is postoperative day #2 after endograft repair of his complex 9cm abdominal aortic aneurysm. His wound are healing, he has pedal signals present. He has no abdominal pain or hematoma. He may be transferred to the floor. (2) COPD (chronic obstructive pulmonary disease) Current Visit: Yes Status: Chronic Now on 4L by [place]. Uses 3L by [place] at home. Ok to transfer to floor. Qualifiers: COPD type: emphysema Emphysema type: unspecified Qualified Code(s): J43.9 - Emphysema, unspecified (3) Chronic anemia Current Visit: Yes Status: Chronic The patient has chronic anemia with acute expected postoperative blood loss anemia. His hemoglobin remains stable. (4) HTN (hypertension) Current Visit: No Status: Chronic Qualifiers: Hypertension type: essential hypertension Qualified Code(s): I10 - Essential (primary) hypertension (5) CAD (coronary artery disease) Current Visit: No Status: Chronic Qualifiers: Coronary Disease-Associated Artery/Lesion type: bypass graft [place] vs. transplanted heart: [place] heart Associated angina: without angina Qualified Code(s): I25.810 - Atherosclerosis of coronary artery bypass graft(s) without angina pectoris - Subjective Interval history: The patient is alert and comfortable on 4L O2. He denies any abdominal pain. He denies chest pain or shortness of breath. Vital Signs, Last 4 Hours Temp Pulse Resp BP Pulse Ox 08/19/17 14:00 105 20 109/83 92 08/19/17 13:00 101 24 123/73 94 08/19/17 12:48 20 93 08/19/17 12:00 105 20 129/72 93 08/19/17 11:56 98.0 F 08/19/17 11:00 90 22 127/75 95 - Physical Examination General: Present: Conversant, No Apparent Distress Cardiac: Present: Reg Rate and Rhythm Lungs: Present: Normal Breath Sounds Neuro: Present: Alert and responsive, Motor nerves grossly intact, Sensory nerves grossly intact Vascular: Present: Normal capillary refill, Surgical incisions (clean and dry, no hematoma). Absent: Cyanosis, Edema Abdomen: Present: Soft, Non-tender Skin: Present: No rashes noted on visualized skin - VTE Documentation of Mechanical Device: Intermittent pneumatic compression device Results 08/19/17 04:00 08/19/17 04:00 Lab Results, Last 24 hours 08/19/17 08/19/17 04:00 04:00 WBC 24.2 H Hgb 8.2 L Hct 25.4 L Plt Count 127 L Sodium 138 Potassium 4.4 Chloride 102 Carbon Dioxide 29 BUN 23 Creatinine 1.06 Glucose 163 H Calcium 8.4 L Magnesium 1.9 Consult Discharge Plan - Plan Referrals: Enzo Ramirez MD [Partnered Physician] - 09/25/17 8:40 am Jarred Shaw CNP [Primary Care Provider] -
[2017-08-19] MEDS ORDERED: *HR* Dextrose 50 % in Water (Syg) 50 ML SYRINGE IVP PRN (14:57)
[2017-08-19] MEDS ORDERED: Oxymetazoline Nasal SPRAY BOTTLE NS PRN (14:57)
[2017-08-19] MEDS ORDERED: Acetaminophen 325 MG TABLET PO PRN (14:57)
[2017-08-19] MEDS ORDERED: D5% in Water 1,000 ML IVC PRN (14:57)
[2017-08-19] MEDS ORDERED: Naloxone 0.4 MG/ML INJ IVP PRN (14:57)
[2017-08-19] MEDS ORDERED: Dextrose Gel 15 GM/37.5 ML TUBE PO PRN ×2 (14:57)
[2017-08-19] MEDS: *HR* HYDROcodone/Acet 5/325 mg TABLET PO PRN (15:46)
[2017-08-19] MEDS: Ipratropium 1 PUFF INHALER IH SCH ×3 (16:01→23:34)
[2017-08-19] MEDS: *HR* OxyCODONE Immed Rel 5 MG TABLET PO PRN (18:03)
[2017-08-19] MEDS ORDERED: amLODIPine 5 MG TABLET PO SCH (21:00)
[2017-08-19] MEDS: Apixaban 5 MG TABLET PO SCH (21:27)
[2017-08-19] MEDS: Lactobacillus 1 EACH CAP.SPRINK PO SCH (21:27)
[2017-08-20] MEDS: *HR* OxyCODONE Immed Rel 5 MG TABLET PO PRN ×2 (00:22→08:11)
[2017-08-20 03:44] LABS: Hematocrit 24.8 % (37.5-50.1); Mean Corpuscular HGB Conc 32.3 g/dL (31.6-35.5); Mean Corpuscular Volume 92.9 fL (83.0-100.0); Platelet Count 141 K/mcL (140-400); Red Blood Count 2.67 M/mcL (4.19-5.50)
[2017-08-20 04:05] LABS: BUN/Creatinine Ratio 26 (6-26); Blood Urea Nitrogen 21 mg/dL (8-23); Calcium 8.7 mg/dL (8.6-10.3); Carbon Dioxide 32 mEq/L (23-29); Chloride 102 mEq/L (98-107); Glucose 109 mg/dL (70-105); Magnesium 2.1 mg/dL (1.6-2.6); Osmolality,Calculated 292 (280-300); Phosphorous 2.6 mg/dL (2.7-4.5); Potassium 4.5 mEq/L (3.5-5.1); Sodium 139 mEq/L (136-145); eGFR For African Americans > 60 (> 60); eGFR For Non-African Americans > 60 (> 60)
[2017-08-20] MEDS: *HR* Heparin 5,000 UNIT/ML VIAL SQ SCH (04:59)
[2017-08-20] MEDS: *HR* HYDROcodone/Acet 5/325 mg TABLET PO PRN (05:04)
[2017-08-20] MEDS: Ipratropium 1 PUFF INHALER IH SCH ×3 (05:10→11:21)
[2017-08-20] MEDS: Apixaban 5 MG TABLET PO SCH (08:10)
[2017-08-20] MEDS: Lactobacillus 1 EACH CAP.SPRINK PO SCH (08:10)
[2017-08-20] MEDS ORDERED: Vitamin B Complex/Vit C/Vit E 1 EACH TABLET PO SCH (09:00)
[2017-08-20] MEDS ORDERED: predniSONE 20 MG TABLET PO SCH ×2 (09:00)
[2017-08-20] MEDS ORDERED: Ascorbic Acid 500 MG TABLET PO SCH (09:00)
[2017-08-20] MEDS ORDERED: Aspirin Enteric Coated 81 MG Tablet PO SCH (09:00)
[2017-08-20] MEDS ORDERED: Isosorbide MONOnitrate (24 HR) 30 MG TAB.ER.24H PO SCH (09:00)
[2017-08-20] MEDS ORDERED: Pantoprazole 40 MG VIAL IVP SCH (09:00)
[2017-08-20] MEDS ORDERED: Cyanocobalamin (B-12) 1,000 MCG TABLET PO SCH (09:00)
[2017-08-20 11:49] VITALS: BP 94/67
--- NOTE | 2017-08-20 12:17 | Discharge Summary ---
Orders not resulted at time of discharge: 08/17/17 16:13 Surgical Pathology [PTH] Routine Date of Encounter: 08/20/17 Time of Encounter: 12:00 - Discharge Diagnosis (1) Abdominal aortic aneurysm, without rupture Priority: Primary Status: Chronic (2) COPD (chronic obstructive pulmonary disease) Priority: Secondary Status: Chronic Comments: The patient required ventilator support overnight. He returned to baseline O2 requirements postoperatively. Qualifiers: COPD type: emphysema Emphysema type: unspecified Qualified Code(s): J43.9 - Emphysema, unspecified (3) Chronic anemia Priority: Secondary Status: Chronic Comments: The patient received PRBCs due to acute expected postoperative blood loss anemia. He had no evidence of ongoing blood loss. (4) HTN (hypertension) Priority: Secondary Status: Chronic Qualifiers: Hypertension type: essential hypertension Qualified Code(s): I10 - Essential (primary) hypertension (5) CAD (coronary artery disease) Priority: Secondary Status: Chronic Qualifiers: Coronary Disease-Associated Artery/Lesion type: bypass graft [place] vs. transplanted heart: [place] heart Associated angina: without angina Qualified Code(s): I25.810 - Atherosclerosis of coronary artery bypass graft(s) without angina pectoris - Hospital Course Hospital course: Mr. Segura is a 72 year old male with a history of hyperlipidemia, chronic obstructive pulmonary disease, hypertension, coronary artery disease and tobacco abuse. The patient was admitted and taken to the operating room for endograft repair of aortic and iliac artery aneurysms. He tolerated the procedure well. Due to his COPD, he remained on the ventilator overnight in the intensive care unit. He was weaned from the ventilator on postoperative day #1. His oxygen requirements returned to baseline and he was discharged to home in stable condition on postoperative day #3 without complications. - Time Spent with Patient Total time spent providing and/or coordinating discharge services: - Discharge Medications Prescriptions: HYDROcodone/Acet 5/325 mg [Adona 5-325 mg] 1 tab PO Q6HR PRN 5 Days #20 tablet PRN Reason: postoperative pain Home Medications: Aspirin 81 mg PO DAILY 07/06/16 [History] amLODIPine [Norvasc] 5 mg PO HS 10/12/16 [History] Albuterol Sulfate [Ventolin Hfa] 2 puff IH Q4H PRN 10/20/16 [History] Metoprolol [Lopressor] 25 mg PO BID #60 tablet 11/03/16 [Rx] Apixaban [Eliquis] 5 mg PO BID 01/14/17 [History] Buspirone HCl [Buspar] 10 mg PO TID 06/04/17 [History] Esomeprazole Magnesium [Nexium 24Hr] 40 mg PO DAILY 06/04/17 [History] Isosorbide MONOnitrate [Isosorbide Mononitrate] 30 mg PO DAILY 06/04/17 [History ] Tamsulosin [Flomax] 0.4 mg PO DAILY 06/04/17 [History] Ascorbic Acid [Vitamin C] 500 mg PO DAILY #30 tablet 06/06/17 [Rx] Cyanocobalamin (B-12) [Vitamin B12] 1,000 mcg PO DAILY #30 tablet 06/06/17 [Rx] Ferrous Sulfate 325 mg PO DAILY #30 tablet 06/06/17 [Rx] Atorvastatin Calcium [Lipitor] 80 mg PO DAILY 08/17/17 [History] Ipratropium/Albuterol Neb [Duoneb] 3 ml IH Q4HR PRN 08/17/17 [History] Lactobacillus [Culturelle] 1 cap PO BID 08/17/17 [History] Vitamin B Complex [B Complex] 1 tab PO DAILY 08/17/17 [History] HYDROcodone/Acet 5/325 mg [Adona 5-325 mg] 1 tab PO Q6HR PRN 5 Days #20 tablet 08/20/17 [Rx] Allergies/Adverse Reactions: 3 Allergy/AdvReac Type Severity Reaction Status Date / Time No Known Allergies Allergy Verified 08/17/17 07:27 Date of admission: 08/17/17 16:26 Primary care physician: Jarred Shaw CNP Procedure(s) Performed: Endograft repair of aortic and iliac artery aneurysms. Discharging clinician: Enzo Ramirez Anticipated date of discharge: 08/20/17 Exam Vital Signs, Last 4 Hours Temp Pulse Resp BP Pulse Ox 08/20/17 11:47 98.4 F 86 20 94/67 96 08/20/17 11:21 18 97 General: Present: Conversant HEENT: Present: Atraumatic, Pupils equal Cardiac: Present: Reg Rate and Rhythm Lungs: Present: Normal Breath Sounds Neuro: Present: Alert and responsive Abdomen: Present: Soft, Non-tender Vascular: Present: Capillary refill delayed, Surgical incisions (clean and dry, no hematoma). Absent: Cyanosis, Edema Skin: Present: No rashes noted on visualized skin - Patient Status Disposition: Home, Self-Care Condition: Good Functional capacity at discharge: independent ambulation Overall status at discharge: patient is back to baseline - Discharge Instructions Instructions: Hydrocodone/Acetaminophen (By mouth), Abdominal Aortic Aneurysm ( DC), Endovascular Abdominal Aortic Aneurysm Repair (DC) Follow Up With: Enzo Ramirez MD [Partnered Physician] - 09/25/17 8:40 am Jarred Shaw CNP [Primary Care Provider] - Additional Instructions: May remove bandage and shower on 08/20/17. Wash wound gently and pat to dry. Apply dry bandage to wound daily for 7 days. No tub baths or swimming until 09/11/17. Call Dr. Ramirez at [phone] with questions or concerns. - Diet and Activity Activity: increase activity as tolerated Diet: advance to your usual diet - VTE Documentation of Mechanical Device: Intermittent pneumatic compression device
== END 2017-08-20 13:05 | disposition home or self-care (01) | DRG 268 ==
LOC: SAMDAY 06:16 → ICNU 16:26 → 2NNU 08-19 16:33
PROVIDERS: ADMIT Surgery; ATTEND Surgery